=== PATIENT | female | born 1985 | race African-American/Black ===

== ENCOUNTER 2016-05-15 00:35 | Emergency (ER) | payer OTHER ==
[2016-05-15] MEDS ORDERED: diazePAM 5 MG TAB As Ordered ONE (02:14)
[2016-05-15] MEDS ORDERED: KETOROLAC 30 MG/ML VIAL (J1885) As Ordered ONE (02:14)
[2016-05-15] MEDS ORDERED: MORPHINE 4 MG/ML 1ML SYRINGE As Ordered ONE (02:14)
--- NOTE | 2016-05-15 04:18 | EDDOCDS ---
Physician Documentation [facility] Name: Umm Bueno Age: 31 yrs Sex: Female : 1985 Arrival Date: 05/15/2016 Time: 00:35 Bed 9 Private MD: Disposition: 05/15/16 04:03 Discharged to Home/Self Care. Impression: Low back pain. - Condition is Stable. - Discharge Instructions: Back Pain, Adult, Musculoskeletal Pain, Back Pain, Adult, [id number]. - Prescriptions for Naprosyn 500 mg Oral Tablet - take 1 tablet by ORAL route 2 times per day take with food; 30 tablet. Percocet 5- 325 mg Oral Tablet - take 1 tablet by ORAL route every 6 hours As needed MDD: 4 tabs; 20 tablet. Valium 5 mg Oral Tablet - take 1 tablet by ORAL route every 8 hours As needed MDD: 3 tabs; 20 tablet. - Medication Reconciliation, Local Pharmacy Hours form. - Follow up: HALIMA Turner; When: 2 - 3 days; Reason: Continuance of care. - Problem is an acute exacerbation. - Symptoms have improved. Historical: - Allergies: PENICILLINS (Hives, Swelling); - Home Meds: 1. Advair Diskus 250-50 mcg/dose Inhl dsdv 1 puff 2 times per day (Last dose: Unknown) - PMHx: herniated disc L4/5; Migraine Headaches; - PSHx: Arthroscopy, Knee- Right; left hand surgery; ; Tonsillectomy; - Social history: Smoking status: Patient uses tobacco products, light tobacco smoker. No barriers to communication noted, The patient speaks fluent Urdu, Speaks appropriately for age. - Family history: Not pertinent. - : The pt / caregiver states he / she is not on anticoagulants. Home medication list is obtained from the patient. - Exposure Risk Screening:: None identified. 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 1 in. (154.94 cm) (R); Pain 8/10; 04:06 BP 133 / 80 LA Sitting (auto/reg); Pulse 65 MON; Resp 18 S; Temp 98.2(TE); Pulse Ox 99% cln on R/A; Pain 04/25; 00:42 Body Mass Index 27.59 (66.22 kg, 154.94 cm) [facility] MDM: 01:43 IV Saline Lock ordered. mm11 01:43 ketorolac 30 mg IVP once ordered. mm11 01:44 morphine 4 mg IVP every 30 minutes; Document pain score/vitals after each dose (Hold if mm11 SBP < 90mmHg) x2 ordered. 01:44 Diazepam 5 mg PO once ordered. mm11 03:11 Financial registration complete. [facility] Administered Medications: 02:29 Drug: ketorolac 30 mg [ketorolac 30 mg/mL (1 mL) injection solution (1 mL)] Route: IVP; js15 Site: right antecubital; 03:00 Follow up: Response: Pain is decreased js15 02:29 Drug: morphine 4 mg [morphine 4 mg/mL intravenous cartridge (1 mL)] Route: IVP; Site: js15 right antecubital; 03:00 Follow up: Response: Pain is decreased js15 02:29 Drug: Diazepam 5 mg [diazepam 5 mg tablet (1 tabs)] Route: PO; js15 03:30 Follow up: Response: Pain is decreased js15 Signatures: Angle Khan, RN RN kmg1 Jean-Claude Dallas DO DO mm11 Erica Larson [facility] Pricila Ruvalcaba RN RN js15 JANNIE
--- NOTE | 2016-05-15 04:18 | EDDOCDS ---
Nurse's Notes [facility] Name: Umm Bueno Age: 31 yrs Sex: Female : 1985 Arrival Date: 05/15/2016 Time: 00:35 Bed 9 Private MD: Diagnosis: Low back pain Presentation: 05/15 00:38 Presenting complaint: Patient states: [place] a pull from low mid back outward while kmg1 grocery shopping. Now has pain in right low back radiating upward and tingling in right leg. Suicide/Homicide risk assessment- the patient denies having any suicidal and/or homicidal ideations and does not present with any other emotional, behavioral or mental health complaints. Status: The patient is a dependent. Transition of care: patient was not received from another setting of care. 00:38 Acuity: CODY Level 3 [facility] 00:38 Method Of Arrival: Walkin/Carried/Asstd [facility] 00:42 Adult Sepsis Screening: The patient does not have new or worsening altered mentation. [facility] Patient's respiratory rate is less than 22. Systolic blood pressure is greater than 100. Patient has a qSOFA score of 0- Negative Sepsis Screen. Triage Assessment: 00:42 General: Appears in no apparent distress, uncomfortable, Behavior is appropriate for [facility] age, cooperative, pleasant. Pain: Location: lumbar area and right low back Quality of pain is described as Pulling/stretching Alleviated by nothing. HIV screening NA for this visit Offered previously. Neurological: Level of Consciousness is awake, alert, Oriented to person, place, time. Musculoskeletal: Reports numbness in right leg. 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 Advair Diskus 250-50 mcg/dose Inhl dsdv 1 puff 2 times per day (Last dose: Unknown) - PMHx: herniated disc L4/5; Migraine Headaches; - PSHx: Arthroscopy, Knee- Right; left hand surgery; ; Tonsillectomy; - Social history: Smoking status: Patient uses tobacco products, light tobacco smoker. No barriers to communication noted, The patient speaks fluent Tristanian, Speaks appropriately for age. - Family history: Not pertinent. - : The pt / caregiver states he / she is not on anticoagulants. Home medication list is obtained from the patient. - Exposure Risk Screening:: None identified. Screenin:30 Screening information is obtained from the patient. Fall risk: At risk due to pain when js15 walking. The following interventions are performed due to a positive Fall Risk Screen: family at bedside, bed in low position, call light in reach, side rails up x1 per pt request. Assistance ADL's: requires no assistance with activities of daily living. Abuse/DV Screen: The patient / caregiver reports he/she is: not in a situation that causes fear, pain or injury. Nutritional screening: No deficits noted. Advance Directives: There is no active DNR order. home support is adequate. Assessment: 01:30 General: Appears in no apparent distress, uncomfortable, Behavior is appropriate for js15 age, cooperative. Pain: Location: right leg and back and right low back and lumbar area Pain currently is 7 out of 10 on a pain scale. Neurological: Level of Consciousness is awake, alert, obeys commands, Oriented to person, place, time, Gait is painful. Respiratory: Airway is patent Respiratory effort is even, unlabored, Respiratory pattern is regular, symmetrical. Derm: Skin is normal. 02:30 Reassessment: Patient appears in no apparent distress at this time. Pt resting on js15 stretcher, respirations even and unlabored; skin normal, warm, dry. 03:52 Reassessment: Patient appears in no apparent distress at this time. Patient states js15 feeling better. Patient states symptoms have improved. Pt resting on stretcher, gait is improved and reportedly less painful; pt reports ready to go home; respirations even and unlabored; skin normal, warm, dry. Vital Signs: 00:42 BP 171 / 78; Pulse 88; Resp 18; Temp 98.1(O); Pulse Ox 99% ; Weight 66.22 kg (R); kmg1 Height 5 ft. 1 in. (154.94 cm) (R); Pain 810; 04:06 BP 133 / 80 LA Sitting (auto/reg); Pulse 65 MON; Resp 18 S; Temp 98.2(TE); Pulse Ox 99% cln on R/A; Pain 1/; 00:42 Body Mass Index 27.59 (66.22 kg, 154.94 cm) km Vitals: 00:42 Log In Time: May 15, 2016 at 00:37. kmg1 ED Course: 00:36 Patient visited by Adali Baeza, Sachin. hs2 00:36 Patient moved to Waiting hs2 00:41 Triage Initiated kmg1 01:09 Patient moved to 9 sls1 01:33 Jean-Claude Dallas DO is Attending Physician. mm11 01:33 Patient visited by Jean-Claude Dallas DO. mm11 01:45 Patient visited by Jean-Claude Dallas DO. mm11 02:00 The patient / caregiver is instructed regarding the plan of care and ED course. js15 02:25 Inserted saline lock: 20 gauge in right antecubital area The patient tolerated the js15 procedure well. 02:48 Patient visited by Kimberlee Khalil PCA. fernando 03:50 Patient visited by Kimberlee Khalil PCA. fernando 03:54 No procedures done that require assistance. js15 04:02 HALIMA Turner is Referral Physician. mm11 04:07 Patient visited by Mitra Mckeon PCA. cln 04:16 Discontinued IV lock intact, bleeding controlled, pressure dressing applied, No js15 redness/swelling at site. Administered Medications: 02:29 Drug: ketorolac 30 mg [ketorolac 30 mg/mL (1 mL) injection solution (1 mL)] Route: IVP; js15 Site: right antecubital; 03:00 Follow up: Response: Pain is decreased js15 02:29 Drug: morphine 4 mg [morphine 4 mg/mL intravenous cartridge (1 mL)] Route: IVP; Site: js15 right antecubital; 03:00 Follow up: Response: Pain is decreased js15 02:29 Drug: Diazepam 5 mg [diazepam 5 mg tablet (1 tabs)] Route: PO; js15 03:30 Follow up: Response: Pain is decreased js15 Order Results: There are currently no results for this order. Outcome: 04:03 Discharge ordered by Provider. mm11 04:16 Discharge Assessment: Patient awake, alert and oriented x 3. No cognitive and/or js15 functional deficits noted. Patient verbalized understanding of disposition instructions. patient administered narcotics - yes. Pt provided with safe discharge. The following High Risk Discharge criteria are identified: None. Discharged to home ambulatory, with significant other. Condition: stable Condition: improved. Discharge instructions given to patient, Instructed on discharge instructions, follow up and referral plans. medication usage, no driving heavy equipment, Rest, Ice, Compression and Elevation. Demonstrated understanding of instructions, medications, Pt was receptive of discharge instructions/ teaching. Prescriptions given X 3. CT Study completed. Property sent home with patient. 04:17 Patient left the ED. js15 Signatures: Angle Khan, RN RN kmg1 Jean-Claude Dallas, DO mm11 Kimberlee Khalil, CLOTH BRUSHING AND SUEDING SUPERVISOR CLOTH BRUSHING AND SUEDING SUPERVISOR fernando Jessica Gomez RN RN sls1 Pricila RuvalcabaRN RN js15 Adali Baeza, Reg Reg hs2 Mitra Mckeon, CLOTH BRUSHING AND SUEDING SUPERVISOR CLOTH BRUSHING AND SUEDING SUPERVISOR cln MTDD
--- NOTE | 2016-05-17 05:18 | EDDOCDS ---
Physician Documentation [facility] Name: Umm Bueno Age: 31 yrs Sex: Female : 1985 Arrival Date: 05/15/2016 Time: 00:35 Bed 9 Private MD: Disposition: 05/15/16 04:03 Discharged to Home/Self Care. Impression: Low back pain. - Condition is Stable. - Discharge Instructions: Back Pain, Adult, Musculoskeletal Pain, Back Pain, Adult, [id number]. - Prescriptions for Naprosyn 500 mg Oral Tablet - take 1 tablet by ORAL route 2 times per day take with food; 30 tablet. Percocet 5- 325 mg Oral Tablet - take 1 tablet by ORAL route every 6 hours As needed MDD: 4 tabs; 20 tablet. Valium 5 mg Oral Tablet - take 1 tablet by ORAL route every 8 hours As needed MDD: 3 tabs; 20 tablet. - Medication Reconciliation, Local Pharmacy Hours form. - Follow up: HALIMA Turner; When: 2 - 3 days; Reason: Continuance of care. - Problem is an acute exacerbation. - Symptoms have improved. Historical: - Allergies: PENICILLINS (Hives, Swelling); - Home Meds: 1. Advair Diskus 250-50 mcg/dose Inhl dsdv 1 puff 2 times per day (Last dose: Unknown) - PMHx: herniated disc L4/5; Migraine Headaches; - PSHx: Arthroscopy, Knee- Right; left hand surgery; ; Tonsillectomy; - Social history: Smoking status: Patient uses tobacco products, light tobacco smoker. No barriers to communication noted, The patient speaks fluent Lao, Speaks appropriately for age. - Family history: Not pertinent. - : The pt / caregiver states he / she is not on anticoagulants. Home medication list is obtained from the patient. - Exposure Risk Screening:: None identified. 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 1 in. (154.94 cm) (R); Pain 8/10; 04:06 BP 133 / 80 LA Sitting (auto/reg); Pulse 65 MON; Resp 18 S; Temp 98.2(TE); Pulse Ox 99% cln on R/A; Pain 04/25; 00:42 Body Mass Index 27.59 (66.22 kg, 154.94 cm) [facility] MDM: 01:43 IV Saline Lock ordered. mm11 01:43 ketorolac 30 mg IVP once ordered. mm11 01:44 morphine 4 mg IVP every 30 minutes; Document pain score/vitals after each dose (Hold if mm11 SBP < 90mmHg) x2 ordered. 01:44 Diazepam 5 mg PO once ordered. mm11 03:11 Financial registration complete. [facility] 04:18 [facility] Payment Agreement was scanned into Cloudbot and attached to record. [facility] 14:39 T-Sheet-- Draft Copy was scanned into Cloudbot and attached to record. gb Administered Medications: 02:29 Drug: ketorolac 30 mg [ketorolac 30 mg/mL (1 mL) injection solution (1 mL)] Route: IVP; js15 Site: right antecubital; 03:00 Follow up: Response: Pain is decreased js15 02:29 Drug: morphine 4 mg [morphine 4 mg/mL intravenous cartridge (1 mL)] Route: IVP; Site: js15 right antecubital; 03:00 Follow up: Response: Pain is decreased js15 02:29 Drug: Diazepam 5 mg [diazepam 5 mg tablet (1 tabs)] Route: PO; js15 03:30 Follow up: Response: Pain is decreased js15 Signatures: Angle Khan, RN RN [facility] Ines Olea, Reg Reg Jean-Claude Dallas, DO DO [facility] Erica Larson [facility] Pricila Ruvalcaba RN RN js15 The chart was reviewed and I authenticate all verbal orders and agree with the evaluation and treatment provided.Attachments: 04:18 [facility] Payment Agreement [facility] 14:39 T-Sheet-- Draft Copy Chart Complete MTDD
--- NOTE | 2016-05-17 05:18 | EDDOCDS ---
Physician Documentation [facility] Name: Umm Bueno Age: 31 yrs Sex: Female : 1985 Arrival Date: 05/15/2016 Time: 00:35 Bed 9 Private MD: Disposition: 05/15/16 04:03 Discharged to Home/Self Care. Impression: Low back pain. - Condition is Stable. - Discharge Instructions: Back Pain, Adult, Musculoskeletal Pain, Back Pain, Adult, [id number]. - Prescriptions for Naprosyn 500 mg Oral Tablet - take 1 tablet by ORAL route 2 times per day take with food; 30 tablet. Percocet 5- 325 mg Oral Tablet - take 1 tablet by ORAL route every 6 hours As needed MDD: 4 tabs; 20 tablet. Valium 5 mg Oral Tablet - take 1 tablet by ORAL route every 8 hours As needed MDD: 3 tabs; 20 tablet. - Medication Reconciliation, Local Pharmacy Hours form. - Follow up: HALIMA Turner; When: 2 - 3 days; Reason: Continuance of care. - Problem is an acute exacerbation. - Symptoms have improved. Historical: - Allergies: PENICILLINS (Hives, Swelling); - Home Meds: 1. Advair Diskus 250-50 mcg/dose Inhl dsdv 1 puff 2 times per day (Last dose: Unknown) - PMHx: herniated disc L4/5; Migraine Headaches; - PSHx: Arthroscopy, Knee- Right; left hand surgery; ; Tonsillectomy; - Social history: Smoking status: Patient uses tobacco products, light tobacco smoker. No barriers to communication noted, The patient speaks fluent German, Speaks appropriately for age. - Family history: Not pertinent. - : The pt / caregiver states he / she is not on anticoagulants. Home medication list is obtained from the patient. - Exposure Risk Screening:: None identified. 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 1 in. (154.94 cm) (R); Pain 8/10; 04:06 BP 133 / 80 LA Sitting (auto/reg); Pulse 65 MON; Resp 18 S; Temp 98.2(TE); Pulse Ox 99% cln on R/A; Pain 04/25; 00:42 Body Mass Index 27.59 (66.22 kg, 154.94 cm) [facility] MDM: 01:43 IV Saline Lock ordered. mm11 01:43 ketorolac 30 mg IVP once ordered. mm11 01:44 morphine 4 mg IVP every 30 minutes; Document pain score/vitals after each dose (Hold if mm11 SBP < 90mmHg) x2 ordered. 01:44 Diazepam 5 mg PO once ordered. mm11 03:11 Financial registration complete. [facility] 04:18 [facility] Payment Agreement was scanned into Farseer and attached to record. [facility] 14:39 T-Sheet-- Draft Copy was scanned into Farse[employer] and attached to record. gb Administered Medications: 02:29 Drug: ketorolac 30 mg [ketorolac 30 mg/mL (1 mL) injection solution (1 mL)] Route: IVP; js15 Site: right antecubital; 03:00 Follow up: Response: Pain is decreased js15 02:29 Drug: morphine 4 mg [morphine 4 mg/mL intravenous cartridge (1 mL)] Route: IVP; Site: js15 right antecubital; 03:00 Follow up: Response: Pain is decreased js15 02:29 Drug: Diazepam 5 mg [diazepam 5 mg tablet (1 tabs)] Route: PO; js15 03:30 Follow up: Response: Pain is decreased js15 Signatures: Angle Khan, RN RN [facility] Ines Olea, Reg Reg Jean-Claude Dallas, DO DO [facility] Erica Larson [facility] Pricila Ruvalcaba RN RN js15 The chart was reviewed and I authenticate all verbal orders and agree with the evaluation and treatment provided.Attachments: 04:18 [facility] Payment Agreement [facility] 14:39 T-Sheet-- Draft Copy Chart Complete MTDD
--- NOTE | 2016-05-17 05:18 | EDDOCDS ---
Nurse's Notes [facility] Name: Umm Bueno Age: 31 yrs Sex: Female : 1985 Arrival Date: 05/15/2016 Time: 00:35 Bed 9 Private MD: Diagnosis: Low back pain Presentation: 05/15 00:38 Presenting complaint: Patient states: [place] a pull from low mid back outward while kmg1 grocery shopping. Now has pain in right low back radiating upward and tingling in right leg. Suicide/Homicide risk assessment- the patient denies having any suicidal and/or homicidal ideations and does not present with any other emotional, behavioral or mental health complaints. Status: The patient is a dependent. Transition of care: patient was not received from another setting of care. 00:38 Acuity: CODY Level 3 [facility] [place] 00:38 Method Of Arrival: Walkin/Carried/Asstd [facility] [place] 00:42 Adult Sepsis Screening: The patient does not have new or worsening altered mentation. [facility] [place] Patient's respiratory rate is less than 22. Systolic blood pressure is greater than 100. Patient has a qSOFA score of 0- Negative Sepsis Screen. Triage Assessment: 00:42 General: Appears in no apparent distress, uncomfortable, Behavior is appropriate for [facility] [place] age, cooperative, pleasant. Pain: Location: lumbar area and right low back Quality of pain is described as Pulling/stretching Alleviated by nothing. HIV screening NA for this visit Offered previously. Neurological: Level of Consciousness is awake, alert, Oriented to person, place, time. Musculoskeletal: Reports numbness in right leg. 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 Advair Diskus 250-50 mcg/dose Inhl dsdv 1 puff 2 times per day (Last dose: Unknown) - PMHx: herniated disc L4/5; Migraine Headaches; - PSHx: Arthroscopy, Knee- Right; left hand surgery; ; Tonsillectomy; - Social history: Smoking status: Patient uses tobacco products, light tobacco smoker. No barriers to communication noted, The patient speaks fluent Kyrgyz, Speaks appropriately for age. - Family history: Not pertinent. - : The pt / caregiver states he / she is not on anticoagulants. Home medication list is obtained from the patient. - Exposure Risk Screening:: None identified. Screenin:30 Screening information is obtained from the patient. Fall risk: At risk due to pain when js15 walking. The following interventions are performed due to a positive Fall Risk Screen: family at bedside, bed in low position, call light in reach, side rails up x1 per pt request. Assistance ADL's: requires no assistance with activities of daily living. Abuse/DV Screen: The patient / caregiver reports he/she is: not in a situation that causes fear, pain or injury. Nutritional screening: No deficits noted. Advance Directives: There is no active DNR order. home support is adequate. Assessment: 01:30 General: Appears in no apparent distress, uncomfortable, Behavior is appropriate for js15 age, cooperative. Pain: Location: right leg and back and right low back and lumbar area Pain currently is 7 out of 10 on a pain scale. Neurological: Level of Consciousness is awake, alert, obeys commands, Oriented to person, place, time, Gait is painful. Respiratory: Airway is patent Respiratory effort is even, unlabored, Respiratory pattern is regular, symmetrical. Derm: Skin is normal. 02:30 Reassessment: Patient appears in no apparent distress at this time. Pt resting on js15 stretcher, respirations even and unlabored; skin normal, warm, dry. 03:52 Reassessment: Patient appears in no apparent distress at this time. Patient states js15 feeling better. Patient states symptoms have improved. Pt resting on stretcher, gait is improved and reportedly less painful; pt reports ready to go home; respirations even and unlabored; skin normal, warm, dry. Vital Signs: 00:42 BP 171 / 78; Pulse 88; Resp 18; Temp 98.1(O); Pulse Ox 99% ; Weight 66.22 kg (R); kmg1 Height 5 ft. 1 in. (154.94 cm) (R); Pain 810; 04:06 BP 133 / 80 LA Sitting (auto/reg); Pulse 65 MON; Resp 18 S; Temp 98.2(TE); Pulse Ox 99% cln on R/A; Pain 1/; 00:42 Body Mass Index 27.59 (66.22 kg, 154.94 cm) km Vitals: 00:42 Log In Time: May 15, 2016 at 00:37. kmg1 ED Course: 00:36 Patient visited by Adali Baeza, Reg. hs2 00:36 Patient moved to Waiting hs2 00:41 Triage Initiated kmg1 01:09 Patient moved to 9 sls1 01:33 Jean-Claude Dallas DO is Attending Physician. mm11 01:33 Patient visited by Jean-Claude Dallas DO. mm11 01:45 Patient visited by Jean-Claude Dallas DO. mm11 02:00 The patient / caregiver is instructed regarding the plan of care and ED course. js15 02:25 Inserted saline lock: 20 gauge in right antecubital area The patient tolerated the js15 procedure well. 02:48 Patient visited by Kimberlee Khalil PCA. fernando 03:50 Patient visited by Kimberlee Khalil PCA. fernando 03:54 No procedures done that require assistance. js15 04:02 HALIMA Turner is Referral Physician. mm11 04:07 Patient visited by Mitra Mckeon PCA. cln 04:16 Discontinued IV lock intact, bleeding controlled, pressure dressing applied, No js15 redness/swelling at site. 04:18 [facility] Payment Agreement was scanned into Ping[employer] and attached to record. [facility] 14:39 T-Sheet-- Draft Copy was scanned into P[employer] and attached to record. gb Administered Medications: 02:29 Drug: ketorolac 30 mg [ketorolac 30 mg/mL (1 mL) injection solution (1 mL)] Route: IVP; js15 Site: right antecubital; 03:00 Follow up: Response: Pain is decreased js15 02:29 Drug: morphine 4 mg [morphine 4 mg/mL intravenous cartridge (1 mL)] Route: IVP; Site: js15 right antecubital; 03:00 Follow up: Response: Pain is decreased js15 02:29 Drug: Diazepam 5 mg [diazepam 5 mg tablet (1 tabs)] Route: PO; js15 03:30 Follow up: Response: Pain is decreased js15 Order Results: There are currently no results for this order. Outcome: 04:03 Discharge ordered by Provider. mm11 04:16 Discharge Assessment: Patient awake, alert and oriented x 3. No cognitive and/or js15 functional deficits noted. Patient verbalized understanding of disposition instructions. patient administered narcotics - yes. Pt provided with safe discharge. The following High Risk Discharge criteria are identified: None. Discharged to home ambulatory, with significant other. Condition: stable Condition: improved. Discharge instructions given to patient, Instructed on discharge instructions, follow up and referral plans. medication usage, no driving heavy equipment, Rest, Ice, Compression and Elevation. Demonstrated understanding of instructions, medications, Pt was receptive of discharge instructions/ teaching. Prescriptions given X 3. CT Study completed. Property sent home with patient. 04:17 Patient left the ED. js15 Signatures: Angle Khan, RN RN kmg1 Ines Olea, Reg Reg gb Jean-Claude Dallas, DO DO mm11 Kimberlee Khalil, TIRE CHANGER TIRE CHANGER fernando Jessica Gomez, RN RN sls1 Erica Larson Julia,RN RN js15 Adali Baeza, Reg Reg hs2 Mitra Mckeon, TIRE CHANGER TIRE CHANGER cln Chart Complete MTDD
== END 2016-05-15 04:17 | disposition home or self-care (01) ==
LOC: M ED 00:35
DX: M54.5 Low back pain (principal); G43.909 Migraine, unspecified, not intractable, without status migrainosus; Z72.0 Tobacco use; Z88.0 Allergy status to penicillin
CPT/HCPCS: 96374; 96375; 99284; J1885

== ENCOUNTER → 2016-06-20 | Outpatient (CLI) | payer OTHER ==
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
== END ==
LOC: M PAIN 14:40
PROVIDERS: ATTEND Nurse Practitioner Family
DX: G89.29 Other chronic pain (principal); M53.3 Sacrococcygeal disorders, not elsewhere classified; J45.909 Unspecified asthma, uncomplicated; F17.200 Nicotine dependence, unspecified, uncomplicated; Z88.5 Allergy status to narcotic agent

== ENCOUNTER → 2016-07-17 | Outpatient (CLI) | payer OTHER ==
[~2016-07-17] MED LIST: BUPIVACAINE HCL 0.25% 30 ML VIAL As Ordered ONE; ISOVUE-M 300 61% 15ML VIAL (Q9967) As Ordered ONE; LIDOCAINE 1% SDV INJ 30 ML VIAL As Ordered ONE; MAGICMW SSP; NYST50SS SS; TRIAMCINOLONE ACETONIDE SUSP 40 MG/ML VIAL (J3301) As Ordered ONE; diazePAM 5 MG TAB As Ordered ONE; oxyCODONE 5MG TAB As Ordered ONE
--- NOTE | 2016-07-21 23:09 | REP ---
FLUOROSCOPIC GUIDANCE FOR BILATERAL SI JOINT INJECTION: 07/17/2016. Clinical history: Low back pain. Four images from C-arm fluoroscopy provided to Dr. Bailey of the pain clinic for bilateral SI joint injection are reviewed. Two images show needle the lower one-third and middle aspect of the left and right SI joints respectively with some contrast adjacent. Fluoroscopy time: 26 seconds. Signed by Khanh Huff MD 07/22/2016 08:13 P
--- NOTE | 2016-07-23 23:44 | ECWPNPC ---
PATIENT NAME: LITTLE MANCIA : 1985 GENDER: FEMALE VISIT DATE: 07/17/2016 DISCHARGE DATE: 07/17/16 1137 VISIT LOCKED DATE TIME: PHYSICIAN: SUSAN NICOLE RESOURCE: SUSAN NICOLE REASON FOR APPOINTMENT 1. SIJ HISTORY OF PRESENT ILLNESS HISTORY OF PRESENT ILLNESS: PAIN THE PATIENT DESCRIBES THE PAIN... FALL RISK SCREENING: SCREENING :NO FALLS IN THE PAST YEAR CURRENT MEDICATIONS NONE PAST MEDICAL HISTORY ASTHMA ALLERGIES PENICILLIN (FOR ALLERGIES USE ONLY): HIVES SOCIAL HISTORY GENERAL: PAIN CLINIC PFS, CLERGY, PUBLIC HEALTH REFERRALS CLERGY REFERRAL NEEDED?NO WAS THE PROVIDER NOTIFIED OF ANY PERTINENT INFO?NO PFS REFERRAL NEEDED?NO PUBLIC HEALTH REFERRAL NEEDED?NO PATIENT: ____. REVIEW OF SYSTEMS CONSTITUTIONAL: ANY CHANGE IN YOUR MEDICAL CONDITION? NO . CHILLS NO . FEVER NO . INFECTION: DO YOU HAVE NEW INFECTIONS? NO . DO YOU HAVE HISTORY OF MRSA? NO . MUSCULOSKELETAL: ANY NEW PATTERNS OF PAIN OR NUMBNESS? NO . GASTROENTEROLOGY: ANY NEW CHANGE IN BOWEL CONTROL? NO . GENITOURINARY: ANY NEW CHANGE IN BLADDER CONTROL? NO . IS THERE A CHANCE YOU COULD BE ? NO . HEMATOLOGY/LYMPH: DO YOU TAKE ANY BLOOD THINNERS? (FOR EXAMPLE- COUMADIN, PLAVIX, AGGRENOX, PLATEL, PRADAXA, OR XARELTO) NO . WHEN WAS YOUR LAST DOSE? DATE: TIME: . NEUROLOGY: HAVE YOU FALLEN IN THE PAST 6 MONTHS? NO . ANY NEW EXTREMITY NUMBNESS OR WEAKNESS? NO . CARDIOLOGY: DO YOU HAVE A PACEMAKER OR DEFIBRILLATOR? NO . RESPIRATORY: HAVE YOU BEEN SICK IN THE PAST WEEK? NO . FEVER NO . FLU LIKE SYMPTOMS? NO . COUGH NO . INTEGUMENTARY: DO YOU HAVE ANY RASHES OR OPEN SORES? NO . ALLERGIC/IMMUNO: ARE YOU ALLERGIC TO SHELLFISH OR IV DYE? NO . ANY NEW ALLERGIES? NO . PSYCHIATRIC: DO YOU HAVE THOUGHTS OF HURTING YOURSELF OR SOMEONE ELSE? NO . ARE YOU ABUSED, NEGLECTED, OR IN AN UNSAFE ENVIRONMENT? NO . ENDOCRINOLOGY: ARE YOU DIABETIC? NO . OTHER: DO YOU NEED ANY PRESCRIPTIONS? NO . IF YES, PLEASE LIST: ____ . ANY NEW PROBLEMS WITH YOUR MEDICATIONS? NO . WHEN DID YOU LAST EAT? 4-2-17 PM . WHEN DID YOU LAST DRINK? 4-2-17 PM . WHAT DID YOU LAST DRINK? SODA . DO YOU HAVE ANY OTHER QUESTIONS OR CONCERNS NO . REVIEWED BY: PROVIDER: . VITAL SIGNS WT 161.0 LBS, HT 61", BMI 30.42 INDEX, BP 100/69 MM HG, HR 81 /MIN, RR 16 /MIN, TEMP 97.7 F, OXYGEN SAT % 99%, NA INITIALS TL 1018, REVIEWED BY: CM. ASSESSMENTS SACROILIITIS, NOT ELSEWHERE CLASSIFIED - M46.1 (PRIMARY) PROCEDURES PN SI PRE PROCEDURE DIAGNOSIS SACROILIITIS, SACROILIAC JOINT DYSFUNCTION POST PROCEDURE DIAGNOSIS SACROILIITIS, SACROILIAC JOINT DYSFUNCTION PROCEDURE BILATERAL SACROILIAC JOINT BLOCK SURGEON DR. SUSAN NICOLE NC MACHINIST NONE ANESTHESIA LOCAL PRE PROCEDURE NOTE PATIENT WITH HISTORY OF CHRONIC LOW BACK PAIN. I EVALUATED THE PATIENT AND REVIEWED THE CHART. I WENT OVER THE RISKS, ALTERNATIVES, AND BENEFITS ASSOCIATED WITH THIS PROCEDURE. THE PATIENT WOULD LIKE TO PROCEED AND GAVE CONSENT TO PERFORM THE PROCEDURE. THE PATIENT DENIES UNEXPLAINABLE WEIGHT LOSS, FEVER, CHILLS, OR NEW CHANGES IN URINARY OR BOWEL CONTROL DESCRIPTION OF PROCEDURE THE PATIENT WAS BROUGHT TO THE PROCEDURE ROOM AND PLACED IN THE PRONE POSITION. THE LUMBOSACRAL AREA WAS CLEANED WITH CHLORAPREP SOLUTION AND DRAPED ASEPTICALLY. THE PROCEDURE WAS DONE UNDER STERILE CONDITIONS. I CHECKED LATERALITY AND THE LEVEL WHERE THE PROCEDURE WAS GOING TO BE PERFORMED WITH THE PATIENT AND THE SUPPORTING STAFF AT THE MOMENT OF THE TIME OUT IN THE PROCEDURE ROOM. UNDER FLUOROSCOPIC GUIDANCE, TARGET POINT WAS SELECTED AT THE LOWER BORDER OF THE RIGHT AND LEFT SACROILIAC JOINT. TARGET POINT WAS SELECTED AFTER MEDIAL ROTATION AND TILT OF THE MAGNIFIER OF THE C-ARM. LIDOCAINE WAS USED TO NUMB THE SKIN AND SUBCUTANEOUS TISSUE BELOW IT. A SPINAL NEEDLE, 22-GAUGE, WAS ADVANCED UNDER FLUOROSCOPIC GUIDANCE AND FOLLOWING PATIENT FEEDBACK UNTIL THE TARGET AREA WAS TOUCHED. THE POSITION OF THE NEEDLE WAS VERIFIED WITH AP AND LATERAL VIEWS. AFTER PROPER POSITION OF THE NEEDLE WAS ACHIEVED, ISOVUE M DYE 30%, 0.25 ML, WAS INJECTED SHOWING SPREAD OF THE DYE. THEN, A SOLUTION OF 20 MG OF KENALOG WAS INJECTED IN RIGHT JOINT WITH 3 ML OF BUPIVACAINE 0.125%. THERE WAS NO EVIDENCE OF BLOOD, PARESTHESIA OR CEREBROSPINAL FLUID DURING THE PROCEDURE. THE PATIENT WAS SENT TO THE RECOVERY ROOM. THE PATIENT WAS MOVING THE EXTREMITIES AND DOING WELL. THERE WAS NO COMPLICATION DURING THE PROCEDURE. FLUOROSCOPY TIME WAS 26 SECONDS POST PROCEDURE NOTE THE PATIENT WILL BE SEEN IN A FOLLOW UP IN THE NEXT FEW WEEKS. INSTRUCTIONS WERE GIVEN, QUESTIONS WERE ANSWERED, AND THE PATIENT EXPRESSED UNDERSTANDING AND AGREED WITH THE PLAN. I, MALINA FIELD, DOCUMENTED THE ABOVE INFORMATION ACTING A SCRIBE FOR DR. NICOLE. I HAVE REVIEWED THE ABOVE DOCUMENT, WRITTEN BY MALINA FIELD SCRIBE AND I VERIFY THAT IT IS ACCURATE. DIAGNOSTIC IMAGING [facility] FL[facility] GUIDANCE (PAIN)[id number] PROCEDURE CODES 06640 INJECT SACROILIAC JOINT 6045F RADXPS IN END [id number] PXD DISPOSITION & COMMUNICATION FOLLOW UP 3 WEEKS ELECTRONICALLY SIGNED BY SUSAN NICOLE MD ON 07/23/2016 AT 09:24 PM EDT DISCLAIMER : THIS IS A VISIT SUMMARY EXTRACTED FROM THE [employer] CHART. IT IS NOT A COPY OF THE [employer] PROGRESS NOTE. [email or web address]
== END ==
LOC: M PAIN 10:20
PROVIDERS: ATTEND Anesthesiology
DX: G89.29 Other chronic pain (principal); M46.1 Sacroiliitis, not elsewhere classified; J45.909 Unspecified asthma, uncomplicated; Z88.0 Allergy status to penicillin
CPT/HCPCS: G0260; J3301; Q9967

== ENCOUNTER 2016-07-26 20:07 | Emergency (ER) | payer OTHER ==
[~2016-07-26] VITALS: Ht 154.9 cm; Wt 73.0 kg
[2016-07-26] MEDS ORDERED: NYSTATIN 500,000 U/5 ML SUSP UDC PO ONE (21:45)
[2016-07-26] MEDS ORDERED: MAGIC MOUTHWASH SUSPENSION BTL SSP ONE ×2 (21:45)
[2016-07-26] MEDS ORDERED: MAGICMW SSP (21:49)
[2016-07-26] MEDS ORDERED: NYST50SS SS (21:49)
[2016-07-26 22:11] VITALS: BP 120/78
== END 2016-07-26 22:13 | disposition home or self-care (01) ==
LOC: M ED 21:44
DX: B37.0 Candidal stomatitis (principal); F17.200 Nicotine dependence, unspecified, uncomplicated; Z88.0 Allergy status to penicillin

== ENCOUNTER → 2016-08-10 | Outpatient (CLI) | payer OTHER ==
[~2016-08-10] MED LIST changes: -BUPIVACAINE HCL 0.25% 30 ML VIAL As Ordered ONE; -ISOVUE-M 300 61% 15ML VIAL (Q9967) As Ordered ONE; -LIDOCAINE 1% SDV INJ 30 ML VIAL As Ordered ONE; -TRIAMCINOLONE ACETONIDE SUSP 40 MG/ML VIAL (J3301) As Ordered ONE; -diazePAM 5 MG TAB As Ordered ONE; -oxyCODONE 5MG TAB As Ordered ONE
--- NOTE | 2016-08-11 00:48 | ECWPNPC ---
PATIENT NAME: LITTLE MANCIA : 1985 GENDER: FEMALE VISIT DATE: 08/10/2016 DISCHARGE DATE: 08/10/16 1409 VISIT LOCKED DATE TIME: PHYSICIAN: KHURRAM CANNON RESOURCE: KHURRAM CANNON REASON FOR APPOINTMENT 1. 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 CURRENT MEDICATIONS NONE PAST MEDICAL HISTORY ASTHMA ALLERGIES PENICILLIN (FOR ALLERGIES USE ONLY): HIVES SURGICAL HISTORY C SECTION 2000 LEFT HAND SURGERY 2001 RIGHT ACL REPAIR 2011 T & A 2014 SOCIAL HISTORY GENERAL: TOBACCO USE ARE YOU A:CURRENT SMOKER HOW MANY CIGARETTES A DAY DO YOU SMOKE?6-10 HOW SOON AFTER YOU WAKE UP DO YOU SMOKE YOUR FIRST CIGARETTE?AFTER 60 MIN HOW OFTEN DO YOU SMOKE CIGARETTES?EVERY DAY PATIENT COUNSELED ON THE DANGERS OF TOBACCO USE AND URGED TO QUIT:08/10/2016 ARE YOU INTERESTED IN QUITTING?NOT READY TO QUIT COUNSELED THE PATIENT ON SMOKING EFFECTS, EDUCATION [id number]/27/2017 SMOKING CESSATION INFORMATION GIVEN08/10/2016 VAPORNO E-CIGARETTENO LUNG CANCER SCREENING SMOKING STATUS:CURRENT SMOKER IS THE PATIENT BETWEEN THE AGE OF 55 AND 77?NO ALCOHOL SCREENING POINTS4 INTERPRETATIONPOSITIVE MUSLIM [id number] SPIRITISM LEARNING BARRIERS / SPECIAL NEEDS BARRIERS TO LEARNING?YES COMMENTSDOCUMENTED IN NOTES SECTION> ADD HEARING IMPAIRED?NO VISION IMPAIRED?YES :CORRECTIVE LENSES COGNITIVELY IMPAIRED?NO READINESS TO LEARN?YES LEARNING PREFERENCES?NO LEARNING CAPABILITIES PRESENT?YES EMOTIONAL BARRIERS?NO SPECIAL DEVICES?NO ASSOCIATE PRINCIPAL NEEDED?NO PAIN CLINIC PFS, CLERGY, PUBLIC HEALTH REFERRALS CLERGY REFERRAL NEEDED?NO WAS THE PROVIDER NOTIFIED OF ANY PERTINENT INFO?NO PFS REFERRAL NEEDED?NO PUBLIC HEALTH REFERRAL NEEDED?NO PATIENT: ____. 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 EXAMINATION GENERAL EXAMINATION: HEENT:HEAD:, NORMOCEPHALIC, EYES:, EYES NORMAL, NOSE:, NOSE CLEAR, THROAT: NORMAL. LUNGS:LUNG SOUNDS ARE CLEAR. HEART:HEART RATE REGULAR. ABDOMEN:SOFT AND NOT TENDER, NON-DISTENDED. MUSCULOSKELETAL:*. LUMBAR SACRAL SPINEMUSCLE STRENGTH TESTING 5/5 BILATERAL, PALPATION: NEGATIVE FOR PAIN OVER L/S SPINE.POSITIVE FOR PAIN OVER RIGHT L/S PARSPINAL.TPI NOTED OVER RIGHT LUMBAR PARASPINAL.. THORACIC SPINENEGATIVE FOR PAIN WITH PALPATION OF THORACIC SPINE. NEGATIVE FOR PAIN WITH PALPATION OF THORACIC PARASPINAL. CERVICALNEGATIVE FOR PAIN WITH PALPATION OF CERVICAL SPINE. NEGATIVE FOR PAIN WITH PALPATION OF CERVICAL PARASPINALS. NEGATIVE FOR PAIN WITH PALPATION OF TRAPEZIUS BILAT. SKIN:NORMAL, NO RASH. NEUROLOGIC EXAM:ALERT AND ORIENTED X 3, DTRS 1-2+ IN ALL 4 EXTREMITIES, DENIES UPPER EXTREMETIES SENSORY LOSS, DENIES LOWER EXTREMETIES SENSORY LOSS. DIAGNOSTIC:MRI L/S SPINE--REVIEWED.. ASSESSMENTS SACROILIITIS, NOT ELSEWHERE CLASSIFIED - M46.1 (PRIMARY) MYALGIA - M79.1 TREATMENT SACROILIITIS, NOT ELSEWHERE CLASSIFIED REFERRAL TO:PHYSICAL THERAPIST REASON:2X WK X 6WK-MYOFASCIAL RELEASE RIGHT LOW BACK PROCEDURE CODES FA211 ESTABILISHED PATIENT [facility] FACILITY CHARGE DISPOSITION & COMMUNICATION FOLLOW UP 6 WEEKS ELECTRONICALLY SIGNED BY EMMY CAMARGO ON 08/10/2016 AT 04:22 PM EDT DISCLAIMER : THIS IS A VISIT SUMMARY EXTRACTED FROM THE [employer] CHART. IT IS NOT A COPY OF THE [employer] PROGRESS NOTE. JANNIE
== END ==
LOC: M PAIN 10:00
PROVIDERS: ATTEND Nurse Practitioner Family
DX: M46.1 Sacroiliitis, not elsewhere classified (principal); M79.1 Myalgia; M54.5 Low back pain; J45.909 Unspecified asthma, uncomplicated; F17.210 Nicotine dependence, cigarettes, uncomplicated

== ENCOUNTER → 2016-09-28 | Outpatient (CLI) | payer OTHER ==
[~2016-09-28] MED LIST changes: +BENA25TA9 PO; +IBUP-1114 PO; +KEFL500C7 PO
--- NOTE | 2016-09-29 02:10 | ECWPNPC ---
PATIENT NAME: LITTLE MANCIA : 1985 GENDER: FEMALE VISIT DATE: 09/28/2016 DISCHARGE DATE: 09/28/16 1122 VISIT LOCKED DATE TIME: PHYSICIAN: KHURRAM CANNON RESOURCE: KHURRAM CANNON REASON FOR APPOINTMENT 1. BACK HISTORY OF PRESENT ILLNESS HISTORY OF PRESENT ILLNESS: HERE FOR F/U AND MANAGEMENT OF PERSISTENT LOW BACK PAIN.RATING PAIN VAS 0/10.CONTINUES TO BENEFIT FROM BILATERL SIJ.DOES REPORT INTERMITTENT LOW BACK PAIN AFTER EXCERSISE BUT IT IS TOLERABLE.NOT CURRENTLY TAKING PAIN MEDICATION.SHE IS WALKING ON A REGULAR BASIS. PAIN THE PATIENT DESCRIBES THE PAIN... FALL RISK SCREENING: SCREENING :NO FALLS IN THE PAST YEAR CURRENT MEDICATIONS NONE PAST MEDICAL HISTORY ASTHMA ALLERGIES PENICILLIN (FOR ALLERGIES USE ONLY): HIVES SOCIAL HISTORY GENERAL: TOBACCO USE ARE YOU A:CURRENT SMOKER HOW MANY CIGARETTES A DAY DO YOU SMOKE?6-10 HOW SOON AFTER YOU WAKE UP DO YOU SMOKE YOUR FIRST CIGARETTE?AFTER 60 MIN HOW OFTEN DO YOU SMOKE CIGARETTES?EVERY DAY PATIENT COUNSELED ON THE DANGERS OF TOBACCO USE AND URGED TO QUIT:08/10/2016 ARE YOU INTERESTED IN QUITTING?NOT READY TO QUIT COUNSELED THE PATIENT ON SMOKING EFFECTS, EDUCATION [id number]/27/2017 SMOKING CESSATION INFORMATION GIVEN08/10/2016 VAPORNO E-CIGARETTENO LUNG CANCER SCREENING SMOKING STATUS:CURRENT SMOKER IS THE PATIENT BETWEEN THE AGE OF 55 AND 77?NO ALCOHOL SCREENING DID YOU HAVE A DRINK CONTAINING ALCOHOL IN THE PAST YEAR?YES HOW OFTEN DID YOU HAVE A DRINK CONTAINING ALCOHOL IN THE PAST YEAR?TWO TO FOUR TIMES A MONTH (2 POINTS) HOW MANY DRINKS DID YOU HAVE ON A TYPICAL DAY WHEN YOU WERE DRINKING IN THE PAST YEAR?3 OR 4 (1 POINT) HOW OFTEN DID YOU HAVE SIX OR MORE DRINKS ON ONE OCCASION IN THE PAST YEAR?LESS THAN MONTHLY (1 POINT) POINTS4 INTERPRETATIONPOSITIVE SPIRITISM [id number] BAHAI LEARNING BARRIERS / SPECIAL NEEDS BARRIERS TO LEARNING?YES COMMENTSDOCUMENTED IN NOTES SECTION> ADD HEARING IMPAIRED?NO VISION IMPAIRED?YES :CORRECTIVE LENSES COGNITIVELY IMPAIRED?NO READINESS TO LEARN?YES LEARNING PREFERENCES?NO LEARNING CAPABILITIES PRESENT?YES EMOTIONAL BARRIERS?NO SPECIAL DEVICES?NO MEDICARE SALES REPRESENTATIVE NEEDED?NO PAIN CLINIC PFS, CLERGY, PUBLIC HEALTH REFERRALS HAS THE PATIENT BEEN EDUCATED REGARDING HIS/HER PLAN OF CARE?YES HAS THE PATIENT BEEN EDUCATED REGARDING PAIN, THE RISK FOR PAIN, THE IMPORTANCE OF EFFECTIVE PAIN MANAGEMENT, AND THE PAIN ASSESSMENT PROCESS?YES PATIENT: ____. ADVANCE DIRECTIVES HEALTH CARE PROXY?NO WOULD YOU LIKE MORE INFORMATION?NO DO YOU HAVE A DNR?NO WOULD YOU LIKE MORE INFORMATION?NO LIVING WILL?NO WOULD YOU LIKE MORE INFORMATION?NO POWER OF CABINET MOUNTER?NO WOULD YOU LIKE MORE INFORMATION?NO REVIEW OF SYSTEMS CONSTITUTIONAL: ANY CHANGE IN YOUR MEDICAL CONDITION? NO . CHILLS NO . FEVER NO . INFECTION: DO YOU HAVE NEW INFECTIONS? NO . DO YOU HAVE HISTORY OF MRSA? NO . MUSCULOSKELETAL: ANY NEW PATTERNS OF PAIN OR NUMBNESS? NO . GASTROENTEROLOGY: ANY NEW CHANGE IN BOWEL CONTROL? NO . GENITOURINARY: ANY NEW CHANGE IN BLADDER CONTROL? NO . IS THERE A CHANCE YOU COULD BE ? NO . HEMATOLOGY/LYMPH: DO YOU TAKE ANY BLOOD THINNERS? (FOR EXAMPLE- COUMADIN, PLAVIX, AGGRENOX, PLATEL, PRADAXA, OR XARELTO) NO . WHEN WAS YOUR LAST DOSE? DATE: TIME: . NEUROLOGY: HAVE YOU FALLEN IN THE PAST 6 MONTHS? NO . ANY NEW EXTREMITY NUMBNESS OR WEAKNESS? NO . CARDIOLOGY: DO YOU HAVE A PACEMAKER OR DEFIBRILLATOR? NO . RESPIRATORY: HAVE YOU BEEN SICK IN THE PAST WEEK? NO . FEVER NO . FLU LIKE SYMPTOMS? NO . COUGH NO . INTEGUMENTARY: DO YOU HAVE ANY RASHES OR OPEN SORES? NO . ALLERGIC/IMMUNO: ARE YOU ALLERGIC TO SHELLFISH OR IV DYE? NO . ANY NEW ALLERGIES? NO . PSYCHIATRIC: DO YOU HAVE THOUGHTS OF HURTING YOURSELF OR SOMEONE ELSE? NO . ARE YOU ABUSED, NEGLECTED, OR IN AN UNSAFE ENVIRONMENT? NO . ENDOCRINOLOGY: ARE YOU DIABETIC? NO . OTHER: DO YOU NEED ANY PRESCRIPTIONS? NO . IF YES, PLEASE LIST: ____ . ANY NEW PROBLEMS WITH YOUR MEDICATIONS? NO . WHEN DID YOU LAST EAT? ____ . WHEN DID YOU LAST DRINK? ____ . WHAT DID YOU LAST DRINK? ____ . NAME OF PERSON DRIVING YOU HOME? ____ . DO YOU HAVE ANY OTHER QUESTIONS OR CONCERNS NO . REVIEWED BY: PROVIDER: KHURRAM BOOTH . VITAL SIGNS WT 168.0 LBS, HT 61", BMI 31.74 INDEX, BP 143/88 MM HG, HR 84 /MIN, TEMP 98.0 F, OXYGEN SAT % 98%, NA INITIALS TL 1045, REVIEWED BY: SHAWNA. EXAMINATION GENERAL EXAMINATION: GENERAL APPEARANCE:ALERT,ORIENTED,COMFORTABLE. PSYCHAFFECT NORMAL. LUNGS:LUNG JOHNS ARE CLEAR TO AUSCULTATION BILATERALLY. GOOD MOVEMENT OF AIR. HEART:S1, S2 IN A REGULAR RATE AND RHYTHM. NO SIGNIFICANT MURMURS, RUBS OR GALLOPS NOTED. BACK:MILD L/S TENDERNESS. ASSESSMENTS SACROILIITIS, NOT ELSEWHERE CLASSIFIED - M46.1 (PRIMARY) MYALGIA - M79.1 PROCEDURE CODES FA211 ESTABILISHED PATIENT [facility] CHARGE DISPOSITION & COMMUNICATION FOLLOW UP 3 MONTHS ELECTRONICALLY SIGNED BY EMMY CAMARGO ON 09/28/2016 AT 11:25 AM EDT DISCLAIMER : THIS IS A VISIT SUMMARY EXTRACTED FROM THE [employer] CHART. IT IS NOT A COPY OF THE [employer] PROGRESS NOTE. JANNIE
== END ==
LOC: M PAIN 10:40
PROVIDERS: ATTEND Nurse Practitioner Family
DX: G89.29 Other chronic pain (principal); M46.1 Sacroiliitis, not elsewhere classified; M79.1 Myalgia; J45.909 Unspecified asthma, uncomplicated; F17.210 Nicotine dependence, cigarettes, uncomplicated; Z88.0 Allergy status to penicillin

== ENCOUNTER 2016-10-02 21:36 | Emergency (ER) | payer OTHER ==
[~2016-10-02] VITALS: Ht 154.9 cm; Wt 74.3 kg
[~2016-10-02 21:36] MED LIST changes: -BENA25TA9 PO; -IBUP-1114 PO; -KEFL500C7 PO
[2016-10-02] MEDS ORDERED: BENA25TA10 PO (21:45)
[2016-10-02] MEDS ORDERED: IBUP-1114 PO (21:45)
[2016-10-02] MEDS ORDERED: KEFL500C17 PO (23:58)
[2016-10-03] MEDS ORDERED: CEPHALEXIN 500 MG CAP PO ONE
[2016-10-03 00:04] VITALS: BP 122/71
== END 2016-10-03 00:06 | disposition home or self-care (01) ==
LOC: M ED 22:38
DX: S50.861A Insect bite (nonvenomous) of right forearm, initial encounter (principal); W57.XXXA Bitten or stung by nonvenomous insect and other nonvenomous arthropods, initial encounter; Y92.89 Other specified places as the place of occurrence of the external cause; Y93.9 Activity, unspecified; Y99.8 Other external cause status; J45.909 Unspecified asthma, uncomplicated; F17.200 Nicotine dependence, unspecified, uncomplicated; Z88.0 Allergy status to penicillin

== ENCOUNTER 2016-10-14 20:30 | Emergency (ER) | payer OTHER ==
[~2016-10-14] VITALS: Ht 154.9 cm; Wt 73.2 kg
[~2016-10-14 20:30] MED LIST changes: +BENA25TA10 PO; +IBUP-1114 PO; +KEFL500C17 PO
[2016-10-14] MEDS ORDERED: PERCOCET 5MG/325MG TAB PO ONE (22:45)
[2016-10-14] MEDS ORDERED: PERC5TAB12 PO (23:26)
[2016-10-14 23:39] VITALS: BP 122/83
== END 2016-10-14 23:40 | disposition home or self-care (01) ==
LOC: M ED 20:30
DX: M54.5 Low back pain (principal); M51.9 Unspecified thoracic, thoracolumbar and lumbosacral intervertebral disc disorder; F17.200 Nicotine dependence, unspecified, uncomplicated; Z88.0 Allergy status to penicillin

== ENCOUNTER → 2016-11-15 | Outpatient (CLI) | payer OTHER ==
[~2016-11-15] MED LIST changes: +NAPR500T3 PO; +PERC5TAB12 PO; +VALI5TAB PO
--- NOTE | 2016-11-15 23:29 | ECWPNPC ---
PATIENT NAME: LITTLE MANCIA : 1985 GENDER: FEMALE VISIT DATE: 11/15/2016 DISCHARGE DATE: 11/15/16 1353 VISIT LOCKED DATE TIME: PHYSICIAN: KHURRAM CANNON RESOURCE: KHURRAM CANNON REASON FOR APPOINTMENT 1. INCREASING PAIN HISTORY OF PRESENT ILLNESS HISTORY OF PRESENT ILLNESS: HERE ON URGENT BASIS .INCREASE IN LOW BACK PAIN AND RIGHT LEG RADICULOPATHY APPROXIMATLEY ONE MONTH AGO. RATING PAIN VAS 4/10.DID BENEFIT FROM BILATERL SIJ. 2 MOS AGO.DESCRIBES PAIN INTERMITTENT ACHING.DENIES BOWEL OR BLADDER INCONTINENCE. PAIN THE PATIENT DESCRIBES THE PAIN... THE PATIENT DESCRIBES THE PAIN... FALL RISK SCREENING: SCREENING :NO FALLS IN THE PAST YEAR CURRENT MEDICATIONS NONE PAST MEDICAL HISTORY ASTHMA ALLERGIES PENICILLIN (FOR ALLERGIES USE ONLY): HIVES SOCIAL HISTORY GENERAL: TOBACCO USE ARE YOU A:CURRENT SMOKER HOW MANY CIGARETTES A DAY DO YOU SMOKE?6-10 HOW SOON AFTER YOU WAKE UP DO YOU SMOKE YOUR FIRST CIGARETTE?AFTER 60 MIN HOW OFTEN DO YOU SMOKE CIGARETTES?EVERY DAY PATIENT COUNSELED ON THE DANGERS OF TOBACCO USE AND URGED TO QUIT:11/15/2016 ARE YOU INTERESTED IN QUITTING?READY TO QUIT COUNSELED THE PATIENT ON TOBACCO USE, CESSATION [id number]/02/2017 SMOKING CESSATION INFORMATION GIVEN08/10/2016 VAPORNO E-CIGARETTENO LUNG CANCER SCREENING SMOKING STATUS:CURRENT SMOKER IS THE PATIENT BETWEEN THE AGE OF 55 AND 77?NO ALCOHOL SCREENING DID YOU HAVE A DRINK CONTAINING ALCOHOL IN THE PAST YEAR?YES HOW OFTEN DID YOU HAVE A DRINK CONTAINING ALCOHOL IN THE PAST YEAR?TWO TO FOUR TIMES A MONTH (2 POINTS) HOW MANY DRINKS DID YOU HAVE ON A TYPICAL DAY WHEN YOU WERE DRINKING IN THE PAST YEAR?3 OR 4 (1 POINT) HOW OFTEN DID YOU HAVE SIX OR MORE DRINKS ON ONE OCCASION IN THE PAST YEAR?LESS THAN MONTHLY (1 POINT) POINTS4 INTERPRETATIONPOSITIVE YARSANISM [id number] [place]UE LEARNING BARRIERS / SPECIAL NEEDS BARRIERS TO LEARNING?YES COMMENTSDOCUMENTED IN NOTES SECTION> ADD HEARING IMPAIRED?NO VISION IMPAIRED?YES :CORRECTIVE LENSES COGNITIVELY IMPAIRED?NO READINESS TO LEARN?YES LEARNING PREFERENCES?NO LEARNING CAPABILITIES PRESENT?YES EMOTIONAL BARRIERS?NO SPECIAL DEVICES?NO CONVENTIONAL MORTGAGE UNDERWRITER NEEDED?NO PAIN CLINIC PFS, CLERGY, PUBLIC HEALTH REFERRALS HAS THE PATIENT BEEN EDUCATED REGARDING HIS/HER PLAN OF CARE?YES HAS THE PATIENT BEEN EDUCATED REGARDING PAIN, THE RISK FOR PAIN, THE IMPORTANCE OF EFFECTIVE PAIN MANAGEMENT, AND THE PAIN ASSESSMENT PROCESS?YES PATIENT: ____. ADVANCE DIRECTIVES HEALTH CARE PROXY?NO WOULD YOU LIKE MORE INFORMATION?NO DO YOU HAVE A DNR?NO WOULD YOU LIKE MORE INFORMATION?NO LIVING WILL?NO WOULD YOU LIKE MORE INFORMATION?NO POWER OF TRUCK SPOTTER?NO WOULD YOU LIKE MORE INFORMATION?NO REVIEW OF SYSTEMS REVIEWED BY: PROVIDER: KHURRAM BOOTH . CONSTITUTIONAL: ANY CHANGE IN YOUR MEDICAL CONDITION? NO . CHILLS NO . FEVER NO . INFECTION: DO YOU HAVE NEW INFECTIONS? NO . DO YOU HAVE HISTORY OF MRSA? NO . MUSCULOSKELETAL: ANY NEW PATTERNS OF PAIN OR NUMBNESS? YES . GASTROENTEROLOGY: ANY NEW CHANGE IN BOWEL CONTROL? NO . GENITOURINARY: ANY NEW CHANGE IN BLADDER CONTROL? NO . IS THERE A CHANCE YOU COULD BE ? NO . HEMATOLOGY/LYMPH: DO YOU TAKE ANY BLOOD THINNERS? (FOR EXAMPLE- COUMADIN, PLAVIX, AGGRENOX, PLATEL, PRADAXA, OR XARELTO) NO . WHEN WAS YOUR LAST DOSE? DATE: TIME: . NEUROLOGY: HAVE YOU FALLEN IN THE PAST 6 MONTHS? NO . ANY NEW EXTREMITY NUMBNESS OR WEAKNESS? NO . CARDIOLOGY: DO YOU HAVE A PACEMAKER OR DEFIBRILLATOR? NO . RESPIRATORY: HAVE YOU BEEN SICK IN THE PAST WEEK? NO . FEVER NO . FLU LIKE SYMPTOMS? NO . COUGH NO . INTEGUMENTARY: DO YOU HAVE ANY RASHES OR OPEN SORES? NO . ALLERGIC/IMMUNO: ARE YOU ALLERGIC TO SHELLFISH OR IV DYE? NO . ANY NEW ALLERGIES? NO . PSYCHIATRIC: DO YOU HAVE THOUGHTS OF HURTING YOURSELF OR SOMEONE ELSE? NO . ARE YOU ABUSED, NEGLECTED, OR IN AN UNSAFE ENVIRONMENT? NO . ENDOCRINOLOGY: ARE YOU DIABETIC? NO . OTHER: DO YOU NEED ANY PRESCRIPTIONS? NO . IF YES, PLEASE LIST: ____ . ANY NEW PROBLEMS WITH YOUR MEDICATIONS? NO . WHEN DID YOU LAST EAT? ____ . WHEN DID YOU LAST DRINK? ____ . WHAT DID YOU LAST DRINK? ____ . NAME OF PERSON DRIVING YOU HOME? ____ . DO YOU HAVE ANY OTHER QUESTIONS OR CONCERNS NO . VITAL SIGNS WT 166 LBS, HT 61", BMI 31.36 INDEX, BP 144/88 MM HG, HR 97 /MIN, RR 16 /MIN, TEMP 98.0 F, OXYGEN SAT % 96%, NA INITIALS AW 1324, REVIEWED BY: SEBASTIAN. EXAMINATION GENERAL EXAMINATION: GENERAL APPEARANCE:APPEARS UNCOMFORTABLE. PSYCHAFFECT NORMAL. LUNGS:LUNG JOHNS ARE CLEAR TO AUSCULTATION BILATERALLY. GOOD MOVEMENT OF AIR. HEART:S1, S2 IN A REGULAR RATE AND RHYTHM. NO SIGNIFICANT MURMURS, RUBS OR GALLOPS NOTED. BACK:BILAT SIJ TENDERNESS-L>R. 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 SIJ. PROCEDURE CODES FA211 ESTABILISHED PATIENT [facility] CHARGE DISPOSITION & COMMUNICATION FOLLOW UP POST PROC (REASON: BILAT. SIJ) ELECTRONICALLY SIGNED BY EMMY CAMARGO ON 11/15/2016 AT 02:10 PM EDT DISCLAIMER : THIS IS A VISIT SUMMARY EXTRACTED FROM THE [employer] CHART. IT IS NOT A COPY OF THE [employer] PROGRESS NOTE. JANNIE
== END ==
LOC: M PAIN 13:15
PROVIDERS: ATTEND Nurse Practitioner Family
DX: G89.29 Other chronic pain (principal); M46.1 Sacroiliitis, not elsewhere classified; M79.1 Myalgia; F17.210 Nicotine dependence, cigarettes, uncomplicated; J45.909 Unspecified asthma, uncomplicated; Z88.0 Allergy status to penicillin

== ENCOUNTER → 2016-11-30 | Outpatient (CLI) | payer OTHER ==
[~2016-11-30] MED LIST changes: +BUPIVACAINE HCL 0.25% 30 ML VIAL As Ordered ONE; +ISOVUE-M 300 61% 15ML VIAL (Q9967) As Ordered ONE; +LIDOCAINE 1% SDV INJ 30 ML VIAL As Ordered ONE; +TRIAMCINOLONE ACETONIDE SUSP 40 MG/ML VIAL (J3301) As Ordered ONE; +diazePAM 5 MG TAB As Ordered ONE; +oxyCODONE 5MG TAB As Ordered ONE
--- NOTE | 2016-11-30 13:26 | REP ---
Partial SI joint series: Two views. History: Bilateral SI joint injection for pain. 35 seconds of fluoroscopy time is reported. Findings: A sequence of two last image hold fluoro spot radiographs of the SI joints document needle position and contrast injections associated with injection procedure. Signed by Jesse Courtney MD 11/30/2016 01:41 P
--- NOTE | 2016-12-03 23:42 | ECWPNPC ---
PATIENT NAME: LITTLE MANCIA : 1985 GENDER: FEMALE VISIT DATE: 11/30/2016 DISCHARGE DATE: 11/30/16 1232 VISIT LOCKED DATE TIME: PHYSICIAN: SUSAN NICOLE RESOURCE: SUSAN NICOLE REASON FOR APPOINTMENT 1. BILATERAL SJI CURRENT MEDICATIONS NONE PAST MEDICAL HISTORY ASTHMA ALLERGIES PENICILLIN (FOR ALLERGIES USE ONLY): HIVES SURGICAL HISTORY NO SURGICAL HISTORY DOCUMENTED. HOSPITALIZATION/MAJOR DIAGNOSTIC PROCEDURE NO HOSPITALIZATION HISTORY. VITAL SIGNS WT 166 LBS, HT 61", BMI 31.36 INDEX, BP 108/68 MM HG, HR 68 /MIN, RR 16 /MIN, TEMP 98.5 F, OXYGEN SAT % 98%, NA INITIALS AW 1049. ASSESSMENTS SACROILIITIS, NOT ELSEWHERE CLASSIFIED - M46.1 (PRIMARY) PROCEDURES PN SI PRE PROCEDURE DIAGNOSIS BILATERAL , SACROILIAC JOINT DYSFUNCTION/INFLAMMATION POST PROCEDURE DIAGNOSIS BILATERAL , SACROILIAC JOINT DYSFUNCTION/INFLAMMATION PROCEDURE BILATERAL SACROILIAC JOINT BLOCK SURGEON DR. SUSAN NICOLE HEALTH POLICY ANALYST NONE ANESTHESIA LOCAL PRE PROCEDURE NOTE PATIENT WITH HISTORY OF CHRONIC LOW BACK PAIN. I EVALUATED THE PATIENT AND REVIEWED THE CHART. I WENT OVER THE RISKS, ALTERNATIVES, AND BENEFITS ASSOCIATED WITH THIS PROCEDURE. THE PATIENT WOULD LIKE TO PROCEED AND GAVE CONSENT TO PERFORM THE PROCEDURE. THE PATIENT DENIES UNEXPLAINABLE WEIGHT LOSS, FEVER, CHILLS, OR NEW CHANGES IN URINARY OR BOWEL CONTROL DESCRIPTION OF PROCEDURE THE PATIENT WAS BROUGHT TO THE PROCEDURE ROOM AND PLACED IN THE PRONE POSITION. THE LUMBOSACRAL AREA WAS CLEANED WITH CHLORAPREP SOLUTION AND DRAPED ASEPTICALLY. THE PROCEDURE WAS DONE UNDER STERILE CONDITIONS. I CHECKED LATERALITY AND THE LEVEL WHERE THE PROCEDURE WAS GOING TO BE PERFORMED WITH THE PATIENT AND THE SUPPORTING STAFF AT THE MOMENT OF THE TIME OUT IN THE PROCEDURE ROOM. UNDER FLUOROSCOPIC GUIDANCE, TARGET POINT WAS SELECTED AT THE LOWER BORDER OF THE RIGHT AND LEFT SACROILIAC JOINT. TARGET POINT WAS SELECTED AFTER MEDIAL ROTATION AND TILT OF THE MAGNIFIER OF THE C-ARM. LIDOCAINE WAS USED TO NUMB THE SKIN AND SUBCUTANEOUS TISSUE BELOW IT. A SPINAL NEEDLE, 22-GAUGE, WAS ADVANCED UNDER FLUOROSCOPIC GUIDANCE AND FOLLOWING PATIENT FEEDBACK UNTIL THE TARGET AREA WAS TOUCHED. THE POSITION OF THE NEEDLE WAS VERIFIED WITH AP AND LATERAL VIEWS. AFTER PROPER POSITION OF THE NEEDLE WAS ACHIEVED, ISOVUE M DYE 30%, 0.25 ML, WAS INJECTED SHOWING SPREAD OF THE DYE. THEN, A SOLUTION OF 20 MG OF KENALOG WAS INJECTED IN RIGHT JOINT WITH 3 ML OF BUPIVACAINE 0.125%. THERE WAS NO EVIDENCE OF BLOOD, PARESTHESIA OR CEREBROSPINAL FLUID DURING THE PROCEDURE. THE PATIENT WAS SENT TO THE RECOVERY ROOM. THE PATIENT WAS MOVING THE EXTREMITIES AND DOING WELL. THERE WAS NO COMPLICATION DURING THE PROCEDURE. FLUOROSCOPY TIME WAS 35 SECONDS POST PROCEDURE NOTE THE PATIENT WILL BE SEEN IN A FOLLOW UP IN THE NEXT FEW WEEKS. INSTRUCTIONS WERE GIVEN, QUESTIONS WERE ANSWERED, AND THE PATIENT EXPRESSED UNDERSTANDING AND AGREED WITH THE PLAN. I JOCELINE PAYNE DOCUMENTED THE ABOVE INFORMATION ACTING A ENGINEERING MANAGER ELECTRONICS FOR DR. NICOLE. I HAVE REVIEWED THE ABOVE DOCUMENT WRITTEN BY JOCELINE PAYNE SCRIBCrystal AND I VERIFY THAT IT IS ACCURATE. PROCEDURE CODES 06578 INJECT SACROILIAC JOINT 6045F RADXPS IN END [id number] [id number] DISPOSITION & COMMUNICATION FOLLOW UP 3 WEEKS ELECTRONICALLY SIGNED BY SUSAN NICOLE MD ON 12/03/2016 AT 07:21 PM EDT DISCLAIMER : THIS IS A VISIT SUMMARY EXTRACTED FROM THE [employer] CHART. IT IS NOT A COPY OF THE [employer] PROGRESS NOTE. MTDD
== END ==
LOC: M PAIN 10:30
PROVIDERS: ATTEND Anesthesiology
DX: G89.29 Other chronic pain (principal); M46.1 Sacroiliitis, not elsewhere classified; J45.909 Unspecified asthma, uncomplicated; Z88.0 Allergy status to penicillin
CPT/HCPCS: G0260; J3301; Q9967

== ENCOUNTER 2016-12-03 00:27 | Emergency (ER) | payer OTHER ==
[~2016-12-03] VITALS: Ht 154.9 cm; Wt 75.0 kg
[~2016-12-03 00:27] MED LIST changes: -BUPIVACAINE HCL 0.25% 30 ML VIAL As Ordered ONE; -ISOVUE-M 300 61% 15ML VIAL (Q9967) As Ordered ONE; -LIDOCAINE 1% SDV INJ 30 ML VIAL As Ordered ONE; -NAPR500T3 PO; -TRIAMCINOLONE ACETONIDE SUSP 40 MG/ML VIAL (J3301) As Ordered ONE; -VALI5TAB PO; -diazePAM 5 MG TAB As Ordered ONE; -oxyCODONE 5MG TAB As Ordered ONE
[2016-12-03 00:41] VITALS: BP 123/71
[2016-12-03] MEDS ORDERED: NEOSPORIN OINT 0.9 GM PKT (FLOOR STOCK) As Ordered ONE (02:55)
[2016-12-03] MEDS ORDERED: KETOROLAC 30 MG/ML VIAL (J1885) IV ONE (05:15)
[2016-12-03] MEDS ORDERED: ONDANSETRON 4MG/2ML VIAL (J2405) IV ONE (05:15)
[2016-12-03] MEDS ORDERED: MORPHINE 4 MG/ML 1ML SYRINGE IV PRN (05:15)
[2016-12-03] MEDS ORDERED: VALI5TAB PO (06:46)
[2016-12-03] MEDS ORDERED: NAPR500T3 PO (06:46)
[2016-12-03] MEDS ORDERED: PERC5TAB12 PO (06:46)
== END 2016-12-03 06:52 | disposition home or self-care (01) ==
LOC: M ED 00:27
DX: M54.5 Low back pain (principal); M79.604 Pain in right leg; G89.29 Other chronic pain; Z88.0 Allergy status to penicillin
CPT/HCPCS: 96374; 96375; 99282; J1885; J2405; J3360

== ENCOUNTER 2017-01-25 23:36 | Emergency (ER) | payer OTHER, SELFPAY ==
[~2017-01-25] VITALS: Ht 154.9 cm; Wt 77.3 kg
[~2017-01-25 23:36] MED LIST changes: +NAPR500T3 PO; +VALI5TAB PO
[2017-01-26 01:54] VITALS: BP 136/80
[2017-01-26] MEDS ORDERED: OXYCODONE/APAP 5MG/325MG(BULK FOR ED) 1 TABLET PO ONE (02:00)
== END 2017-01-26 02:00 | disposition home or self-care (01) ==
LOC: M ED 23:36
DX: K02.9 Dental caries, unspecified (principal); S02.5XXA Fracture of tooth (traumatic), initial encounter for closed fracture; X58.XXXA Exposure to other specified factors, initial encounter; Y92.89 Other specified places as the place of occurrence of the external cause; Y93.89 Activity, other specified; Y99.8 Other external cause status; F17.210 Nicotine dependence, cigarettes, uncomplicated; Z88.0 Allergy status to penicillin

== ENCOUNTER 2017-04-30 20:50 | Emergency (ER) | payer SELFPAY ==
[2017-04-30] MEDS: CYCLOBENZAPRINE 10 MG TAB PO (22:45)
[2017-04-30] MEDS: OXYCODONE/APAP 5MG/325MG(BULK FOR ED) 1 TABLET PO (22:45)
== END 2017-04-30 23:18 | disposition home or self-care (01) ==
LOC: M ED 20:50
DX: T14.8XXA Other injury of unspecified body region, initial encounter (principal); W10.9XXA Fall (on) (from) unspecified stairs and steps, initial encounter; Y92.009 Unspecified place in unspecified non-institutional (private) residence as the place of occurrence of the external cause; F17.210 Nicotine dependence, cigarettes, uncomplicated; Z88.0 Allergy status to penicillin
CPT/HCPCS: 99282

== ENCOUNTER 2017-06-09 00:07 | Emergency (ER) | payer SELFPAY ==
[2017-06-09] MEDS: CYCLOBENZAPRINE 10 MG TAB PO (02:00)
[2017-06-09] MEDS: PERCOCET 5MG/325MG TAB PO (02:00)
== END 2017-06-09 02:33 | disposition home or self-care (01) ==
LOC: M ED 00:07
DX: M54.41 Lumbago with sciatica, right side (principal); J45.909 Unspecified asthma, uncomplicated; F41.9 Anxiety disorder, unspecified; F33.9 Major depressive disorder, recurrent, unspecified; Z88.0 Allergy status to penicillin; F17.210 Nicotine dependence, cigarettes, uncomplicated
CPT/HCPCS: 99282

== ENCOUNTER 2017-06-30 02:40 | Emergency (ER) | payer SELFPAY ==
[2017-06-30] MEDS: ACETAMINOPHEN 325 MG TAB PO (03:45)
== END 2017-06-30 03:51 | disposition home or self-care (01) ==
LOC: M ED 02:40
DX: S62.606A Fracture of unspecified phalanx of right little finger, initial encounter for closed fracture (principal); W22.8XXA Striking against or struck by other objects, initial encounter; Y92.018 Other place in single-family (private) house as the place of occurrence of the external cause; F33.9 Major depressive disorder, recurrent, unspecified; Z88.0 Allergy status to penicillin; F17.210 Nicotine dependence, cigarettes, uncomplicated
CPT/HCPCS: 73130

== ENCOUNTER 2017-06-30 13:04 | Emergency (ER) | payer SELFPAY ==
[2017-06-30] MEDS: NORCO, ANEXSIA 5/325MG TABLET (HYDROcodone/ACETAMINOPHEN) PO (13:20)
== END 2017-06-30 13:49 | disposition home or self-care (01) ==
LOC: M ED 13:04
DX: S62.306D Unspecified fracture of fifth metacarpal bone, right hand, subsequent encounter for fracture with routine healing (principal); X58.XXXD Exposure to other specified factors, subsequent encounter; Y92.89 Other specified places as the place of occurrence of the external cause; J45.909 Unspecified asthma, uncomplicated; F17.210 Nicotine dependence, cigarettes, uncomplicated; Z88.0 Allergy status to penicillin
CPT/HCPCS: 99282

== ENCOUNTER 2017-09-28 20:18 | Emergency (ER) | payer SELFPAY ==
[2017-09-29] MEDS: KETOROLAC 60 MG/2 ML VIAL (J1885) IM (00:45)
[2017-09-29] MEDS: predniSONE 20 MG TAB PO (01:07)
[2017-09-29] MEDS: MORPHINE 2 MG/ML 1ML SYRINGE (J2270) IM (01:09)
== END 2017-09-29 01:42 | disposition home or self-care (01) ==
LOC: M ED 20:18
DX: M54.9 Dorsalgia, unspecified (principal); G89.29 Other chronic pain; J45.909 Unspecified asthma, uncomplicated; F17.200 Nicotine dependence, unspecified, uncomplicated; Z88.0 Allergy status to penicillin
CPT/HCPCS: J1885

== ENCOUNTER 2017-10-31 19:03 | Emergency (ER) | payer SELFPAY ==
[2017-10-31] MEDS: IBUPROFEN 600 MG TAB PO (20:42)
== END 2017-10-31 20:52 | disposition home or self-care (01) ==
LOC: M ED 19:03
DX: M70.41 Prepatellar bursitis, right knee (principal); Z72.0 Tobacco use; Z88.0 Allergy status to penicillin
CPT/HCPCS: 99284

== ENCOUNTER 2017-12-21 13:02 | Emergency (ER) | payer SELFPAY ==
[2017-12-21] MEDS: NS 1,000 ML IV (15:15)
[2017-12-21 15:16] LABS: BASO % 0.5 % (0.0-1.0); EOS # 0.2 10^3/uL (0.0-0.50); EOS % 2.3 % (0.0-3.0); HEMOGLOBIN 13.5 g/dl (12.0-15.5); IMMATURE GRANULOCYTE % 0.2 % (0-3.0); LYMPH # 1.6 10^3/uL (1.5-4.5); LYMPH % 18.8 % (24.0-44.0); MEAN CORPUSCULAR HEMOGLOBIN 31.4 pg (27.0-33.0); MEAN CORPUSCULAR HGB CONC 33.8 g/dl (32.0-36.5); MONO # 0.6 10^3/uL (0.0-0.8); MONO % 7.4 % (0.0-5.0); NEUTROPHILS # 6.1 10^3/uL (1.8-7.7); NEUTROPHILS % 70.8 % (36.0-66.0); PLATELET COUNT, AUTOMATED 239 10^3/uL (150-450); RED CELL DISTRIBUTION WIDTH 12.2 % (11.5-14.5); WHITE BLOOD COUNT 8.6 10^3/uL (4.0-10.0)
[2017-12-21] MEDS: GI COCKTAIL 50ML BTL(HYOSCYAMINE/MAALOX/LIDOCAINE VISCOUS)(1:3:1) PO (15:17)
[2017-12-21] MEDS: ASPIRIN 81 MG CHEW TABLET PO (15:17)
[2017-12-21 15:28] LABS: INR 0.99; PROTHROMBIN TIME 13.2 SECONDS (12.1-14.4)
[2017-12-21 15:32] LABS: ALBUMIN 3.6 GM/DL (3.2-5.2); ALBUMIN/GLOBULIN RATIO 0.88 (1.00-1.93); ALKALINE PHOSPHATASE 69 U/L (45-117); ALT/SGPT 21 U/L (12-78); ANION GAP 6 MEQ/L (8-16); AST/SGOT 12 U/L (7-37); BILIRUBIN,DIRECT < 0.1 MG/DL (0.0-0.2); BILIRUBIN,TOTAL 0.4 MG/DL (0.2-1.0); BLOOD UREA NITROGEN 10 MG/DL (7-18); CALCIUM LEVEL 8.6 MG/DL (8.5-10.1); CARBON DIOXIDE LEVEL 28 MEQ/L (21-32); CHLORIDE LEVEL 108 MEQ/L (98-107); CK-MB VALUE MASS < 1.0 NG/ML (<3.6); CPK CREATINE PHOSPHOKINASE 130 U/L (26-192); CREATININE FOR GFR 0.88 MG/DL (0.55-1.30); D-DIMER QUANT < 270.0 ng/ml (<500); GLOMERULAR FILTRATION RATE > 60.0 (>60); GLUCOSE, FASTING 76 MG/DL (70-100); MB/CK RELATIVE INDEX 0.76 (< OR =4); POTASSIUM SERUM 4.1 MEQ/L (3.5-5.1); SODIUM LEVEL 142 MEQ/L (136-145); TOTAL PROTEIN 7.7 GM/DL (6.4-8.2); TROPONIN I < 0.02 NG/ML (< 0.10)
== END 2017-12-21 16:04 | disposition home or self-care (01) ==
LOC: M ED 13:02
DX: R07.9 Chest pain, unspecified (principal); R06.02 Shortness of breath; F17.200 Nicotine dependence, unspecified, uncomplicated; Z88.0 Allergy status to penicillin
CPT/HCPCS: 71046

== ENCOUNTER 2018-01-24 19:48 | Emergency (ER) | payer SELFPAY ==
[2018-01-24] MEDS: diazePAM 10 MG TAB PO (21:30)
[2018-01-24] MEDS: KETOROLAC 60 MG/2 ML VIAL (J1885) IM (21:30)
== END 2018-01-24 21:46 | disposition home or self-care (01) ==
LOC: M ED 19:48
DX: M54.41 Lumbago with sciatica, right side (principal); M54.42 Lumbago with sciatica, left side; J45.909 Unspecified asthma, uncomplicated; Z88.0 Allergy status to penicillin
CPT/HCPCS: J1885

== ENCOUNTER → 2018-09-27 | Outpatient (CLI) | payer BC ==
[~2018-09-27] MED LIST changes: +CYCL10TA PO; +HYDR-3715 PO; +IBUP-1022 PO; +NAPR-885 PO; -NAPR500T3 PO; +PROT1TAB2 PO; +TYLE325T5 PO
--- NOTE | 2018-09-27 14:08 | REP ---
LUMBAR SPINE, FIVE VIEWS: HISTORY: Back pain. COMPARISON: 05/26/2013 There is no acute fracture. The L4-5 and L5-S1 intervertebral discs are decreased in height, consistent with disc degeneration. The facet joints are normal in appearance. There are 4 mm of grade 1 spondylolisthesis of L5 on S1. IMPRESSION: Degenerative change, as described above. Electronically Signed by Karsten Levy MD 09/27/2018 02:12 P
== END ==
LOC: M WUC 12:39
PROVIDERS: ATTEND Physician Assistant
DX: M54.5 Low back pain (principal); M51.36 Other intervertebral disc degeneration, lumbar region

== ENCOUNTER → 2019-01-27 | Outpatient (REF) | payer BC ==
[2019-01-27 13:05] LABS: BASO # 0.1 10^3/uL (0.0-0.2); BASO % 0.7 % (0.0-1.0); EOS # 0.3 10^3/uL (0.0-0.5); HEMATOCRIT 40.5 % (36.0-47.0); HEMOGLOBIN 13.4 g/dl (12.0-15.5); LYMPH # 2.6 10^3/uL (1.5-5.0); LYMPH % 38.1 % (24.0-44.0); MEAN CORPUSCULAR HEMOGLOBIN 30.8 pg (27.0-33.0); MEAN CORPUSCULAR HGB CONC 33.1 g/dl (32.0-36.5); MEAN CORPUSCULAR VOLUME 93.1 fl (80.0-96.0); MONO # 0.5 10^3/uL (0.0-0.8); NEUTROPHILS # 3.3 10^3/uL (1.5-8.5); NEUTROPHILS % 48.8 % (36.0-66.0); PLATELET COUNT, AUTOMATED 296 10^3/uL (150-450); RED BLOOD COUNT 4.35 10^6/uL (4.00-5.40); WHITE BLOOD COUNT 6.7 10^3/uL (4.0-10.0)
[2019-01-27 13:06] LABS: ALBUMIN 3.8 GM/DL (3.2-5.2); ALT/SGPT 18 U/L (12-78); BILIRUBIN,TOTAL 0.4 MG/DL (0.2-1.0); BLOOD UREA NITROGEN 12 MG/DL (7-18); CALCIUM LEVEL 9.3 MG/DL (8.5-10.1); CARBON DIOXIDE LEVEL 27 MEQ/L (21-32); CHLORIDE LEVEL 107 MEQ/L (98-107); CHOLESTEROL LEVEL 192 MG/DL (<200); CHOLESTEROL RISK RATIO 3.428 (<5); CREATININE FOR GFR 0.86 MG/DL (0.55-1.30); FREE T4 0.85 NG/DL (0.76-1.46); GLOMERULAR FILTRATION RATE > 60.0 (>60); GLUCOSE, FASTING 96 MG/DL (70-100); HDL CHOLESTEROL 56 MG/DL (>40); LDL CHOLESTEROL 118 MG/DL (<100); NON-HDL-C 136 MG/DL; POTASSIUM SERUM 4.3 MEQ/L (3.5-5.1); SODIUM LEVEL 139 MEQ/L (136-145); TOTAL PROTEIN 6.8 GM/DL (6.4-8.2); TRIGLYCERIDES LEVEL 89 MG/DL (<150)
[2019-01-27 13:07] LABS: TOTAL 25(OH) VITAMIN D 17.6 NG/ML (30.0-100.0)
[2019-01-27 13:43] LABS: HEMOGLOBIN A1c 5.6 %
== END ==
LOC: M LAB REF 12:29
PROVIDERS: ATTEND Nurse Practitioner Family
DX: Z13.9 Encounter for screening, unspecified (principal)

== ENCOUNTER 2019-04-22 13:48 | Emergency (ER) | payer BC ==
[~2019-04-22] VITALS: Ht 154.9 cm; Wt 88.8 kg
[2019-04-22] MEDS ORDERED: FLUT1BLS2 (13:54)
[2019-04-22] MEDS ORDERED: ALBU8.5H (13:54)
[2019-04-22 16:47] VITALS: BP 139/72
== END 2019-04-22 16:48 | disposition home or self-care (01) ==
LOC: M ED 13:48
DX: H54.62 Unqualified visual loss, left eye, normal vision right eye (principal); E11.9 Type 2 diabetes mellitus without complications; J45.909 Unspecified asthma, uncomplicated; M54.9 Dorsalgia, unspecified; F41.9 Anxiety disorder, unspecified; F32.9 Major depressive disorder, single episode, unspecified; F17.200 Nicotine dependence, unspecified, uncomplicated; Z88.0 Allergy status to penicillin

== ENCOUNTER → 2019-04-28 | Outpatient (CLI) | payer BC ==
[~2019-04-28] MED LIST changes: +ALBU8.5H; +FLUT1BLS2
--- NOTE | 2019-04-29 01:49 | REP ---
Clinical: Preoperative assessment . Comparison: 12/21/2017 . Technique: PA and lateral. Findings: The mediastinum and cardiac silhouette are normal. The lung cagle are clear and without acute consolidation, effusion, or pneumothorax. The skeletal structures are intact and normal. Impression: 1. No acute cardiopulmonary process. Electronically Signed by Brandin Blevins MD 04/29/2019 01:39 A
== END ==
LOC: M LAB 10:58
PROVIDERS: ATTEND Ophthalmology Retina Specialist
DX: Z00.00 Encounter for general adult medical examination without abnormal findings (principal)

== ENCOUNTER → 2019-04-29 | Outpatient (CLI) | payer BC ==
[2019-04-29 14:22] LABS: BASO % 0.4 % (0.0-1.0); EOS # 0.1 10^3/uL (0.0-0.5); EOS % 1.8 % (0.0-3.0); HEMATOCRIT 41.7 % (36.0-47.0); HEMOGLOBIN 13.4 g/dl (12.0-15.5); LYMPH # 1.8 10^3/uL (1.5-5.0); LYMPH % 26.3 % (24.0-44.0); MEAN CORPUSCULAR HGB CONC 32.1 g/dl (32.0-36.5); MEAN CORPUSCULAR VOLUME 93.5 fl (80.0-96.0); MONO # 0.5 10^3/uL (0.0-0.8); MONO % 6.7 % (0.0-5.0); NEUTROPHILS # 4.3 10^3/uL (1.5-8.5); NEUTROPHILS % 64.5 % (36.0-66.0); PLATELET COUNT, AUTOMATED 287 10^3/uL (150-450); RED BLOOD COUNT 4.46 10^6/uL (4.00-5.40); WHITE BLOOD COUNT 6.7 10^3/uL (4.0-10.0)
[2019-04-30 11:05] LABS: HIV 1&2 SCREEN CENTAUR NEGATIVE (NEGATIVE)
[2019-05-06 00:07] LABS: ANGIOTENSIN 1 CONVERTING ENZYM 16 U/L (14-82); ANTINUCLEAR ANTIBODIES DIRECT Negative (Negative); B. HENSELAE IgG (CAT SCRATCH) Negative titer (Neg:<1:320); B. HENSELAE IgM (CAT SCRATCH) Negative titer (Neg:<1:100); B. QUINTANA IgG (CAT SCRATCH) Negative titer (Neg:<1:320); B. QUINTANA IgM (CAT SCRATCH) Negative titer (Neg:<1:100); Lyme Disease IgG/IgM Antibodie <0.91 ISR (0.00-0.90); Lyme Disease IgM Ab Quantitati <0.80 index (0.00-0.79); TOXOCARA CANIS AB IgG Negative (.)
[2019-05-06 08:06] LABS: RPR Non Reactive (Non Reactive)
== END ==
LOC: M LAB 12:24
PROVIDERS: ATTEND Ophthalmology Retina Specialist
DX: C69.30 Malignant neoplasm of unspecified choroid (principal)

== ENCOUNTER 2019-05-29 10:26 | Emergency (ER) | payer BC ==
[~2019-05-29] VITALS: Ht 154.9 cm; Wt 91.8 kg
[2019-05-29] MEDS ORDERED: BUSP1TAB (10:41)
[2019-05-29] MEDS ORDERED: FLUO10CA15 (10:41)
[2019-05-29 11:46] LABS: INFLUENZA A AMPLIFICATION NEGATIVE (NEGATIVE); INFLUENZA B AMPLIFICATION NEGATIVE (NEGATIVE)
[2019-05-29 12:03] LABS: BASO % 0.3 % (0.0-1.0); EOS # 0.1 10^3/uL (0.0-0.5); EOS % 1.3 % (0.0-3.0); HEMATOCRIT 41.8 % (36.0-47.0); HEMOGLOBIN 13.3 g/dl (12.0-15.5); LYMPH # 0.8 10^3/uL (1.5-5.0); LYMPH % 7.5 % (24.0-44.0); MEAN CORPUSCULAR HEMOGLOBIN 30.2 pg (27.0-33.0); MEAN CORPUSCULAR HGB CONC 31.8 g/dl (32.0-36.5); MEAN CORPUSCULAR VOLUME 94.8 fl (80.0-96.0); MONO # 0.6 10^3/uL (0.0-0.8); MONO % 5.8 % (0.0-5.0); NEUTROPHILS % 84.2 % (36.0-66.0); PLATELET COUNT, AUTOMATED 233 10^3/uL (150-450); RED BLOOD COUNT 4.41 10^6/uL (4.00-5.40); WHITE BLOOD COUNT 10.7 10^3/uL (4.0-10.0)
--- NOTE | 2019-05-29 12:25 | REP ---
Clinical: Cough and fever . Comparison: 04/28/2019 . Technique: PA and lateral. Findings: The mediastinum and cardiac silhouette are normal. The lung cagle are clear and without acute consolidation, effusion, or pneumothorax. The skeletal structures are intact and normal. Impression: 1. No acute cardiopulmonary process. Electronically Signed by Brandin Blevins MD 05/29/2019 12:18 P
[2019-05-29 12:33] LABS: BLOOD UREA NITROGEN 5 MG/DL (7-18); CALCIUM LEVEL 9.3 MG/DL (8.5-10.1); CARBON DIOXIDE LEVEL 28 MEQ/L (21-32); CHLORIDE LEVEL 101 MEQ/L (98-107); CK-MB VALUE MASS < 1.0 NG/ML (<3.6); CPK CREATINE PHOSPHOKINASE 159 U/L (26-192); CREATININE FOR GFR 0.91 MG/DL (0.55-1.30); GLOMERULAR FILTRATION RATE > 60.0 (>60); GLUCOSE, FASTING 105 MG/DL (70-100); MB/CK RELATIVE INDEX 0.63 (< OR =4); POTASSIUM SERUM 4.1 MEQ/L (3.5-5.1); SODIUM LEVEL 136 MEQ/L (136-145); TROPONIN I < 0.02 NG/ML (< 0.10)
[2019-05-29] MEDS ORDERED: ACETAMINOPHEN 325 MG TAB PO ONE (13:45)
[2019-05-29] MEDS ORDERED: BENZONATATE 100 MG CAP PO ONE (14:00)
[2019-05-29] MEDS ORDERED: TESS100C PO (14:26)
[2019-05-29 14:41] VITALS: BP 124/76
--- NOTE | 2019-05-30 04:58 | ECGEPIP ---
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
== END 2019-05-29 14:42 | disposition home or self-care (01) ==
LOC: M ED 10:26
DX: J06.9 Acute upper respiratory infection, unspecified (principal); B34.9 Viral infection, unspecified; E11.9 Type 2 diabetes mellitus without complications; J45.909 Unspecified asthma, uncomplicated; F33.9 Major depressive disorder, recurrent, unspecified; F41.9 Anxiety disorder, unspecified; F43.10 Post-traumatic stress disorder, unspecified; Z79.899 Other long term (current) drug therapy; Z88.0 Allergy status to penicillin

== ENCOUNTER → 2019-10-10 | Outpatient (CLI) | payer BC ==
[~2019-10-10] MED LIST changes: +BUSP1TAB; +CYCL-707 PO; -CYCL10TA PO; +FLUO10CA15; +TESS100C PO
--- NOTE | 2019-10-10 16:00 | REP ---
FOOT: REASON: Atraumatic foot and particularly heel pain times 2 months. No trauma. FINDINGS: The joint spaces are symmetric and relatively well maintained. There is no evidence of acute fracture or destructive osseous lesion. IMPRESSION: Negative. There is no evidence of a heel spur. Electronically Signed by Beau Francis DO 10/10/2019 04:34 P
== END ==
LOC: M WUC 12:48
PROVIDERS: ATTEND Physician Assistant
DX: M79.671 Pain in right foot (principal)

== ENCOUNTER → 2019-10-28 | Outpatient (REF) | payer BC ==
[~2019-10-28] MED LIST changes: -FLUO10CA15; +FLUO10CA16; +NEUR300C PO; +ROBA750T4 PO
[2019-10-28 12:55] LABS: BASO # 0.1 10^3/uL (0.0-0.2); BASO % 0.5 % (0.0-1.0); EOS # 0.2 10^3/uL (0.0-0.5); EOS % 1.7 % (0.0-3.0); HEMATOCRIT 41.5 % (36.0-47.0); HEMOGLOBIN 13.7 g/dl (12.0-15.5); LYMPH # 2.1 10^3/uL (1.5-5.0); LYMPH % 18.3 % (24.0-44.0); MEAN CORPUSCULAR HEMOGLOBIN 30.4 pg (27.0-33.0); MEAN CORPUSCULAR VOLUME 92.2 fl (80.0-96.0); MONO # 0.7 10^3/uL (0.0-0.8); MONO % 6.4 % (0.0-5.0); NEUTROPHILS # 8.4 10^3/uL (1.5-8.5); NEUTROPHILS % 72.8 % (36.0-66.0); PLATELET COUNT, AUTOMATED 345 10^3/uL (150-450); WHITE BLOOD COUNT 11.6 10^3/uL (4.0-10.0)
[2019-10-28 13:18] LABS: ALBUMIN 3.8 GM/DL (3.2-5.2); ALT/SGPT 18 U/L (12-78); BILIRUBIN,TOTAL 0.3 MG/DL (0.2-1.0); BLOOD UREA NITROGEN 12 MG/DL (7-18); CALCIUM LEVEL 9.3 MG/DL (8.5-10.1); CARBON DIOXIDE LEVEL 27 MEQ/L (21-32); CHLORIDE LEVEL 107 MEQ/L (98-107); CHOLESTEROL LEVEL 212 MG/DL (<200); CREATININE FOR GFR 0.82 MG/DL (0.55-1.30); GLOMERULAR FILTRATION RATE > 60.0 (>60); GLUCOSE, FASTING 85 MG/DL (70-100); HDL CHOLESTEROL 50 MG/DL (>40); LDL CHOLESTEROL 147 MG/DL (<100); NON-HDL-C 162 MG/DL; POTASSIUM SERUM 4.4 MEQ/L (3.5-5.1); SODIUM LEVEL 142 MEQ/L (136-145); TOTAL PROTEIN 7.6 GM/DL (6.4-8.2); TRIGLYCERIDES LEVEL 74 MG/DL (<150)
[2019-10-28 13:26] LABS: TOTAL 25(OH) VITAMIN D 16.8 NG/ML (30.0-100.0)
[2019-10-28 14:48] LABS: HEMOGLOBIN A1c 5.4 %
== END ==
LOC: M LAB REF 12:10
PROVIDERS: ATTEND Nurse Practitioner Family
DX: F41.8 Other specified anxiety disorders (principal); E55.9 Vitamin D deficiency, unspecified; M54.9 Dorsalgia, unspecified; F17.200 Nicotine dependence, unspecified, uncomplicated; Z13.9 Encounter for screening, unspecified

== ENCOUNTER 2020-01-25 22:46 | Emergency (ER) | payer BC ==
[~2020-01-25] VITALS: Ht 154.9 cm; Wt 87.3 kg
[~2020-01-25 22:46] MED LIST changes: -NEUR300C PO; -ROBA750T4 PO
[2020-01-25] MEDS ORDERED: NAPR-885 PO (22:51)
[2020-01-26] MEDS ORDERED: KETOROLAC 30 MG/ML 1ML VIAL IV ONE
[2020-01-26] MEDS ORDERED: diazePAM 10 MG TAB PO ONE
[2020-01-26 00:18] LABS: BASO # 0.1 10^3/uL (0.0-0.2); BASO % 0.5 % (0.0-1.0); EOS # 0.3 10^3/uL (0.0-0.5); EOS % 2.6 % (0.0-3.0); HEMATOCRIT 39.3 % (36.0-47.0); HEMOGLOBIN 12.9 g/dl (12.0-15.5); LYMPH # 2.4 10^3/uL (1.5-5.0); MEAN CORPUSCULAR HEMOGLOBIN 29.3 pg (27.0-33.0); MEAN CORPUSCULAR HGB CONC 32.8 g/dl (32.0-36.5); MEAN CORPUSCULAR VOLUME 89.3 fl (80.0-96.0); MONO # 0.7 10^3/uL (0.0-0.8); MONO % 7.2 % (0.0-5.0); NEUTROPHILS # 6.2 10^3/uL (1.5-8.5); NEUTROPHILS % 64.4 % (36.0-66.0); PLATELET COUNT, AUTOMATED 288 10^3/uL (150-450); WHITE BLOOD COUNT 9.6 10^3/uL (4.0-10.0)
--- NOTE | 2020-01-26 00:41 | REPVR ---
PROCEDURE INFORMATION: Exam: CT Lumbar Spine Without Contrast Exam date and time: 01/25/2020 12:29 AM Age: 34 years old Clinical indication: Low back pain; Additional info: Pain lower legs, PT tender low back TECHNIQUE: Imaging protocol: Computed tomography images of the lumbar spine without contrast. Radiation optimization: All CT scans at this facility use at least one of these dose optimization techniques: automated exposure control; mA and/or kV adjustment per patient size (includes targeted exams where dose is matched to clinical indication); or iterative reconstruction. COMPARISON: CR Spine. Lumbosacral, complete 2013-05-26 11:55 FINDINGS: Vertebrae: No acute fracture. Normal alignment. Discs/Spinal canal/Neural foramina: Mild diffuse degenerative disc space loss with small disc bulge/protrusions causing up to mild foraminal and spinal stenosis greatest at L3-S1. Soft tissues: Unremarkable. IMPRESSION: No acute findings. Electronically signed by: Jagdish Leo On 01/26/2020 00:41:46 AM
[2020-01-26] MEDS ORDERED: NEUR300C PO (01:56)
[2020-01-26] MEDS ORDERED: ROBA750T4 PO (01:56)
[2020-01-26] MEDS ORDERED: GABAPENTIN 300 MG CAP PO ONE (02:15)
[2020-01-26 02:19] VITALS: BP 150/82
== END 2020-01-26 02:26 | disposition home or self-care (01) ==
LOC: M ED 22:46
DX: M54.9 Dorsalgia, unspecified (principal); M51.26 Other intervertebral disc displacement, lumbar region; F17.200 Nicotine dependence, unspecified, uncomplicated; J45.909 Unspecified asthma, uncomplicated; Z79.51 Long term (current) use of inhaled steroids; Z79.1 Long term (current) use of non-steroidal anti-inflammatories (NSAID); Z79.899 Other long term (current) drug therapy; Z88.0 Allergy status to penicillin; Z88.1 Allergy status to other antibiotic agents
CPT/HCPCS: 72131; 80047; 81001; 82550; 84702; 85025; 96374; 99284; J1885

== ENCOUNTER 2020-04-02 19:17 | Emergency (ER) | payer BC ==
[~2020-04-02] VITALS: Ht 154.9 cm; Wt 85.0 kg
[2020-04-02 19:17] VITALS: BP 129/78
[~2020-04-02 19:17] MED LIST changes: +NEUR300C PO; +ROBA750T4 PO
[2020-04-02] MEDS ORDERED: diazePAM 10 MG TAB PO ONE (20:45)
[2020-04-02] MEDS ORDERED: KETOROLAC 60MG 2ML VIAL IM ONE (20:45)
[2020-04-02] MEDS ORDERED: LIDOCAINE 5% (LIDODERM) PATCH TD ONE (20:45)
[2020-04-02] MEDS ORDERED: ASPE4PAD TOP (20:57)
[2020-04-02] MEDS ORDERED: BACL10TA2 PO (20:57)
[2020-04-02] MEDS ORDERED: **NOTE PATIENT COMMENT** MISC XX SCH (21:00)
== END 2020-04-02 21:20 | disposition home or self-care (01) ==
LOC: M ED 19:17
DX: S39.012A Strain of muscle, fascia and tendon of lower back, initial encounter (principal); W18.49XA Other slipping, tripping and stumbling without falling, initial encounter; M54.5 Low back pain; G89.29 Other chronic pain; F17.200 Nicotine dependence, unspecified, uncomplicated; J45.909 Unspecified asthma, uncomplicated; Z88.0 Allergy status to penicillin; Z88.1 Allergy status to other antibiotic agents
CPT/HCPCS: 96372; 99282; J1885

== ENCOUNTER → 2020-05-12 | Outpatient (REF) | payer BC ==
[~2020-05-12] MED LIST changes: +ASPE4PAD TOP; +BACL10TA2 PO
[2020-05-12 12:48] LABS: BASO # 0.1 10^3/uL (0.0-0.2); BASO % 0.6 % (0.0-1.0); EOS # 0.2 10^3/uL (0.0-0.5); EOS % 2.2 % (0.0-3.0); HEMATOCRIT 40.3 % (36.0-47.0); HEMOGLOBIN 13.3 g/dl (12.0-15.5); LYMPH # 2.9 10^3/uL (1.5-5.0); LYMPH % 36.5 % (24.0-44.0); MEAN CORPUSCULAR HEMOGLOBIN 29.6 pg (27.0-33.0); MEAN CORPUSCULAR VOLUME 89.6 fl (80.0-96.0); MONO # 0.7 10^3/uL (0.0-0.8); MONO % 8.9 % (0.0-5.0); NEUTROPHILS # 4.1 10^3/uL (1.5-8.5); NEUTROPHILS % 51.5 % (36.0-66.0); PLATELET COUNT, AUTOMATED 301 10^3/uL (150-450); WHITE BLOOD COUNT 7.9 10^3/uL (4.0-10.0)
[2020-05-12 13:17] LABS: ALBUMIN 4.3 GM/DL (3.2-5.2); ALT/SGPT 16 U/L (12-78); BILIRUBIN,TOTAL 0.3 MG/DL (0.2-1.0); BLOOD UREA NITROGEN 13 MG/DL (7-18); CALCIUM LEVEL 9.5 MG/DL (8.5-10.1); CARBON DIOXIDE LEVEL 29 MEQ/L (21-32); CHLORIDE LEVEL 104 MEQ/L (98-107); CHOLESTEROL LEVEL 213 MG/DL (<200); CREATININE FOR GFR 0.87 MG/DL (0.55-1.30); GLOMERULAR FILTRATION RATE > 60.0 (>60); GLUCOSE, FASTING 91 MG/DL (70-100); HDL CHOLESTEROL 60 MG/DL (>40); LDL CHOLESTEROL 132 MG/DL (<100); NON-HDL-C 153 MG/DL; POTASSIUM SERUM 4.6 MEQ/L (3.5-5.1); SODIUM LEVEL 140 MEQ/L (136-145); TOTAL PROTEIN 7.2 GM/DL (6.4-8.2); TRIGLYCERIDES LEVEL 103 MG/DL (<150)
[2020-05-12 13:21] LABS: TOTAL 25(OH) VITAMIN D 22.6 NG/ML (30.0-100.0)
== END ==
LOC: M LAB REF 12:03
PROVIDERS: ATTEND Nurse Practitioner Family
DX: F17.201 Nicotine dependence, unspecified, in remission (principal); E55.9 Vitamin D deficiency, unspecified

== ENCOUNTER 2020-07-18 09:20 | Emergency (ER) | payer BC ==
[~2020-07-18] VITALS: Ht 154.9 cm; Wt 89.8 kg
[2020-07-18] MEDS ORDERED: VITA1CAP25 (09:31)
[2020-07-18] MEDS ORDERED: MORPHINE 4 MG/ML 1ML VIAL/SYRINGE (J2270) As Ordered ONE (10:24)
[2020-07-18] MEDS ORDERED: MORPHINE 4 MG/ML 1ML VIAL/SYRINGE (J2270) IV ONE (10:25)
[2020-07-18] MEDS ORDERED: ONDANSETRON 4MG/2ML VIAL IV ONE (10:25)
[2020-07-18 10:35] LABS: BASO # 0.1 10^3/uL (0.0-0.2); BASO % 0.6 % (0.0-1.0); EOS # 0.2 10^3/uL (0.0-0.5); EOS % 2.3 % (0.0-3.0); HEMATOCRIT 37.6 % (36.0-47.0); HEMOGLOBIN 12.3 g/dl (12.0-15.5); LYMPH # 2.8 10^3/uL (1.5-5.0); LYMPH % 30.5 % (24.0-44.0); MEAN CORPUSCULAR HEMOGLOBIN 29.6 pg (27.0-33.0); MEAN CORPUSCULAR HGB CONC 32.7 g/dl (32.0-36.5); MEAN CORPUSCULAR VOLUME 90.6 fl (80.0-96.0); MONO # 0.6 10^3/uL (0.0-0.8); MONO % 6.4 % (2.0-8.0); NEUTROPHILS # 5.4 10^3/uL (1.5-8.5); NEUTROPHILS % 59.9 % (36.0-66.0); PLATELET COUNT, AUTOMATED 251 10^3/uL (150-450); RED BLOOD COUNT 4.15 10^6/uL (4.00-5.40); WHITE BLOOD COUNT 9.1 10^3/uL (4.0-10.0)
[2020-07-18 10:57] LABS: BLOOD UREA NITROGEN 12 MG/DL (7-18); CALCIUM LEVEL 8.7 MG/DL (8.5-10.1); CARBON DIOXIDE LEVEL 26 MEQ/L (21-32); CHLORIDE LEVEL 106 MEQ/L (98-107); CREATININE FOR GFR 0.76 MG/DL (0.55-1.30); ERYTHROCYTE SEDIMENTATION RATE 22 mm/hr (0-20); GLOMERULAR FILTRATION RATE > 60.0 (>60); GLUCOSE, FASTING 80 MG/DL (70-100); POTASSIUM SERUM 4.2 MEQ/L (3.5-5.1); SODIUM LEVEL 139 MEQ/L (136-145)
--- NOTE | 2020-07-18 11:32 | REPVR ---
PROCEDURE INFORMATION: Exam: MR Lumbar Spine Without Contrast. Exam date and time: 07/18/2020 11:14 AM Age: 35 years old Clinical indication: Low back pain; Patient HX: Lbp radiaating to legs and numbness buttock TECHNIQUE: Imaging protocol: Multiplanar magnetic resonance images of the lumbar spine without contrast. COMPARISON: CT Spine, lumbar w/o contrast 01/26/2020 12:25 AM FINDINGS: There is transitional lumbosacral anatomy with left L5 caprice sacralization and pseudoarthrosis. Normal lumbar lordosis. Minimal grade 1 retrolisthesis at L4-L5. No compression fractures. Normal marrow signal. Mild degenerative disc change at L4-L5. The distal spinal cord appears normal. From L1-L2 through L3-L4, there is no significant spinal canal or neural foraminal narrowing. At L4-L5, there is mild circumferential disc bulge and a small central disc protrusion with a small T2 hyperintense annular fissure. No significant spinal canal stenosis. Mild bilateral neural foraminal narrowing. At L5-S1, there is mild circumferential disc bulge without significant spinal canal or neural foraminal narrowing. IMPRESSION: No moderate or severe lumbar spinal canal stenosis or neural foraminal narrowing. Mild degenerative change including a small annular fissure at L4-L5. Electronically signed by: Zen Kuo On 07/18/2020 11:31:52 AM
[2020-07-18] MEDS ORDERED: MORPHINE 2 MG/ML 1ML VIAL (J2270) IV ONE (11:50)
--- NOTE | 2020-07-18 11:52 | REP ---
INDICATION: back pain. COMPARISON: 05/26/2013. TECHNIQUE: There are five views. FINDINGS: Vertebral body heights, interspacing and alignment are normal except for minimal L5 anterolisthesis unchanged. There is bilateral L5 spondylolysis, unchanged. There is L5 spina bifida occulta, unchanged. Mineralization is normal. The pedicles are unremarkable. The facet articulations and sacroiliac articulations are unremarkable. 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 L5 spina bifida occulta. This is all unchanged from the prior study. Otherwise, negative lumbar spine. <Electronically signed by Sekou Kaur > 07/18/20 1146
[2020-07-18] MEDS ORDERED: PERC5TAB12 PO (13:04)
[2020-07-18 13:17] VITALS: BP 107/58
--- NOTE | 2020-07-18 19:28 | ECGEPIP ---
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
--- NOTE | 2020-07-21 19:30 | ED PDOC ---
Post-Departure Follow-Up kimberlee garcia and dr chiu faxed formal report of mri ls spine for fu Mary Denton MD Jul 21, 2020 19:30
== END 2020-07-18 13:58 | disposition home or self-care (01) ==
LOC: M ED 09:20
DX: M54.5 Low back pain (principal); G89.29 Other chronic pain; R20.0 Anesthesia of skin; F17.200 Nicotine dependence, unspecified, uncomplicated; Z88.0 Allergy status to penicillin; Z88.1 Allergy status to other antibiotic agents; Z79.899 Other long term (current) drug therapy; Z79.1 Long term (current) use of non-steroidal anti-inflammatories (NSAID)
CPT/HCPCS: 72110; 72148; 80048; 84702; 85025; 85652; 93005; 93041; 96374; 96375; 96376; 99284; J2270; J2405

== ENCOUNTER → 2021-02-03 | Outpatient (CLI) | payer BC ==
[~2021-02-03] MED LIST changes: +VITA1CAP25
[2021-02-03 12:19] LABS: URINE PREG TEST NEGATIVE (NEGATIVE)
[2021-02-03 12:24] LABS: PLATELET COUNT, AUTOMATED 299 10^3/uL (150-450)
[2021-02-03 12:36] LABS: INR 1.02; PROTHROMBIN TIME 13.8 SECONDS (12.7-14.5)
[2021-02-03 12:37] LABS: PARTIAL THROMBOPLASTIN TIME 29.5 SECONDS (25.9-37.0)
== END ==
LOC: M LAB 11:15
PROVIDERS: ATTEND Physical Medicine & Rehabilitation
DX: M51.26 Other intervertebral disc displacement, lumbar region (principal)

== ENCOUNTER 2021-02-13 03:05 | Emergency (ER) | payer BC, OTHER ==
[~2021-02-13] VITALS: Ht 154.9 cm; Wt 81.8 kg
[2021-02-13] MEDS ORDERED: ZOLO100T PO (03:15)
--- OUTSIDE RECORDS SUMMARY | 2021-02-13 03:15 | CCD | Continuity of Care Document ---
Author Author Umm MORENO MD Organization Unknown Address [address] [place] [address] Phone [phone] Care Team Providers Care Compressed Gas Tester Name Role Phone Sekou Sampson MD AUTM [phone] Ami Ruiz AUTM [phone] Problems Description No Information Available Social History Type Date Description Comments Sex Unknown ETOH Use Denies alcohol use Tobacco Use Start: Unknown Patient is a current smoker, smo kes every day Allergies, Adverse Reactions, Alerts Active Allergies Criticality Reaction | Severity Comments Date Penicillin Unable to assess criticality 07/04/2017 Doxy Unable to assess criticality 08/23/2020 Medications Active Medications SIG Qnty Indications Ordering Provide r Date Medrol 4mg Tablets dose jaquelin, take as directed on sheet 1tabs M54.5 Doc Moreno MD 07/21/2020 Tizanidine HCL 4mg Tablets Take 1 Tablet By Mouth Three Times Daily 90tabs M54.5 Doc Moreno MD Moxifloxacin HCL 0.5% Solution Unknown Naproxen 500mg Tablets Jeremiah Pro DPM Methocarbamol 750mg Tablets TK One T PO Q 6 H PRF Spasms Unknown Gabapentin 300mg Capsules Mitzi Mcdonald PA-C Baclofen 10mg Tablets Take 1 Tablet By Mouth Three Times Daily Unknown 00 Buspirone HCL 7.5mg Tablets Ami Ruiz FNP Fluoxetine HCL 10mg Capsules Take 1 Capsule By Mouth Daily Unknown 00/00/000 0 Vitamin D3 1.25mg (61851 Ut) Capsu les Take 1 Capsule By Mouth Once A Week Unknown 0 Oxycodone-Acetaminophen 5-325mg Tablets Mary Santoro MD Methylprednisolone 4mg TBPK Follow Package Directions Unknown Albuterol Sulfate HFA 108(90Base) mcg/Act Aerosol JosephAmi, [facility] Sertraline HCL 50mg Tablets Ami Ruiz, [facility] Buspirone HCL 10mg Tablets JosephAmi, [facility] Sertraline HCL 100mg Tablets Indian RiverAmi, [facility] Tablets 1 by antoinette th every day Unknown [place] 5-325mg Tablets take 1-2 tabs by mouth every 4 hours as needed pain Unknown Immunizations Description No Information Available Vital Signs Date Vital Result Comment 07/21/2020 4:35pm Body Temperature 97.1 F Height 61 inches 5'1" Weight 193.00 lb BMI (Body Mass Index) 36.5 kg/m2 07/04/2017 9:52am Body Temperature 97.8 F Height 61.5 inches 5'1.50" Weight 166.00 lb BMI (Body Mass Index) 30.9 kg/m2 Results Description No Information Available Procedures Date Code Description Status 08/19/2020 90032 Office/Outpatient New Moderate M DM 45-59 Minutes Completed 07/21/2020 50727 Office/Outpatient Established Mo d MDM 30-39 Min Completed Medical Devices Description No Information Available Encounters Type Date Location Provider Dx Diagnosis Office Visit 01/04/2021 1:30p [place] Moreno MD M47.896 Other spondylosis, lumbar region M51.36 Other intervertebral disc de generation, lumbar region M51.26 Other intervertebral disc di splacement, lumbar region M47.897 Other spondylosis, lumbosacr al region M51.37 Other intervertebral disc de generation, lumbosacral region Office Visit 08/19/2020 8:30a Elmo[place]elo George MD M47.896 Other spondylosis, lumbar region M51.36 Other intervertebral disc de generation, lumbar region M51.26 Other intervertebral disc di splacement, lumbar region M47.897 Other spondylosis, lumbosacr al region M51.37 Other intervertebral disc de generation, lumbosacral region Office Visit 07/21/2020 2:45p [place] Doc Moreno MD M54.5 Low back pain M54.16 Radiculopathy, lumbar region Assessments Date Code Description Provider 01/04/2021 M47.896 Other spondylosis, lumbar region Doc Moreno MD 01/04/2021 M51.36 Other intervertebral disc degene ration, lumbar region Doc Moreno MD 01/04/2021 M51.26 Other intervertebral disc displa cement, lumbar region Doc Moreno MD 01/04/2021 M47.897 Other spondylosis, lumbosacral r egion Doc Moreno MD 01/04/2021 M51.37 Other intervertebral disc degene ration, lumbosacral region Doc Moreno MD 08/19/2020 M47.896 Other spondylosis, lumbar region Naveed George MD 08/19/2020 M51.36 Other intervertebral disc degene ration, lumbar region Naveed George MD 08/19/2020 M51.26 Other intervertebral disc displa cement, lumbar region Naveed George MD 08/19/2020 M47.897 Other spondylosis, lumbosacral r egion Naveed George MD 08/19/2020 M51.37 Other intervertebral disc degene ration, lumbosacral region Naveed George MD 07/21/2020 M54.5 Low back pain Doc Moreno MD 07/21/2020 M54.16 Radiculopathy, lumbar region Bru jay Moreno MD Plan of Treatment 01/04/2021 - Doc Moreno MD* M47.896 Other spondylosis, lumbar region* Follow up:* post inj with PA * M51.36 Other intervertebral disc degeneration, lumbar region * M51.26 Other intervertebral disc displacement, lumbar region * M47.897 Other spondylosis, lumbosacral region * M51.37 Other intervertebral disc degeneration, lumbosacral region Functional Status Description No Information Available Mental Status Description No Information Available Referrals Description No Information Available
--- OUTSIDE RECORDS SUMMARY | 2021-02-13 03:15 | CCD | Continuity of Care Document ---
Author Author Umm MORENO MD Organization Unknown Address [address] [place] [address] Phone [phone] Care Team Providers Care Collector Of Aquarium Specimens Name Role Phone Sekou Sampson MD AUTM [phone] Ami Ruiz AUTM Miguel Angel Rogers MD AUTM [phone] Problems Description No Information Available Social History Type Date Description Comments Sex Unknown ETOH Use Denies alcohol use Tobacco Use Start: Unknown Patient is a current smoker, smo kes every day Allergies and adverse reactions Active Allergies Criticality Reaction | Severity Comments [...] Tablet By Mouth Three Times Daily Unknown Buspirone HCL 7.5mg Tablets Ami Ruiz FNP Fluoxetine HCL 10mg Capsules Take 1 Capsule By Mouth Daily Unknown 0 Vitamin D3 1.25mg (49257 Ut) Capsu les Take 1 Capsule By Mouth Once A Week Unknown 0 Oxycodone-Acetaminophen 5-325mg Tablets Mary Santoro MD Methylprednisolone 4mg TBPK Follow Package Directions Unknown Albuterol Sulfate HFA 108(90Base) mcg/Act Aerosol Ami Ruiz, [facility] Sertraline HCL 50mg Tablets Ami Ruiz, [facility] Buspirone HCL 10mg Tablets Ami Ruiz, [facility] Sertraline HCL 100mg Tablets JosephAmi, [facility] Tablets 1 by antoinette th every day Unknown [place] 5-325mg Tablets take 1-2 tabs by mouth [...] BMI (Body Mass Index) 30.9 kg/m2 Results Test Acquired Date Facility Test Result H/L Range Note Laboratory test finding 02/03/2021 [facility] [address] [place] [address] (315)- - Platelet Count, Automated 299 10 Normal 150-450 Urine Test NEGATIVE Normal Negative PT & Aptt 02/03/2021 [facility] [address] [place] [address] (315)- - Prothrombin Time 13.8 seconds Normal 12.7-14.5 Inr 1.02 Normal 1 Partial Thromboplastin Time 29.5 seconds Normal 25.9-37.0 Laboratory test finding 01/06/2021 In House Covid Rapid Testing NEGATIVE 2 1 THERAPUTIC HUMAN INR VALUES INDICATIONS NORMAL RANGES PROPHYLAXIS/TREATMENT OF: VENOUS THROMBOSIS 2.0-3.0 PULMONARY EMBOLISM 2.0-3.0 PREVENTION OF SYSTEMIC EMBOLISM FROM: TISSUE HEART VALVES 2.0-3.0 ACUTE MYOCARDIAL INFARCTION 2.0-3.0 VALVULAR HEART DISEASE 2.0-3.0 ATRIAL FIBRILLATION 2.0-3.0 MECHANICAL VALVES(HIGH RISK) 2.5-3.5 RECURRENT MYOCARDIAL INFARCTION 2.5-3.5 2 CARE START COVID-19 ANTIGEN LOT # [id number] 02/04/21 3:22 P.M. Procedures Date Code Description Status 08/19/2020 29169 Office/Outpatient New Moderate M DM 45-59 Minutes Completed Medical Devices Description No Information Available Encounters Type Date Location Provider Dx Diagnosis Office Visit 01/04/2021 1:30p [place] Doc Moreno MD M47.896 Other spondylosis, lumbar region M51.36 Other intervertebral disc de generation, lumbar region M51.26 Other intervertebral disc di splacement, lumbar region M47.897 Other spondylosis, lumbosacr al region M51.37 Other intervertebral disc de generation, lumbosacral region Office Visit 08/19/2020 8:30a [place] Naveed George MD M47.896 Other spondylosis, lumbar region M51.36 Other intervertebral disc de generation, lumbar region M51.26 Other intervertebral disc di splacement, lumbar region M47.897 Other spondylosis, lumbosacr al region M51.37 Other intervertebral disc de generation, lumbosacral region Assessments Date Code Description Provider 02/04/2021 Z01.818 Encounter for other preprocedura l examination Naveed George MD 02/04/2021 Z01.818 Encounter for other preprocedura l examination Lab 02/04/2021 Z20.828 Contact with and (arreola spected) exposure to other viral communicable diseases Naveed George MD 02/04/2021 Z20.828 Contact with and (arreola spected) exposure to other viral communicable diseases Lab 02/02/2021 Z01.818 Encounter for other preprocedura l examination Lab 02/02/2021 Z20.828 Contact with and (arreola spected) exposure to other viral communicable diseases Lab 01/04/2021 M47.896 Other spondylosis, lumbar region Doc [...] degene ration, lumbosacral region Naveed George MD Plan of Treatment Future Appointment(s):* 02/24/2021 11:30 am - Liset Boateng PA-C at [place] 01/04/2021 - Doc Moreno MD* M47.896 Other spondylosis, lumbar region* Follow up:* post inj with PA * M51.36 Other intervertebral disc degeneration, lumbar region * M51.26 Other intervertebral disc displacement, lumbar region * M47.897 Other spondylosis, lumbosacral region * M51.37 Other intervertebral disc degeneration, lumbosacral region Functional Status Description No Information Available Mental Status Description No Information Available Referrals Refer to Reason for Referral Status Appt Date Doc Moreno MD CODY INJ([id number]) PER PARI HAS ADOLFO APPRO MARTY TO SURGERY NT Created [address] [facility], [address] [place] [address] [phone]
--- OUTSIDE RECORDS SUMMARY | 2021-02-13 03:15 | CCD | Continuity of Care Document ---
Author Author Umm PERALES MD Organization Unknown Address [address] [facility], [address] [address] Phone [phone] Care Team Providers Care Supervisor Public Message Service Name Role Phone Sekou Sampson MD AUTM [phone] Ami Ruiz AUTM Miguel Angel Rogers MD AUTM [phone] Problems Description No Information Available Social History [...] as directed on sheet 1tabs M54.5 Doc Dyer MD 07/21/2020 Tizanidine HCL 4mg Tablets Take 1 Tablet By Mouth Three Times Daily 90tabs M54.5 Doc Dyer MD Moxifloxacin HCL 0.5% Solution Unknown Naproxen [...] Mouth Daily Unknown 0 Vitamin D3 1.25mg (35372 Ut) Capsu les Take 1 Capsule By Mouth Once A Week Unknown 0 Oxycodone-Acetaminophen 5-325mg Tablets Mary Santoro MD Methylprednisolone 4mg TBPK Follow Package Directions Unknown Albuterol Sulfate HFA 108(90Base) mcg/Act Aerosol Ami Ruiz, [facility] Sertraline HCL 50mg Tablets Ami Ruiz, [facility] Buspirone HCL 10mg Tablets Ami Ruiz, [facility] Sertraline HCL 100mg Tablets Ami Ruiz, [facility] Tablets 1 by antoinette th every day Unknown [place] 5-325mg Tablets take 1-2 tabs by mouth [...] H/L Range Note Laboratory test finding 02/03/2021 [facility] [address] [place] [address] (315)- - Platelet Count, Automated 299 10 Normal 150-450 Urine Test NEGATIVE Normal Negative PT & Aptt 02/03/2021 [facility] [address] [place] [address] (315)- - Prothrombin Time 13.8 seconds Normal [...] 2 CARE START COVID-19 ANTIGEN LOT # [id number] 02/04/21 3:22 P.M. Procedures Date Code Description Status 02/07/2021 92375 Moderate Sedation Se rvices; Same Phys Intl 15 Mins; PT >= 5 Years Completed 02/07/2021 90459 Epidurography Radiological Super vision & Interpretation Completed 02/07/2021 48474 NJX Aa&/STRD TFRML Epi Lumbar/Sa cral 1 Level Completed 08/19/2020 08079 Office/Outpatient New Moderate M DM 45-59 Minutes Completed Medical Devices Description No Information Available Encounters Type Date Location Provider Dx Diagnosis Office Visit 01/04/2021 1:30p [place] Doc Dyer MD M47.896 Other spondylosis, lumbar region M51.36 Other intervertebral disc de generation, lumbar region M51.26 Other intervertebral disc di splacement, lumbar region M47.897 Other spondylosis, lumbosacr al region M51.37 Other intervertebral disc de generation, lumbosacral region Office Visit 08/19/2020 8:30a [place] Naveed Perales MD M47.896 Other spondylosis, lumbar region M51.36 Other intervertebral disc de generation, lumbar region M51.26 Other intervertebral disc di splacement, lumbar region M47.897 Other spondylosis, lumbosacr al region M51.37 Other intervertebral disc de generation, lumbosacral region Assessments Date Code Description Provider 02/07/2021 M51.26 Other intervertebral disc displa cement, lumbar region Naveed Perales MD 02/04/2021 Z01.818 Encounter for other preprocedura l examination Naveed Perales MD 02/04/2021 Z01.818 Encounter for other preprocedura l examination Lab 02/04/2021 Z20.828 Contact with and (arreola spected) exposure to other viral communicable diseases Naveed Perales MD 02/04/2021 Z20.828 Contact with and (arreola spected) exposure to other viral communicable diseases Lab 02/02/2021 Z01.818 Encounter for other preprocedura l examination Lab 02/02/2021 Z20.828 Contact with and (arreola spected) exposure to other viral communicable diseases Lab 01/04/2021 M47.896 Other spondylosis, lumbar region Doc Dyer MD 01/04/2021 M51.36 Other intervertebral disc degene ration, lumbar region Doc Dyer MD 01/04/2021 M51.26 Other intervertebral disc displa cement, lumbar region Doc Dyer MD 01/04/2021 M47.897 Other spondylosis, lumbosacral r egion Doc Dyer MD 01/04/2021 M51.37 Other intervertebral disc degene ration, lumbosacral region Doc Dyer MD 08/19/2020 M47.896 Other spondylosis, lumbar region Naveed Perales MD 08/19/2020 M51.36 Other intervertebral disc degene ration, lumbar region Naveed Perales MD 08/19/2020 M51.26 Other intervertebral disc displa cement, lumbar region Naveed Perales MD 08/19/2020 M47.897 Other spondylosis, lumbosacral r egion Naveed Perales MD 08/19/2020 M51.37 Other intervertebral disc degene ration, lumbosacral region Naveed Perales MD Plan of Treatment Future Appointment(s):* 02/24/2021 11:30 am - Liset Boateng PA-C at [place] 01/04/2021 - Doc Dyer MD* M47.896 Other spondylosis, lumbar region* Follow up:* post inj with PA * M51.36 Other intervertebral disc degeneration, lumbar region * M51.26 Other intervertebral disc displacement, lumbar region * M47.897 Other spondylosis, lumbosacral region * M51.37 Other intervertebral disc degeneration, lumbosacral region Functional Status Description No Information Available Mental Status Description No Information Available Referrals Refer to Dr Reason for Referral Status Appt Date Doc Dyer MD CODY INJ([id number]) PER PARI HAS ADOLFO APPRO MARTY TO SURGERY NT Created [address] [facility], [address] [place] [address] [phone]
--- OUTSIDE RECORDS SUMMARY | 2021-02-13 03:15 | CCD | Continuity of Care Document ---
Author Author Umm Orlando Organization Unknown Address [address] [place] [address] Phone [phone] Care Team Providers Care Dna Analyst Name Role Phone Sekou Sampson MD AUTM [phone] Ami Ruiz AUTM Miguel Angel Rogers MD AUTM [phone] Problems Description No Information Available Social History [...] Mouth Daily Unknown 0 Vitamin D3 1.25mg (76570 Ut) Capsu les Take 1 Capsule By Mouth Once A Week Unknown 0 Oxycodone-Acetaminophen 5-325mg Tablets Mary Santoro MD Methylprednisolone 4mg TBPK Follow Package Directions Unknown Albuterol Sulfate HFA 108(90Base) mcg/Act Aerosol Ami Ruiz, [facility] Sertraline HCL 50mg Tablets Ami Ruiz, [facility] Buspirone HCL 10mg Tablets Ami Ruiz, [facility] Sertraline HCL 100mg Tablets JosephAmi, [facility] Tablets 1 by antoinette th every day Unknown [place] 5-325mg Tablets take 1-2 tabs by mouth [...] H/L Range Note Laboratory test finding 02/03/2021 [facility] [address] [place] [address] (315)- - Platelet Count, Automated 299 10 Normal 150-450 Urine Test NEGATIVE Normal Negative PT & Aptt 02/03/2021 [facility] [address] [place] [address] (315)- - Prothrombin Time 13.8 seconds Normal [...] 2 CARE START COVID-19 ANTIGEN LOT # [id number] 02/04/21 3:22 P.M. Procedures Date Code Description Status 08/19/2020 82475 Office/Outpatient New Moderate M DM 45-59 Minutes Completed Medical Devices Description No Information Available Encounters Type Date Location Provider Dx Diagnosis Office Visit 01/04/2021 1:30p [place] Doc Dyer MD M47.896 Other spondylosis, lumbar region M51.36 Other intervertebral disc de generation, lumbar region M51.26 Other intervertebral disc di splacement, lumbar region M47.897 Other spondylosis, lumbosacr al region M51.37 Other intervertebral disc de generation, lumbosacral region Office Visit 08/19/2020 8:30a [place] Naveed George MD M47.896 Other spondylosis, lumbar [...] 11:30 am - Liset Boateng PA-C at [place] * 02/07/2021 8:00 am - Naveed George MD at Surgery [facility] 01/04/2021 - Doc Dyer MD* M47.896 Other [...] Status Appt Date Doc Dyer MD CODY INJ([id number]) PER PARI HAS ADOLFO APPRO MARTY TO SURGERY NT Created [address] [facility], [address] [place] [address] [phone]
--- OUTSIDE RECORDS SUMMARY | 2021-02-13 03:15 | CCD | Continuity of Care Document ---
Author Author Umm MORENO MD Organization Unknown Address [address] [place] [address] Phone [phone] Care Team Providers Care Director Software Quality Assurance Name Role Phone Sekou Sampson MD AUTM [phone] Ami Ruiz AUTM Miguel Angel Rogers MD AUTM [phone] Problems Description No Information Available Social History [...] Mouth Daily Unknown 0 Vitamin D3 1.25mg (63825 Ut) Capsu les Take 1 Capsule By Mouth Once A Week Unknown 0 Oxycodone-Acetaminophen 5-325mg Tablets Mary Santoro MD Methylprednisolone 4mg TBPK Follow Package Directions Unknown Albuterol Sulfate HFA 108(90Base) mcg/Act Aerosol Ami Ruiz, [facility] Sertraline HCL 50mg Tablets Ami Ruiz, [facility] Buspirone HCL 10mg Tablets JosephAmi, [facility] Sertraline HCL 100mg Tablets JosephAmi, [facility] Tablets 1 by antoinette th every day Unknown [place] 5-325mg Tablets take 1-2 tabs by mouth [...] Available Procedures Date Code Description Status 08/19/2020 96514 Office/Outpatient New Moderate M DM 45-59 Minutes Completed 07/21/2020 65728 Office/Outpatient Established Mo d MDM 30-39 Min Completed Medical Devices Description No Information Available Encounters Type Date Location Provider Dx Diagnosis Office Visit 01/04/2021 1:30p [place] Moreno MD M47.896 Other spondylosis, lumbar region M51.36 Other intervertebral disc de generation, lumbar region M51.26 Other intervertebral disc di splacement, lumbar region M47.897 Other spondylosis, lumbosacr al region M51.37 Other intervertebral disc de generation, lumbosacral region Office Visit 08/19/2020 8:30a [place] George MD M47.896 Other spondylosis, lumbar region M51.36 Other intervertebral disc de generation, lumbar region M51.26 Other intervertebral disc di splacement, lumbar region M47.897 Other spondylosis, lumbosacr al region M51.37 Other intervertebral disc de generation, lumbosacral region Office Visit 07/21/2020 2:45p [place] Doc Moreno MD M54.5 Low back pain [...] Bru jay Moreno MD Plan of Treatment Future Appointment(s):* 02/07/2021 8:00 am - Naveed George MD at Surgery [facility] * 02/02/2021 9:00 am - Lab at [facility] 01/04/2021 - Doc Moreno MD* M47.896 Other [...]
--- OUTSIDE RECORDS SUMMARY | 2021-02-13 03:15 | CCD | Continuity of Care Document ---
Author Author Umm Orlando Organization Unknown Address [address] [place] [address] Phone [phone] Care Team Providers Care Press Catcher Name Role Phone Sekou Sampson MD AUTM [phone] Ami Ruiz AUTM [phone] Miguel Angel Rogers MD AUTM [phone] Problems Description No Information Available Social History [...] Mouth Daily Unknown 0 Vitamin D3 1.25mg (47240 Ut) Capsu les Take 1 Capsule By Mouth Once A Week Unknown 0 Oxycodone-Acetaminophen 5-325mg Tablets Mary Santoro MD Methylprednisolone 4mg TBPK Follow Package Directions Unknown Albuterol Sulfate HFA 108(90Base) mcg/Act Aerosol Ami Ruiz, [facility] Sertraline HCL 50mg Tablets Ami Ruiz, [facility] Buspirone HCL 10mg Tablets Ami Ruiz, [facility] Sertraline HCL 100mg Tablets JosephAmi, [facility] Tablets 1 by antoinette th every day Unknown [place] 5-325mg Tablets take 1-2 tabs by mouth [...] H/L Range Note Laboratory test finding 02/03/2021 [facility] [address] [place] [address] (315)- - Platelet Count, Automated 299 10 Normal 150-450 Urine Test NEGATIVE Normal Negative PT & Aptt 02/03/2021 [facility] [address] [place] [address] (315)- - Prothrombin Time 13.8 seconds Normal [...] 2 CARE START COVID-19 ANTIGEN LOT # [id number] 02/04/21 3:22 P.M. Procedures Date Code Description Status 08/19/2020 85700 Office/Outpatient New Moderate M DM 45-59 Minutes Completed Medical Devices Description No Information Available Encounters Type Date Location Provider Dx Diagnosis Office Visit 01/04/2021 1:30p [place] Doc Dyer MD M47.896 Other spondylosis, lumbar region M51.36 Other intervertebral disc de generation, lumbar region M51.26 Other intervertebral disc di splacement, lumbar region M47.897 Other spondylosis, lumbosacr al region M51.37 Other intervertebral disc de generation, lumbosacral region Office Visit 08/19/2020 8:30a [place] Naveed George MD M47.896 Other spondylosis, lumbar region M51.36 Other intervertebral disc de generation, lumbar region M51.26 Other intervertebral disc di splacement, lumbar region M47.897 Other spondylosis, lumbosacr al region M51.37 Other intervertebral disc de generation, lumbosacral region Assessments Date Code Description Provider 02/02/2021 Z01.818 Encounter for other preprocedura l [...] 11:30 am - Liset Boateng PA-C at [place] * 02/07/2021 8:00 am - Naveed George MD at Surgery [facility] 01/04/2021 - Doc Dyer MD* M47.896 Other [...] Status Appt Date Doc Dyer MD CODY INJ([id number]) PER PARI HAS ADOLFO APPRO MARTY TO SURGERY NT Created [address] [facility], [address] [place] [address] [phone]
--- OUTSIDE RECORDS SUMMARY | 2021-02-13 03:17 | CCD ---
Author Author [facility] Organization [facility] Address Unknown Phone Unavailable Care Team Providers Care Sales Analyst Name Role Phone Elizabeth Grigsby Unavailable [phone] Naveed George Unavailable Unavailable Naveed George Unavailable Unavailable Naveed George Unavailable Unavailable Naveed George Unavailable Unavailable Naveed George Unavailable Unavailable Naveed George Unavailable Unavailable Naveed George Unavailable Unavailable Naveed George Unavailable Unavailable Naveed George Unavailable Unavailable Naveed George Unavailable Unavailable George, Naveed Unavailable Unavailable George, Naveed Unavailable Unavailable George, Naveed Unavailable Unavailable George, Naveed Unavailable Unavailable George, Naveed Unavailable Unavailable George, Naveed Unavailable Unavailable George, Naveed Unavailable Unavailable George, Naveed Unavailable Unavailable George, Naveed Unavailable Unavailable George, Naveed Unavailable Unavailable George, Naveed Unavailable Unavailable George, Naveed Unavailable Unavailable George, Naveed Unavailable Unavailable George, Naveed Unavailable Unavailable George, Naveed Unavailable Unavailable George, Naveed Unavailable Unavailable George, Naveed Unavailable Unavailable George, Naveed Unavailable Unavailable George, Naveed Unavailable Unavailable George, Naveed Unavailable Unavailable George, Naveed Unavailable Unavailable George, Naveed Unavailable Unavailable George, Naveed Unavailable Unavailable George, Naveed Unavailable Unavailable George, Naveed Unavailable Unavailable George, Naveed Unavailable Unavailable George, Naveed Unavailable Unavailable George, Naveed Unavailable Unavailable George, Naveed Unavailable Unavailable George, Naveed Unavailable Unavailable George, Naveed Unavailable Unavailable George, Naveed Unavailable Unavailable George, Naveed Unavailable Unavailable George, Naveed Unavailable Unavailable George, Naveed Unavailable Unavailable Joseph, Ami COUNTY TAX ASSESSOR COUNTY TAX ASSESSOR Unavailable Unavailable [place], A Ami COUNTY TAX ASSESSOR Unavailable Unavailable [place], A Ami COUNTY TAX ASSESSOR Unavailable Unavailable [place], A Ami COUNTY TAX ASSESSOR Unavailable Unavailable [place], A Ami COUNTY TAX ASSESSOR Unavailable Unavailable [place], A Ami COUNTY TAX ASSESSOR Unavailable Unavailable [place], A Ami COUNTY TAX ASSESSOR Unavailable Unavailable [place], A Ami COUNTY TAX ASSESSOR Unavailable Unavailable [place], A Ami COUNTY TAX ASSESSOR Unavailable Unavailable [place], A Ami COUNTY TAX ASSESSOR Unavailable Unavailable [place], A Ami COUNTY TAX ASSESSOR Unavailable Unavailable [place], A Ami COUNTY TAX ASSESSOR Unavailable Unavailable [place], A Ami COUNTY TAX ASSESSOR Unavailable Unavailable [place], A Ami COUNTY TAX ASSESSOR Unavailable Unavailable [place], A Ami COUNTY TAX ASSESSOR Unavailable Unavailable [place], A Ami COUNTY TAX ASSESSOR Unavailable Unavailable [place], A Ami COUNTY TAX ASSESSOR Unavailable Unavailable [place], A Ami COUNTY TAX ASSESSOR Unavailable Unavailable [place], A Ami COUNTY TAX ASSESSOR Unavailable Unavailable [place], A Ami COUNTY TAX ASSESSOR Unavailable Unavailable [place], A Ami COUNTY TAX ASSESSOR Unavailable Unavailable [place], A Ami COUNTY TAX ASSESSOR Unavailable Unavailable [place], A Ami COUNTY TAX ASSESSOR Unavailable Unavailable [place], A Ami COUNTY TAX ASSESSOR Unavailable Unavailable [place], A Ami COUNTY TAX ASSESSOR Unavailable Unavailable [place], A Ami COUNTY TAX ASSESSOR Unavailable Unavailable [place], A Ami COUNTY TAX ASSESSOR Unavailable Unavailable [place], A Ami COUNTY TAX ASSESSOR Unavailable Unavailable [place], A Ami COUNTY TAX ASSESSOR Unavailable Unavailable [place], A Ami COUNTY TAX ASSESSOR Unavailable Unavailable [place], A Ami COUNTY TAX ASSESSOR Unavailable Unavailable Joseph, A Ami COUNTY TAX ASSESSOR Unavailable Unavailable Marjan Dyer MD Unavailable Unavailable Dyer, Marjan Roach MD Unavailable Unavailable Dyer, Marjan Roach MD Unavailable Unavailable Dyer, L Doc [place] Unavailable Unavailable Dyer, Marjan Roach MD Unavailable Unavailable Dyer, Marjan Roach MD Unavailable Unavailable Dyer, Marjan Roach MD Unavailable Unavailable Dyer, Marjan Roach MD Unavailable Unavailable Dyer, Marjan Roach MD Unavailable Unavailable Dyer, Marjan Roach MD Unavailable Unavailable Dyer, Marjan Roach MD Unavailable Unavailable Dyer, Marjan Roach MD Unavailable Unavailable Dyer, Marjan Roach MD Unavailable Unavailable Dyer, Marjan Roach MD Unavailable Unavailable Dyer, Marjan Roach MD Unavailable Unavailable Dyer, Marjan Roach MD Unavailable Unavailable Dyer, Marjan Roach MD Unavailable Unavailable Dyer, Marjan Roach MD Unavailable Unavailable Dyer, Marjan Roach MD Unavailable Unavailable Dyer, Marjan Roach MD Unavailable Unavailable Dyer, Marjan Roach MD Unavailable Unavailable Dyer, Marjan Roach MD Unavailable Unavailable Dyer, Marjan Roach MD Unavailable Unavailable Dyer, Marjan Roach MD Unavailable Unavailable Dyer, Marjan Roach MD Unavailable Unavailable Dyer, Marjan Roach MD Unavailable Unavailable Dyer, Marjan Roach MD Unavailable Unavailable Dyer, Marjan Roach MD Unavailable Unavailable Dyer, Marjan Roach MD Unavailable Unavailable Dyer, Marjan Roach MD Unavailable Unavailable Dyer, Marjan Roach MD Unavailable Unavailable Dyer, Marjan Roach MD Unavailable Unavailable Dyer, Marjan Roach MD Unavailable Unavailable Dyer, Marjan Roach MD Unavailable Unavailable Dyer, Marjan Roach MD Unavailable Unavailable Dyer, Marjan Roach MD Unavailable Unavailable Dyer, Marjan Roach MD Unavailable Unavailable Dyer, Marjan Roach MD Unavailable Unavailable Dyer, Marjan Roach MD Unavailable Unavailable Dyer, Marjan Roach MD Unavailable Unavailable Dyer, Marjan Roach MD Unavailable Unavailable Dyer, Marjan Roach MD Unavailable Unavailable Dyer, Marjan Roach MD Unavailable Unavailable Dyer, Marjan Roach MD Unavailable Unavailable Dyer, Marjan Roach MD Unavailable Unavailable Dyer, Marjan Roach MD Unavailable Unavailable Dyer, Marjan Roach MD Unavailable Unavailable Dyer, Marjan Roach MD Unavailable Unavailable Dyer, Marjan Roach MD Unavailable Unavailable Dyer, Marjan Roach MD Unavailable Unavailable Joseph, A Ami COUNTY TAX ASSESSOR Unavailable Unavailable Joseph, A Ami COUNTY TAX ASSESSOR Unavailable Unavailable Joseph, A Ami COUNTY TAX ASSESSOR Unavailable Unavailable Joseph, A Ami COUNTY TAX ASSESSOR Unavailable Unavailable Joseph, A Ami COUNTY TAX ASSESSOR Unavailable Unavailable Joseph, A Ami COUNTY TAX ASSESSOR Unavailable Unavailable Joseph, A Ami COUNTY TAX ASSESSOR Unavailable Unavailable Joseph, A Ami COUNTY TAX ASSESSOR Unavailable Unavailable Joseph, A Ami COUNTY TAX ASSESSOR Unavailable Unavailable Joseph, A Ami COUNTY TAX ASSESSOR Unavailable Unavailable Joseph, A Ami COUNTY TAX ASSESSOR Unavailable Unavailable Joseph, A Ami COUNTY TAX ASSESSOR Unavailable Unavailable Joseph, A Ami COUNTY TAX ASSESSOR Unavailable Unavailable Joseph, A Ami COUNTY TAX ASSESSOR Unavailable Unavailable Joseph, A Ami COUNTY TAX ASSESSOR Unavailable Unavailable Joseph, A Ami COUNTY TAX ASSESSOR Unavailable Unavailable Joseph, A Ami COUNTY TAX ASSESSOR Unavailable Unavailable Joseph, A Ami COUNTY TAX ASSESSOR Unavailable Unavailable Joseph, A Ami COUNTY TAX ASSESSOR Unavailable Unavailable Joseph, A Ami COUNTY TAX ASSESSOR Unavailable Unavailable Joseph, A Ami COUNTY TAX ASSESSOR Unavailable Unavailable Joseph, A Ami COUNTY TAX ASSESSOR Unavailable Unavailable Joseph, A Ami COUNTY TAX ASSESSOR Unavailable Unavailable Joseph, A Ami COUNTY TAX ASSESSOR Unavailable Unavailable Joseph, A Ami COUNTY TAX ASSESSOR Unavailable Unavailable Joseph, A Ami COUNTY TAX ASSESSOR Unavailable Unavailable Joseph, A Ami COUNTY TAX ASSESSOR Unavailable Unavailable Joseph, A Ami COUNTY TAX ASSESSOR Unavailable Unavailable Joseph, A Ami COUNTY TAX ASSESSOR Unavailable Unavailable Joseph, A Ami COUNTY TAX ASSESSOR Unavailable Unavailable Joseph, A Ami COUNTY TAX ASSESSOR Unavailable Unavailable Re-disclosure Warning The records that you are about to access may contain information from federally-assisted alcohol or drug abuse programs. If such information is present, then the following federally mandated warning applies: This information has been disclosed to you from records protected by federal confidentiality rules (42 CFR part 2). The federal rules prohibit you from making any further disclosure of this information unless further disclosure is expressly permitted by the written consent of the person to whom it pertains or as otherwise permitted by 42 CFR part 2. A general authorization for the release of medical or other information is NOT sufficient for this purpose. The Federal rules restrict any use of the information to criminally investigate or prosecute any alcohol or drug abuse patient.The records that you are about to access may contain highly sensitive health information, the redisclosure of which is protected by Article 27-F of the [facility] Public Health law. If you continue you may have access to information: Regarding HIV / AIDS; Provided by facilities licensed or operated by the [facility] Office of Mental Health; or Provided by the [facility] Office for People With Developmental Disabilities. If such information is present, then the following [facility] mandated warning applies: This information has been disclosed to you from confidential records which are protected by state law. State law prohibits you from making any further disclosure of this information without the specific written consent of the person to whom it pertains, or as otherwise permitted by law. Any unauthorized further disclosure in violation of state law may result in a fine or intermediate sentence or both. A general authorization for the release of medical or other information is NOT sufficient authorization for further disc losure. Family History Family Member Name Family Member Gender Family Member Status Date o f Status Description Data Source(s) Unknown Unknown Problem [facility] ([facility]) Unknown Male Problem [facility] ([facility]) Encounters Encounter Providers Location Date Indications Data Source(s ) Office Visit Attender: Doc Dyer MD Physical Therapy 2020 01:30:00 PM EDT [facility] ([facility]) REGINA Mcgee: [address] [place] [address], Ph. Attender: Ami Ruiz [facility] Medical 11/09/2020 12:00:00 AM EDT [place] ([facility]) Outpatient Attender: Doc Dyer MD 10/14/2020 01:33:00 PM EDT [facility] AmiREGINA MastersBC: [address], [place] [address], Ph. Attender: Ami Ruiz [facility] Medical 10/14/2020 12:00:00 AM EDT [facility]) REGINA Mcgee: [address], [place] [address], Ph. Attender: Ami Ruiz [facility] Medical 10/14/2020 12:00:00 AM EDT [facility]) C[place] Mcgee: [address], [place] [address], Ph. Attender: Ami Ruiz [facility] Medical 09/30/2020 12:00:00 AM [facility] Ami Ruiz [facility]: [address] [place] [address], Ph. Attender: Ami Ruiz [facility] Medical 09/30/2020 12:00:00 AM EDT [place] ([facility]) Ami Ruiz [facility]: [address] [place] [address], Ph. Attender: Ami Ruiz [facility] Medical 09/30/2020 12:00:00 AM EDT [facility]) Elizabeth Grigsby, CULLET TRUCKER-R: [address] [place] [address], Ph. Attender: Elizabeth Grigsby [facility] Medical 09/29/2020 12:00:00 AM EDT [facility]) Elizabeth Grigsby, CULLET TRUCKER-R: [address] [place] [address], Ph. Attender: Elizabeth Grigsby [facility] Medical 09/29/2020 12:00:00 AM EDT [facility]) Elizabeth Grigsby [employer]ULLET TRUCKER-R: [address] [place] [address], Ph. Attender: Elizabeth Grigsby [facility] Medical 09/29/2020 12:00:00 AM EDT [facility]) Elizabeth Grigsby, CULLET TRUCKER-R: [address] [place] [address], Ph. Attender: Elizabeth Grigsby [facility] Medical 09/29/2020 12:00:00 AM EDT [place] ([facility]) Outpatient Attender: Doc Dyer MD 021 04:17:00 PM EDT - 10/13/2020 01:33:00 PM EDT [facility] Patient discharged. Elizabeth Grigsby, CULLET TRUCKER-R: [address], [place] [address], Ph. Attender: Elizabeth Grigsby [facility] Medical 08/30/2020 12:00:00 AM EDT [place] ([facility]) Elizabeth Grigsby, CULLET TRUCKER-R: [address], [address], [place] [address], Ph. Attender: Elizabeth Grigsby [facility] Medical 08/30/2020 12:00:00 AM EDT [place] ([facility]) Elizabeth Grigsby, CULLET TRUCKER-R: [address], [address], [place] [address], Ph. Attender: Elizabeth Grigsby [facility] Medical 08/30/2020 12:00:00 AM EDT [place] ([facility]) Elizabeth Grigsby, CULLET TRUCKER-R: [address], [address], [place] [address], Ph. Attender: Elizabeth Grigsby [facility] Medical 08/30/2020 12:00:00 AM EDT [place] ([facility]) Elizabeth Grigsby, CULLET TRUCKER-R: [address], [address], [place] [address], Ph. Attender: Elizabeth Grigsby [facility] Medical 08/30/2020 12:00:00 AM EDT [place] ([facility]) Outpatient Attender: Naveed George Physical Therapy 08/19/2020 08:30:0 0 AM EDT [facility] ([facility] ) EMMY McgeeBC: [address], [place] [address], Ph. Attender: Ami Ruiz [facility] Medical 08/18/2020 12:00:00 AM EDT [place] ([facility]) REGINA Mcgee: [address], [place] [address], Ph. Attender: Ami Ruiz [facility] Medical 08/18/2020 12:00:00 AM EDT [place] ([facility]) REGINA Mcgee: [address], [place] [address], Ph. Attender: Ami Ruiz [facility] Medical 08/18/2020 12:00:00 AM EDT [place] ([facility]) REGINA Mcgee: [address], [place] [address], Ph. Attender: Ami Ruiz [facility] Medical 08/18/2020 12:00:00 AM EDT [place] ([facility]) REGINA Mcgee: [address], [place] [address], Ph. Attender: Ami Ruiz [facility] Medical 08/18/2020 12:00:00 AM EDT [place] ([facility]) REGINA Mcgee: [address], [place] [address], Ph. Attender: Ami SUBRAMANIANMETHODIST [facility]ENN[facility] Medical 08/18/2020 12:00:00 AM EDT [place] ([facility]) Outpatient Attender: Doc Dyer MD 021 10:44:00 AM EDT - 09/08/2020 04:17:00 PM EDT [facility] Patient discharged. Outpatient Attender: Doc Dyer MD 021 11:37:00 AM EDT - 08/11/2020 10:44:00 AM EDT [facility] Patient discharged. Elizabethanuja Grigsby, CULLET TRUCKER-R: [address], [place] [address], Ph. Attender: Elizabeth Calista [facility] Medical 08/10/2020 12:00:00 AM EDT [place] ([facility]) Elizabeth Calista, CULLET TRUCKER-R: [address], [address], [place] [address], Ph. Attender: Elizabeth Césarmegkris [facility] Medical 08/10/2020 12:00:00 AM EDT [place] ([facility]) Elizabeth Calista, CULLET TRUCKER-R: [address], [place] [address], Ph. Attender: Elizabeth Césarmegkris [facility] Medical 08/10/2020 12:00:00 AM EDT [place] ([facility]) Elizabeth Calista, CULLET TRUCKER-R: [address], [address], [place] [address], Ph. Attender: Elizabeth Calista [facility] Medical 08/10/2020 12:00:00 AM EDT [place] ([facility]) Elizabeth Grigsby, CULLET TRUCKER-R: [address], [address], [place] [address], Ph. Attender: Elizabeth Grigsby [facility] Medical 08/10/2020 12:00:00 AM EDT [place] ([facility]) Elizabeth Grigsby, CULLET TRUCKER-R: [address], [address], [place] [address], Ph. Attender: Elizabeth Grigsby [facility] Medical 08/10/2020 12:00:00 AM EDT [place] ([facility]) Elziabeth Grigsby, CULLET TRUCKER-R: [address], [address], [place] [address], Ph. Attender: Elizabeth Grigsby [facility] Medical 08/10/2020 12:00:00 AM EDT [place] ([facility]) Elizabeth Grigsby, CULLET TRUCKER-R: [address] [place] [address], Ph. Attender: Elizabeth Grigsby [facility] Medical 07/28/2020 12:00:00 AM EDT [place] ([facility]) Elizabeth Grigsby, CULLET TRUCKER-R: [address] [place] [address], Ph. Attender: Elizabeth Grigsby [facility] Medical 07/28/2020 12:00:00 AM EDT [place] ([facility]) Elizabeth Grigsby, CULLET TRUCKER-R: [address] [place] [address], Ph. Attender: Elizabeth Grigsby [facility] Medical 07/28/2020 12:00:00 AM EDT [place] ([facility]) Elizabeth Grigsby, CULLET TRUCKER-R: [address] [place] [address], Ph. Attender: Elizabeth Grigsby [facility] Medical 07/28/2020 12:00:00 AM EDT [facility]) Elizabeth Grigsby, CULLET TRUCKER-R: [address] [place] [address], Ph. Attender: Elizabeth Grigsby [facility] Medical 07/28/2020 12:00:00 AM EDT [place] ([facility]) Elizabeth Grigsby, CULLET TRUCKER-R: [address] [place] [address], Ph. Attender: Elizabeth Grigsby [facility] Medical 07/28/2020 12:00:00 AM EDT [facility]) Elizabeth Grigsby, CULLET TRUCKER-R: [address] [place] [address], Ph. Attender: Elizabeth Grigsby [facility] Medical 07/28/2020 12:00:00 AM EDT [place] ([facility]) Elizabeth Césarmike, CULLET TRUCKER-R: [address] [place] [address], Ph. Attender: Elizabeth Césarmegkris [facility] Medical 07/28/2020 12:00:00 AM EDT [place] ([facility]) Ami Ruiz [facility]: [address], [place] [address], Ph. Attender: Ami Ruiz [facility] Medical 07/22/2020 12:00:00 AM EDT [place] ([facility]) Ami Ruiz [facility]: [address], [place] [address], Ph. Attender: Ami Ruiz [facility] Medical 07/22/2020 12:00:00 AM EDT [facility]) Ami Ruiz [facility]: [address], [place] [address], Ph. Attender: Ami Ruiz [facility] Medical 07/22/2020 12:00:00 AM EDT [place] ([facility]) Ami Ruiz [facility]: [address], [place] [address], Ph. Attender: Ami Ruiz [facility] Medical 07/22/2020 12:00:00 AM EDT [facility]) Ami Ruiz [facility]: [address], [place] [address], Ph. Attender: Ami Ruiz [facility] Medical 07/22/2020 12:00:00 AM EDT [place] ([facility]) Ami Ruiz [facility]: [address], [place] [address], Ph. Attender: Ami Ruiz [facility] Medical 07/22/2020 12:00:00 AM EDT [facility] Ami Ruiz [facility]: [address], [place] [address], Ph. Attender: Ami Ruiz [facility] Medical 07/22/2020 12:00:00 AM EDT [place] ([facility]) Ami Ruiz [facility]: [address], [place] [address], Ph. Attender: Ami Ruiz [facility] Medical 07/22/2020 12:00:00 AM EDT [place] ([facility]) Ami Ruiz [facility]: [address], [place] [address], Ph. Attender: Ami Ruiz [facility] Medical 07/22/2020 12:00:00 AM EDT [place] ([facility]) Outpatient Attender: Doc Dyer MD Physical Therapy 07/21/2020 0 2:45:00 PM EDT [place] ([facility] ) Ami Ruiz [facility]: [address], [place] [address], Ph. Attender: Ami Ruiz [facility] Medical 06/08/2020 12:00:00 AM EST [place] ([facility]) Ami Ruiz [facility]: [address], [place] [address], Ph. Attender: Ami Ruiz [facility] Medical 06/08/2020 12:00:00 AM EST [place] ([facility]) Ami Ruiz [facility]: [address], [place] [address], Ph. Attender: Ami Ruiz COUNTY TAX ASSESSORMETHODIST [facility]ENNIE [facility] Medical 06/08/2020 12:00:00 AM EST [place] ([facility]) Ami Ruiz [facility]: [address], [place] [address], Ph. Attender: Ami Ruiz [facility] Medical 06/08/2020 12:00:00 AM EST [place] ([facility]) Ami Ruiz [facility]: [address], [place] [address], Ph. Attender: Ami Ruiz [facility] Medical 06/08/2020 12:00:00 AM EST [place] ([facility]) Ami Ruiz [facility]: [address], [place] [address], Ph. Attender: Ami Ruiz [facility] Medical 06/08/2020 12:00:00 AM EST [place] ([facility]) Ami Ruiz [facility]: [address], [place] [address], Ph. Attender: Ami Ruiz [facility] Medical 06/08/2020 12:00:00 AM EST [place] ([facility]) Ami Ruiz [facility]: [address], [place] [address], Ph. Attender: Ami Ruiz [facility] Medical 06/08/2020 12:00:00 AM EST [place] ([facility]) Ami Ruiz [facility]: [address], [place] [address], Ph. Attender: Ami Ruiz [facility] Medical 06/08/2020 12:00:00 AM EST [place] ([facility]) [facility] [address], [place] [address], Ph. Attender: Ami Ruiz [facility] Medical 06/08/2020 12:00:00 AM EST [place] ([facility]) Ami Ruiz [facility]: [address], [place] [address], Ph. Attender: Ami Ruiz [facility] Medical 06/08/2020 12:00:00 AM EST [place] ([facility]) REGINA Mcgee: [address], [place] [address], Ph. Attender: Ami Ruiz [facility] Medical 05/12/2020 12:00:00 AM EST [place] ([facility]) MARILYNN McgeePSofia: [address], [place] [address], Ph. Attender: Ami Ruiz [facility] Medical 05/12/2020 12:00:00 AM EST [place] ([facility]) MARILYNN McgeePSofia: [address], [place] [address], Ph. Attender: Ami Ruiz [facility] Medical 05/12/2020 12:00:00 AM EST [place] ([facility]) Ami Ruiz [facility]: [address], [place] [address], Ph. Attender: Ami Ruiz [facility] Medical 05/12/2020 12:00:00 AM EST [place] ([facility]) [facility] [address], [place] [address], Ph. Attender: Ami Ruiz [facility] Medical 05/12/2020 12:00:00 AM EST [place] ([facility]) Ami Ruiz [facility]: [address], [place] [address], Ph. Attender: Ami Ruiz [facility] [facility] 05/12/2020 12:00:00 AM EST ZO[facility] ([facility]) [facility] [address], [place] [address], Ph. Attender: Ami Ruiz [facility] Medical 05/12/2020 12:00:00 AM EST Z[facility] ([facility]) [facility]: [address], [place] [address], Ph. Attender: Ami Ruiz [facility] Medical 05/12/2020 12:00:00 AM EST ZOILA ([facility]) [facility]: [address], [place] [address], Ph. Attender: Ami Ruiz [facility] Medical 05/12/2020 12:00:00 AM EST [facility] ([facility]) [facility]: [address], [place] [address], Ph. Attender: Ami Ruiz [facility] Medical 05/12/2020 12:00:00 AM EST ZOILA ([facility]) Ami Ruiz [facility]: [address], [place] [address], Ph. Attender: Ami Ruiz [facility] Medical 05/12/2020 12:00:00 AM EST Z[facility] ([facility]) Ami Ruiz [facility]: [address], [place] [address], Ph. Attender: Ami Ruiz [facility] Medical 05/04/2020 12:00:00 AM EST ZOILA ([facility]) [facility] [address], [place] [address], Ph. Attender: Ami Ruiz [facility] Medical 05/04/2020 12:00:00 AM EST [facility] ([facility]) Ami Ruiz [facility]: [address], [place] [address], Ph. Attender: Ami Ruiz [facility] Medical 05/04/2020 12:00:00 AM EST [facility]A ([facility]) [facility] [address], [place] [address], Ph. Attender: Ami Ruiz [facility] Medical 05/04/2020 12:00:00 AM EST ZOILA ([facility]) Ami Ruiz [facility]: [address], [place] [address], Ph. Attender: Ami Ruiz [facility] Medical 05/04/2020 12:00:00 AM EST [facility] ([facility]) [facility] [address], [place] [address], Ph. Attender: Ami Ruiz [facility] Medical 05/04/2020 12:00:00 AM EST [facility]A ([facility]) Ami Ruiz [facility]: [address], [place] [address], Ph. Attender: Ami Ruiz [facility] Medical 05/04/2020 12:00:00 AM EST [facility] ([facility]) [facility]: [address], [place] [address], Ph. Attender: Ami Ruiz [facility] Medical 05/04/2020 12:00:00 AM EST [facility] ([facility]) [facility] Ru[facility]: [address], [place] [address], Ph. Attender: Ami Ruiz [facility] Medical 05/04/2020 12:00:00 AM EST [facility]A ([facility]) [facility]: [address], [place] [address], Ph. Attender: Ami Ruiz [facility] Medical 05/04/2020 12:00:00 AM EST [facility] ([facility]) Am[facility] Ruiz [facility]: [address], [place] [address], Ph. Attender: Ami Ruiz [facility] Medical 05/04/2020 12:00:00 AM EST ZOILA ([facility]) Ami Ruiz [facility]-: [address] [place] [address], Ph. Attender: Amira Joseph [facility] Medical 05/04/2020 12:00:00 AM EST ZOILA ([facility]) Outpatient Att[facility]: [facility] 01/31/2020 02:3 6:03 PM EDT [facility] Outpatient Attender: EMMY Joseph [facility] 01/31/2020 02:36:02 P M EDT [facility] Outpatient Attender: EMMY Joseph [facility] 01/26/2020 02:56:00 P M EDT [facility] Outpatient Attender: Ami Ruiz [facility] 01/26/2020 02:2 6:03 PM EDT [facility] Outpatient Attender: EMMY Ruiz EMMY 12/23/2019 12:35:01 P M EDT [facility] Outpatient Attender: Ami Ruiz [facility] 12/19/2019 11:1 0:04 AM EDT [facility] Outpatient Attender: EMMY Ruiz [facility] 12/19/2019 11:10:02 A M EDT [facility] Immunizations Vaccine Date Status Description Data Source(s) COVID-19 VACCINE Moderna 01/21/2021 12:00:00 AM EDT completed WISIIS Vaccine Series Complete: YESThis Data wa s Submitted to [facility] Via [employer]. COVID-19 VACCINE Moderna 12/24/2020 12:00:00 AM EDT completed WISIIS Vaccine Series Complete: NOThis Data was Submitted to [facility] Via [employer]. Medications Medication Brand Name Start Date Product Form Dose Route Admi nistrative Instructions Pharmacy Instructions Status Indications Reaction Description Data Source(s) tizanidine 4 MG Oral Tablet Tizanidine HCL 07/21/2020 12:00:00 AM EDT active MEDENT ([facility] ) Methylprednisolone 4 MG Oral Tablet [Medrol] Medrol 10/2020 12:00:00 AM EDT active MEDENT ( [facility]) Wixela Inhub 250 mcg-50 mcg/dose powder for inhalation USE ONE INHALATION ONCE D [place] 354226 completed 60 ACTUAT fluticasone propionate 0.25 MG/ACTUAT / salmeterol 0.05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 [id number] 10/14/2020 08:34:00 AM EDT [place] ([facility]) Name Value Range Interpretation Code Description Data Nena rce(s) Supporting Document(s) Leukocytes [#/volume] in Blood by Automated count 7.8 thousand/uL 3 .8-10.8 White Blood Cell Count [place] ([facility]) Erythrocytes [#/volume] in Blood by Automated count 4.46 million/uL 3.80-5.10 Red Blood Cell Count [place] ([facility]) Hemoglobin [Mass/volume] in Blood 12.9 g/dL 11.7-15.5 He moglobin [facility] ([facility]) Hematocrit [Volume Fraction] of Blood by Automated count 39.4 % 35.0-45.0 Hematocrit [place] ([facility]) Erythrocyte mean corpuscular volume [Entitic volume] by Auto mated count 88.3 fL 80.0-100.0 Mcv [facility] ([facility]) Erythrocyte distribution width [Ratio] by Automated count 12.5 % 11.0-15.0 Rdw [place] ([facility]) Erythrocyte mean corpuscular hemoglobin concentration [Mass/volume] by Automated count 32.7 g/dL 32.0-36.0 Mchc [facility] ([facility]) Erythrocyte mean corpuscular hemoglobin [Entitic mass] by Automated count 28.9 pg 27.0-33.0 Mch [facility] ([facility]) Platelets [#/volume] in Blood by Automated count 285 thousand/uL 14 0-400 Platelet Count [place] ([facility]) Platelet mean volume [Entitic volume] in Blood by [place] 12.4 f L 7.5-12.5 Mpv [facility] ([facility]) Neutrophils [#/volume] in Blood by Automated count 4142 cells/uL 15 00-7800 Absolute Neutrophils [place] ([facility]) Lymphocytes [#/volume] in Blood by Automated count 2761 cells/uL 85 0-3900 Absolute Lymphocytes [facility] ([facility]) Eosinophils [#/volume] in Blood by Automated count 273 cells/uL 15- 500 Absolute Eosinophils [facility] ([facility]) Monocytes [#/volume] in Blood by Automated count 562 cells/uL 200-9 50 Absolute Monocytes [facility] ([facility]) Basophils [#/volume] in Blood by Automated count 62 cells/uL 0-200 Absolute Basophils [facility] ([facility]) Neutrophils/100 leukocytes in Blood by Automated count 53.1 % 38-80 Neutrophils [place] ([facility]) Monocytes/100 leukocytes in Blood by Automated count 7.2 % 0-13 Monocytes [place] ([facility]) Eosinophils/100 leukocytes in Blood by Automated count 3.5 % 0-8 Eosinophils [place] ([facility]) Lymphocytes/100 leukocytes in Blood by Automated count 35.4 % 15-49 Lymphocytes [place] ([facility]) Basophils/100 leukocytes in Blood by Automated count 0.8 % 0-2 Basophils [place] ([facility]) ID Date Data Source [id number] 10/14/2020 08:34:00 AM EDT [place] ([facility]) Name Value Range Interpretation Code Description Data Nena rce(s) Supporting Document(s) Glucose [Mass/volume] in Serum or Plasma 88 mg/dL 65-99 Glucose [facility] ([facility]) Urea nitrogen [Mass/volume] in Serum or Plasma 9 mg/dL 7-25 [facility] Creatinine [Mass/volume] in Serum or Plasma 0.91 mg/dL 0.50-1.10 Creatinine [facility] ([facility]) Glomerular filtration rate/1.73 sq M.pre dicted among non-blacks [Volume Rate/Area] in Serum, Plasma or Blood by Creatinine-based formula (CKD-EPI) 82 mL/min/1.73m2 > or = 60 eGFR Non-afr. Welsh [facility] ([facility]) Glomerular filtration rate/1.73 sq M.pre dicted among blacks [Volume Rate/Area] in Serum, Plasma or Blood by Creatinine-based formula (CKD-EPI) 95 mL/min/1.73m2 > or = 60 eGFR [facility] ([facility]) Urea nitrogen/Creatinine [Mass Ratio] in Serum or Plasma not applic able 6-22 BUN/creatinine Ratio [facility] ([facility]) Sodium [Moles/volume] in Serum or Plasma 140 mmol/L 135-146 Sodium [place] ([facility]) Chloride [Moles/volume] in Serum or Plasma 106 mmol/L 98-110 Chloride [facility] ([facility]) Potassium [Moles/volume] in Serum or Plasma 4.0 mmol/L 3.5-5.3 Potassium [facility] ([facility]) Carbon dioxide, total [Moles/volume] in Serum or Plasma 21 mmol/L 20-32 Carbon Dioxide [place] ([facility]) Calcium [Mass/volume] in Serum or Plasma 9.0 mg/dL 8.6-10.2 Calcium [place] ([facility]) Protein [Mass/volume] in Serum or Plasma 6.8 g/dL 6.1-8.1 Protein, Total [facility]) Albumin [Mass/volume] in Serum or Plasma 4.3 g/dL 3.6-5.1 Albumin [place] ([facility]) Globulin [Mass/volume] in Serum by calculation 2.5 g/dL_(calc) 1.9- 3.7 Globulin [place] ([facility]) Albumin/Globulin [Mass Ratio] in Serum or Plasma 1.7 (calc) 1.0-2 .5 Albumin/globulin Ratio [place] ([facility]) Bilirubin.total [Mass/volume] in Serum or Plasma 0.3 mg/dL 0.2-1 .2 Bilirubin, Total [facility] ([facility]) Alkaline phosphatase [Enzymatic activity/volume] in Serum or Plasma 67 U/L 31-125 Alkaline Phosphatase [place] ([facility]) Aspartate aminotransferase [Enzymatic activity/volume] in Serum or Plasma 12 U/L 10-30 Ast [place] ([facility]) Alanine aminotransferase [Enzymatic activity/volume] in Seru m or Plasma 8 U/L 6-29 Alt [facility] ([facility]) ID Date Data Source [id number] 10/14/2020 08:34:00 AM EDT [place] ([facility]) Name Value Range Interpretation Code Description Data Nena rce(s) Supporting Document(s) Thyrotropin [Units/volume] in Serum or Plasma 1.86 mIU/L Tsh [facility] ([facility]) Thyroxine (T4) free [Mass/volume] in Serum or Plasma 0.9 NG/dL 0 .8-1.8 T4, Free [facility] ([facility]) ID Date Data Source [id number] 10/14/2020 08:34:00 AM EDT [place] ([facility]) Name Value Range Interpretation Code Description Data Nena rce(s) Supporting Document(s) Cholesterol [Mass/volume] in Serum or Plasma 202 mg/dL <200 Above high normal Cholesterol, Total [facility] ([facility]) Cholesterol in HDL [Mass/volume] in Serum or Plasma 51 mg/dL > or = 50 HDL Cholesterol [facility] ([facility]) Triglyceride [Mass/volume] in Serum or Plasma 75 mg/dL <150 Triglycerides [facility] ([facility]) Cholesterol in LDL [Mass/volume] in Serum or Plasma by calculation 134 mg/dL_(calc) <100 Above high normal LDL-cholesterol [facility] ([facility]) Cholesterol non HDL [Mass/volume] in Serum or Plasma 151 mg/dL_( calc) <130 Above high normal Non HDL Cholesterol [facility] ([facility]) Cholesterol.total/Cholesterol in HDL [Mass Ratio] in Serum o r Plasma 4.0 calc <5.0 Chol/hdlc Ratio [facility] ([facility]) Lipoprotein.beta.subparticle [Moles/volume] in Serum or Plas ma 1802 nmol/L <1138 Above high normal LDL Particle Number [facility] ([facility]) Lipoprotein.beta.subparticle.small [Moles/volume] in Serum o r Plasma 226 nmol/L <142 Above high normal LDL Small [facility] ([facility]) Lipoprotein.alpha 3 [Moles/volume] in Serum 391 nmol/L <215 Above high normal LDL Medium [facility] ([facility]) Lipoprotein.alpha.subparticle.large [Moles/volume] in Serum or Plasma 6637 nmol/L >6729 Below low normal HDL Large [facility] ([facility]) Cholesterol in LDL real size pattern [Identifier] in Serum or Plasm a A A LDL Pattern [facility] ([facility]) Lipoprotein.beta.subparticle [Entitic length] in Serum or Pl asma 221.1 angstrom >222.9 Below low normal LDL Peak Size [facility] ([facility]) Apolipoprotein B [Mass/volume] in Serum or Plasma 110 mg/dL Above high normal Apolipoprotein B [facility] ([facility]) Lipoprotein a [Moles/volume] in Serum or Plasma 342 nmol/L <75 Above high normal Lipoprotein (a) [facility] ([facility]) ID Date Data Source [id number] 07/18/2020 10:20:00 AM EDT [facility] ([facility]) Name Value Range Interpretation Code Description Data Nena rce(s) Supporting Document(s) istat B-HCG < 5.0 Istat B-HCG [facility] ([facility]) ID Date Data Source [id number] 07/18/2020 10:20:00 AM EDT [facility]) Name Value Range Interpretation Code Description Data Nena rce(s) Supporting Document(s) istat B-HCG < 5.0 Istat B-HCG [facility] ([facility]) ID Date Data Source [id number] 07/18/2020 10:20:00 AM EDT [facility]) Name Value Range Interpretation Code Description Data Nena rce(s) Supporting Document(s) istat B-HCG < 5.0 Istat B-HCG [facility] ([facility]) ID Date Data Source [id number] 07/18/2020 10:20:00 AM EDT [place] ([facility]) Name Value Range Interpretation Code Description Data Nena rce(s) Supporting Document(s) istat B-HCG < 5.0 Istat B-HCG [place] ([facility]) ID Date Data Source [id number] 07/18/2020 10:20:00 AM EDT [facility] ([facility]) Name Value Range Interpretation Code Description Data Nena rce(s) Supporting Document(s) istat B-HCG < 5.0 Istat B-HCG [place] ([facility]) ID Date Data Source [id number] 07/18/2020 10:20:00 AM [facility] Name Value Range Interpretation Code Description Data Nena rce(s) Supporting Document(s) istat B-HCG < 5.0 Istat B-HCG [facility] ([facility]) ID Date Data Source [id number] 07/18/2020 10:20:00 AM EDT [facility]) Name Value Range Interpretation Code Description Data Nena rce(s) Supporting Document(s) istat B-HCG < 5.0 Istat B-HCG [facility] ([facility]) ID Date Data Source [id number] 07/18/2020 10:20:00 AM EDT [facility]) Name Value Range Interpretation Code Description Data Nena rce(s) Supporting Document(s) istat B-HCG < 5.0 Istat B-HCG [place] ([facility]) ID Date Data Source [id number] 07/18/2020 10:20:00 AM [facility] Name Value Range Interpretation Code Description Data Nena rce(s) Supporting Document(s) istat B-HCG < 5.0 Istat B-HCG [facility] ([facility]) ID Date Data Source [id number] 07/18/2020 09:40:00 AM EDT [facility] ([facility]) Name Value Range Interpretation Code Description Data Nena rce(s) Supporting Document(s) erythrocyte sedimentation rate 22 mm/HR 0-20 Above high normal Erythrocyte Sedimentation Rate [facility] ([facility]) ID Date Data Source [id number] 07/18/2020 09:40:00 AM EDT [facility] ([facility]) Name Value Range Interpretation Code Description Data Nena rce(s) Supporting Document(s) red blood count 4.15 10 4.00-5.40 Red Blood Count [facility] ([facility]) white blood count 9.1 10 4.0-10.0 White Blood Count [facility] ([facility]) hematocrit 37.6 % 36.0-47.0 Hematocrit [facility] ([facility]) hemoglobin 12.3 g/dL 12.0-15.5 Hemoglobin [facility] ([facility]) mean corpuscular volume 90.6 fL 80.0-96.0 Mean Corpusc ular Volume [facility] ([facility]) mean corpuscular hemoglobin 29.6 pg 27.0-33.0 Mean Cor puscular Hemoglobin [facility] ([facility]) mean corpuscular HGB conc 32.7 g/dL 32.0-36.5 Mean Corpu scular HGB Conc [facility] ([facility]) platelet count, automated 251 10 150-450 Platelet C ount, Automated [facility] ([facility]) red cell distribution width 12.7 % 11.5-14.5 Red Cell Distribution Width [facility] ([facility]) neutrophils % 59.9 % 36.0-66.0 Neutrophils % [facility] ( [facility]) lymph % 30.5 % 24.0-44.0 Lymph % [facility] ([facility]) eos % 2.3 % 0.0-3.0 Eos % [facility] ([facility]) mono % 6.4 % 2.0-8.0 Coffee % [facility] ([facility]) baso % 0.6 % 0.0-1.0 Baso % [facility] ([facility]) nucleated red blood cell % 0.0 % 0-0 Nucleated Red Blood Cell % [facility] ([facility]) immature granulocyte % 0.3 % 0-3.0 Immature Gran ulocyte % [facility] ([facility]) neutrophils # 5.4 10 1.5-8.5 Neutrophils # [facility] ( [facility]) mono # 0.6 10 0.0-0.8 Coffee # [place] ([facility]) lymph # 2.8 10 1.5-5.0 Lymph # [facility] ([facility]) baso # 0.1 10 0.0-0.2 Baso # [facility] ([facility]) eos # 0.2 10 0.0-0.5 Eos # [facility] ([facility]) ID Date Data Source [id number] 07/18/2020 09:40:00 AM EDT [place] ([facility]) Name Value Range Interpretation Code Description Data Nena rce(s) Supporting Document(s) glucose, fasting 80 mg/dL 70-100 Glucose, Fasting AT [facility] ([facility]) blood urea nitrogen 12 mg/dL 7-18 Blood Urea Nitro gen [facility] ([facility]) creatinine for GFR 0.76 mg/dL 0.55-1.30 Creatinine for GF R [place] ([facility]) glomerular filtration rate > 60.0 >60 Glomerula r Filtration Rate [facility] ([facility]) sodium level 139 mEq/L 136-145 Sodium Level [facility] (No [facility]) potassium serum 4.2 mEq/L 3.5-5.1 Potassium Serum ATHE NA ([facility]) chloride level 106 mEq/L 98-107 Chloride Level [facility] ([facility]) carbon dioxide level 26 mEq/L 21-32 Carbon Dioxide Level [facility] ([facility]) calcium level 8.7 mg/dL 8.5-10.1 Calcium Level [facility] ( [facility]) anion gap 7 mEq/L 8-16 Below low normal Anion Gap [facility] ( [facility]) ID Date Data Source [id number] 07/18/2020 09:40:00 AM EDT [facility] ([facility]) Name Value Range Interpretation Code Description Data Nena rce(s) Supporting Document(s) erythrocyte sedimentation rate 22 mm/HR 0-20 Above high normal Erythrocyte Sedimentation Rate [facility] ([facility]) ID Date Data Source [id number] 07/18/2020 09:40:00 AM EDT [facility] ([facility]) Name Value Range Interpretation Code Description Data Nena rce(s) Supporting Document(s) white blood count 9.1 10 4.0-10.0 White Blood Count [facility] ([facility]) hematocrit 37.6 % 36.0-47.0 Hematocrit [facility] ([facility]) red blood count 4.15 10 4.00-5.40 Red Blood Count [facility] ([facility]) hemoglobin 12.3 g/dL 12.0-15.5 Hemoglobin [facility] ([facility]) mean corpuscular HGB conc 32.7 g/dL 32.0-36.5 Mean Corpu scular HGB Conc [facility] ([facility]) mean corpuscular hemoglobin 29.6 pg 27.0-33.0 Mean Cor puscular Hemoglobin [facility] ([facility]) mean corpuscular volume 90.6 fL 80.0-96.0 Mean Corpusc ular Volume [facility] ([facility]) platelet count, automated 251 10 150-450 Platelet C ount, Automated [facility] ([facility]) red cell distribution width 12.7 % 11.5-14.5 Red Cell Distribution Width [facility] ([facility]) neutrophils % 59.9 % 36.0-66.0 Neutrophils % [place] ( [facility]) eos % 2.3 % 0.0-3.0 Eos % [place] ([facility]) mono % 6.4 % 2.0-8.0 Coffee % [place] ([facility]) lymph % 30.5 % 24.0-44.0 Lymph % [place] ([facility]) baso % 0.6 % 0.0-1.0 Baso % [place] ([facility]) immature granulocyte % 0.3 % 0-3.0 Immature Gran ulocyte % [place] ([facility]) neutrophils # 5.4 10 1.5-8.5 Neutrophils # [place] ( [facility]) lymph # 2.8 10 1.5-5.0 Lymph # [place] ([facility]) nucleated red blood cell % 0.0 % 0-0 Nucleated Red Blood Cell % [place] ([facility]) mono # 0.6 10 0.0-0.8 Coffee # [place] ([facility]) eos # 0.2 10 0.0-0.5 Eos # [place] ([facility]) baso # 0.1 10 0.0-0.2 Baso # [place] ([facility]) ID Date Data Source [id number] 07/18/2020 09:40:00 AM EDT [place] ([facility]) Name Value Range Interpretation Code Description Data Nena rce(s) Supporting Document(s) glucose, fasting 80 mg/dL 70-100 Glucose, Fasting AT [facility] ([facility]) blood urea nitrogen 12 mg/dL 7-18 Blood Urea Nitro gen [place] ([facility]) creatinine for GFR 0.76 mg/dL 0.55-1.30 Creatinine for GF R [place] ([facility]) sodium level 139 mEq/L 136-145 Sodium Level [place] (No [facility]) glomerular filtration rate > 60.0 >60 Glomerula r Filtration Rate [place] ([facility]) chloride level 106 mEq/L 98-107 Chloride Level [place] ([facility]) potassium serum 4.2 mEq/L 3.5-5.1 Potassium Serum AT[facility] ([facility]) carbon dioxide level 26 mEq/L 21-32 Carbon Dioxide Level [place] ([facility]) calcium level 8.7 mg/dL 8.5-10.1 Calcium Level [place] ( [facility]) anion gap 7 mEq/L 8-16 Below low normal Anion Gap [place] ( [facility]) ID Date Data Source [id number] 07/18/2020 09:40:00 AM EDT [place] ([facility]) Name Value Range Interpretation Code Description Data Nena rce(s) Supporting Document(s) erythrocyte sedimentation rate 22 mm/HR 0-20 Above high normal Erythrocyte Sedimentation Rate [place] ([facility]) ID Date Data Source [id number] 07/18/2020 09:40:00 AM EDT [place] ([facility]) Name Value Range Interpretation Code Description Data Nena rce(s) Supporting Document(s) red blood count 4.15 10 4.00-5.40 Red Blood Count AT[facility] ([facility]) white blood count 9.1 10 4.0-10.0 White Blood Count [place] ([facility]) hemoglobin 12.3 g/dL 12.0-15.5 Hemoglobin [place] ([facility]) hematocrit 37.6 % 36.0-47.0 Hematocrit [place] ([facility]) mean corpuscular HGB conc 32.7 g/dL 32.0-36.5 Mean Corpu scular HGB Conc [place] ([facility]) mean corpuscular hemoglobin 29.6 pg 27.0-33.0 Mean Cor puscular Hemoglobin [place] ([facility]) mean corpuscular volume 90.6 fL 80.0-96.0 Mean Corpusc ular Volume [place] ([facility]) neutrophils % 59.9 % 36.0-66.0 Neutrophils % [place] ( [facility]) platelet count, automated 251 10 150-450 Platelet C ount, Automated [place] ([facility]) red cell distribution width 12.7 % 11.5-14.5 Red Cell Distribution Width [place] ([facility]) eos % 2.3 % 0.0-3.0 Eos % [place] ([facility]) mono % 6.4 % 2.0-8.0 Coffee % [place] ([facility]) lymph % 30.5 % 24.0-44.0 Lymph % [place] ([facility]) immature granulocyte % 0.3 % 0-3.0 Immature Gran ulocyte % [place] ([facility]) baso % 0.6 % 0.0-1.0 Baso % [place] ([facility]) nucleated red blood cell % 0.0 % 0-0 Nucleated Red Blood Cell % [place] ([facility]) neutrophils # 5.4 10 1.5-8.5 Neutrophils # [place] ( [facility]) lymph # 2.8 10 1.5-5.0 Lymph # [place] ([facility]) baso # 0.1 10 0.0-0.2 Baso # [place] ([facility]) eos # 0.2 10 0.0-0.5 Eos # [place] ([facility]) mono # 0.6 10 0.0-0.8 Coffee # [place] ([facility]) ID Date Data Source [id number] 07/18/2020 09:40:00 AM EDT [place] ([facility]) Name Value Range Interpretation Code Description Data Nena rce(s) Supporting Document(s) glucose, fasting 80 mg/dL 70-100 Glucose, Fasting AT [facility] ([facility]) creatinine for GFR 0.76 mg/dL 0.55-1.30 Creatinine for GF R [place] ([facility]) glomerular filtration rate > 60.0 >60 Glomerula r Filtration Rate [place] ([facility]) blood urea nitrogen 12 mg/dL 7-18 Blood Urea Nitro gen [place] ([facility]) chloride level 106 mEq/L 98-107 Chloride Level [place] ([facility]) potassium serum 4.2 mEq/L 3.5-5.1 Potassium Serum ATHE NA ([facility]) sodium level 139 mEq/L 136-145 Sodium Level [place] (No [facility]) calcium level 8.7 mg/dL 8.5-10.1 Calcium Level [place] ( [facility]) anion gap 7 mEq/L 8-16 Below low normal Anion Gap [place] ( [facility]) carbon dioxide level 26 mEq/L 21-32 Carbon Dioxide Level [place] ([facility]) ID Date Data Source [id number] 07/18/2020 09:40:00 AM EDT [facility]) Name Value Range Interpretation Code Description Data Nena rce(s) Supporting Document(s) erythrocyte sedimentation rate 22 mm/HR 0-20 Above high normal Erythrocyte Sedimentation Rate [place] ([facility]) ID Date Data Source [id number] 07/18/2020 09:40:00 AM EDT [place] ([facility]) Name Value Range Interpretation Code Description Data Nena rce(s) Supporting Document(s) white blood count 9.1 10 4.0-10.0 White Blood Count [place] ([facility]) red blood count 4.15 10 4.00-5.40 Red Blood Count [facility] ([facility]) hemoglobin 12.3 g/dL 12.0-15.5 Hemoglobin [place] ([facility]) hematocrit 37.6 % 36.0-47.0 Hematocrit [place] ([facility]) mean corpuscular hemoglobin 29.6 pg 27.0-33.0 Mean Cor puscular Hemoglobin [place] ([facility]) mean corpuscular HGB conc 32.7 g/dL 32.0-36.5 Mean Corpu scular HGB Conc [place] ([facility]) mean corpuscular volume 90.6 fL 80.0-96.0 Mean Corpusc ular Volume [place] ([facility]) platelet count, automated 251 10 150-450 Platelet C ount, Automated [place] ([facility]) red cell distribution width 12.7 % 11.5-14.5 Red Cell Distribution Width [place] ([facility]) neutrophils % 59.9 % 36.0-66.0 Neutrophils % [place] ( [facility]) lymph % 30.5 % 24.0-44.0 Lymph % [place] ([facility]) eos % 2.3 % 0.0-3.0 Eos % [place] ([facility]) mono % 6.4 % 2.0-8.0 Coffee % [place] ([facility]) baso % 0.6 % 0.0-1.0 Baso % [place] ([facility]) immature granulocyte % 0.3 % 0-3.0 Immature Gran ulocyte % [place] ([facility]) nucleated red blood cell % 0.0 % 0-0 Nucleated Red Blood Cell % [place] ([facility]) neutrophils # 5.4 10 1.5-8.5 Neutrophils # [place] ( [facility]) mono # 0.6 10 0.0-0.8 Coffee # [place] ([facility]) lymph # 2.8 10 1.5-5.0 Lymph # [place] ([facility]) baso # 0.1 10 0.0-0.2 Baso # [place] ([facility]) eos # 0.2 10 0.0-0.5 Eos # [place] ([facility]) ID Date Data Source [id number] 07/18/2020 09:40:00 AM EDT [place] ([facility]) Name Value Range Interpretation Code Description Data Nena rce(s) Supporting Document(s) blood urea nitrogen 12 mg/dL 7-18 Blood Urea Nitro gen [place] ([facility]) glucose, fasting 80 mg/dL 70-100 Glucose, Fasting AT [facility] ([facility]) glomerular filtration rate > 60.0 >60 Glomerula r Filtration Rate [place] ([facility]) sodium level 139 mEq/L 136-145 Sodium Level [place] (No [facility]) creatinine for GFR 0.76 mg/dL 0.55-1.30 Creatinine for GF R [place] ([facility]) carbon dioxide level 26 mEq/L 21-32 Carbon Dioxide Level [place] ([facility]) chloride level 106 mEq/L 98-107 Chloride Level [place] ([facility]) potassium serum 4.2 mEq/L 3.5-5.1 Potassium Serum AT[facility] ([facility]) anion gap 7 mEq/L 8-16 Below low normal Anion Gap [place] ( [facility]) calcium level 8.7 mg/dL 8.5-10.1 Calcium Level [place] ( [facility]) ID Date Data Source [id number] 07/18/2020 09:40:00 AM EDT [facility]) Name Value Range Interpretation Code Description Data Nena rce(s) Supporting Document(s) erythrocyte sedimentation rate 22 mm/HR 0-20 Above high normal Erythrocyte Sedimentation Rate [place] ([facility]) ID Date Data Source [id number] 07/18/2020 09:40:00 AM EDT [facility]) Name Value Range Interpretation Code Description Data Nena rce(s) Supporting Document(s) white blood count 9.1 10 4.0-10.0 White Blood Count [place] ([facility]) red blood count 4.15 10 4.00-5.40 Red Blood Count [facility] ([facility]) hemoglobin 12.3 g/dL 12.0-15.5 Hemoglobin [place] ([facility]) mean corpuscular volume 90.6 fL 80.0-96.0 Mean Corpusc ular Volume [place] ([facility]) hematocrit 37.6 % 36.0-47.0 Hematocrit [place] ([facility]) mean corpuscular hemoglobin 29.6 pg 27.0-33.0 Mean Cor puscular Hemoglobin [place] ([facility]) red cell distribution width 12.7 % 11.5-14.5 Red Cell Distribution Width [place] ([facility]) mean corpuscular HGB conc 32.7 g/dL 32.0-36.5 Mean Corpu scular HGB Conc [place] ([facility]) platelet count, automated 251 10 150-450 Platelet C ount, Automated [place] ([facility]) mono % 6.4 % 2.0-8.0 Coffee % [place] ([facility]) neutrophils % 59.9 % 36.0-66.0 Neutrophils % [place] ( [facility]) lymph % 30.5 % 24.0-44.0 Lymph % [place] ([facility]) eos % 2.3 % 0.0-3.0 Eos % [place] ([facility]) baso % 0.6 % 0.0-1.0 Baso % [place] ([facility]) immature granulocyte % 0.3 % 0-3.0 Immature Gran ulocyte % [place] ([facility]) neutrophils # 5.4 10 1.5-8.5 Neutrophils # [place] ( [facility]) lymph # 2.8 10 1.5-5.0 Lymph # [place] ([facility]) nucleated red blood cell % 0.0 % 0-0 Nucleated Red Blood Cell % [place] ([facility]) mono # 0.6 10 0.0-0.8 Coffee # [place] ([facility]) eos # 0.2 10 0.0-0.5 Eos # [place] ([facility]) baso # 0.1 10 0.0-0.2 Baso # [place] ([facility]) ID Date Data Source [id number] 07/18/2020 09:40:00 AM EDT [place] ([facility]) Name Value Range Interpretation Code Description Data Nena rce(s) Supporting Document(s) creatinine for GFR 0.76 mg/dL 0.55-1.30 Creatinine for GF R [place] ([facility]) glucose, fasting 80 mg/dL 70-100 Glucose, Fasting AT [facility] ([facility]) blood urea nitrogen 12 mg/dL 7-18 Blood Urea Nitro gen [place] ([facility]) sodium level 139 mEq/L 136-145 Sodium Level [place] (No [facility]) glomerular filtration rate > 60.0 >60 Glomerula r Filtration Rate [place] ([facility]) carbon dioxide level 26 mEq/L 21-32 Carbon Dioxide Level [place] ([facility]) potassium serum 4.2 mEq/L 3.5-5.1 Potassium Serum ATHE NA ([facility]) chloride level 106 mEq/L 98-107 Chloride Level [place] ([facility]) calcium level 8.7 mg/dL 8.5-10.1 Calcium Level [place] ( [facility]) anion gap 7 mEq/L 8-16 Below low normal Anion Gap [place] ( [facility]) ID Date Data Source [id number] 07/18/2020 09:40:00 AM [facility] Name Value Range Interpretation Code Description Data Nena rce(s) Supporting Document(s) erythrocyte sedimentation rate 22 mm/HR 0-20 Above high normal Erythrocyte Sedimentation Rate [place] ([facility]) ID Date Data Source [id number] 07/18/2020 09:40:00 AM EDT [facility]) Name Value Range Interpretation Code Description Data Nena rce(s) Supporting Document(s) white blood count 9.1 10 4.0-10.0 White Blood Count [place] ([facility]) red blood count 4.15 10 4.00-5.40 Red Blood Count ATHE NA ([facility]) hematocrit 37.6 % 36.0-47.0 Hematocrit [place] ([facility]) hemoglobin 12.3 g/dL 12.0-15.5 Hemoglobin [place] ([facility]) mean corpuscular hemoglobin 29.6 pg 27.0-33.0 Mean Cor puscular Hemoglobin [place] ([facility]) mean corpuscular volume 90.6 fL 80.0-96.0 Mean Corpusc ular Volume [place] ([facility]) mean corpuscular HGB conc 32.7 g/dL 32.0-36.5 Mean Corpu scular HGB Conc [place] ([facility]) red cell distribution width 12.7 % 11.5-14.5 Red Cell Distribution Width [place] ([facility]) platelet count, automated 251 10 150-450 Platelet C ount, Automated [place] ([facility]) neutrophils % 59.9 % 36.0-66.0 Neutrophils % [place] ( [facility]) lymph % 30.5 % 24.0-44.0 Lymph % [place] ([facility]) mono % 6.4 % 2.0-8.0 Coffee % [place] ([facility]) baso % 0.6 % 0.0-1.0 Baso % [place] ([facility]) immature granulocyte % 0.3 % 0-3.0 Immature Gran ulocyte % [place] ([facility]) eos % 2.3 % 0.0-3.0 Eos % [place] ([facility]) mono # 0.6 10 0.0-0.8 Coffee # [place] ([facility]) neutrophils # 5.4 10 1.5-8.5 Neutrophils # [place] ( [facility]) nucleated red blood cell % 0.0 % 0-0 Nucleated Red Blood Cell % [place] ([facility]) lymph # 2.8 10 1.5-5.0 Lymph # [place] ([facility]) baso # 0.1 10 0.0-0.2 Baso # [place] ([facility]) eos # 0.2 10 0.0-0.5 Eos # [place] ([facility]) ID Date Data Source [id number] 07/18/2020 09:40:00 AM EDT [place] ([facility]) Name Value Range Interpretation Code Description Data Nena rce(s) Supporting Document(s) glucose, fasting 80 mg/dL 70-100 Glucose, Fasting AT [facility] ([facility]) blood urea nitrogen 12 mg/dL 7-18 Blood Urea Nitro gen [place] ([facility]) glomerular filtration rate > 60.0 >60 Glomerula r Filtration Rate [place] ([facility]) creatinine for GFR 0.76 mg/dL 0.55-1.30 Creatinine for GF R [place] ([facility]) sodium level 139 mEq/L 136-145 Sodium Level [place] (No [facility]) chloride level 106 mEq/L 98-107 Chloride Level [place] ([facility]) carbon dioxide level 26 mEq/L 21-32 Carbon Dioxide Level [place] ([facility]) potassium serum 4.2 mEq/L 3.5-5.1 Potassium Serum ATHE NA ([facility]) calcium level 8.7 mg/dL 8.5-10.1 Calcium Level [place] ( [facility]) anion gap 7 mEq/L 8-16 Below low normal Anion Gap [place] ( [facility]) ID Date Data Source [id number] 07/18/2020 09:40:00 AM EDT [place] ([facility]) Name Value Range Interpretation Code Description Data Nena rce(s) Supporting Document(s) erythrocyte sedimentation rate 22 mm/HR 0-20 Above high normal Erythrocyte Sedimentation Rate [place] ([facility]) ID Date Data Source [id number] 07/18/2020 09:40:00 AM EDT [facility]) Name Value Range Interpretation Code Description Data Nena rce(s) Supporting Document(s) hemoglobin 12.3 g/dL 12.0-15.5 Hemoglobin [place] ([facility]) white blood count 9.1 10 4.0-10.0 White Blood Count [place] ([facility]) red blood count 4.15 10 4.00-5.40 Red Blood Count [facility] ([facility]) mean corpuscular volume 90.6 fL 80.0-96.0 Mean Corpusc ular Volume [place] ([facility]) hematocrit 37.6 % 36.0-47.0 Hematocrit [place] ([facility]) mean corpuscular hemoglobin 29.6 pg 27.0-33.0 Mean Cor puscular Hemoglobin [place] ([facility]) red cell distribution width 12.7 % 11.5-14.5 Red Cell Distribution Width [place] ([facility]) mean corpuscular HGB conc 32.7 g/dL 32.0-36.5 Mean Corpu scular HGB Conc [place] ([facility]) platelet count, automated 251 10 150-450 Platelet C ount, Automated [place] ([facility]) neutrophils % 59.9 % 36.0-66.0 Neutrophils % [place] ( [facility]) lymph % 30.5 % 24.0-44.0 Lymph % [place] ([facility]) mono % 6.4 % 2.0-8.0 Coffee % [place] ([facility]) eos % 2.3 % 0.0-3.0 Eos % [place] ([facility]) baso % 0.6 % 0.0-1.0 Baso % [place] ([facility]) immature granulocyte % 0.3 % 0-3.0 Immature Gran ulocyte % [place] ([facility]) nucleated red blood cell % 0.0 % 0-0 Nucleated Red Blood Cell % [place] ([facility]) neutrophils # 5.4 10 1.5-8.5 Neutrophils # [place] ( [facility]) lymph # 2.8 10 1.5-5.0 Lymph # [place] ([facility]) mono # 0.6 10 0.0-0.8 Coffee # [place] ([facility]) eos # 0.2 10 0.0-0.5 Eos # [place] ([facility]) baso # 0.1 10 0.0-0.2 Baso # [place] ([facility]) ID Date Data Source [id number] 07/18/2020 09:40:00 AM EDT [place] ([facility]) Name Value Range Interpretation Code Description Data Nena rce(s) Supporting Document(s) glucose, fasting 80 mg/dL 70-100 Glucose, Fasting AT [facility] ([facility]) blood urea nitrogen 12 mg/dL 7-18 Blood Urea Nitro gen [place] ([facility]) sodium level 139 mEq/L 136-145 Sodium Level [place] (No [facility]) glomerular filtration rate > 60.0 >60 Glomerula r Filtration Rate [place] ([facility]) creatinine for GFR 0.76 mg/dL 0.55-1.30 Creatinine for GF R [place] ([facility]) chloride level 106 mEq/L 98-107 Chloride Level [place] ([facility]) potassium serum 4.2 mEq/L 3.5-5.1 Potassium Serum ATHE NA ([facility]) anion gap 7 mEq/L 8-16 Below low normal Anion Gap [place] ( [facility]) calcium level 8.7 mg/dL 8.5-10.1 Calcium Level [place] ( [facility]) carbon dioxide level 26 mEq/L 21-32 Carbon Dioxide Level [place] ([facility]) ID Date Data Source [id number] 07/18/2020 09:40:00 AM EDT [place] ([facility]) Name Value Range Interpretation Code Description Data Nena rce(s) Supporting Document(s) erythrocyte sedimentation rate 22 mm/HR 0-20 Above high normal Erythrocyte Sedimentation Rate [place] ([facility]) ID Date Data Source [id number] 07/18/2020 09:40:00 AM EDT [facility]) Name Value Range Interpretation Code Description Data Nena rce(s) Supporting Document(s) red blood count 4.15 10 4.00-5.40 Red Blood Count ATHE NA ([facility]) white blood count 9.1 10 4.0-10.0 White Blood Count [place] ([facility]) mean corpuscular volume 90.6 fL 80.0-96.0 Mean Corpusc ular Volume [place] ([facility]) hematocrit 37.6 % 36.0-47.0 Hematocrit [place] ([facility]) hemoglobin 12.3 g/dL 12.0-15.5 Hemoglobin [place] ([facility]) mean corpuscular hemoglobin 29.6 pg 27.0-33.0 Mean Cor puscular Hemoglobin [place] ([facility]) mean corpuscular HGB conc 32.7 g/dL 32.0-36.5 Mean Corpu scular HGB Conc [place] ([facility]) red cell distribution width 12.7 % 11.5-14.5 Red Cell Distribution Width [place] ([facility]) neutrophils % 59.9 % 36.0-66.0 Neutrophils % [place] ( [facility]) platelet count, automated 251 10 150-450 Platelet C ount, Automated [place] ([facility]) lymph % 30.5 % 24.0-44.0 Lymph % [place] ([facility]) eos % 2.3 % 0.0-3.0 Eos % [place] ([facility]) mono % 6.4 % 2.0-8.0 Coffee % [place] ([facility]) baso % 0.6 % 0.0-1.0 Baso % [place] ([facility]) immature granulocyte % 0.3 % 0-3.0 Immature Gran ulocyte % [place] ([facility]) nucleated red blood cell % 0.0 % 0-0 Nucleated Red Blood Cell % [place] ([facility]) neutrophils # 5.4 10 1.5-8.5 Neutrophils # [place] ( [facility]) lymph # 2.8 10 1.5-5.0 Lymph # [place] ([facility]) mono # 0.6 10 0.0-0.8 Coffee # [place] ([facility]) eos # 0.2 10 0.0-0.5 Eos # [place] ([facility]) baso # 0.1 10 0.0-0.2 Baso # [place] ([facility]) ID Date Data Source [id number] 07/18/2020 09:40:00 AM EDT [place] ([facility]) Name Value Range Interpretation Code Description Data Nena rce(s) Supporting Document(s) creatinine for GFR 0.76 mg/dL 0.55-1.30 Creatinine for GF R [place] ([facility]) glucose, fasting 80 mg/dL 70-100 Glucose, Fasting AT [facility] ([facility]) blood urea nitrogen 12 mg/dL 7-18 Blood Urea Nitro gen [place] ([facility]) glomerular filtration rate > 60.0 >60 Glomerula r Filtration Rate [place] ([facility]) sodium level 139 mEq/L 136-145 Sodium Level [place] (No [facility]) potassium serum 4.2 mEq/L 3.5-5.1 Potassium Serum ATHE NA ([facility]) chloride level 106 mEq/L 98-107 Chloride Level [place] ([facility]) calcium level 8.7 mg/dL 8.5-10.1 Calcium Level [place] ( [facility]) anion gap 7 mEq/L 8-16 Below low normal Anion Gap [place] ( [facility]) carbon dioxide level 26 mEq/L 21-32 Carbon Dioxide Level [facility] ([facility]) ID Date Data Source [id number] 07/18/2020 09:40:00 AM EDT [place] ([facility]) Name Value Range Interpretation Code Description Data Nena rce(s) Supporting Document(s) erythrocyte sedimentation rate 22 mm/HR 0-20 Above high normal Erythrocyte Sedimentation Rate [place] ([facility]) ID Date Data Source [id number] 07/18/2020 09:40:00 AM EDT [place] ([facility]) Name Value Range Interpretation Code Description Data Nena rce(s) Supporting Document(s) red blood count 4.15 10 4.00-5.40 Red Blood Count ATHE NA ([facility]) white blood count 9.1 10 4.0-10.0 White Blood Count [place] ([facility]) hemoglobin 12.3 g/dL 12.0-15.5 Hemoglobin [place] ([facility]) mean corpuscular volume 90.6 fL 80.0-96.0 Mean Corpusc ular Volume [place] ([facility]) mean corpuscular hemoglobin 29.6 pg 27.0-33.0 Mean Cor puscular Hemoglobin [place] ([facility]) hematocrit 37.6 % 36.0-47.0 Hematocrit ZOILA ([facility]) mean corpuscular HGB conc 32.7 g/dL 32.0-36.5 Mean Corpu scular HGB Conc Z[facility]A ([facility]) platelet count, automated 251 10 150-450 Platelet C ount, Automated [place] ([facility]) red cell distribution width 12.7 % 11.5-14.5 Red Cell Distribution Width Z[facility] ([facility]) neutrophils % 59.9 % 36.0-66.0 Neutrophils % [place] ( [facility]) mono % 6.4 % 2.0-8.0 Coffee % [place] ([facility]) lymph % 30.5 % 24.0-44.0 Lymph % [place] ([facility]) immature granulocyte % 0.3 % 0-3.0 Immature Gran ulocyte % [place] ([facility]) eos % 2.3 % 0.0-3.0 Eos % [place] ([facility]) baso % 0.6 % 0.0-1.0 Baso % [place] ([facility]) nucleated red blood cell % 0.0 % 0-0 Nucleated Red Blood Cell % [place] ([facility]) lymph # 2.8 10 1.5-5.0 Lymph # [place] ([facility]) neutrophils # 5.4 10 1.5-8.5 Neutrophils # [place] ( [facility]) eos # 0.2 10 0.0-0.5 Eos # [place] ([facility]) baso # 0.1 10 0.0-0.2 Baso # [place] ([facility]) mono # 0.6 10 0.0-0.8 Coffee # [place] ([facility]) ID Date Data Source [id number] 07/18/2020 09:40:00 AM EDT [place] ([facility]) Name Value Range Interpretation Code Description Data Nena rce(s) Supporting Document(s) glucose, fasting 80 mg/dL 70-100 Glucose, Fasting AT [facility] ([facility]) blood urea nitrogen 12 mg/dL 7-18 Blood Urea Nitro gen [facility] ([facility]) glomerular filtration rate > 60.0 >60 Glomerula r Filtration Rate ZOILA ([facility]) creatinine for GFR 0.76 mg/dL 0.55-1.30 Creatinine for GF R ZO[facility] ([facility]) chloride level 106 mEq/L 98-107 Chloride Level ZOILA ([facility]) sodium level 139 mEq/L 136-145 Sodium Level ZOILA (No [facility]) potassium serum 4.2 mEq/L 3.5-5.1 Potassium Serum ATH NA ([facility]) carbon dioxide level 26 mEq/L 21-32 Carbon Dioxide Level [place] ([facility]) anion gap 7 mEq/L 8-16 Below low normal Anion Gap [place] ( [facility]) calcium level 8.7 mg/dL 8.5-10.1 Calcium Level [place] ( [facility]) ID Date Data Source [id number] 05/12/2020 09:05:00 AM EST [place] ([facility]) Name Value Range Interpretation Code Description Data Nena rce(s) Supporting Document(s) total 25(oh) vitamin D 22.6 NG/mL 30.0-100.0 Below low normal T otal 25(Oh) Vitamin D [facility]) ID Date Data Source [id number] 05/12/2020 09:05:00 AM EST [facility]) Name Value Range Interpretation Code Description Data Nena rce(s) Supporting Document(s) thyroid stimulating hormone 1.920 uIU/mL 0.358-3.740 Thyroid Stimulating Hormone ZOILA ([facility]) free T4 0.90 NG/dL 0.76-1.46 Free T4 [facility]) ID Date Data Source [id number] 05/12/2020 09:05:00 AM EST [place] ([facility]) Name Value Range Interpretation Code Description Data Nena rce(s) Supporting Document(s) triglycerides level 103 mg/dL <150 Triglycerides Le staci Z[place]A ([facility]) cholesterol level 213 mg/dL <200 Above high normal Cholesterol Level Z[place]ILA ([facility]) Cholesterol in LDL [Mass/volume] in Serum or Plasma 132 mg/dL <100 Above high normal LDL Cholesterol ZOILA ([facility]) HDL cholesterol 60 mg/dL >40 HDL Cholesterol ATHE ([facility]) non-HDL-C 153 mg/dL Non-hdl-c [facility] ([facility]) cholesterol risk ratio <5 Cholesterol R isk Ratio [facility] ([facility]) ID Date Data Source [id number] 05/12/2020 09:05:00 AM EST [place] ([facility]) Name Value Range Interpretation Code Description Data Nena rce(s) Supporting Document(s) blood urea nitrogen 13 mg/dL 7-18 Blood Urea Nitro gen Z[place]A ([facility]) glucose, fasting 91 mg/dL 70-100 Glucose, Fasting AT [facility]) sodium level 140 mEq/L 136-145 Sodium Level ZOILA (No [facility]) glomerular filtration rate > 60.0 >60 Glomerula r Filtration Rate Z[place]A ([facility]) creatinine for GFR 0.87 mg/dL 0.55-1.30 Creatinine for GF R [place] ([facility]) chloride level 104 mEq/L 98-107 Chloride Level Z[place]A ([facility]) potassium serum 4.6 mEq/L 3.5-5.1 Potassium Serum ATHE NA ([facility]) calcium level 9.5 mg/dL 8.5-10.1 Calcium Level Z[place]A ( [facility]) anion gap 7 mEq/L 8-16 Below low normal Anion Gap [facility] ( [facility]) carbon dioxide level 29 mEq/L 21-32 Carbon Dioxide Level [facility] ([facility]) ALT/SGPT 16 U/L 12-78 ALT/SGPT [place] ([facility]) AST/SGOT 9 U/L 7-37 AST/SGOT [place] ([facility]) bilirubin,total 0.3 mg/dL 0.2-1.0 Bilirubin,total ATHE NA ([facility]) total protein 7.2 gm/dL 6.4-8.2 Total Protein Z[place]A ( [facility]) albumin 4.3 gm/dL 3.2-5.2 Albumin Z[place]A ([facility]) alkaline phosphatase 74 U/L 45-117 Alkaline Phosph atase Z[facility]A ([facility]) albumin/globulin ratio 1.2-2.2 Albumin/globu diego Ratio Z[facility]ILA ([facility]) ID Date Data Source [id number] 05/12/2020 09:05:00 AM EST [facility] ([facility]) Name Value Range Interpretation Code Description Data Nena rce(s) Supporting Document(s) white blood count 7.9 10 4.0-10.0 White Blood Count Z[place] ([facility]) red blood count 4.50 10 4.00-5.40 Red Blood Count ATHE NA ([facility]) hemoglobin 13.3 g/dL 12.0-15.5 Hemoglobin Z[place]A ([facility]) hematocrit 40.3 % 36.0-47.0 Hematocrit [facility] ([facility]) mean corpuscular hemoglobin 29.6 pg 27.0-33.0 Mean Cor puscular Hemoglobin [facility] ([facility]) mean corpuscular volume 89.6 fL 80.0-96.0 Mean Corpusc ular Volume [facility]A ([facility]) red cell distribution width 12.5 % 11.5-14.5 Red Cell Distribution Width [facility] ([facility]) mean corpuscular HGB conc 33.0 g/dL 32.0-36.5 Mean Corpu scular HGB Conc [facility]A ([facility]) neutrophils % 51.5 % 36.0-66.0 Neutrophils % [place] ( [facility]) platelet count, automated 301 10 150-450 Platelet C ount, Automated [place] ([facility]) mono % 8.9 % 0.0-5.0 Above high normal Coffee % [place] ([facility]) lymph % 36.5 % 24.0-44.0 Lymph % [place] ([facility]) baso % 0.6 % 0.0-1.0 Baso % [place] ([facility]) eos % 2.2 % 0.0-3.0 Eos % [place] ([facility]) nucleated red blood cell % 0.0 % 0-0 Nucleated Red Blood Cell % [place] ([facility]) immature granulocyte % 0.3 % 0-3.0 Immature Gran ulocyte % [place] ([facility]) neutrophils # 4.1 10 1.5-8.5 Neutrophils # [place] ( [facility]) lymph # 2.9 10 1.5-5.0 Lymph # [place] ([facility]) eos # 0.2 10 0.0-0.5 Eos # [place] ([facility]) mono # 0.7 10 0.0-0.8 Coffee # [place] ([facility]) baso # 0.1 10 0.0-0.2 Baso # [facility] ([facility]) ID Date Data Source [id number] 05/12/2020 09:05:00 AM EST [place] ([facility]) Name Value Range Interpretation Code Description Data Nena rce(s) Supporting Document(s) total 25(oh) vitamin D 22.6 NG/mL 30.0-100.0 Below low normal T otal 25(Oh) Vitamin D [place] ([facility]) ID Date Data Source [id number] 05/12/2020 09:05:00 AM EST [place] ([facility]) Name Value Range Interpretation Code Description Data Nena rce(s) Supporting Document(s) thyroid stimulating hormone 1.920 uIU/mL 0.358-3.740 Thyroid Stimulating Hormone [facility] ([facility]) free T4 0.90 NG/dL 0.76-1.46 Free T4 [place] ([facility]) ID Date Data Source [id number] 05/12/2020 09:05:00 AM EST [place] ([facility]) Name Value Range Interpretation Code Description Data Nena rce(s) Supporting Document(s) triglycerides level 103 mg/dL <150 Triglycerides Le staci ZOILA ([facility]) Cholesterol in LDL [Mass/volume] in Serum or Plasma 132 mg/dL <100 Above high normal LDL Cholesterol Z[facility] ([facility]) cholesterol level 213 mg/dL <200 Above high normal Cholesterol Level Z[place]ILA ([facility]) HDL cholesterol 60 mg/dL >40 HDL Cholesterol ATHE ([facility]) cholesterol risk ratio <5 Cholesterol R isk Ratio [facility] ([facility]) non-HDL-C 153 mg/dL Non-hdl-c [facility] ([facility]) ID Date Data Source [id number] 05/12/2020 09:05:00 AM EST [place] ([facility]) Name Value Range Interpretation Code Description Data Nena rce(s) Supporting Document(s) blood urea nitrogen 13 mg/dL 7-18 Blood Urea Nitro gen [place] ([facility]) glucose, fasting 91 mg/dL 70-100 Glucose, Fasting AT [facility] ([facility]) glomerular filtration rate > 60.0 >60 Glomerula r Filtration Rate [place] ([facility]) creatinine for GFR 0.87 mg/dL 0.55-1.30 Creatinine for GF R [place] ([facility]) sodium level 140 mEq/L 136-145 Sodium Level [facility] ([facility]) potassium serum 4.6 mEq/L 3.5-5.1 Potassium Serum ATHE NA ([facility]) chloride level 104 mEq/L 98-107 Chloride Level [place] ([facility]) carbon dioxide level 29 mEq/L 21-32 Carbon Dioxide Level [place] ([facility]) anion gap 7 mEq/L 8-16 Below low normal Anion Gap [place] ( [facility]) AST/SGOT 9 U/L 7-37 AST/SGOT [place] ([facility]) calcium level 9.5 mg/dL 8.5-10.1 Calcium Level [place] ( [facility]) ALT/SGPT 16 U/L 12-78 ALT/SGPT [place] ([facility]) alkaline phosphatase 74 U/L 45-117 Alkaline Phosph atase [facility] ([facility]) albumin 4.3 gm/dL 3.2-5.2 Albumin [place] ([facility]) bilirubin,total 0.3 mg/dL 0.2-1.0 Bilirubin,total ATHE NA ([facility]) total protein 7.2 gm/dL 6.4-8.2 Total Protein [place] ( [facility]) albumin/globulin ratio 1.2-2.2 Albumin/globu diego Ratio [facility] ([facility]) ID Date Data Source [id number] 05/12/2020 09:05:00 AM EST [place] ([facility]) Name Value Range Interpretation Code Description Data Nena rce(s) Supporting Document(s) white blood count 7.9 10 4.0-10.0 White Blood Count [facility] ([facility]) hemoglobin 13.3 g/dL 12.0-15.5 Hemoglobin [facility] ([facility]) red blood count 4.50 10 4.00-5.40 Red Blood Count ATHE ([facility]) hematocrit 40.3 % 36.0-47.0 Hematocrit Z[place]A ([facility]) mean corpuscular hemoglobin 29.6 pg 27.0-33.0 Mean Cor puscular Hemoglobin [facility]A ([facility]) mean corpuscular volume 89.6 fL 80.0-96.0 Mean Corpusc ular Volume [facility]A ([facility]) red cell distribution width 12.5 % 11.5-14.5 Red Cell Distribution Width [facility] ([facility]) platelet count, automated 301 10 150-450 Platelet C ount, Automated [place] ([facility]) mean corpuscular HGB conc 33.0 g/dL 32.0-36.5 Mean Corpu scular HGB Conc [facility] ([facility]) eos % 2.2 % 0.0-3.0 Eos % [place] ([facility]) lymph % 36.5 % 24.0-44.0 Lymph % [place] ([facility]) mono % 8.9 % 0.0-5.0 Above high normal Coffee % [place] ([facility]) neutrophils % 51.5 % 36.0-66.0 Neutrophils % [place] ( [facility]) baso % 0.6 % 0.0-1.0 Baso % [place] ([facility]) immature granulocyte % 0.3 % 0-3.0 Immature Gran ulocyte % [place] ([facility]) nucleated red blood cell % 0.0 % 0-0 Nucleated Red Blood Cell % [place] ([facility]) lymph # 2.9 10 1.5-5.0 Lymph # [place] ([facility]) neutrophils # 4.1 10 1.5-8.5 Neutrophils # [place] ( [facility]) mono # 0.7 10 0.0-0.8 Coffee # [place] ([facility]) eos # 0.2 10 0.0-0.5 Eos # [place] ([facility]) baso # 0.1 10 0.0-0.2 Baso # [place] ([facility]) ID Date Data Source [id number] 05/12/2020 09:05:00 AM EST [place] ([facility]) Name Value Range Interpretation Code Description Data Nena rce(s) Supporting Document(s) total 25(oh) vitamin D 22.6 NG/mL 30.0-100.0 Below low normal T otal 25(Oh) Vitamin D [place] ([facility]) ID Date Data Source [id number] 05/12/2020 09:05:00 AM EST [place] ([facility]) Name Value Range Interpretation Code Description Data Nean rce(s) Supporting Document(s) thyroid stimulating hormone 1.920 uIU/mL 0.358-3.740 Thyroid Stimulating Hormone [facility] ([facility]) free T4 0.90 NG/dL 0.76-1.46 Free T4 [facility] ([facility]) ID Date Data Source [id number] 05/12/2020 09:05:00 AM EST [place] ([facility]) Name Value Range Interpretation Code Description Data Nena rce(s) Supporting Document(s) triglycerides level 103 mg/dL <150 Triglycerides Le staci [place] ([facility]) HDL cholesterol 60 mg/dL >40 HDL Cholesterol ATHE ([facility]) cholesterol level 213 mg/dL <200 Above high normal Cholesterol Level [place] ([facility]) non-HDL-C 153 mg/dL Non-hdl-c [place] ([facility]) Cholesterol in LDL [Mass/volume] in Serum or Plasma 132 mg/dL <100 Above high normal LDL Cholesterol [facility] ([facility]) cholesterol risk ratio <5 Cholesterol R isk Ratio [place] ([facility]) ID Date Data Source [id number] 05/12/2020 09:05:00 AM EST [place] ([facility]) Name Value Range Interpretation Code Description Data Nena rce(s) Supporting Document(s) glucose, fasting 91 mg/dL 70-100 Glucose, Fasting AT [facility] ([facility]) glomerular filtration rate > 60.0 >60 Glomerula r Filtration Rate [place] ([facility]) creatinine for GFR 0.87 mg/dL 0.55-1.30 Creatinine for GF R [place] ([facility]) blood urea nitrogen 13 mg/dL 7-18 Blood Urea Nitro gen [facility] ([facility]) sodium level 140 mEq/L 136-145 Sodium Level ZOILA (No [facility]) potassium serum 4.6 mEq/L 3.5-5.1 Potassium Serum ATHE NA ([facility]) chloride level 104 mEq/L 98-107 Chloride Level Z[place]A ([facility]) carbon dioxide level 29 mEq/L 21-32 Carbon Dioxide Level [facility] ([facility]) anion gap 7 mEq/L 8-16 Below low normal Anion Gap [place] ( [facility]) calcium level 9.5 mg/dL 8.5-10.1 Calcium Level [place] ( [facility]) AST/SGOT 9 U/L 7-37 AST/SGOT [place] ([facility]) ALT/SGPT 16 U/L 12-78 ALT/SGPT [place] ([facility]) total protein 7.2 gm/dL 6.4-8.2 Total Protein [place] ( [facility]) alkaline phosphatase 74 U/L 45-117 Alkaline Phosph atase [facility] ([facility]) bilirubin,total 0.3 mg/dL 0.2-1.0 Bilirubin,total ATHE ([facility]) albumin/globulin ratio 1.2-2.2 Albumin/globu diego Ratio [facility]A ([facility]) albumin 4.3 gm/dL 3.2-5.2 Albumin [facility] ([facility]) ID Date Data Source [id number] 05/12/2020 09:05:00 AM EST [place] ([facility]) Name Value Range Interpretation Code Description Data Nena rce(s) Supporting Document(s) red blood count 4.50 10 4.00-5.40 Red Blood Count ATHE ([facility]) white blood count 7.9 10 4.0-10.0 White Blood Count [facility] ([facility]) hematocrit 40.3 % 36.0-47.0 Hematocrit [facility] ([facility]) hemoglobin 13.3 g/dL 12.0-15.5 Hemoglobin [facility] ([facility]) mean corpuscular volume 89.6 fL 80.0-96.0 Mean Corpusc ular Volume [facility]A ([facility]) mean corpuscular hemoglobin 29.6 pg 27.0-33.0 Mean Cor puscular Hemoglobin [facility] ([facility]) red cell distribution width 12.5 % 11.5-14.5 Red Cell Distribution Width [facility] ([facility]) mean corpuscular HGB conc 33.0 g/dL 32.0-36.5 Mean Corpu scular HGB Conc [facility] ([facility]) platelet count, automated 301 10 150-450 Platelet C ount, Automated [place] ([facility]) neutrophils % 51.5 % 36.0-66.0 Neutrophils % [place] ( [facility]) lymph % 36.5 % 24.0-44.0 Lymph % [place] ([facility]) eos % 2.2 % 0.0-3.0 Eos % [place] ([facility]) mono % 8.9 % 0.0-5.0 Above high normal Coffee % [place] ([facility]) immature granulocyte % 0.3 % 0-3.0 Immature Gran ulocyte % [place] ([facility]) baso % 0.6 % 0.0-1.0 Baso % [place] ([facility]) nucleated red blood cell % 0.0 % 0-0 Nucleated Red Blood Cell % [facility] ([facility]) lymph # 2.9 10 1.5-5.0 Lymph # [place] ([facility]) neutrophils # 4.1 10 1.5-8.5 Neutrophils # [place] ( [facility]) eos # 0.2 10 0.0-0.5 Eos # [facility] ([facility]) mono # 0.7 10 0.0-0.8 Coffee # [place] ([facility]) baso # 0.1 10 0.0-0.2 Baso # [facility] ([facility]) ID Date Data Source [id number] 05/12/2020 09:05:00 AM EST [place] ([facility]) Name Value Range Interpretation Code Description Data Nena rce(s) Supporting Document(s) total 25(oh) vitamin D 22.6 NG/mL 30.0-100.0 Below low normal T otal 25(Oh) Vitamin D [facility] ([facility]) ID Date Data Source [id number] 05/12/2020 09:05:00 AM EST [place] ([facility]) Name Value Range Interpretation Code Description Data Nena rce(s) Supporting Document(s) thyroid stimulating hormone 1.920 uIU/mL 0.358-3.740 Thyroid Stimulating Hormone [facility] ([facility]) free T4 0.90 NG/dL 0.76-1.46 Free T4 [facility] ([facility]) ID Date Data Source [id number] 05/12/2020 09:05:00 AM EST [place] ([facility]) Name Value Range Interpretation Code Description Data Nena rce(s) Supporting Document(s) triglycerides level 103 mg/dL <150 Triglycerides Le staci [place] ([facility]) HDL cholesterol 60 mg/dL >40 HDL Cholesterol ATHE ([facility]) non-HDL-C 153 mg/dL Non-hdl-c [place] ([facility]) cholesterol level 213 mg/dL <200 Above high normal Cholesterol Level OZ[place] ([facility]) Cholesterol in LDL [Mass/volume] in Serum or Plasma 132 mg/dL <100 Above high normal LDL Cholesterol [facility] ([facility]) cholesterol risk ratio <5 Cholesterol R isk Ratio [place] ([facility]) ID Date Data Source [id number] 05/12/2020 09:05:00 AM EST [place] ([facility]) Name Value Range Interpretation Code Description Data Nena rce(s) Supporting Document(s) glomerular filtration rate > 60.0 >60 Glomerula r Filtration Rate [facility] ([facility]) creatinine for GFR 0.87 mg/dL 0.55-1.30 Creatinine for GF R [place] ([facility]) glucose, fasting 91 mg/dL 70-100 Glucose, Fasting AT [facility] ([facility]) blood urea nitrogen 13 mg/dL 7-18 Blood Urea Nitro gen [place] ([facility]) potassium serum 4.6 mEq/L 3.5-5.1 Potassium Serum ATHE NA ([facility]) chloride level 104 mEq/L 98-107 Chloride Level [facility] ([facility]) sodium level 140 mEq/L 136-145 Sodium Level [facility] ([facility]) carbon dioxide level 29 mEq/L 21-32 Carbon Dioxide Level [facility] ([facility]) anion gap 7 mEq/L 8-16 Below low normal Anion Gap [place] ( [facility]) ALT/SGPT 16 U/L 12-78 ALT/SGPT [place] ([facility]) AST/SGOT 9 U/L 7-37 AST/SGOT [place] ([facility]) calcium level 9.5 mg/dL 8.5-10.1 Calcium Level [place] ( [facility]) total protein 7.2 gm/dL 6.4-8.2 Total Protein [place] ( [facility]) alkaline phosphatase 74 U/L 45-117 Alkaline Phosph atase [facility] ([facility]) bilirubin,total 0.3 mg/dL 0.2-1.0 Bilirubin,total ATHE NA ([facility]) albumin 4.3 gm/dL 3.2-5.2 Albumin [facility] ([facility]) albumin/globulin ratio 1.2-2.2 Albumin/globu diego Ratio [facility]A ([facility]) ID Date Data Source [id number] 05/12/2020 09:05:00 AM EST [place] ([facility]) Name Value Range Interpretation Code Description Data Nena rce(s) Supporting Document(s) white blood count 7.9 10 4.0-10.0 White Blood Count [facility] ([facility]) hemoglobin 13.3 g/dL 12.0-15.5 Hemoglobin [facility] ([facility]) red blood count 4.50 10 4.00-5.40 Red Blood Count ATHE ([facility]) hematocrit 40.3 % 36.0-47.0 Hematocrit [facility]A ([facility]) mean corpuscular hemoglobin 29.6 pg 27.0-33.0 Mean Cor puscular Hemoglobin [facility] ([facility]) mean corpuscular volume 89.6 fL 80.0-96.0 Mean Corpusc ular Volume [facility] ([facility]) mean corpuscular HGB conc 33.0 g/dL 32.0-36.5 Mean Corpu scular HGB Conc [facility] ([facility]) red cell distribution width 12.5 % 11.5-14.5 Red Cell Distribution Width [facility] ([facility]) neutrophils % 51.5 % 36.0-66.0 Neutrophils % [facility]A ( [facility]) lymph % 36.5 % 24.0-44.0 Lymph % [place] ([facility]) platelet count, automated 301 10 150-450 Platelet C ount, Automated [place] ([facility]) eos % 2.2 % 0.0-3.0 Eos % [place] ([facility]) baso % 0.6 % 0.0-1.0 Baso % [place] ([facility]) mono % 8.9 % 0.0-5.0 Above high normal Coffee % [place] ([facility]) nucleated red blood cell % 0.0 % 0-0 Nucleated Red Blood Cell % [facility]A ([facility]) lymph # 2.9 10 1.5-5.0 Lymph # [place] ([facility]) neutrophils # 4.1 10 1.5-8.5 Neutrophils # [place] ( [facility]) immature granulocyte % 0.3 % 0-3.0 Immature Gran ulocyte % [facility]A ([facility]) mono # 0.7 10 0.0-0.8 Coffee # [place] ([facility]) baso # 0.1 10 0.0-0.2 Baso # [place] ([facility]) eos # 0.2 10 0.0-0.5 Eos # [place] ([facility]) ID Date Data Source [id number] 05/12/2020 09:05:00 AM EST [place] ([facility]) Name Value Range Interpretation Code Description Data Nena rce(s) Supporting Document(s) total 25(oh) vitamin D 22.6 NG/mL 30.0-100.0 Below low normal T otal 25(Oh) Vitamin D [facility] ([facility]) ID Date Data Source [id number] 05/12/2020 09:05:00 AM EST [place] ([facility]) Name Value Range Interpretation Code Description Data Nena rce(s) Supporting Document(s) thyroid stimulating hormone 1.920 uIU/mL 0.358-3.740 Thyroid Stimulating Hormone ZOILA ([facility]) free T4 0.90 NG/dL 0.76-1.46 Free T4 ZOILA ([facility]) ID Date Data Source [id number] 05/12/2020 09:05:00 AM EST [place] ([facility]) Name Value Range Interpretation Code Description Data Nena rce(s) Supporting Document(s) HDL cholesterol 60 mg/dL >40 HDL Cholesterol ATHE NA ([facility]) triglycerides level 103 mg/dL <150 Triglycerides Le staci ZOILA ([facility]) cholesterol level 213 mg/dL <200 Above high normal Cholesterol Level ZOILA ([facility]) non-HDL-C 153 mg/dL Non-hdl-c ZOILA ([facility]) cholesterol risk ratio <5 Cholesterol R isk Ratio ZOILA ([facility]) Cholesterol in LDL [Mass/volume] in Serum or Plasma 132 mg/dL <100 Above high normal LDL Cholesterol ZOILA ([facility]) ID Date Data Source [id number] 05/12/2020 09:05:00 AM EST [place] ([facility]) Name Value Range Interpretation Code Description Data Nena rce(s) Supporting Document(s) creatinine for GFR 0.87 mg/dL 0.55-1.30 Creatinine for GF R ZOILA ([facility]) glomerular filtration rate > 60.0 >60 Glomerula r Filtration Rate ZOILA ([facility]) blood urea nitrogen 13 mg/dL 7-18 Blood Urea Nitro gen ZOILA ([facility]) glucose, fasting 91 mg/dL 70-100 Glucose, Fasting AT [facility] ([facility]) potassium serum 4.6 mEq/L 3.5-5.1 Potassium Serum ATHE NA ([facility]) chloride level 104 mEq/L 98-107 Chloride Level ZOILA ([facility]) sodium level 140 mEq/L 136-145 Sodium Level ZOILA ([facility]) calcium level 9.5 mg/dL 8.5-10.1 Calcium Level ZOILA ( [facility]) anion gap 7 mEq/L 8-16 Below low normal Anion Gap ZOILA ( [facility]) carbon dioxide level 29 mEq/L 21-32 Carbon Dioxide Level ZOILA ([facility]) ALT/SGPT 16 U/L 12-78 ALT/SGPT ZOILA ([facility]) AST/SGOT 9 U/L 7-37 AST/SGOT ZOILA ([facility]) total protein 7.2 gm/dL 6.4-8.2 Total Protein ZOILA ( [facility]) alkaline phosphatase 74 U/L 45-117 Alkaline Phosph atase ZOILA ([facility]) albumin 4.3 gm/dL 3.2-5.2 Albumin ZOILA ([facility]) bilirubin,total 0.3 mg/dL 0.2-1.0 Bilirubin,total ATHE ([facility]) albumin/globulin ratio 1.2-2.2 Albumin/globu diego Ratio ZOILA ([facility]) ID Date Data Source [id number] 05/12/2020 09:05:00 AM EST ZOILA ([facility]) Name Value Range Interpretation Code Description Data Nena rce(s) Supporting Document(s) white blood count 7.9 10 4.0-10.0 White Blood Count ZOILA ([facility]) red blood count 4.50 10 4.00-5.40 Red Blood Count ATHE ([facility]) hematocrit 40.3 % 36.0-47.0 Hematocrit ZOILA ([facility]) mean corpuscular volume 89.6 fL 80.0-96.0 Mean Corpusc ular Volume ZOILA ([facility]) hemoglobin 13.3 g/dL 12.0-15.5 Hemoglobin ZOILA ([facility]) mean corpuscular hemoglobin 29.6 pg 27.0-33.0 Mean Cor puscular Hemoglobin ZOILA ([facility]) mean corpuscular HGB conc 33.0 g/dL 32.0-36.5 Mean Corpu scular HGB Conc ZOILA ([facility]) platelet count, automated 301 10 150-450 Platelet C ount, Automated ZOILA ([facility]) red cell distribution width 12.5 % 11.5-14.5 Red Cell Distribution Width ZOILA ([facility]) mono % 8.9 % 0.0-5.0 Above high normal Coffee % ZOILA ([facility]) lymph % 36.5 % 24.0-44.0 Lymph % [place] ([facility]) neutrophils % 51.5 % 36.0-66.0 Neutrophils % ZOILA ( [facility]) immature granulocyte % 0.3 % 0-3.0 Immature Gran ulocyte % ZOILA ([facility]) nucleated red blood cell % 0.0 % 0-0 Nucleated Red Blood Cell % ZOILA ([facility]) eos % 2.2 % 0.0-3.0 Eos % ZOILA ([facility]) baso % 0.6 % 0.0-1.0 Baso % ZOILA ([facility]) mono # 0.7 10 0.0-0.8 Coffee # ZOILA ([facility]) neutrophils # 4.1 10 1.5-8.5 Neutrophils # ZOILA ( [facility]) lymph # 2.9 10 1.5-5.0 Lymph # ZOILA ([facility]) eos # 0.2 10 0.0-0.5 Eos # ZOILA ([facility]) baso # 0.1 10 0.0-0.2 Baso # ZOILA ([facility]) ID Date Data Source [id number] 05/12/2020 09:05:00 AM EST ZOILA ([facility]) Name Value Range Interpretation Code Description Data Nena rce(s) Supporting Document(s) total 25(oh) vitamin D 22.6 NG/mL 30.0-100.0 Below low normal T otal 25(Oh) Vitamin D ZOILA ([facility]) ID Date Data Source [id number] 05/12/2020 09:05:00 AM EST ZOILA ([facility]) Name Value Range Interpretation Code Description Data Nena rce(s) Supporting Document(s) thyroid stimulating hormone 1.920 uIU/mL 0.358-3.740 Thyroid Stimulating Hormone ZOILA ([facility]) free T4 0.90 NG/dL 0.76-1.46 Free T4 ZOILA ([facility]) ID Date Data Source [id number] 05/12/2020 09:05:00 AM EST ZOILA ([facility]) Name Value Range Interpretation Code Description Data Nena rce(s) Supporting Document(s) cholesterol level 213 mg/dL <200 Above high normal Cholesterol Level ZOILA ([facility]) triglycerides level 103 mg/dL <150 Triglycerides Le staci ZOILA ([facility]) non-HDL-C 153 mg/dL Non-hdl-c ZOILA ([facility]) cholesterol risk ratio <5 Cholesterol R isk Ratio ZOILA ([facility]) Cholesterol in LDL [Mass/volume] in Serum or Plasma 132 mg/dL <100 Above high normal LDL Cholesterol ZOILA ([facility]) HDL cholesterol 60 mg/dL >40 HDL Cholesterol ATHE NA ([facility]) ID Date Data Source [id number] 05/12/2020 09:05:00 AM EST ZOILA ([facility]) Name Value Range Interpretation Code Description Data Nena rce(s) Supporting Document(s) blood urea nitrogen 13 mg/dL 7-18 Blood Urea Nitro gen ZOILA ([facility]) glucose, fasting 91 mg/dL 70-100 Glucose, Fasting AT [facility] ([facility]) creatinine for GFR 0.87 mg/dL 0.55-1.30 Creatinine for GF R ZOILA ([facility]) glomerular filtration rate > 60.0 >60 Glomerula r Filtration Rate ZOILA ([facility]) sodium level 140 mEq/L 136-145 Sodium Level ZOILA ([facility]) potassium serum 4.6 mEq/L 3.5-5.1 Potassium Serum ATHE NA ([facility]) calcium level 9.5 mg/dL 8.5-10.1 Calcium Level ZOILA ( [facility]) anion gap 7 mEq/L 8-16 Below low normal Anion Gap ZOILA ( [facility]) chloride level 104 mEq/L 98-107 Chloride Level ZOILA ([facility]) carbon dioxide level 29 mEq/L 21-32 Carbon Dioxide Level ZOILA ([facility]) AST/SGOT 9 U/L 7-37 AST/SGOT Z[facility]A ([facility]) alkaline phosphatase 74 U/L 45-117 Alkaline Phosph atase ZOILA ([facility]) bilirubin,total 0.3 mg/dL 0.2-1.0 Bilirubin,total ATHE ([facility]) ALT/SGPT 16 U/L 12-78 ALT/SGPT Z[facility]ILA ([facility]) albumin/globulin ratio 1.2-2.2 Albumin/globu diego Ratio ZOILA ([facility]) total protein 7.2 gm/dL 6.4-8.2 Total Protein ZOILA ( [facility]) albumin 4.3 gm/dL 3.2-5.2 Albumin ZOILA ([facility]) ID Date Data Source [id number] 05/12/2020 09:05:00 AM EST ZOILA ([facility]) Name Value Range Interpretation Code Description Data Nena rce(s) Supporting Document(s) hemoglobin 13.3 g/dL 12.0-15.5 Hemoglobin ZOILA ([facility]) white blood count 7.9 10 4.0-10.0 White Blood Count ZOILA ([facility]) red blood count 4.50 10 4.00-5.40 Red Blood Count ATHE NA ([facility]) mean corpuscular hemoglobin 29.6 pg 27.0-33.0 Mean Cor puscular Hemoglobin ZOILA ([facility]) mean corpuscular volume 89.6 fL 80.0-96.0 Mean Corpusc ular Volume ZOILA ([facility]) hematocrit 40.3 % 36.0-47.0 Hematocrit ZOILA ([facility]) platelet count, automated 301 10 150-450 Platelet C ount, Automated ZOILA ([facility]) mean corpuscular HGB conc 33.0 g/dL 32.0-36.5 Mean Corpu scular HGB Conc ZOILA ([facility]) red cell distribution width 12.5 % 11.5-14.5 Red Cell Distribution Width ZOILA ([facility]) lymph % 36.5 % 24.0-44.0 Lymph % ZOILA ([facility]) neutrophils % 51.5 % 36.0-66.0 Neutrophils % ZOILA ( [facility]) eos % 2.2 % 0.0-3.0 Eos % ZOILA ([facility]) mono % 8.9 % 0.0-5.0 Above high normal Coffee % ZOILA ([facility]) nucleated red blood cell % 0.0 % 0-0 Nucleated Red Blood Cell % ZOILA ([facility]) immature granulocyte % 0.3 % 0-3.0 Immature Gran ulocyte % ZOILA ([facility]) baso % 0.6 % 0.0-1.0 Baso % ZOILA ([facility]) eos # 0.2 10 0.0-0.5 Eos # ZOILA ([facility]) mono # 0.7 10 0.0-0.8 Coffee # ZOILA ([facility]) lymph # 2.9 10 1.5-5.0 Lymph # ZOILA ([facility]) neutrophils # 4.1 10 1.5-8.5 Neutrophils # ZOILA ( [facility]) baso # 0.1 10 0.0-0.2 Baso # ZOILA ([facility]) ID Date Data Source [id number] 05/12/2020 09:05:00 AM EST ZOILA ([facility]) Name Value Range Interpretation Code Description Data Nena rce(s) Supporting Document(s) total 25(oh) vitamin D 22.6 NG/mL 30.0-100.0 Below low normal T otal 25(Oh) Vitamin D ZOILA ([facility]) ID Date Data Source [id number] 05/12/2020 09:05:00 AM EST ZOILA ([facility]) Name Value Range Interpretation Code Description Data Nena rce(s) Supporting Document(s) free T4 0.90 NG/dL 0.76-1.46 Free T4 ZOILA ([facility]) thyroid stimulating hormone 1.920 uIU/mL 0.358-3.740 Thyroid Stimulating Hormone ZOILA ([facility]) ID Date Data Source [id number] 05/12/2020 09:05:00 AM EST ZOILA ([facility]) Name Value Range Interpretation Code Description Data Nena rce(s) Supporting Document(s) triglycerides level 103 mg/dL <150 Triglycerides Le staci ZOILA ([facility]) HDL cholesterol 60 mg/dL >40 HDL Cholesterol ATHE NA ([facility]) cholesterol level 213 mg/dL <200 Above high normal Cholesterol Level ZOILA ([facility]) Cholesterol in LDL [Mass/volume] in Serum or Plasma 132 mg/dL <100 Above high normal LDL Cholesterol ZOILA ([facility]) non-HDL-C 153 mg/dL Non-hdl-c ZOILA ([facility]) cholesterol risk ratio <5 Cholesterol R isk Ratio ZOILA ([facility]) ID Date Data Source [id number] 05/12/2020 09:05:00 AM EST ZOILA ([facility]) Name Value Range Interpretation Code Description Data Nena rce(s) Supporting Document(s) glucose, fasting 91 mg/dL 70-100 Glucose, Fasting AT [facility] ([facility]) creatinine for GFR 0.87 mg/dL 0.55-1.30 Creatinine for GF R ZOILA ([facility]) glomerular filtration rate > 60.0 >60 Glomerula r Filtration Rate ZOILA ([facility]) blood urea nitrogen 13 mg/dL 7-18 Blood Urea Nitro gen ZOILA ([facility]) chloride level 104 mEq/L 98-107 Chloride Level ZOILA ([facility]) sodium level 140 mEq/L 136-145 Sodium Level ZOILA ([facility]) potassium serum 4.6 mEq/L 3.5-5.1 Potassium Serum ATHE ([facility]) carbon dioxide level 29 mEq/L 21-32 Carbon Dioxide Level ZOILA ([facility]) ALT/SGPT 16 U/L 12-78 ALT/SGPT ZOILA ([facility]) calcium level 9.5 mg/dL 8.5-10.1 Calcium Level ZOILA ( [facility]) anion gap 7 mEq/L 8-16 Below low normal Anion Gap ZOILA ( [facility]) AST/SGOT 9 U/L 7-37 AST/SGOT ZOILA ([facility]) alkaline phosphatase 74 U/L 45-117 Alkaline Phosph atase ZOILA ([facility]) total protein 7.2 gm/dL 6.4-8.2 Total Protein ZOILA ( [facility]) bilirubin,total 0.3 mg/dL 0.2-1.0 Bilirubin,total ATHE ([facility]) albumin 4.3 gm/dL 3.2-5.2 Albumin ZOILA ([facility]) albumin/globulin ratio 1.2-2.2 Albumin/globu diego Ratio ZOILA ([facility]) ID Date Data Source [id number] 05/12/2020 09:05:00 AM EST ZOILA ([facility]) Name Value Range Interpretation Code Description Data Nena rce(s) Supporting Document(s) white blood count 7.9 10 4.0-10.0 White Blood Count ZOILA ([facility]) hemoglobin 13.3 g/dL 12.0-15.5 Hemoglobin ZOILA ([facility]) hematocrit 40.3 % 36.0-47.0 Hematocrit ZOILA ([facility]) red blood count 4.50 10 4.00-5.40 Red Blood Count ATHE NA ([facility]) mean corpuscular volume 89.6 fL 80.0-96.0 Mean Corpusc ular Volume ZOILA ([facility]) mean corpuscular hemoglobin 29.6 pg 27.0-33.0 Mean Cor puscular Hemoglobin ZOILA ([facility]) mean corpuscular HGB conc 33.0 g/dL 32.0-36.5 Mean Corpu scular HGB Conc ZOILA ([facility]) red cell distribution width 12.5 % 11.5-14.5 Red Cell Distribution Width ZOILA ([facility]) neutrophils % 51.5 % 36.0-66.0 Neutrophils % ZOILA ( [facility]) platelet count, automated 301 10 150-450 Platelet C ount, Automated ZOILA ([facility]) lymph % 36.5 % 24.0-44.0 Lymph % [place] ([facility]) mono % 8.9 % 0.0-5.0 Above high normal Coffee % ZOILA ([facility]) eos % 2.2 % 0.0-3.0 Eos % ZOILA ([facility]) nucleated red blood cell % 0.0 % 0-0 Nucleated Red Blood Cell % ZOILA ([facility]) immature granulocyte % 0.3 % 0-3.0 Immature Gran ulocyte % ZOILA ([facility]) baso % 0.6 % 0.0-1.0 Baso % Z[facility]ILA ([facility]) neutrophils # 4.1 10 1.5-8.5 Neutrophils # ZOILA ( [facility]) mono # 0.7 10 0.0-0.8 Coffee # ZOILA ([facility]) lymph # 2.9 10 1.5-5.0 Lymph # [facility]ILA ([facility]) baso # 0.1 10 0.0-0.2 Baso # ZOILA ([facility]) eos # 0.2 10 0.0-0.5 Eos # ZOILA ([facility]) ID Date Data Source [id number] 05/12/2020 09:05:00 AM EST ZOILA ([facility]) Name Value Range Interpretation Code Description Data Nena rce(s) Supporting Document(s) total 25(oh) vitamin D 22.6 NG/mL 30.0-100.0 Below low normal T otal 25(Oh) Vitamin D ZOILA ([facility]) ID Date Data Source [id number] 05/12/2020 09:05:00 AM EST [place]OIL[place] ([facility]) Name Value Range Interpretation Code Description Data Nena rce(s) Supporting Document(s) free T4 0.90 NG/dL 0.76-1.46 Free T4 ZOILA ([facility]) thyroid stimulating hormone 1.920 uIU/mL 0.358-3.740 Thyroid Stimulating Hormone ZOILA ([facility]) ID Date Data Source [id number] 05/12/2020 09:05:00 AM EST ZOILA ([facility]) Name Value Range Interpretation Code Description Data Nena rce(s) Supporting Document(s) cholesterol level 213 mg/dL <200 Above high normal Cholesterol Level ZOILA ([facility]) triglycerides level 103 mg/dL <150 Triglycerides Le staci ZOILA ([facility]) HDL cholesterol 60 mg/dL >40 HDL Cholesterol ATHE NA ([facility]) Cholesterol in LDL [Mass/volume] in Serum or Plasma 132 mg/dL <100 Above high normal LDL Cholesterol ZOILA ([facility]) non-HDL-C 153 mg/dL Non-hdl-c ZOILA ([facility]) cholesterol risk ratio <5 Cholesterol R isk Ratio ZOILA ([facility]) ID Date Data Source [id number] 05/12/2020 09:05:00 AM EST ZOILA ([facility]) Name Value Range Interpretation Code Description Data Nena rce(s) Supporting Document(s) blood urea nitrogen 13 mg/dL 7-18 Blood Urea Nitro gen ZOILA ([facility]) glucose, fasting 91 mg/dL 70-100 Glucose, Fasting AT [facility] ([facility]) sodium level 140 mEq/L 136-145 Sodium Level ZOILA (No [facility]) creatinine for GFR 0.87 mg/dL 0.55-1.30 Creatinine for GF R ZOILA ([facility]) glomerular filtration rate > 60.0 >60 Glomerula r Filtration Rate ZOILA ([facility]) potassium serum 4.6 mEq/L 3.5-5.1 Potassium Serum ATHE ([facility]) carbon dioxide level 29 mEq/L 21-32 Carbon Dioxide Level ZOILA ([facility]) chloride level 104 mEq/L 98-107 Chloride Level ZOILA ([facility]) anion gap 7 mEq/L 8-16 Below low normal Anion Gap ZOILA ( [facility]) calcium level 9.5 mg/dL 8.5-10.1 Calcium Level ZOILA ( [facility]) AST/SGOT 9 U/L 7-37 AST/SGOT Z[facility]A ([facility]) total protein 7.2 gm/dL 6.4-8.2 Total Protein ZOILA ( [facility]) alkaline phosphatase 74 U/L 45-117 Alkaline Phosph atase ZOILA ([facility]) ALT/SGPT 16 U/L 12-78 ALT/SGPT [facility] ([facility]) bilirubin,total 0.3 mg/dL 0.2-1.0 Bilirubin,total ATHE ([facility]) albumin 4.3 gm/dL 3.2-5.2 Albumin ZOILA ([facility]) albumin/globulin ratio 1.2-2.2 Albumin/globu diego Ratio ZOILA ([facility]) ID Date Data Source [id number] 05/12/2020 09:05:00 AM EST ZOILA ([facility]) Name Value Range Interpretation Code Description Data Nena rce(s) Supporting Document(s) white blood count 7.9 10 4.0-10.0 White Blood Count ZOILA ([facility]) red blood count 4.50 10 4.00-5.40 Red Blood Count ATHE NA ([facility]) hemoglobin 13.3 g/dL 12.0-15.5 Hemoglobin ZOILA ([facility]) hematocrit 40.3 % 36.0-47.0 Hematocrit ZOILA ([facility]) mean corpuscular hemoglobin 29.6 pg 27.0-33.0 Mean Cor puscular Hemoglobin ZOILA ([facility]) mean corpuscular volume 89.6 fL 80.0-96.0 Mean Corpusc ular Volume ZOILA ([facility]) red cell distribution width 12.5 % 11.5-14.5 Red Cell Distribution Width ZOILA ([facility]) mean corpuscular HGB conc 33.0 g/dL 32.0-36.5 Mean Corpu scular HGB Conc [place] ([facility]) platelet count, automated 301 10 150-450 Platelet C ount, Automated ZOILA ([facility]) neutrophils % 51.5 % 36.0-66.0 Neutrophils % [place] ( [facility]) mono % 8.9 % 0.0-5.0 Above high normal Coffee % ZOILA ([facility]) lymph % 36.5 % 24.0-44.0 Lymph % [facility] ([facility]) eos % 2.2 % 0.0-3.0 Eos % [facility]A ([facility]) baso % 0.6 % 0.0-1.0 Baso % [place] ([facility]) immature granulocyte % 0.3 % 0-3.0 Immature Gran ulocyte % ZOILA ([facility]) nucleated red blood cell % 0.0 % 0-0 Nucleated Red Blood Cell % [place] ([facility]) neutrophils # 4.1 10 1.5-8.5 Neutrophils # ZOILA ( [facility]) mono # 0.7 10 0.0-0.8 Coffee # Z[facility]ILA ([facility]) eos # 0.2 10 0.0-0.5 Eos # [facility]A ([facility]) lymph # 2.9 10 1.5-5.0 Lymph # [facility] ([facility]) baso # 0.1 10 0.0-0.2 Baso # [facility]ILA ([facility]) ID Date Data Source [id number] 05/12/2020 09:05:00 AM EST [place]IL[place] ([facility]) Name Value Range Interpretation Code Description Data Nena rce(s) Supporting Document(s) total 25(oh) vitamin D 22.6 NG/mL 30.0-100.0 Below low normal T otal 25(Oh) Vitamin D [facility] ([facility]) ID Date Data Source [id number] 05/12/2020 09:05:00 AM EST [place] ([facility]) Name Value Range Interpretation Code Description Data Nena rce(s) Supporting Document(s) free T4 0.90 NG/dL 0.76-1.46 Free T4 [facility]A ([facility]) thyroid stimulating hormone 1.920 uIU/mL 0.358-3.740 Thyroid Stimulating Hormone ZOILA ([facility]) ID Date Data Source [id number] 05/12/2020 09:05:00 AM EST [place]IL[place] ([facility]) Name Value Range Interpretation Code Description Data Nena rce(s) Supporting Document(s) Cholesterol in LDL [Mass/volume] in Serum or Plasma 132 mg/dL <100 Above high normal LDL Cholesterol Z[facility]ILA ([facility]) HDL cholesterol 60 mg/dL >40 HDL Cholesterol ATHE NA ([facility]) cholesterol level 213 mg/dL <200 Above high normal Cholesterol Level ZOILA ([facility]) triglycerides level 103 mg/dL <150 Triglycerides Le staci ZOILA ([facility]) non-HDL-C 153 mg/dL Non-hdl-c Z[facility] ([facility]) cholesterol risk ratio <5 Cholesterol R isk Ratio Z[facility]ILA ([facility]) ID Date Data Source [id number] 05/12/2020 09:05:00 AM EST [place]IL[place] ([facility]) Name Value Range Interpretation Code Description Data Nena rce(s) Supporting Document(s) glomerular filtration rate > 60.0 >60 Glomerula r Filtration Rate ZOILA ([facility]) blood urea nitrogen 13 mg/dL 7-18 Blood Urea Nitro gen Z[facility]ILA ([facility]) creatinine for GFR 0.87 mg/dL 0.55-1.30 Creatinine for GF R [facility]A ([facility]) glucose, fasting 91 mg/dL 70-100 Glucose, Fasting AT [facility]) carbon dioxide level 29 mEq/L 21-32 Carbon Dioxide Level ZOILA ([facility]) sodium level 140 mEq/L 136-145 Sodium Level ZOILA (No [facility]) chloride level 104 mEq/L 98-107 Chloride Level ZOILA ([facility]) potassium serum 4.6 mEq/L 3.5-5.1 Potassium Serum ATHE ([facility]) AST/SGOT 9 U/L 7-37 AST/SGOT [facility] ([facility]) ALT/SGPT 16 U/L 12-78 ALT/SGPT [facility] ([facility]) anion gap 7 mEq/L 8-16 Below low normal Anion Gap ZOILA ( [facility]) calcium level 9.5 mg/dL 8.5-10.1 Calcium Level ZOILA ( [facility]) alkaline phosphatase 74 U/L 45-117 Alkaline Phosph atase ZOILA ([facility]) total protein 7.2 gm/dL 6.4-8.2 Total Protein ZOILA ( [facility]) bilirubin,total 0.3 mg/dL 0.2-1.0 Bilirubin,total ATHE ([facility]) albumin 4.3 gm/dL 3.2-5.2 Albumin ZOILA ([facility]) albumin/globulin ratio 1.2-2.2 Albumin/globu diego Ratio ZOILA ([facility]) ID Date Data Source [id number] 05/12/2020 09:05:00 AM EST ZOILA ([facility]) Name Value Range Interpretation Code Description Data Nena rce(s) Supporting Document(s) red blood count 4.50 10 4.00-5.40 Red Blood Count ATHE NA ([facility]) white blood count 7.9 10 4.0-10.0 White Blood Count ZOILA ([facility]) hematocrit 40.3 % 36.0-47.0 Hematocrit ZOILA ([facility]) hemoglobin 13.3 g/dL 12.0-15.5 Hemoglobin ZOILA ([facility]) mean corpuscular volume 89.6 fL 80.0-96.0 Mean Corpusc ular Volume ZOILA ([facility]) mean corpuscular hemoglobin 29.6 pg 27.0-33.0 Mean Cor puscular Hemoglobin ZOILA ([facility]) platelet count, automated 301 10 150-450 Platelet C ount, Automated ZOILA ([facility]) mean corpuscular HGB conc 33.0 g/dL 32.0-36.5 Mean Corpu scular HGB Conc ZOILA ([facility]) red cell distribution width 12.5 % 11.5-14.5 Red Cell Distribution Width ZOILA ([facility]) neutrophils % 51.5 % 36.0-66.0 Neutrophils % ZOILA ( [facility]) eos % 2.2 % 0.0-3.0 Eos % ZOILA ([facility]) mono % 8.9 % 0.0-5.0 Above high normal Coffee % ZOILA ([facility]) lymph % 36.5 % 24.0-44.0 Lymph % ZOILA ([facility]) nucleated red blood cell % 0.0 % 0-0 Nucleated Red Blood Cell % ZOILA ([facility]) baso % 0.6 % 0.0-1.0 Baso % ZOILA ([facility]) immature granulocyte % 0.3 % 0-3.0 Immature Gran ulocyte % ZOILA ([facility]) lymph # 2.9 10 1.5-5.0 Lymph # ZOILA ([facility]) neutrophils # 4.1 10 1.5-8.5 Neutrophils # ZOILA ( [facility]) mono # 0.7 10 0.0-0.8 Coffee # ZOILA ([facility]) eos # 0.2 10 0.0-0.5 Eos # ZOILA ([facility]) baso # 0.1 10 0.0-0.2 Baso # ZOILA ([facility]) ID Date Data Source [id number] 05/12/2020 09:05:00 AM EST ARCADIA ([facility]) Name Value Range Interpretation Code Description Data Nena rce(s) Supporting Document(s) total 25(oh) vitamin D 22.6 NG/mL 30.0-100.0 Below low normal T otal 25(Oh) Vitamin D [facility]) ID Date Data Source [id number] 05/12/2020 09:05:00 AM EST ARCADIA ([facility]) Name Value Range Interpretation Code Description Data Nena rce(s) Supporting Document(s) thyroid stimulating hormone 1.920 uIU/mL 0.358-3.740 Thyroid Stimulating Hormone ARCADIA ([facility]) free T4 0.90 NG/dL 0.76-1.46 Free T4 [place] ([facility]) ID Date Data Source [id number] 05/12/2020 09:05:00 AM EST ZOILA ([facility]) Name Value Range Interpretation Code Description Data Nena rce(s) Supporting Document(s) triglycerides level 103 mg/dL <150 Triglycerides Le staci ZOILA ([facility]) cholesterol level 213 mg/dL <200 Above high normal Cholesterol Level ZOILA ([facility]) cholesterol risk ratio <5 Cholesterol R isk Ratio ZOILA ([facility]) Cholesterol in LDL [Mass/volume] in Serum or Plasma 132 mg/dL <100 Above high normal LDL Cholesterol ZOILA ([facility]) HDL cholesterol 60 mg/dL >40 HDL Cholesterol ATHE NA ([facility]) non-HDL-C 153 mg/dL Non-hdl-c ZOILA ([facility]) ID Date Data Source [id number] 05/12/2020 09:05:00 AM EST ZOILA ([facility]) Name Value Range Interpretation Code Description Data Nena rce(s) Supporting Document(s) glucose, fasting 91 mg/dL 70-100 Glucose, Fasting AT [facility] ([facility]) creatinine for GFR 0.87 mg/dL 0.55-1.30 Creatinine for GF R ZOILA ([facility]) blood urea nitrogen 13 mg/dL 7-18 Blood Urea Nitro gen ZOILA ([facility]) chloride level 104 mEq/L 98-107 Chloride Level ZOILA ([facility]) potassium serum 4.6 mEq/L 3.5-5.1 Potassium Serum ATHE ([facility]) glomerular filtration rate > 60.0 >60 Glomerula r Filtration Rate ZOILA ([facility]) carbon dioxide level 29 mEq/L 21-32 Carbon Dioxide Level ZOILA ([facility]) sodium level 140 mEq/L 136-145 Sodium Level ZOILA (No [facility]) calcium level 9.5 mg/dL 8.5-10.1 Calcium Level ZOILA ( [facility]) anion gap 7 mEq/L 8-16 Below low normal Anion Gap ZOILA ( [facility]) AST/SGOT 9 U/L 7-37 AST/SGOT ZOILA ([facility]) bilirubin,total 0.3 mg/dL 0.2-1.0 Bilirubin,total ATHE ([facility]) ALT/SGPT 16 U/L 12-78 ALT/SGPT ZOILA ([facility]) alkaline phosphatase 74 U/L 45-117 Alkaline Phosph atase ZOILA ([facility]) total protein 7.2 gm/dL 6.4-8.2 Total Protein ZOILA ( [facility]) albumin 4.3 gm/dL 3.2-5.2 Albumin ZOILA ([facility]) albumin/globulin ratio 1.2-2.2 Albumin/globu diego Ratio ZOILA ([facility]) ID Date Data Source [id number] 05/12/2020 09:05:00 AM EST ZOILA ([facility]) Name Value Range Interpretation Code Description Data Nena rce(s) Supporting Document(s) white blood count 7.9 10 4.0-10.0 White Blood Count ZOILA ([facility]) red blood count 4.50 10 4.00-5.40 Red Blood Count ATHE NA ([facility]) hemoglobin 13.3 g/dL 12.0-15.5 Hemoglobin ZOILA ([facility]) hematocrit 40.3 % 36.0-47.0 Hematocrit ZOILA ([facility]) mean corpuscular hemoglobin 29.6 pg 27.0-33.0 Mean Cor puscular Hemoglobin ZOILA ([facility]) mean corpuscular HGB conc 33.0 g/dL 32.0-36.5 Mean Corpu scular HGB Conc ZOILA ([facility]) mean corpuscular volume 89.6 fL 80.0-96.0 Mean Corpusc ular Volume ZOILA ([facility]) platelet count, automated 301 10 150-450 Platelet C ount, Automated ZOILA ([facility]) neutrophils % 51.5 % 36.0-66.0 Neutrophils % ZOILA ( [facility]) red cell distribution width 12.5 % 11.5-14.5 Red Cell Distribution Width ZOILA ([facility]) mono % 8.9 % 0.0-5.0 Above high normal Coffee % ZOILA ([facility]) lymph % 36.5 % 24.0-44.0 Lymph % ZOILA ([facility]) eos % 2.2 % 0.0-3.0 Eos % ZOILA ([facility]) nucleated red blood cell % 0.0 % 0-0 Nucleated Red Blood Cell % ZOILA ([facility]) baso % 0.6 % 0.0-1.0 Baso % ZOILA ([facility]) immature granulocyte % 0.3 % 0-3.0 Immature Gran ulocyte % ZOILA ([facility]) neutrophils # 4.1 10 1.5-8.5 Neutrophils # ZOILA ( [facility]) lymph # 2.9 10 1.5-5.0 Lymph # ZOILA ([facility]) mono # 0.7 10 0.0-0.8 Coffee # ZOILA ([facility]) eos # 0.2 10 0.0-0.5 Eos # ZOILA ([facility]) baso # 0.1 10 0.0-0.2 Baso # ZOILA ([facility]) ID Date Data Source [id number] 05/12/2020 09:05:00 AM EST ZOILA ([facility]) Name Value Range Interpretation Code Description Data Nena rce(s) Supporting Document(s) total 25(oh) vitamin D 22.6 NG/mL 30.0-100.0 Below low normal T otal 25(Oh) Vitamin D [facility]) ID Date Data Source [id number] 05/12/2020 09:05:00 AM EST ZOILA ([facility]) Name Value Range Interpretation Code Description Data Nena rce(s) Supporting Document(s) thyroid stimulating hormone 1.920 uIU/mL 0.358-3.740 Thyroid Stimulating Hormone ZOILA ([facility]) free T4 0.90 NG/dL 0.76-1.46 Free T4 [place] ([facility]) ID Date Data Source [id number] 05/12/2020 09:05:00 AM EST ZOILA ([facility]) Name Value Range Interpretation Code Description Data Nena rce(s) Supporting Document(s) HDL cholesterol 60 mg/dL >40 HDL Cholesterol ATHE ([facility]) triglycerides level 103 mg/dL <150 Triglycerides Le staci ZOILA ([facility]) cholesterol level 213 mg/dL <200 Above high normal Cholesterol Level ZOILA ([facility]) Cholesterol in LDL [Mass/volume] in Serum or Plasma 132 mg/dL <100 Above high normal LDL Cholesterol ZOILA ([facility]) cholesterol risk ratio <5 Cholesterol R isk Ratio ZOILA ([facility]) non-HDL-C 153 mg/dL Non-hdl-c ZOILA ([facility]) ID Date Data Source [id number] 05/12/2020 09:05:00 AM EST ZOILA ([facility]) Name Value Range Interpretation Code Description Data Nena rce(s) Supporting Document(s) glucose, fasting 91 mg/dL 70-100 Glucose, Fasting AT [facility]) creatinine for GFR 0.87 mg/dL 0.55-1.30 Creatinine for GF R ZOILA ([facility]) sodium level 140 mEq/L 136-145 Sodium Level ZOILA (No [facility]) glomerular filtration rate > 60.0 >60 Glomerula r Filtration Rate ZOILA ([facility]) blood urea nitrogen 13 mg/dL 7-18 Blood Urea Nitro gen ZOILA ([facility]) anion gap 7 mEq/L 8-16 Below low normal Anion Gap ZOILA ( [facility]) carbon dioxide level 29 mEq/L 21-32 Carbon Dioxide Level ZOILA ([facility]) chloride level 104 mEq/L 98-107 Chloride Level ZOILA ([facility]) potassium serum 4.6 mEq/L 3.5-5.1 Potassium Serum ATHE ([facility]) calcium level 9.5 mg/dL 8.5-10.1 Calcium Level [place] ( [facility]) AST/SGOT 9 U/L 7-37 AST/SGOT ZOILA ([facility]) alkaline phosphatase 74 U/L 45-117 Alkaline Phosph atase ZOILA ([facility]) bilirubin,total 0.3 mg/dL 0.2-1.0 Bilirubin,total ATHE NA ([facility]) ALT/SGPT 16 U/L 12-78 ALT/SGPT ZOILA ([facility]) albumin 4.3 gm/dL 3.2-5.2 Albumin ZOILA ([facility]) total protein 7.2 gm/dL 6.4-8.2 Total Protein ZOILA ( [facility]) albumin/globulin ratio 1.2-2.2 Albumin/globu diego Ratio ZOILA ([facility]) ID Date Data Source [id number] 05/12/2020 09:05:00 AM EST ZOILA ([facility]) Name Value Range Interpretation Code Description Data Nena rce(s) Supporting Document(s) white blood count 7.9 10 4.0-10.0 White Blood Count ZOILA ([facility]) red blood count 4.50 10 4.00-5.40 Red Blood Count ATHE ([facility]) mean corpuscular volume 89.6 fL 80.0-96.0 Mean Corpusc ular Volume ZOILA ([facility]) mean corpuscular hemoglobin 29.6 pg 27.0-33.0 Mean Cor puscular Hemoglobin ZOILA ([facility]) hematocrit 40.3 % 36.0-47.0 Hematocrit ZOILA ([facility]) hemoglobin 13.3 g/dL 12.0-15.5 Hemoglobin ZOILA ([facility]) red cell distribution width 12.5 % 11.5-14.5 Red Cell Distribution Width ZOILA ([facility]) platelet count, automated 301 10 150-450 Platelet C ount, Automated ZOILA ([facility]) mean corpuscular HGB conc 33.0 g/dL 32.0-36.5 Mean Corpu scular HGB Conc ZOILA ([facility]) lymph % 36.5 % 24.0-44.0 Lymph % ZOILA ([facility]) neutrophils % 51.5 % 36.0-66.0 Neutrophils % ZOILA ( [facility]) mono % 8.9 % 0.0-5.0 Above high normal Coffee % ZOILA ([facility]) eos % 2.2 % 0.0-3.0 Eos % [place] ([facility]) baso % 0.6 % 0.0-1.0 Baso % [place] ([facility]) nucleated red blood cell % 0.0 % 0-0 Nucleated Red Blood Cell % [place] ([facility]) immature granulocyte % 0.3 % 0-3.0 Immature Gran ulocyte % [place] ([facility]) neutrophils # 4.1 10 1.5-8.5 Neutrophils # [place] ( [facility]) lymph # 2.9 10 1.5-5.0 Lymph # [place] ([facility]) mono # 0.7 10 0.0-0.8 Coffee # [place] ([facility]) eos # 0.2 10 0.0-0.5 Eos # [place] ([facility]) baso # 0.1 10 0.0-0.2 Baso # [place]IA ([facility]) ID Date Data Source [id number] 01/25/2020 12:07:00 AM EDT [facility] Name Value Range Interpretation Code Description Data Nena rce(s) Supporting Document(s) HCT 39.3 % 36.0-47.0 N [facility] HGB 12.9 g/dL 12.0-15.5 N [facility] MCH 32.8 G/DL pg 32.0-36.[address] [facility] MCHC 29.3 PG % 27.0-33.0 N [facility] PLATELETS 288 10 10*3/mm3 150-450 N [facility] RBC 4.40 10 10*6/mm3 4.00-5.40 N [facility] RDW 12.4 % 11.5-14.5 N [facility] WBC TOTAL 9.6 4.0-10.0 N [facility] Procedure Social History No Information Vital Signs ID Date Data Source UNK Name Value Range Interpretation Code Description Data Source(s) Body height 61 [in_i] 61 [in_i] ZOILA ([facility]) Body height 61 [in_i] 61 [in_i] ZOILA ([facility]) Body height 61 [in_i] 61 [in_i] ZOILA ([facility]) Body height 61 [in_i] 61 [in_i] ZOILA ([facility]) Body height 61 [in_i] 61 [in_i] ZOILA ([facility]) Body height 61 [in_i] 61 [in_i] ZOILA ([facility]) Systolic blood pressure 136 mm[Hg] 136 mm[Hg] A [facility] ([facility]) Diastolic blood pressure 85 mm[Hg] 85 mm[Hg] ZOILA ([facility]) Body height 61 [in_i] 61 [in_i] ZOILA ([facility]) Body mass index (BMI) [Ratio] 37.4 kg/m2 37.4 k g/m2 ZOILA ([facility]) Systolic blood pressure 136 mm[Hg] 136 mm[Hg] A THENA ([facility]) Body weight 3170 [oz_av] 3170 [oz_av] ZOILA ([facility]) Diastolic blood pressure 85 mm[Hg] 85 mm[Hg] ZOILA ([facility]) Body height 61 [in_i] 61 [in_i] ZOILA ([facility]) Body mass index (BMI) [Ratio] 37.4 kg/m2 37.4 k g/m2 ZOILA ([facility]) Systolic blood pressure 136 mm[Hg] 136 mm[Hg] A THENA ([facility]) Body weight 3170 [oz_av] 3170 [oz_av] ZOILA ([facility]) Diastolic blood pressure 85 mm[Hg] 85 mm[Hg] ZOILA ([facility]) Body height 61 [in_i] 61 [in_i] ZOILA ([facility]) Body mass index (BMI) [Ratio] 37.4 kg/m2 37.4 k g/m2 ZOILA ([facility]) Systolic blood pressure 136 mm[Hg] 136 mm[Hg] A THENA ([facility]) Body weight 3170 [oz_av] 3170 [oz_av] ZOILA ([facility]) Diastolic blood pressure 85 mm[Hg] 85 mm[Hg] ZOILA ([facility]) Body height 61 [in_i] 61 [in_i] ZOILA ([facility]) Body mass index (BMI) [Ratio] 37.4 kg/m2 37.4 k g/m2 ZOILA ([facility]) Systolic blood pressure 136 mm[Hg] 136 mm[Hg] [facility]) Body weight 3170 [oz_av] 3170 [oz_av] ZOILA ([facility]) Diastolic blood pressure 85 mm[Hg] 85 mm[Hg] ZOILA ([facility]) Diastolic blood pressure 85 mm[Hg] 85 mm[Hg] ZOILA ([facility]) Body height 61 [in_i] 61 [in_i] ZOILA ([facility]) Body mass index (BMI) [Ratio] 37.4 kg/m2 37.4 k g/m2 ZOILA ([facility]) Body weight 3170 [oz_av] 3170 [oz_av] ZOILA ([facility]) Body height 61 [in_i] 61 [in_i] ZOILA ([facility]) Body mass index (BMI) [Ratio] 37.4 kg/m2 37.4 k g/m2 ZOILA ([facility]) Systolic blood pressure 136 mm[Hg] 136 mm[Hg] A THENA ([facility]) Body weight 3170 [oz_av] 3170 [oz_av] ZOILA ([facility]) Body mass index (BMI) [Ratio] 34.8 kg/m2 34.8 k g/m2 ZOILA ([facility]) Body height 61 [in_i] 61 [in_i] ZOILA ([facility]) Diastolic blood pressure 71 mm[Hg] 71 mm[Hg] ZOILA ([facility]) Systolic blood pressure 109 mm[Hg] 109 mm[Hg] A THENA ([facility]) Body weight 2944 [oz_av] 2944 [oz_av] ZOILA ([facility]) Diastolic blood pressure 71 mm[Hg] 71 mm[Hg] ZOILA ([facility]) Body height 61 [in_i] 61 [in_i] ZOILA ([facility]) Body mass index (BMI) [Ratio] 34.8 kg/m2 34.8 k g/m2 ZOILA ([facility]) Systolic blood pressure 109 mm[Hg] 109 mm[Hg] A THENA ([facility]) Body weight 2944 [oz_av] 2944 [oz_av] ZOILA ([facility]) Diastolic blood pressure 71 mm[Hg] 71 mm[Hg] ZOILA ([facility]) Body height 61 [in_i] 61 [in_i] ZOILA ([facility]) Body mass index (BMI) [Ratio] 34.8 kg/m2 34.8 k g/m2 ZOILA ([facility]) Body weight 2944 [oz_av] 2944 [oz_av] ZOILA ([facility]) Systolic blood pressure 109 mm[Hg] 109 mm[Hg] [facility]) Diastolic blood pressure 71 mm[Hg] 71 mm[Hg] ZOILA ([facility]) Body height 61 [in_i] 61 [in_i] ZOILA ([facility]) Body mass index (BMI) [Ratio] 34.8 kg/m2 34.8 k g/m2 ZOILA ([facility]) Systolic blood pressure 109 mm[Hg] 109 mm[Hg] A THENA ([facility]) Body weight 2944 [oz_av] 2944 [oz_av] ZOILA ([facility]) Diastolic blood pressure 71 mm[Hg] 71 mm[Hg] ZOILA ([facility]) Body height 61 [in_i] 61 [in_i] ZOILA ([facility]) Body mass index (BMI) [Ratio] 34.8 kg/m2 34.8 k g/m2 ZOILA ([facility]) Systolic blood pressure 109 mm[Hg] 109 mm[Hg] A THENA ([facility]) Body weight 2944 [oz_av] 2944 [oz_av] ZOILA ([facility]) Diastolic blood pressure 71 mm[Hg] 71 mm[Hg] ZOILA ([facility]) Body height 61 [in_i] 61 [in_i] ZOILA ([facility]) Body mass index (BMI) [Ratio] 34.8 kg/m2 34.8 k g/m2 ZOILA ([facility]) Systolic blood pressure 109 mm[Hg] 109 mm[Hg] [facility]) Body weight 2944 [oz_av] 2944 [oz_av] ZOILA ([facility]) Diastolic blood pressure 71 mm[Hg] 71 mm[Hg] ZOILA ([facility]) Body height 61 [in_i] 61 [in_i] ZOILA ([facility]) Body mass index (BMI) [Ratio] 34.8 kg/m2 34.8 k g/m2 ZOILA ([facility]) Systolic blood pressure 109 mm[Hg] 109 mm[Hg] A [facility] ([facility]) Body weight 2944 [oz_av] 2944 [oz_av] ZOILA ([facility]) Diastolic blood pressure 71 mm[Hg] 71 mm[Hg] ZOILA ([facility]) Body height 61 [in_i] 61 [in_i] ZOILA ([facility]) Body mass index (BMI) [Ratio] 34.8 kg/m2 34.8 k g/m2 ZOILA ([facility]) Systolic blood pressure 109 mm[Hg] 109 mm[Hg] A THENA ([facility]) Body weight 2944 [oz_av] 2944 [oz_av] ZOILA ([facility]) Diastolic blood pressure 71 mm[Hg] 71 mm[Hg] ZOILA ([facility]) Body height 61 [in_i] 61 [in_i] ZOILA ([facility]) Body mass index (BMI) [Ratio] 34.8 kg/m2 34.8 k g/m2 ZOILA ([facility]) Systolic blood pressure 109 mm[Hg] 109 mm[Hg] A [facility]) Body weight 2944 [oz_av] 2944 [oz_av] ZOILA ([facility]) Body temperature 97.1 [degF] 97.1 [degF] MEDENT ([facility]) Body height 61 [in_i] 61 [in_i] MEDENT ([facility]) 5'1" Body weight 193.00 [lb_av] 193.00 [lb_av] MEDEN T ([facility]) Body mass index (BMI) [Ratio] 36.5 kg/m2 36.5 k g/m2 MEDENT ([facility]) Body height 61 [in_i] 61 [in_i] ZOILA ([facility]) Body height 61 [in_i] 61 [in_i] ZOILA ([facility]) Body height 61 [in_i] 61 [in_i] ZOILA ([facility]) Body height 61 [in_i] 61 [in_i] ZOILA ([facility]) Body height 61 [in_i] 61 [in_i] ZOILA ([facility]) Body height 61 [in_i] 61 [in_i] ZOILA ([facility]) Body height 61 [in_i] 61 [in_i] ZOILA ([facility]) Body height 61 [in_i] 61 [in_i] ZOILA ([facility]) Body height 61 [in_i] 61 [in_i] ZOILA ([facility]) Body height 61 [in_i] 61 [in_i] ZOILA ([facility]) Body height 61 [in_i] 61 [in_i] ZOILA ([facility]) Body height 61 [in_i] 61 [in_i] OZILA ([facility]) Body height 61 [in_i] 61 [in_i] ZOILA ([facility]) Body height 61 [in_i] 61 [in_i] ZOILA ([facility]) Body height 61 [in_i] 61 [in_i] ZOILA ([facility]) Body height 61 [in_i] 61 [in_i] ZOILA ([facility]) Body height 61 [in_i] 61 [in_i] ZOILA ([facility]) Body height 61 [in_i] 61 [in_i] ZOILA ([facility]) Body height 61 [in_i] 61 [in_i] ZOILA ([facility]) Body height 61 [in_i] 61 [in_i] ZOILA ([facility]) Body height 61 [in_i] 61 [in_i] OZILA ([facility]) Body height 61 [in_i] 61 [in_i] ZOILA ([facility]) Body height 61 [in_i] 61 [in_i] ZOILA ([facility]) Patient Treatment Plan of Care Planned Activity Planned Date Details Description Data Source (s) Wixela Inhub 250 mcg-50 mcg/dose powder for inhalation USE ONE INHALATION ONCE D UTD ZOILA ([facility]) Sertraline 50 MG Oral Tablet ZOILA ([facility]) Prednisone 20 MG Oral Tablet ZOILA ([facility]) Acetaminophen 325 MG / Oxycodone Hydrochloride 5 MG Oral Tablet ZOILA ([facility]) 24 HR Nicotine 0.583 MG/HR Transdermal Patch ZOILA ([facility]) Naproxen 500 MG Oral Tablet ZOILA ([facility]) moxifloxacin 5 MG/ML Ophthalmic Solution ZOILA ([facility]) methylprednisolone 4 mg tablets in a dose pack ZOILA ([facility]) Methocarbamol 750 MG Oral Tablet ZOILA ([facility]) gabapentin 300 MG Oral Capsule ZOILA ([facility]) Fluoxetine 10 MG Oral Capsule ZOILA ([facility]) buspirone hydrochloride 7.5 MG Oral Tablet ZOILA ([facility]) benzonatate 100 MG Oral Capsule ZOILA ([facility]) Baclofen 10 MG Oral Tablet A THENA ([facility]) Wixela Inhub 250 mcg-50 mcg/dose powder for inhalation USE ONE INHALATION ONCE D UTD ZOILA ([facility]) Sertraline 50 MG Oral Tablet ZOILA ([facility]) Prednisone 20 MG Oral Tablet ZOILA ([facility]) Acetaminophen 325 MG / Oxycodone Hydrochloride 5 MG Oral Tablet ZOILA ([facility]) 24 HR Nicotine 0.583 MG/HR Transdermal Patch ZOILA ([facility]) moxifloxacin 5 MG/ML Ophthalmic Solution ZOILA ([facility]) methylprednisolone 4 mg tablets in a dose pack ZOILA ([facility]) Methocarbamol 750 MG Oral Tablet ZOILA ([facility]) gabapentin 300 MG Oral Capsule ZOILA ([facility]) Fluoxetine 10 MG Oral Capsule ZOILA ([facility]) buspirone hydrochloride 7.5 MG Oral Tablet ZOILA ([facility]) benzonatate 100 MG Oral Capsule ZOILA ([facility]) Baclofen 10 MG Oral Tablet A THENA ([facility]) Wixela Inhub 250 mcg-50 mcg/dose powder for inhalation USE ONE INHALATION ONCE D UTD ZOILA ([facility]) Prednisone 20 MG Oral Tablet ZOILA ([facility]) Acetaminophen 325 MG / Oxycodone Hydrochloride 5 MG Oral Tablet ZOILA ([facility]) 24 HR Nicotine 0.583 MG/HR Transdermal Patch ZOILA ([facility]) moxifloxacin 5 MG/ML Ophthalmic Solution ZOILA ([facility]) methylprednisolone 4 mg tablets in a dose pack ZOILA ([facility]) Methocarbamol 750 MG Oral Tablet ZOILA ([facility]) gabapentin 300 MG Oral Capsule ZOILA ([facility]) benzonatate 100 MG Oral Capsule ZOILA ([facility]) Baclofen 10 MG Oral Tablet A THENA ([facility]) Wixela Inhub 250 mcg-50 mcg/dose powder for inhalation USE ONE INHALATION ONCE D UTD ZOILA ([facility]) Sertraline 50 MG Oral Tablet ZOILA ([facility]) Prednisone 20 MG Oral Tablet ZOILA ([facility]) Acetaminophen 325 MG / Oxycodone Hydrochloride 5 MG Oral Tablet ZOILA ([facility]) 24 HR Nicotine 0.583 MG/HR Transdermal Patch ZOILA ([facility]) moxifloxacin 5 MG/ML Ophthalmic Solution ZOILA ([facility]) methylprednisolone 4 mg tablets in a dose pack ZOILA ([facility]) Methocarbamol 750 MG Oral Tablet ZOILA ([facility]) gabapentin 300 MG Oral Capsule ZOILA ([facility]) Fluoxetine 10 MG Oral Capsule ZOILA ([facility]) buspirone hydrochloride 7.5 MG Oral Tablet ZOILA ([facility]) benzonatate 100 MG Oral Capsule ZOILA ([facility]) Baclofen 10 MG Oral Tablet A THENA ([facility]) Wixela Inhub 250 mcg-50 mcg/dose powder for inhalation USE ONE INHALATION ONCE D UTD ZOILA ([facility]) Prednisone 20 MG Oral Tablet ZOILA ([facility]) Acetaminophen 325 MG / Oxycodone Hydrochloride 5 MG Oral Tablet ZOILA ([facility]) 24 HR Nicotine 0.583 MG/HR Transdermal Patch ZOILA ([facility]) moxifloxacin 5 MG/ML Ophthalmic Solution ZOILA ([facility]) methylprednisolone 4 mg tablets in a dose pack ZOILA ([facility]) Methocarbamol 750 MG Oral Tablet ZOILA ([facility]) gabapentin 300 MG Oral Capsule ZOILA ([facility]) benzonatate 100 MG Oral Capsule ZOILA ([facility]) Baclofen 10 MG Oral Tablet A THENA ([facility]) Wixela Inhub 250 mcg-50 mcg/dose powder for inhalation USE ONE INHALATION ONCE D UTD ZOILA ([facility]) Prednisone 20 MG Oral Tablet ZOILA ([facility]) Acetaminophen 325 MG / Oxycodone Hydrochloride 5 MG Oral Tablet ZOILA ([facility]) 24 HR Nicotine 0.583 MG/HR Transdermal Patch ZOILA ([facility]) moxifloxacin 5 MG/ML Ophthalmic Solution ZOILA ([facility]) methylprednisolone 4 mg tablets in a dose pack ZOILA ([facility]) Methocarbamol 750 MG Oral Tablet ZOILA ([facility]) gabapentin 300 MG Oral Capsule ZOILA ([facility]) benzonatate 100 MG Oral Capsule ZOILA ([facility]) Baclofen 10 MG Oral Tablet A THENA ([facility]) Wixela Inhub 250 mcg-50 mcg/dose powder for inhalation USE ONE INHALATION ONCE D UTD ZOILA ([facility]) Prednisone 20 MG Oral Tablet ZOILA ([facility]) 24 HR Nicotine 0.583 MG/HR Transdermal Patch ZOILA ([facility]) moxifloxacin 5 MG/ML Ophthalmic Solution ZOILA ([facility]) gabapentin 300 MG Oral Capsule ZOILA ([facility]) benzonatate 100 MG Oral Capsule ZOILA ([facility]) Baclofen 10 MG Oral Tablet A THENA ([facility]) Wixela Inhub 250 mcg-50 mcg/dose powder for inhalation USE ONE INHALATION ONCE D UTD ZOILA ([facility]) Prednisone 20 MG Oral Tablet ZOILA ([facility]) 24 HR Nicotine 0.583 MG/HR Transdermal Patch ZOILA ([facility]) moxifloxacin 5 MG/ML Ophthalmic Solution ZOILA ([facility]) gabapentin 300 MG Oral Capsule ZOILA ([facility]) benzonatate 100 MG Oral Capsule ZOILA ([facility]) Baclofen 10 MG Oral Tablet A THENA ([facility]) Wixela Inhub 250 mcg-50 mcg/dose powder for inhalation USE ONE INHALATION ONCE D UTD ZOILA ([facility]) Prednisone 20 MG Oral Tablet ZOILA ([facility]) 24 HR Nicotine 0.583 MG/HR Transdermal Patch ZOILA ([facility]) moxifloxacin 5 MG/ML Ophthalmic Solution ZOILA ([facility]) gabapentin 300 MG Oral Capsule ZOILA ([facility]) benzonatate 100 MG Oral Capsule ZOILA ([facility]) Baclofen 10 MG Oral Tablet A THENA ([facility])
--- OUTSIDE RECORDS SUMMARY | 2021-02-13 07:55 | CCD ---
Author Author [facility] Organization [facility] Address Unknown Phone Unavailable Care Team Providers Care Communications Coordinator Name Role Phone Elizabeth Grigsby Unavailable [phone] Naveed George Unavailable Unavailable Naveed George Unavailable [...] Naveed Unavailable Unavailable George, Naveed Unavailable Unavailable Weston, Ami UNIT NURSE UNIT NURSE Unavailable Unavailable Weston, A Ami UNIT NURSE Unavailable Unavailable Weston, A Ami UNIT NURSE Unavailable Unavailable Weston, A Ami UNIT NURSE Unavailable Unavailable Weston, A Ami UNIT NURSE Unavailable Unavailable Weston, A Ami UNIT NURSE Unavailable Unavailable Weston, A Ami UNIT NURSE Unavailable Unavailable Weston, A Ami UNIT NURSE Unavailable Unavailable Weston, A Ami UNIT NURSE Unavailable Unavailable Weston, A Ami UNIT NURSE Unavailable Unavailable Weston, A Ami UNIT NURSE Unavailable Unavailable Weston, A Ami UNIT NURSE Unavailable Unavailable Weston, A Ami UNIT NURSE Unavailable Unavailable Weston, A Ami UNIT NURSE Unavailable Unavailable Weston, A Ami UNIT NURSE Unavailable Unavailable Weston, A Ami UNIT NURSE Unavailable Unavailable Weston, A Ami UNIT NURSE Unavailable Unavailable Weston, A Ami UNIT NURSE Unavailable Unavailable Weston, A Ami UNIT NURSE Unavailable Unavailable Weston, A Ami UNIT NURSE Unavailable Unavailable Weston, A Ami UNIT NURSE Unavailable Unavailable Weston, A Ami UNIT NURSE Unavailable Unavailable Weston, A Ami UNIT NURSE Unavailable Unavailable Weston, A Ami UNIT NURSE Unavailable Unavailable Weston, A Ami UNIT NURSE Unavailable Unavailable Weston, A Ami UNIT NURSE Unavailable Unavailable Weston, A Ami UNIT NURSE Unavailable Unavailable Weston, A Ami UNIT NURSE Unavailable Unavailable Weston, A Ami UNIT NURSE Unavailable Unavailable Weston, A Ami UNIT NURSE Unavailable Unavailable Joseph, A Ami UNIT NURSE Unavailable Unavailable Joseph, A Ami UNIT NURSE Unavailable Unavailable Dyer, L Doc [place] Unavailable [...] Marjan Roach MD Unavailable Unavailable Dyer, Marjan Raoch MD Unavailable Unavailable Dyer, Marjan Roach MD [...] Roach MD Unavailable Unavailable Joseph, A Ami UNIT NURSE Unavailable Unavailable Joseph, A Ami UNIT NURSE Unavailable Unavailable Joseph, A Ami UNIT NURSE Unavailable Unavailable Joseph, A Ami UNIT NURSE Unavailable Unavailable Joseph, A Ami UNIT NURSE Unavailable Unavailable Joseph, A Ami UNIT NURSE Unavailable Unavailable Joseph, A Ami UNIT NURSE Unavailable Unavailable Joseph, A Ami UNIT NURSE Unavailable Unavailable Joseph, A Ami UNIT NURSE Unavailable Unavailable Joseph, A Ami UNIT NURSE Unavailable Unavailable Joseph, A Ami UNIT NURSE Unavailable Unavailable Joseph, A Ami UNIT NURSE Unavailable Unavailable Joseph, A Ami UNIT NURSE Unavailable Unavailable Joseph, A Ami UNIT NURSE Unavailable Unavailable Joseph, A Ami UNIT NURSE Unavailable Unavailable Joseph, A Ami UNIT NURSE Unavailable Unavailable Joseph, A Ami UNIT NURSE Unavailable Unavailable Joseph, A Ami UNIT NURSE Unavailable Unavailable Joseph, A Ami UNIT NURSE Unavailable Unavailable Joseph, A Ami UNIT NURSE Unavailable Unavailable Joseph, A Ami UNIT NURSE Unavailable Unavailable Joseph, A Ami UNIT NURSE Unavailable Unavailable Joseph, A Ami UNIT NURSE Unavailable Unavailable Joseph, A Ami UNIT NURSE Unavailable Unavailable Joseph, A Ami UNIT NURSE Unavailable Unavailable Joseph, A Ami UNIT NURSE Unavailable Unavailable Joseph, A Ami UNIT NURSE Unavailable Unavailable Joseph, A Ami UNIT NURSE Unavailable Unavailable Joseph, A Ami UNIT NURSE Unavailable Unavailable Joseph, A Ami UNIT NURSE Unavailable Unavailable Joseph, A Ami UNIT NURSE Unavailable Unavailable Re-disclosure Warning The records that [...] is protected by Article 27-F of the [place] State Public Health law. If you continue you may have access to information: Regarding HIV / AIDS; Provided by facilities licensed or operated by the [facility] Office of Mental Health; or Provided by the [facility] Office for People With Developmental Disabilities. If such information is present, then the following [facility] mandated warning applies: This information has been [...] law may result in a fine or snf sentence or both. A general authorization for the release of medical or other information is NOT sufficient authorization for further disc losure. Family History Family Member Name Family Member Gender Family Member Status Date o f Status Description Data Source(s) Unknown Unknown Problem [facility] ([facility]) Unknown Male Problem [facility] ([facility]) Encounters Encounter Providers Location Date Indications Data Source(s ) Office Visit Attender: Doc Dyer MD Physical Therapy 2020 01:30:00 PM EDT [facility] ([facility]) REGINA Mcgee: [address], [place] [address], Ph. Attender: Ami Ruiz [facility] 11/09/2020 12:00:00 AM EDT [facility] ([facility]) Outpatient Attender: Doc Dyer MD 10/14/2020 01:33:00 PM [facility] AmiREGINA Masters: [address], [place] [address], Ph. Attender: Ami Ruiz [facility] 10/14/2020 12:00:00 AM EDT [facility]) REGINA Mcgee: [address], [place] [address], Ph. Attender: Ami Ruiz [facility] 10/14/2020 12:00:00 AM EDT [facility]) REGINA Mcgee: [address], [place] [address], Ph. Attender: Ami Ruiz [facility] 09/30/2020 12:00:00 AM EDT [facility] ([facility]) Ami Ruiz [facility]: [address], [place] [address], Ph. Attender: Ami Ruiz [facility] 09/30/2020 12:00:00 AM EDT [facility] ([facility]) Ami Ruiz [facility]: [address], [place] [address], Ph. Attender: Ami Ruiz [facility] 09/30/2020 12:00:00 AM EDT [facility] ([facility]) Elizabeth Grigsby, PROCESS SAFETY MANAGER-R: [address] , [place] [address], Ph. Attender: Elizabeth Grigsby [facility] 09/29/2020 12:00:00 AM EDT [facility] ([facility]) Elizabeth Grigsby, PROCESS SAFETY MANAGER-R: [address] [place] [address], Ph. Attender: Elizabeth Grigsby [facility] 09/29/2020 12:00:00 AM EDT [facility] ([facility]) Elizabeth Grigsby, PROCESS SAFETY MANAGER-R: [address] , [place] [address], Ph. Attender: Elizabeth Grigsby [facility] 09/29/2020 12:00:00 AM EDT [facility] ([facility]) Elizabeth Grigsby, PROCESS SAFETY MANAGER-R: [address] , [place] [address], Ph. Attender: Elizabeth Grigsby [facility] 09/29/2020 12:00:00 AM EDT [facility] ([facility]) Outpatient Attender: Doc Dyer MD 021 04:17:00 PM EDT - 10/13/2020 01:33:00 PM EDT [facility] Patient discharged. Elizabeth Grigsby, PROCESS SAFETY MANAGER-R: [address], [place] [address], Ph. Attender: Elizabeth Grigsby [facility] 08/30/2020 12:00:00 AM EDT [facility] ([facility]) Elizabeth Grigsby, PROCESS SAFETY MANAGER-R: [address], [address], [place] [address], Ph. Attender: Elizabeth Grigsby [facility] 08/30/2020 12:00:00 AM EDT [facility] ([facility]) Elizabeth Grigsby, PROCESS SAFETY MANAGER-R: [address], [place] [address], Ph. Attender: Elizabeth Grigsby [facility] 08/30/2020 12:00:00 AM EDT [facility] ([facility]) Elizabeth Grigsby, PROCESS SAFETY MANAGER-R: [address], [address], [place] [address], Ph. Attender: Elizabeth Grigsby [facility] 08/30/2020 12:00:00 AM EDT [facility] ([facility]) Elizabeth Grigsby, PROCESS SAFETY MANAGER-R: [address], [place] [address], Ph. Attender: Elizabeth Cullencharles [facility] 08/30/2020 12:00:00 AM EDT [facility] ([facility]) Outpatient Attender: Naveed George Physical Therapy 08/19/2020 08:30:0 0 AM EDT [facility] ([facility] ) [facility] [address], [place] [address], Ph. Attender: Ami Ruiz [facility] 08/18/2020 12:00:00 AM EDT [facility] ([facility]) REGINA Mcgee: [address], [place] [address], Ph. Attender: Ami Ruiz [facility] 08/18/2020 12:00:00 AM EDT [facility] ([facility]) REGINA Mcgee: [address], [place] [address], Ph. Attender: Ami Ruiz [facility] 08/18/2020 12:00:00 AM EDT [facility] ([facility]) REGINA Mcgee: [address], [place] [address], Ph. Attender: Ami Ruiz [facility] 08/18/2020 12:00:00 AM EDT [facility] ([facility]) Ami Ruiz UNIT NURSE-: [address], [place] [address], Ph. Attender: mAi Ruiz [facility] 08/18/2020 12:00:00 AM EDT [facility] ([facility]) Ami Ruiz, [facility]: [address], [place] [address], Ph. Attender: Ami Ruiz [facility] 08/18/2020 12:00:00 AM EDT [facility] ([facility]) Outpatient Attender: Doc Dyer MD 021 10:44:00 AM EDT - 09/08/2020 04:17:00 PM EDT [facility] Patient discharged. Outpatient Attender: Doc Dyer MD 021 11:37:00 AM EDT - 08/11/2020 10:44:00 AM EDT [facility] Patient discharged. Elizabeth Calista, PROCESS SAFETY MANAGER-R: [address], [address], [place] [address], Ph. Attender: Elizabeth Calista [facility] 08/10/2020 12:00:00 AM EDT [facility] ([facility]) Elizabeth Calista, PROCESS SAFETY MANAGER-R: [address], [address], [place] [address], Ph. Attender: Elizabeth Calista [facility] 08/10/2020 12:00:00 AM EDT [facility] ([facility]) Elizabeth Calista, PROCESS SAFETY MANAGER-R: [address], [place] [address], Ph. Attender: Elizabeth Calista [facility] 08/10/2020 12:00:00 AM EDT [facility] ([facility]) Elizabeth Calista, PROCESS SAFETY MANAGER-R: [address], [place] [address], Ph. Attender: Elizabeth Grigsby [facility] 08/10/2020 12:00:00 AM EDT [facility] ([facility]) Elizabeth Grigsby, PROCESS SAFETY MANAGER-R: [address], [address], [place] [address], Ph. Attender: Elizabeth Grigsby [facility] 08/10/2020 12:00:00 AM EDT [facility] ([facility]) Elizabeth Grigsby, PROCESS SAFETY MANAGER-R: [address], [address], [place] [address], Ph. Attender: Elizabeth Grigsby [facility] 08/10/2020 12:00:00 AM EDT [facility] ([facility]) Elizabeth Grigsby, PROCESS SAFETY MANAGER-R: [address], [address], [place] [address], Ph. Attender: Elizabeth Grigsby [facility] 08/10/2020 12:00:00 AM EDT [facility] ([facility]) Elizabeth Grigsby, PROCESS SAFETY MANAGER-R: [address] [place] [address], Ph. Attender: Elizabeth Grigsby [facility] 07/28/2020 12:00:00 AM EDT [facility] ([facility]) Elizabeth Grigsby, PROCESS SAFETY MANAGER-R: [address] [place] [address], Ph. Attender: Elizabeth Grigsby [facility] 07/28/2020 12:00:00 AM EDT [facility] ([facility]) Elizabeth Grigsby, PROCESS SAFETY MANAGER-R: [address] , [place] [address], Ph. Attender: Elizabeth Grigsby [facility] 07/28/2020 12:00:00 AM EDT [facility] ([facility]) Elizabeth Grigsby, PROCESS SAFETY MANAGER-R: [address] , [place] [address], Ph. Attender: Elizabeth Grigsby [facility] 07/28/2020 12:00:00 AM EDT [facility] ([facility]) Elizabeth Grigsby, PROCESS SAFETY MANAGER-R: [address] [place] [address], Ph. Attender: Elizabeth Grigsby [facility] 07/28/2020 12:00:00 AM EDT [facility]) Elizabeth Grigsby, PROCESS SAFETY MANAGER-R: [address] [place] [address], Ph. Attender: Elizabeth Grigsby [facility] 07/28/2020 12:00:00 AM EDT [facility]) Elizabeth Grigsby, PROCESS SAFETY MANAGER-R: [address] , [place] [address], Ph. Attender: Elizabeth Grigsby [facility] 07/28/2020 12:00:00 AM EDT [facility] ([facility]) Elizabeth Grigsby, PROCESS SAFETY MANAGER-R: [address] , [place] [address], Ph. Attender: Elizabeth Grigsby [facility] 07/28/2020 12:00:00 AM EDT [facility] ([facility]) Ami Ruiz [facility]: [address], [place] [address], Ph. Attender: Ami Ruiz [facility] 07/22/2020 12:00:00 AM EDT [facility] ([facility]) Ami Ruiz [facility]: [address], [place] [address], Ph. Attender: Ami Ruiz [facility] 07/22/2020 12:00:00 AM EDT [facility] ([facility]) Ami Ruiz [facility]: [address], [place] [address], Ph. Attender: Ami Ruiz [facility] 07/22/2020 12:00:00 AM EDT [facility] ([facility]) Ami Ruiz [facility]: [address], [place] [address], Ph. Attender: Ami Ruiz [facility] 07/22/2020 12:00:00 AM EDT [facility] ([facility]) Ami Ruiz [facility]: [address], [place] [address], Ph. Attender: Ami Ruiz [facility] 07/22/2020 12:00:00 AM EDT [facility] ([facility]) Ami Ruiz [facility]: [address], [place] [address], Ph. Attender: Ami Ruiz [facility] 07/22/2020 12:00:00 AM EDT [facility] ([facility]) REGINA Mcgee: [address], [place] [address], Ph. Attender: Ami Ruiz [facility] 07/22/2020 12:00:00 AM EDT [facility] ([facility]) REGINA Mcgee: [address], [place] [address], Ph. Attender: Ami Ruiz [facility] 07/22/2020 12:00:00 AM EDT [facility] ([facility]) REGINA McgeeBC: [address], [place] [address], Ph. Attender: Ami Ruiz [facility] 07/22/2020 12:00:00 AM EDT [facility] ([facility]) Outpatient Attender: Doc Dyer MD Physical Therapy 07/21/2020 0 2:45:00 PM EDT [facility] ([facility] ) REGINA McgeeBC: [address], [place] [address], Ph. Attender: Ami Ruiz [facility] 06/08/2020 12:00:00 AM EST [facility] ([facility]) REGINA Mcgee: [address], [place] [address], Ph. Attender: Ami Ruiz [facility] 06/08/2020 12:00:00 AM EST [facility] ([facility]) REGINA Mcgee: [address], [place] [address], Ph. Attender: Ami Ruiz [facility] 06/08/2020 12:00:00 AM EST [facility] ([facility]) Ami Ruiz [facility]: [address], [place] [address], Ph. Attender: Ami Ruiz [facility] 06/08/2020 12:00:00 AM EST [facility] ([facility]) Ami Ruiz [facility]: [address], [place] [address], Ph. Attender: Ami Ruiz [facility] 06/08/2020 12:00:00 AM EST [facility] ([facility]) Ami Ruiz [facility]: [address], [place] [address], Ph. Attender: Ami Ruiz [facility] 06/08/2020 12:00:00 AM EST [facility] ([facility]) Ami Ruiz [facility]: [address], [place] [address], Ph. Attender: Ami Ruiz [facility] 06/08/2020 12:00:00 AM EST [facility] ([facility]) Ami Ruiz [facility]: [address], [place] [address], Ph. Attender: Ami Ruiz [facility] 06/08/2020 12:00:00 AM EST [facility] ([facility]) Ami Ruiz [facility]: [address], [place] [address], Ph. Attender: Ami Ruiz [facility] 06/08/2020 12:00:00 AM EST [facility] ([facility]) Ami Ruiz [facility]: [address], [place] [address], Ph. Attender: Ami Ruiz [facility] 06/08/2020 12:00:00 AM EST [facility] ([facility]) Ami Ruiz [facility]: [address], [place] [address], Ph. Attender: Ami Ruiz [facility] 06/08/2020 12:00:00 AM EST [facility] ([facility]) [facility] [address], [place] [address], Ph. Attender: Ami Ruiz [facility] 05/12/2020 12:00:00 AM EST [facility] ([facility]) Ami Ruiz [facility]: [address], [place] [address], Ph. Attender: Ami Ruiz [facility] 05/12/2020 12:00:00 AM EST [facility] ([facility]) Ami Ruiz [facility]: [address], [place] [address], Ph. Attender: Ami Ruiz [facility] 05/12/2020 12:00:00 AM EST [facility] ([facility]) Ami Ruiz [facility]: [address], [place] [address], Ph. Att[facility]: [facility] 05/12/2020 12:00:00 AM EST [facility] ([facility]) MARILYNN McgeePSofia: [address], [place] [address], Ph. Attender: Ami Ruiz [facility] 05/12/2020 12:00:00 AM EST [facility] ([facility]) Ami Ruiz [facility]: [address], [place] [address], Ph. Attender: Ami Ruiz [facility] 05/12/2020 12:00:00 AM EST [facility] ([facility]) [facility]: [address], [place] [address], Ph. Attender: Ami Ruiz [facility] 05/12/2020 12:00:00 AM EST [facility] ([facility]) MARILYNN McgeePSofia: [address], [place] [address], Ph. Attender: Ami Ruiz [facility] 05/12/2020 12:00:00 AM EST [facility] ([facility]) MARILYNN McgeePSofia: [address], [place] [address], Ph. Attender: Ami Ruiz [facility] 05/12/2020 12:00:00 AM EST [facility] ([facility]) Ami Ruiz [facility]: [address], [place] [address], Ph. Attender: [facility] 05/12/2020 12:00:00 AM EST [facility] ([facility]) Ami Ruiz [facility]: [address], [place] [address], Ph. Attender: Ami Ruiz [facility] 05/12/2020 12:00:00 AM EST [facility] ([facility]) Ami Ruiz [facility]: [address], [place] [address], Ph. Attender: Ami Ruiz [facility] 05/04/2020 12:00:00 AM EST [facility] ([facility]) Ami Ruiz [facility]: [address], [place] [address], Ph. Attender: Ami Ruiz [facility] 05/04/2020 12:00:00 AM EST [facility] ([facility]) Ami Ruiz [facility]: [address], [place] [address], Ph. Attender: Ami Ruiz [facility] 05/04/2020 12:00:00 AM EST [facility] ([facility]) Ami Ruiz [facility]: [address], [place] [address], Ph. Attender: Ami Ruiz [facility] 05/04/2020 12:00:00 AM EST [facility] ([facility]) Ami Ruiz [facility]: [address], [place] [address], Ph. Attender: Ami Ruiz [facility] 05/04/2020 12:00:00 AM EST [facility] ([facility]) [facility]: [address], [place] [address], Ph. Attender: Ami Ruiz [facility] 05/04/2020 12:00:00 AM EST [facility] ([facility]) Ami Ruiz [facility]: [address], [place] [address], Ph. Attender: Ami Ruiz [facility] 05/04/2020 12:00:00 AM EST [facility] ([facility]) [facility]: [address], [place] [address], Ph. Attender: Ami Ruiz [facility] 05/04/2020 12:00:00 AM EST [facility] ([facility]) [facility]i Ru[facility] [address], [place] [address], Ph. Attender: Ami Ruiz [facility] 05/04/2020 12:00:00 AM EST [facility] ([facility]) MARILYNN McgeePSofia: [address], [place] [address], Ph. Attender: Ami Ruiz [facility] 05/04/2020 12:00:00 AM EST [facility] ([facility]) Ami Ruiz [facility]: [address], [place] [address], Ph. Attender: Ami Ruiz [facility] 05/04/2020 12:00:00 AM EMELY CUMMINGS ([facility]) MARILYNN McgeeP-: [address] [facility] [address], [place] [address], Ph. Attender: Ami BOOTH [facility] 05/04/2020 12:00:00 AM EMELY CUMMINGS ([facility]) Outpatient Attender: Ami BOOTH 01/31/2020 02:3 6:03 PM EDT [facility] Outpatient Attender: EMMY BOOTH 01/31/2020 02:36:02 P M EDT [facility] Outpatient Attender: EMMY BOOTH 01/26/2020 02:56:00 P M EDT [facility] Outpatient Attender: Ami BOOTH 01/26/2020 02:2 6:03 PM EDT [facility] Outpatient Attender: EMMY BOOTH 12/23/2019 12:35:01 P M EDT [facility] Outpatient Attender: Ami BOOTH 12/19/2019 11:1 0:04 AM EDT [facility] Outpatient Attender: EMMY BOOTH 12/19/2019 11:10:02 A M EDT [facility] Immunizations Vaccine Date Status Description Data Source(s) COVID-19 VACCINE Moderna 01/21/2021 12:00:00 AM EDT completed [facility] Vaccine Series Complete: YESThis Data wa s Submitted to [facility] Via SinglePlatform. COVID-19 VACCINE Moderna 12/24/2020 12:00:00 AM EDT completed [facility] Vaccine Series Complete: NOThis Data was Submitted to [facility] Via [employer]Platform. Medications Medication Brand Name Start Date Product Form Dose Route Admi nistrative Instructions Pharmacy Instructions Status Indications Reaction Description Data Source(s) tizanidine 4 MG Oral Tablet Tizanidine HCL 07/21/2020 12:00:00 AM EDT active [facility] ([facility]) Methylprednisolone 4 MG Oral Tablet [Medrol] Medrol 10/2020 12:00:00 AM EDT active MED[facility] ( [facility]) Wixela Inhub 250 mcg-50 mcg/dose powder for inhalation USE ONE INHALATION ONCE D UTD 819735 completed 60 ACTUAT fluticasone propionate 0.25 MG/ACTUAT / salmeterol 0.05 MG/ACTUAT Dry Powder Inhaler [Wixela] [facility] ([facility]) Prednisone 20 MG Oral Tablet prednisone 20 mg tablet TK 3 TS PO QAM WITH JAYLA UTD prednisone 20 mg tablet TK 3 TS PO QAM WITH JAYLA UTD completed prednisone 20 MG Oral Tablet [facility] ([facility]) Wixela Inhub 250 mcg-50 mcg/dose powder for inhalation USE ONE INHALATION ONCE D UTD [id number] completed 60 ACTUAT fluticasone propionate 0.25 MG/ACTUAT / salmeterol 0.05 MG/ACTUAT Dry Powder Inhaler [Wixela] [facility] ([facility]) 24 HR Nicotine 0.583 MG/HR Transdermal P atch nicotine 14 mg/24 hr daily transdermal patch APPLY 1 PATCH TO SKIN D - AUGUST ROTATE SITE EACH DAY nicotine 14 mg/24 hr daily transdermal patch APPLY 1 PATCH TO SKIN D - MAY ROTATE SITE EACH DAY completed 24 HR nicotine 0 .583 MG/HR Transdermal System [facility] ([facility]) Methocarbamol 750 MG Oral Tablet methoca rbamol 750 mg tablet TK ONE T PO Q 6 H PRF SPASMS methocarbamol 750 mg tablet TK ONE T PO Q 6 H PRF SPASMS completed methocarbamol 750 MG Oral Tablet [facility] ([facility]) Wixela Inhub 250 mcg-50 mcg/dose powder for inhalation USE ONE INHALATION ONCE D UTD [id number] completed 60 ACTUAT fluticasone propionate 0.25 MG/ACTUAT / salmeterol 0.05 MG/ACTUAT Dry Powder Inhaler [Wixela] ZOILA ([facility]) Acetaminophen 325 MG / Oxycodone Hydroch loride 5 MG Oral Tablet oxycodone- acetaminophen 5 mg-325 mg tablet oxycodone-acetaminophen 5 mg-325 mg tablet completed acetaminop hen 325 MG / oxycodone hydrochloride 5 MG Oral Tablet [facility] ([facility]) Wixela Inhub 250 mcg-50 mcg/dose powder for inhalation USE ONE INHALATION ONCE D UTD [id number] completed 60 ACTUAT fluticasone propionate 0.25 MG/ACTUAT / salmeterol 0.05 MG/ACTUAT Dry Powder Inhaler [Wixela] WALNUT ([facility]) Wixela Inhub 250 mcg-50 mcg/dose powder for inhalation USE ONE INHALATION ONCE D UTD [id number] completed 60 ACTUAT fluticasone propionate 0.25 MG/ACTUAT / salmeterol 0.05 MG/ACTUAT Dry Powder Inhaler [Wixela] WALNUT ([facility]) Prednisone 20 MG Oral Tablet prednisone 20 mg tablet TK 3 TS PO QAM WITH JAYLA UTD prednisone 20 mg tablet TK 3 TS PO QAM WITH JAYLA UTD completed prednisone 20 MG Oral Tablet ZOILA ([facility]) Acetaminophen 325 MG / Oxycodone Hydroch loride 5 MG Oral Tablet oxycodone- acetaminophen 5 mg-325 mg tablet oxycodone-acetaminophen 5 mg-325 mg tablet completed acetaminop hen 325 MG / oxycodone hydrochloride 5 MG Oral Tablet [facility] ([facility]) benzonatate 100 MG Oral Capsule benzonatate 100 mg cap gina TK 1 C PO TID COU benzonatate 100 mg capsule TK 1 C PO TID COU completed benzonatate 100 MG Oral Capsule [facility] ([facility]) moxifloxacin 5 MG/ML Ophthalmic Solution moxifloxacin 0.5 % eye drops INSTILL 1 DROP INTO OS QID moxifloxacin 0.5 % eye drops INSTILL 1 DROP INTO OS QID completed moxifloxacin 5 MG/ML Ophthalmic Solution WALNUT ([facility]) moxifloxacin 5 MG/ML Ophthalmic Solution moxifloxacin 0.5 % eye drops INSTILL 1 DROP INTO OS QID moxifloxacin 0.5 % eye drops INSTILL 1 DROP INTO OS QID completed moxifloxacin 5 MG/ML Ophthalmic Solution ZOILA ([facility]) methylprednisolone 4 mg tablets in a dose pack [id number] completed methylprednisolone 4 mg tablets in a dose pack [facility] ([facility]) Prednisone 20 MG Oral Tablet prednisone 20 mg tablet TK 3 TS PO QAM WITH JAYLA UTD prednisone 20 mg tablet TK 3 TS PO QAM WITH JAYLA UTD completed prednisone 20 MG Oral Tablet [facility] ([facility]) methylprednisolone 4 mg tablets in a dose pack [id number] completed methylprednisolone 4 mg tablets in a dose pack [facility] ([facility]) Methocarbamol 750 MG Oral Tablet methoca rbamol 750 mg tablet TK ONE T PO Q 6 H PRF SPASMS methocarbamol 750 mg tablet TK ONE T PO Q 6 H PRF SPASMS completed methocarbamol 750 MG Oral Tablet [facility] ([facility]) Acetaminophen 325 MG / Oxycodone Hydroch loride 5 MG Oral Tablet oxycodone- acetaminophen 5 mg-325 mg tablet oxycodone-acetaminophen 5 mg-325 mg tablet completed acetaminop hen 325 MG / oxycodone hydrochloride 5 MG Oral Tablet [facility] ([facility]) Wixela Inhub 250 mcg-50 mcg/dose powder for inhalation USE ONE INHALATION ONCE D UTD [id number] completed 60 ACTUAT fluticasone propionate 0.25 MG/ACTUAT / salmeterol 0.05 MG/ACTUAT Dry Powder Inhaler [Wixela] [facility] ([facility]) Baclofen 10 MG Oral Tablet baclofen 10 m g tablet TAKE 1 TABLET BY MOUTH THREE TIMES DAILY baclofen 10 mg tablet TAKE 1 TABLET BY MOUTH THREE TIMES DAILY completed baclofen 10 MG Oral Ta blet [facility] ([facility]) benzonatate 100 MG Oral Capsule benzonatate 100 mg cap gina TK 1 C PO TID COU benzonatate 100 mg capsule TK 1 C PO TID COU completed benzonatate 100 MG Oral Capsule [facility] ([facility]) Prednisone 20 MG Oral Tablet prednisone 20 mg tablet TK 3 TS PO QAM WITH JAYLA UTD prednisone 20 mg tablet TK 3 TS PO QAM WITH JAYLA UTD completed prednisone 20 MG Oral Tablet [facility] ([facility]) moxifloxacin 5 MG/ML Ophthalmic Solution moxifloxacin 0.5 % eye drops INSTILL 1 DROP INTO OS QID moxifloxacin 0.5 % eye drops INSTILL 1 DROP INTO OS QID completed moxifloxacin 5 MG/ML Ophthalmic Solution [facility] ([facility]) 24 HR Nicotine 0.583 MG/HR Transdermal P atch nicotine 14 mg/24 hr daily transdermal patch APPLY 1 PATCH TO SKIN D - MAY ROTATE SITE EACH DAY nicotine 14 mg/24 hr daily transdermal patch APPLY 1 PATCH TO SKIN D - MAY ROTATE SITE EACH DAY completed 24 HR nicotine 0 .583 MG/HR Transdermal System [facility] ([facility]) Fluoxetine 10 MG Oral Capsule fluoxetine 10 mg capsule fluox etine 10 mg capsule completed fluoxetine 10 MG Oral Capsule [facility] ([facility]) gabapentin 300 MG Oral Capsule gabapentin 300 mg capsu le TK 1 C PO TID gabapentin 300 mg capsule TK 1 C PO TID completed gabapentin 300 MG Oral Capsule [facility] ([facility]) Baclofen 10 MG Oral Tablet baclofen 10 m g tablet TAKE 1 TABLET BY MOUTH THREE TIMES DAILY baclofen 10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 Cholesterol in LDL [Mass/volume] in Serum or Plasma by calculation 134 mg/dL_(calc) <100 Above high normal LDL-cholesterol [facility] ([facility]) Cholesterol non HDL [Mass/volume] in Serum or Plasma 151 mg/dL_( calc) <130 Above high normal Non HDL Cholesterol [facility] ([facility]) Cholesterol.total/Cholesterol in HDL [Mass Ratio] in Serum o r Plasma 4.0 calc <5.0 Chol/hdlc Ratio [facility] ([facility]) Lipoprotein.beta.subparticle [Moles/volume] in Serum or Plas ma 1802 nmol/L <1138 Above high normal LDL Particle Number [facility] ([facility]) Lipoprotein.beta.subparticle.small [Moles/volume] in Serum o r Plasma 226 nmol/L <142 Above high normal LDL Small [facility] ([facility]) Lipoprotein.alpha 3 [Moles/volume] in Serum 391 nmol/L <215 Above high normal LDL Medium [facility] ([facility]) Lipoprotein.alpha.subparticle.large [Moles/volume] in Serum or Plasma 6637 nmol/L >6729 Below low normal HDL Large [facility] ([facility]) Cholesterol in LDL real size pattern [Identifier] in Serum or Plasm a A A LDL Pattern [facility] ([facility]) Lipoprotein.beta.subparticle [Entitic length] in Serum or Pl asma 221.1 angstrom >222.9 Below low normal LDL Peak Size [facility] ([facility]) Apolipoprotein B [Mass/volume] in Serum or Plasma 110 mg/dL Above high normal Apolipoprotein B [facility] ([facility]) Lipoprotein a [Moles/volume] in Serum or Plasma 342 nmol/L <75 Above high normal Lipoprotein (a) [facility] ([facility]) ID Date Data Source [id number] 07/18/2020 10:20:00 AM EDT [facility]) Name Value Range Interpretation Code Description Data Nena rce(s) Supporting Document(s) istat B-HCG < 5.0 Istat B-HCG [facility] ([facility]) ID Date Data Source [id number] 07/18/2020 10:20:00 AM EDT [facility]) Name Value Range Interpretation Code Description Data Nena rce(s) Supporting Document(s) istat B-HCG < 5.0 Istat B-HCG [facility] ([facility]) ID Date Data Source [id number] 07/18/2020 10:20:00 AM EDT [facility]) Name Value Range Interpretation Code Description Data Nena rce(s) Supporting Document(s) istat B-HCG < 5.0 Istat B-HCG [facility] ([facility]) ID Date Data Source [id number] 07/18/2020 10:20:00 AM EDT [facility] ([facility]) Name Value Range Interpretation Code Description Data Nena rce(s) Supporting Document(s) istat B-HCG < 5.0 Istat B-HCG [facility] ([facility]) ID Date Data Source [id number] 07/18/2020 10:20:00 AM EDT [facility]) Name Value Range Interpretation Code Description Data Nena rce(s) Supporting Document(s) istat B-HCG < 5.0 Istat B-HCG [facility] ([facility]) ID Date Data Source [id number] 07/18/2020 10:20:00 AM EDT [facility]) Name Value Range Interpretation Code Description Data Nena rce(s) Supporting Document(s) istat B-HCG < 5.0 Istat B-HCG [facility] ([facility]) ID Date Data Source [id number] 07/18/2020 10:20:00 AM EDT [facility]) Name Value Range Interpretation Code Description Data Nena rce(s) Supporting Document(s) istat B-HCG < 5.0 Istat B-HCG [facility] ([facility]) ID Date Data Source [id number] 07/18/2020 10:20:00 AM EDT [facility]) Name Value Range Interpretation Code Description Data Nena rce(s) Supporting Document(s) istat B-HCG < 5.0 Istat B-HCG [facility] ([facility]) ID Date Data Source [id number] 07/18/2020 10:20:00 AM EDT [facility] ([facility]) Name Value Range Interpretation Code Description Data Nena rce(s) Supporting Document(s) istat B-HCG < 5.0 Istat B-HCG [facility] ([facility]) ID Date Data Source [id number] 07/18/2020 09:40:00 AM EDT [facility] ([facility]) Name Value Range Interpretation Code Description Data Nena rce(s) Supporting Document(s) erythrocyte sedimentation rate 22 mm/HR 0-20 Above high normal Erythrocyte Sedimentation Rate [facility] ([facility]) ID Date Data Source [id number] 07/18/2020 09:40:00 AM EDT [facility]) Name Value Range Interpretation Code Description Data Nena rce(s) Supporting Document(s) red blood count 4.15 10 4.00-5.40 Red Blood Count [facility] ([facility]) white blood count 9.1 10 4.0-10.0 White Blood Count [facility] ([facility]) hematocrit 37.6 % 36.0-47.0 Hematocrit [facility] ([facility]) hemoglobin 12.3 g/dL 12.0-15.5 Hemoglobin [facility] ([facility]) mean corpuscular volume 90.6 fL 80.0-96.0 Mean Corpusc ular Volume [facility] ([facility]) mean corpuscular hemoglobin 29.6 pg 27.0-33.0 Mean Cor puscular Hemoglobin [facility] ([facility]) mean corpuscular HGB conc 32.7 g/dL 32.0-36.5 Mean Corpu scular HGB Conc [facility] ([facility]) platelet count, automated 251 10 150-450 Platelet C ount, Automated [facility] ([facility]) red cell distribution width 12.7 % 11.5-14.5 Red Cell Distribution Width [facility] ([facility]) neutrophils % 59.9 % 36.0-66.0 Neutrophils % [facility] ( [facility]) lymph % 30.5 % 24.0-44.0 Lymph % [facility] ([facility]) eos % 2.3 % 0.0-3.0 Eos % [facility] ([facility]) mono % 6.4 % 2.0-8.0 Cherry % [facility] ([facility]) baso % 0.6 % 0.0-1.0 Baso % [facility] ([facility]) nucleated red blood cell % 0.0 % 0-0 Nucleated Red Blood Cell % [facility] ([facility]) immature granulocyte % 0.3 % 0-3.0 Immature Gran ulocyte % [facility] ([facility]) neutrophils # 5.4 10 1.5-8.5 Neutrophils # [facility] ( [facility]) mono # 0.6 10 0.0-0.8 Cherry # [facility] ([facility]) lymph # 2.8 10 1.5-5.0 Lymph # [facility] ([facility]) baso # 0.1 10 0.0-0.2 Baso # [facility] ([facility]) eos # 0.2 10 0.0-0.5 Eos # [facility] ([facility]) ID Date Data Source [id number] 07/18/2020 09:40:00 AM EDT [facility] ([facility]) Name Value Range Interpretation Code Description Data Nena rce(s) Supporting Document(s) glucose, fasting 80 mg/dL 70-100 Glucose, Fasting AT [facility] ([facility]) blood urea nitrogen 12 mg/dL 7-18 Blood Urea Nitro gen [facility] ([facility]) creatinine for GFR 0.76 mg/dL 0.55-1.30 Creatinine for GF R [facility] ([facility]) glomerular filtration rate > 60.0 >60 Glomerula r Filtration Rate [facility] ([facility]) sodium level 139 mEq/L 136-145 Sodium Level [facility] ([facility]) potassium serum 4.2 mEq/L 3.5-5.1 Potassium Serum [facility] ([facility]) chloride level 106 mEq/L 98-107 Chloride Level [facility] ([facility]) carbon dioxide level 26 mEq/L 21-32 Carbon Dioxide Level [facility] ([facility]) calcium level 8.7 mg/dL 8.5-10.1 Calcium Level [facility] ( [facility]) anion gap 7 mEq/L 8-16 Below low normal Anion Gap [facility] ( [facility]) ID Date Data Source [id number] 07/18/2020 09:40:00 AM EDT [facility] ([facility]) Name Value Range Interpretation Code Description Data Nena rce(s) Supporting Document(s) erythrocyte sedimentation rate 22 mm/HR 0-20 Above high normal Erythrocyte Sedimentation Rate [facility] ([facility]) ID Date Data Source [id number] 07/18/2020 09:40:00 AM EDT [facility] ([facility]) Name Value Range Interpretation Code Description Data Nena rce(s) Supporting Document(s) white blood count 9.1 10 4.0-10.0 White Blood Count [facility] ([facility]) hematocrit 37.6 % 36.0-47.0 Hematocrit [facility] ([facility]) red blood count 4.15 10 4.00-5.40 Red Blood Count [facility] ([facility]) hemoglobin 12.3 g/dL 12.0-15.5 Hemoglobin [facility] ([facility]) mean corpuscular HGB conc 32.7 g/dL 32.0-36.5 Mean Corpu scular HGB Conc [facility] ([facility]) mean corpuscular hemoglobin 29.6 pg 27.0-33.0 Mean Cor puscular Hemoglobin [facility] ([facility]) mean corpuscular volume 90.6 fL 80.0-96.0 Mean Corpusc ular Volume [facility] ([facility]) platelet count, automated 251 10 150-450 Platelet C ount, Automated [facility] ([facility]) red cell distribution width 12.7 % 11.5-14.5 Red Cell Distribution Width [facility] ([facility]) neutrophils % 59.9 % 36.0-66.0 Neutrophils % [facility] ( [facility]) eos % 2.3 % 0.0-3.0 Eos % [facility] ([facility]) mono % 6.4 % 2.0-8.0 Cherry % [facility] ([facility]) lymph % 30.5 % 24.0-44.0 Lymph % [facility] ([facility]) baso % 0.6 % 0.0-1.0 Baso % [facility] ([facility]) immature granulocyte % 0.3 % 0-3.0 Immature Gran ulocyte % [facility] ([facility]) neutrophils # 5.4 10 1.5-8.5 Neutrophils # [facility] ( [facility]) lymph # 2.8 10 1.5-5.0 Lymph # [facility] ([facility]) nucleated red blood cell % 0.0 % 0-0 Nucleated Red Blood Cell % [facility] ([facility]) mono # 0.6 10 0.0-0.8 Cherry # [facility] ([facility]) eos # 0.2 10 0.0-0.5 Eos # [facility] ([facility]) baso # 0.1 10 0.0-0.2 Baso # [facility] ([facility]) ID Date Data Source [id number] 07/18/2020 09:40:00 AM EDT [facility] ([facility]) Name Value Range Interpretation Code Description Data Nena rce(s) Supporting Document(s) glucose, fasting 80 mg/dL 70-100 Glucose, Fasting AT [facility] ([facility]) blood urea nitrogen 12 mg/dL 7-18 Blood Urea Nitro gen [facility] ([facility]) creatinine for GFR 0.76 mg/dL 0.55-1.30 Creatinine for GF R [facility] ([facility]) sodium level 139 mEq/L 136-145 Sodium Level [facility] (No [facility]) glomerular filtration rate > 60.0 >60 Glomerula r Filtration Rate [facility] ([facility]) chloride level 106 mEq/L 98-107 Chloride Level [facility] ([facility]) potassium serum 4.2 mEq/L 3.5-5.1 Potassium Serum [facility] NA ([facility]) carbon dioxide level 26 mEq/L 21-32 Carbon Dioxide Level [facility] ([facility]) calcium level 8.7 mg/dL 8.5-10.1 Calcium Level [facility] ( [facility]) anion gap 7 mEq/L 8-16 Below low normal Anion Gap [facility] ( [facility]) ID Date Data Source [id number] 07/18/2020 09:40:00 AM EDT [facility] ([facility]) Name Value Range Interpretation Code Description Data Nena rce(s) Supporting Document(s) erythrocyte sedimentation rate 22 mm/HR 0-20 Above high normal Erythrocyte Sedimentation Rate [facility] ([facility]) ID Date Data Source [id number] 07/18/2020 09:40:00 AM EDT [facility] ([facility]) Name Value Range Interpretation Code Description Data Nena rce(s) Supporting Document(s) red blood count 4.15 10 4.00-5.40 Red Blood Count [facility] ([facility]) white blood count 9.1 10 4.0-10.0 White Blood Count [facility] ([facility]) hemoglobin 12.3 g/dL 12.0-15.5 Hemoglobin [facility] ([facility]) hematocrit 37.6 % 36.0-47.0 Hematocrit [facility] ([facility]) mean corpuscular HGB conc 32.7 g/dL 32.0-36.5 Mean Corpu scular HGB Conc [facility] ([facility]) mean corpuscular hemoglobin 29.6 pg 27.0-33.0 Mean Cor puscular Hemoglobin [facility] ([facility]) mean corpuscular volume 90.6 fL 80.0-96.0 Mean Corpusc ular Volume [facility] ([facility]) neutrophils % 59.9 % 36.0-66.0 Neutrophils % [facility] ( [facility]) platelet count, automated 251 10 150-450 Platelet C ount, Automated [facility] ([facility]) red cell distribution width 12.7 % 11.5-14.5 Red Cell Distribution Width [facility] ([facility]) eos % 2.3 % 0.0-3.0 Eos % [facility] ([facility]) mono % 6.4 % 2.0-8.0 Cherry % [facility] ([facility]) lymph % 30.5 % 24.0-44.0 Lymph % [facility] ([facility]) immature granulocyte % 0.3 % 0-3.0 Immature Gran ulocyte % [facility] ([facility]) baso % 0.6 % 0.0-1.0 Baso % [facility] ([facility]) nucleated red blood cell % 0.0 % 0-0 Nucleated Red Blood Cell % [facility] ([facility]) neutrophils # 5.4 10 1.5-8.5 Neutrophils # [facility] ( [facility]) lymph # 2.8 10 1.5-5.0 Lymph # [facility] ([facility]) baso # 0.1 10 0.0-0.2 Baso # [facility] ([facility]) eos # 0.2 10 0.0-0.5 Eos # [facility] ([facility]) mono # 0.6 10 0.0-0.8 Cherry # [facility] ([facility]) ID Date Data Source [id number] 07/18/2020 09:40:00 AM EDT [facility] ([facility]) Name Value Range Interpretation Code Description Data Nena rce(s) Supporting Document(s) glucose, fasting 80 mg/dL 70-100 Glucose, Fasting AT [facility] ([facility]) creatinine for GFR 0.76 mg/dL 0.55-1.30 Creatinine for GF R [facility] ([facility]) glomerular filtration rate > 60.0 >60 Glomerula r Filtration Rate [facility] ([facility]) blood urea nitrogen 12 mg/dL 7-18 Blood Urea Nitro gen [facility] ([facility]) chloride level 106 mEq/L 98-107 Chloride Level [facility] ([facility]) potassium serum 4.2 mEq/L 3.5-5.1 Potassium Serum [facility] NA ([facility]) sodium level 139 mEq/L 136-145 Sodium Level [facility] (No [facility]) calcium level 8.7 mg/dL 8.5-10.1 Calcium Level [facility] ( [facility]) anion gap 7 mEq/L 8-16 Below low normal Anion Gap [facility] ( [facility]) carbon dioxide level 26 mEq/L 21-32 Carbon Dioxide Level [facility] ([facility]) ID Date Data Source [id number] 07/18/2020 09:40:00 AM EDT [facility] ([facility]) Name Value Range Interpretation Code Description Data Nena rce(s) Supporting Document(s) erythrocyte sedimentation rate 22 mm/HR 0-20 Above high normal Erythrocyte Sedimentation Rate [facility] ([facility]) ID Date Data Source [id number] 07/18/2020 09:40:00 AM EDT [facility]) Name Value Range Interpretation Code Description Data Nena rce(s) Supporting Document(s) white blood count 9.1 10 4.0-10.0 White Blood Count [facility] ([facility]) red blood count 4.15 10 4.00-5.40 Red Blood Count [facility] NA ([facility]) hemoglobin 12.3 g/dL 12.0-15.5 Hemoglobin [facility] ([facility]) hematocrit 37.6 % 36.0-47.0 Hematocrit [facility] ([facility]) mean corpuscular hemoglobin 29.6 pg 27.0-33.0 Mean Cor puscular Hemoglobin [facility] ([facility]) mean corpuscular HGB conc 32.7 g/dL 32.0-36.5 Mean Corpu scular HGB Conc [facility] ([facility]) mean corpuscular volume 90.6 fL 80.0-96.0 Mean Corpusc ular Volume [facility] ([facility]) platelet count, automated 251 10 150-450 Platelet C ount, Automated [facility] ([facility]) red cell distribution width 12.7 % 11.5-14.5 Red Cell Distribution Width [facility] ([facility]) neutrophils % 59.9 % 36.0-66.0 Neutrophils % [facility] ( [facility]) lymph % 30.5 % 24.0-44.0 Lymph % [facility] ([facility]) eos % 2.3 % 0.0-3.0 Eos % [facility] ([facility]) mono % 6.4 % 2.0-8.0 Cherry % [facility] ([facility]) baso % 0.6 % 0.0-1.0 Baso % [facility] ([facility]) immature granulocyte % 0.3 % 0-3.0 Immature Gran ulocyte % [facility] ([facility]) nucleated red blood cell % 0.0 % 0-0 Nucleated Red Blood Cell % [facility] ([facility]) neutrophils # 5.4 10 1.5-8.5 Neutrophils # [facility] ( [facility]) mono # 0.6 10 0.0-0.8 Cherry # [facility] ([facility]) lymph # 2.8 10 1.5-5.0 Lymph # [facility] ([facility]) baso # 0.1 10 0.0-0.2 Baso # [facility] ([facility]) eos # 0.2 10 0.0-0.5 Eos # [facility] ([facility]) ID Date Data Source [id number] 07/18/2020 09:40:00 AM EDT [facility] ([facility]) Name Value Range Interpretation Code Description Data Nena rce(s) Supporting Document(s) blood urea nitrogen 12 mg/dL 7-18 Blood Urea Nitro gen [facility] ([facility]) glucose, fasting 80 mg/dL 70-100 Glucose, Fasting AT [facility] ([facility]) glomerular filtration rate > 60.0 >60 Glomerula r Filtration Rate ZOILA ([facility]) sodium level 139 mEq/L 136-145 Sodium Level ZOILA ([facility]) creatinine for GFR 0.76 mg/dL 0.55-1.30 Creatinine for GF R ZOILA ([facility]) carbon dioxide level 26 mEq/L 21-32 Carbon Dioxide Level ZOILA ([facility]) chloride level 106 mEq/L 98-107 Chloride Level ZOILA ([facility]) potassium serum 4.2 mEq/L 3.5-5.1 Potassium Serum ATHE NA ([facility]) anion gap 7 mEq/L 8-16 Below low normal Anion Gap ZOILA ( [facility]) calcium level 8.7 mg/dL 8.5-10.1 Calcium Level ZOILA ( [facility]) ID Date Data Source [id number] 07/18/2020 09:40:00 AM EDT Z[facility]ILA ([facility]) Name Value Range Interpretation Code Description Data Nena rce(s) Supporting Document(s) erythrocyte sedimentation rate 22 mm/HR 0-20 Above high normal Erythrocyte Sedimentation Rate ZOILA ([facility]) ID Date Data Source [id number] 07/18/2020 09:40:00 AM EDT [facility]) Name Value Range Interpretation Code Description Data Nena rce(s) Supporting Document(s) white blood count 9.1 10 4.0-10.0 White Blood Count ZOILA ([facility]) red blood count 4.15 10 4.00-5.40 Red Blood Count ATHE NA ([facility]) hemoglobin 12.3 g/dL 12.0-15.5 Hemoglobin ZOILA ([facility]) mean corpuscular volume 90.6 fL 80.0-96.0 Mean Corpusc ular Volume ZOILA ([facility]) hematocrit 37.6 % 36.0-47.0 Hematocrit ZOILA ([facility]) mean corpuscular hemoglobin 29.6 pg 27.0-33.0 Mean Cor puscular Hemoglobin Z[facility]A ([facility]) red cell distribution width 12.7 % 11.5-14.5 Red Cell Distribution Width ZOILA ([facility]) mean corpuscular HGB conc 32.7 g/dL 32.0-36.5 Mean Corpu scular HGB Conc [place] ([facility]) platelet count, automated 251 10 150-450 Platelet C ount, Automated ZOILA ([facility]) mono % 6.4 % 2.0-8.0 Cherry % [place] ([facility]) neutrophils % 59.9 % 36.0-66.0 Neutrophils % ZOILA ( [facility]) lymph % 30.5 % 24.0-44.0 Lymph % [place] ([facility]) eos % 2.3 % 0.0-3.0 Eos % [place] ([facility]) baso % 0.6 % 0.0-1.0 Baso % [place] ([facility]) immature granulocyte % 0.3 % 0-3.0 Immature Gran ulocyte % [place] ([facility]) neutrophils # 5.4 10 1.5-8.5 Neutrophils # [place] ( [facility]) lymph # 2.8 10 1.5-5.0 Lymph # [place] ([facility]) nucleated red blood cell % 0.0 % 0-0 Nucleated Red Blood Cell % [place] ([facility]) mono # 0.6 10 0.0-0.8 Cherry # ZOILA ([facility]) eos # 0.2 10 0.0-0.5 Eos # [place] ([facility]) baso # 0.1 10 0.0-0.2 Baso # [place] ([facility]) ID Date Data Source [id number] 07/18/2020 09:40:00 AM EDT [place] ([facility]) Name Value Range Interpretation Code Description Data Nena rce(s) Supporting Document(s) creatinine for GFR 0.76 mg/dL 0.55-1.30 Creatinine for GF R [place] ([facility]) glucose, fasting 80 mg/dL 70-100 Glucose, Fasting AT [facility] ([facility]) blood urea nitrogen 12 mg/dL 7-18 Blood Urea Nitro gen ZOILA ([facility]) sodium level 139 mEq/L 136-145 Sodium Level ZOILA ([facility]) glomerular filtration rate > 60.0 >60 Glomerula r Filtration Rate ZOILA ([facility]) carbon dioxide level 26 mEq/L 21-32 Carbon Dioxide Level ZOILA ([facility]) potassium serum 4.2 mEq/L 3.5-5.1 Potassium Serum ATHE NA ([facility]) chloride level 106 mEq/L 98-107 Chloride Level Z[facility]A ([facility]) calcium level 8.7 mg/dL 8.5-10.1 Calcium Level ZOILA ( [facility]) anion gap 7 mEq/L 8-16 Below low normal Anion Gap Z[facility]A ( [facility]) ID Date Data Source [id number] 07/18/2020 09:40:00 [facility] Name Value Range Interpretation Code Description Data Nena rce(s) Supporting Document(s) erythrocyte sedimentation rate 22 mm/HR 0-20 Above high normal Erythrocyte Sedimentation Rate [facility]A ([facility]) ID Date Data Source [id number] 07/18/2020 09:40:00 AM EDT [facility]) Name Value Range Interpretation Code Description Data Nena rce(s) Supporting Document(s) white blood count 9.1 10 4.0-10.0 White Blood Count Z[facility]A ([facility]) red blood count 4.15 10 4.00-5.40 Red Blood Count ATHE NA ([facility]) hematocrit 37.6 % 36.0-47.0 Hematocrit Z[facility]A ([facility]) hemoglobin 12.3 g/dL 12.0-15.5 Hemoglobin [facility] ([facility]) mean corpuscular hemoglobin 29.6 pg 27.0-33.0 Mean Cor puscular Hemoglobin [facility] ([facility]) mean corpuscular volume 90.6 fL 80.0-96.0 Mean Corpusc ular Volume Z[facility]A ([facility]) mean corpuscular HGB conc 32.7 g/dL 32.0-36.5 Mean Corpu scular HGB Conc Z[facility]A ([facility]) red cell distribution width 12.7 % 11.5-14.5 Red Cell Distribution Width Z[facility] ([facility]) platelet count, automated 251 10 150-450 Platelet C ount, Automated Z[facility] ([facility]) neutrophils % 59.9 % 36.0-66.0 Neutrophils % ZOILA ( [facility]) lymph % 30.5 % 24.0-44.0 Lymph % [place] ([facility]) mono % 6.4 % 2.0-8.0 Cherry % [place] ([facility]) baso % 0.6 % 0.0-1.0 Baso % [place] ([facility]) immature granulocyte % 0.3 % 0-3.0 Immature Gran ulocyte % [place] ([facility]) eos % 2.3 % 0.0-3.0 Eos % [facility] ([facility]) mono # 0.6 10 0.0-0.8 Cherry # Z[facility]ILA ([facility]) neutrophils # 5.4 10 1.5-8.5 Neutrophils # [place] ( [facility]) nucleated red blood cell % 0.0 % 0-0 Nucleated Red Blood Cell % Z[facility]A ([facility]) lymph # 2.8 10 1.5-5.0 Lymph # [place] ([facility]) baso # 0.1 10 0.0-0.2 Baso # [facility] ([facility]) eos # 0.2 10 0.0-0.5 Eos # [place] ([facility]) ID Date Data Source [id number] 07/18/2020 09:40:00 AM EDT [place] ([facility]) Name Value Range Interpretation Code Description Data Nena rce(s) Supporting Document(s) glucose, fasting 80 mg/dL 70-100 Glucose, Fasting AT [facility]) blood urea nitrogen 12 mg/dL 7-18 Blood Urea Nitro gen ZOILA ([facility]) glomerular filtration rate > 60.0 >60 Glomerula r Filtration Rate ZOILA ([facility]) creatinine for GFR 0.76 mg/dL 0.55-1.30 Creatinine for GF R Z[facility]A ([facility]) sodium level 139 mEq/L 136-145 Sodium Level ZOILA ([facility]) chloride level 106 mEq/L 98-107 Chloride Level Z[facility]A ([facility]) carbon dioxide level 26 mEq/L 21-32 Carbon Dioxide Level [facility] ([facility]) potassium serum 4.2 mEq/L 3.5-5.1 Potassium Serum ATHE ([facility]) calcium level 8.7 mg/dL 8.5-10.1 Calcium Level [place] ( [facility]) anion gap 7 mEq/L 8-16 Below low normal Anion Gap [place] ( [facility]) ID Date Data Source [id number] 07/18/2020 09:40:00 AM EDT [place] ([facility]) Name Value Range Interpretation Code Description Data Nena rce(s) Supporting Document(s) erythrocyte sedimentation rate 22 mm/HR 0-20 Above high normal Erythrocyte Sedimentation Rate [place] ([facility]) ID Date Data Source [id number] 07/18/2020 09:40:00 AM EDT [facility]) Name Value Range Interpretation Code Description Data Nena rce(s) Supporting Document(s) hemoglobin 12.3 g/dL 12.0-15.5 Hemoglobin Z[facility]A ([facility]) white blood count 9.1 10 4.0-10.0 White Blood Count [facility] ([facility]) red blood count 4.15 10 4.00-5.40 Red Blood Count ATHE ([facility]) mean corpuscular volume 90.6 fL 80.0-96.0 Mean Corpusc ular Volume ZOILA ([facility]) hematocrit 37.6 % 36.0-47.0 Hematocrit [facility] ([facility]) mean corpuscular hemoglobin 29.6 pg 27.0-33.0 Mean Cor puscular Hemoglobin [facility]A ([facility]) red cell distribution width 12.7 % 11.5-14.5 Red Cell Distribution Width [facility] ([facility]) mean corpuscular HGB conc 32.7 g/dL 32.0-36.5 Mean Corpu scular HGB Conc Z[facility]A ([facility]) platelet count, automated 251 10 150-450 Platelet C ount, Automated Z[facility]A ([facility]) neutrophils % 59.9 % 36.0-66.0 Neutrophils % Z[facility]A ( [facility]) lymph % 30.5 % 24.0-44.0 Lymph % [place] ([facility]) mono % 6.4 % 2.0-8.0 Cherry % Z[facility] ([facility]) eos % 2.3 % 0.0-3.0 Eos % Z[facility]A ([facility]) baso % 0.6 % 0.0-1.0 Baso % [place] ([facility]) immature granulocyte % 0.3 % 0-3.0 Immature Gran ulocyte % Z[facility] ([facility]) nucleated red blood cell % 0.0 % 0-0 Nucleated Red Blood Cell % [facility] ([facility]) neutrophils # 5.4 10 1.5-8.5 Neutrophils # [facility]A ( [facility]) lymph # 2.8 10 1.5-5.0 Lymph # [facility] ([facility]) mono # 0.6 10 0.0-0.8 Cherry # [facility] ([facility]) eos # 0.2 10 0.0-0.5 Eos # [facility] ([facility]) baso # 0.1 10 0.0-0.2 Baso # [facility] ([facility]) ID Date Data Source [id number] 07/18/2020 09:40:00 AM EDT [place] ([facility]) Name Value Range Interpretation Code Description Data Nena rce(s) Supporting Document(s) glucose, fasting 80 mg/dL 70-100 Glucose, Fasting AT [facility] ([facility]) blood urea nitrogen 12 mg/dL 7-18 Blood Urea Nitro gen Z[facility]A ([facility]) sodium level 139 mEq/L 136-145 Sodium Level ZOILA (No [facility]) glomerular filtration rate > 60.0 >60 Glomerula r Filtration Rate ZOILA ([facility]) creatinine for GFR 0.76 mg/dL 0.55-1.30 Creatinine for GF R [facility] ([facility]) chloride level 106 mEq/L 98-107 Chloride Level [facility] ([facility]) potassium serum 4.2 mEq/L 3.5-5.1 Potassium Serum ATHE NA ([facility]) anion gap 7 mEq/L 8-16 Below low normal Anion Gap Z[facility] ( [facility]) calcium level 8.7 mg/dL 8.5-10.1 Calcium Level [place] ( [facility]) carbon dioxide level 26 mEq/L 21-32 Carbon Dioxide Level [facility]A ([facility]) ID Date Data Source [id number] 07/18/2020 09:40:00 AM EDT [place] ([facility]) Name Value Range Interpretation Code Description Data Nena rce(s) Supporting Document(s) erythrocyte sedimentation rate 22 mm/HR 0-20 Above high normal Erythrocyte Sedimentation Rate Z[facility]A ([facility]) ID Date Data Source [id number] 07/18/2020 09:40:00 AM EDT [place] ([facility]) Name Value Range Interpretation Code Description Data Nena rce(s) Supporting Document(s) red blood count 4.15 10 4.00-5.40 Red Blood Count ATHE ([facility]) white blood count 9.1 10 4.0-10.0 White Blood Count Z[facility]A ([facility]) mean corpuscular volume 90.6 fL 80.0-96.0 Mean Corpusc ular Volume Z[facility]ILA ([facility]) hematocrit 37.6 % 36.0-47.0 Hematocrit [facility] ([facility]) hemoglobin 12.3 g/dL 12.0-15.5 Hemoglobin [facility] ([facility]) mean corpuscular hemoglobin 29.6 pg 27.0-33.0 Mean Cor puscular Hemoglobin [facility]A ([facility]) mean corpuscular HGB conc 32.7 g/dL 32.0-36.5 Mean Corpu scular HGB Conc Z[facility]A ([facility]) red cell distribution width 12.7 % 11.5-14.5 Red Cell Distribution Width [facility] ([facility]) neutrophils % 59.9 % 36.0-66.0 Neutrophils % [place] ( [facility]) platelet count, automated 251 10 150-450 Platelet C ount, Automated [facility] ([facility]) lymph % 30.5 % 24.0-44.0 Lymph % [facility] ([facility]) eos % 2.3 % 0.0-3.0 Eos % [facility] ([facility]) mono % 6.4 % 2.0-8.0 Cherry % Z[facility] ([facility]) baso % 0.6 % 0.0-1.0 Baso % [place] ([facility]) immature granulocyte % 0.3 % 0-3.0 Immature Gran ulocyte % [place] ([facility]) nucleated red blood cell % 0.0 % 0-0 Nucleated Red Blood Cell % Z[facility] ([facility]) neutrophils # 5.4 10 1.5-8.5 Neutrophils # [facility]A ( [facility]) lymph # 2.8 10 1.5-5.0 Lymph # [facility] ([facility]) mono # 0.6 10 0.0-0.8 Cherry # [facility] ([facility]) eos # 0.2 10 0.0-0.5 Eos # [facility] ([facility]) baso # 0.1 10 0.0-0.2 Baso # [facility] ([facility]) ID Date Data Source [id number] 07/18/2020 09:40:00 AM EDT [facility] ([facility]) Name Value Range Interpretation Code Description Data Nena rce(s) Supporting Document(s) creatinine for GFR 0.76 mg/dL 0.55-1.30 Creatinine for GF R Z[facility] ([facility]) glucose, fasting 80 mg/dL 70-100 Glucose, Fasting AT [facility] ([facility]) blood urea nitrogen 12 mg/dL 7-18 Blood Urea Nitro gen Z[facility] ([facility]) glomerular filtration rate > 60.0 >60 Glomerula r Filtration Rate Z[facility]ILA ([facility]) sodium level 139 mEq/L 136-145 Sodium Level Z[facility]A ([facility]) potassium serum 4.2 mEq/L 3.5-5.1 Potassium Serum ATHE NA ([facility]) chloride level 106 mEq/L 98-107 Chloride Level [place] ([facility]) calcium level 8.7 mg/dL 8.5-10.1 Calcium Level Z[facility]A ( [facility]) anion gap 7 mEq/L 8-16 Below low normal Anion Gap Z[facility]A ( [facility]) carbon dioxide level 26 mEq/L 21-32 Carbon Dioxide Level [facility]A ([facility]) ID Date Data Source [id number] 07/18/2020 09:40:00 AM EDT [facility] ([facility]) Name Value Range Interpretation Code Description Data Nena rce(s) Supporting Document(s) erythrocyte sedimentation rate 22 mm/HR 0-20 Above high normal Erythrocyte Sedimentation Rate [facility] ([facility]) ID Date Data Source [id number] 07/18/2020 09:40:00 AM EDT [facility] ([facility]) Name Value Range Interpretation Code Description Data Nena rce(s) Supporting Document(s) red blood count 4.15 10 4.00-5.40 Red Blood Count ATHE NA ([facility]) white blood count 9.1 10 4.0-10.0 White Blood Count [facility] ([facility]) hemoglobin 12.3 g/dL 12.0-15.5 Hemoglobin [facility] ([facility]) mean corpuscular volume 90.6 fL 80.0-96.0 Mean Corpusc ular Volume [facility] ([facility]) mean corpuscular hemoglobin 29.6 pg 27.0-33.0 Mean Cor puscular Hemoglobin [facility] ([facility]) hematocrit 37.6 % 36.0-47.0 Hematocrit [facility] ([facility]) mean corpuscular HGB conc 32.7 g/dL 32.0-36.5 Mean Corpu scular HGB Conc [facility] ([facility]) platelet count, automated 251 10 150-450 Platelet C ount, Automated [facility] ([facility]) red cell distribution width 12.7 % 11.5-14.5 Red Cell Distribution Width [facility] ([facility]) neutrophils % 59.9 % 36.0-66.0 Neutrophils % [facility] ( [facility]) mono % 6.4 % 2.0-8.0 Cherry % [facility] ([facility]) lymph % 30.5 % 24.0-44.0 Lymph % [facility] ([facility]) immature granulocyte % 0.3 % 0-3.0 Immature Gran ulocyte % [facility] ([facility]) eos % 2.3 % 0.0-3.0 Eos % [facility] ([facility]) baso % 0.6 % 0.0-1.0 Baso % [place] ([facility]) nucleated red blood cell % 0.0 % 0-0 Nucleated Red Blood Cell % [facility] ([facility]) lymph # 2.8 10 1.5-5.0 Lymph # [facility] ([facility]) neutrophils # 5.4 10 1.5-8.5 Neutrophils # [facility] ( [facility]) eos # 0.2 10 0.0-0.5 Eos # [facility] ([facility]) baso # 0.1 10 0.0-0.2 Baso # [facility] ([facility]) mono # 0.6 10 0.0-0.8 Cherry # [facility] ([facility]) ID Date Data Source [id number] 07/18/2020 09:40:00 AM EDT [place] ([facility]) Name Value Range Interpretation Code Description Data Nena rce(s) Supporting Document(s) glucose, fasting 80 mg/dL 70-100 Glucose, Fasting AT [facility] ([facility]) blood urea nitrogen 12 mg/dL 7-18 Blood Urea Nitro gen [facility] ([facility]) glomerular filtration rate > 60.0 >60 Glomerula r Filtration Rate [place] ([facility]) creatinine for GFR 0.76 mg/dL 0.55-1.30 Creatinine for GF R [place] ([facility]) chloride level 106 mEq/L 98-107 Chloride Level [place] ([facility]) sodium level 139 mEq/L 136-145 Sodium Level [facility] (No [facility]) potassium serum 4.2 mEq/L 3.5-5.1 Potassium Serum ATH NA ([facility]) carbon dioxide level 26 mEq/L 21-32 Carbon Dioxide Level [place] ([facility]) anion gap 7 mEq/L 8-16 Below low normal Anion Gap [place] ( [facility]) calcium level 8.7 mg/dL 8.5-10.1 Calcium Level [place] ( [facility]) ID Date Data Source [id number] 05/12/2020 09:05:00 AM EST [facility]) Name Value Range Interpretation Code Description Data Nena rce(s) Supporting Document(s) total 25(oh) vitamin D 22.6 NG/mL 30.0-100.0 Below low normal T otal 25(Oh) Vitamin D [facility]) ID Date Data Source [id number] 05/12/2020 09:05:00 AM [facility] Name Value Range Interpretation Code Description Data Nena rce(s) Supporting Document(s) thyroid stimulating hormone 1.920 uIU/mL 0.358-3.740 Thyroid Stimulating Hormone [facility]) free T4 0.90 NG/dL 0.76-1.46 Free T4 [facility] ([facility]) ID Date Data Source [id number] 05/12/2020 09:05:00 AM EST [facility] ([facility]) Name Value Range Interpretation Code Description Data Nena rce(s) Supporting Document(s) triglycerides level 103 mg/dL <150 Triglycerides Le staci [facility] ([facility]) cholesterol level 213 mg/dL <200 Above high normal Cholesterol Level Z[facility]ILA ([facility]) Cholesterol in LDL [Mass/volume] in Serum or Plasma 132 mg/dL <100 Above high normal LDL Cholesterol [facility] ([facility]) HDL cholesterol 60 mg/dL >40 HDL Cholesterol ATHE ([facility]) non-HDL-C 153 mg/dL Non-hdl-c [facility] ([facility]) cholesterol risk ratio <5 Cholesterol R isk Ratio [facility] ([facility]) ID Date Data Source [id number] 05/12/2020 09:05:00 AM EST [place] ([facility]) Name Value Range Interpretation Code Description Data Nena rce(s) Supporting Document(s) blood urea nitrogen 13 mg/dL 7-18 Blood Urea Nitro gen [facility] ([facility]) glucose, fasting 91 mg/dL 70-100 Glucose, Fasting AT [facility] ([facility]) sodium level 140 mEq/L 136-145 Sodium Level [facility]A (No [facility]) glomerular filtration rate > 60.0 >60 Glomerula r Filtration Rate [facility] ([facility]) creatinine for GFR 0.87 mg/dL 0.55-1.30 Creatinine for GF R [facility] ([facility]) chloride level 104 mEq/L 98-107 Chloride Level [place] ([facility]) potassium serum 4.6 mEq/L 3.5-5.1 Potassium Serum ATHE NA ([facility]) calcium level 9.5 mg/dL 8.5-10.1 Calcium Level [place] ( [facility]) anion gap 7 mEq/L 8-16 Below low normal Anion Gap [facility] ( [facility]) carbon dioxide level 29 mEq/L 21-32 Carbon Dioxide Level [facility] ([facility]) ALT/SGPT 16 U/L 12-78 ALT/SGPT [facility] ([facility]) AST/SGOT 9 U/L 7-37 AST/SGOT [facility] ([facility]) bilirubin,total 0.3 mg/dL 0.2-1.0 Bilirubin,total ATHE NA ([facility]) total protein 7.2 gm/dL 6.4-8.2 Total Protein [facility] ( [facility]) albumin 4.3 gm/dL 3.2-5.2 Albumin [facility] ([facility]) alkaline phosphatase 74 U/L 45-117 Alkaline Phosph atase [facility] ([facility]) albumin/globulin ratio 1.2-2.2 Albumin/globu diego Ratio [facility] ([facility]) ID Date Data Source [id number] 05/12/2020 09:05:00 AM EST [facility] ([facility]) Name Value Range Interpretation Code Description Data Nena rce(s) Supporting Document(s) white blood count 7.9 10 4.0-10.0 White Blood Count [facility] ([facility]) red blood count 4.50 10 4.00-5.40 Red Blood Count ATHE NA ([facility]) hemoglobin 13.3 g/dL 12.0-15.5 Hemoglobin [facility] ([facility]) hematocrit 40.3 % 36.0-47.0 Hematocrit [facility] ([facility]) mean corpuscular hemoglobin 29.6 pg 27.0-33.0 Mean Cor puscular Hemoglobin [facility] ([facility]) mean corpuscular volume 89.6 fL 80.0-96.0 Mean Corpusc ular Volume [facility] ([facility]) red cell distribution width 12.5 % 11.5-14.5 Red Cell Distribution Width [facility] ([facility]) mean corpuscular HGB conc 33.0 g/dL 32.0-36.5 Mean Corpu scular HGB Conc [facility] ([facility]) neutrophils % 51.5 % 36.0-66.0 Neutrophils % [facility] ( [facility]) platelet count, automated 301 10 150-450 Platelet C ount, Automated [facility] ([facility]) mono % 8.9 % 0.0-5.0 Above high normal Cherry % [facility] ([facility]) lymph % 36.5 % 24.0-44.0 Lymph % [facility] ([facility]) baso % 0.6 % 0.0-1.0 Baso % [place] ([facility]) eos % 2.2 % 0.0-3.0 Eos % [place] ([facility]) nucleated red blood cell % 0.0 % 0-0 Nucleated Red Blood Cell % [place] ([facility]) immature granulocyte % 0.3 % 0-3.0 Immature Gran ulocyte % [facility] ([facility]) neutrophils # 4.1 10 1.5-8.5 Neutrophils # [facility] ( [facility]) lymph # 2.9 10 1.5-5.0 Lymph # [facility] ([facility]) eos # 0.2 10 0.0-0.5 Eos # [facility] ([facility]) mono # 0.7 10 0.0-0.8 Cherry # [facility] ([facility]) baso # 0.1 10 0.0-0.2 Baso # [facility] ([facility]) ID Date Data Source [id number] 05/12/2020 09:05:00 AM EST [facility] ([facility]) Name Value Range Interpretation Code Description Data Nena rce(s) Supporting Document(s) total 25(oh) vitamin D 22.6 NG/mL 30.0-100.0 Below low normal T otal 25(Oh) Vitamin D [facility] ([facility]) ID Date Data Source [id number] 05/12/2020 09:05:00 AM EST [facility] ([facility]) Name Value Range Interpretation Code Description Data Nena rce(s) Supporting Document(s) thyroid stimulating hormone 1.920 uIU/mL 0.358-3.740 Thyroid Stimulating Hormone [facility] ([facility]) free T4 0.90 NG/dL 0.76-1.46 Free T4 [facility] ([facility]) ID Date Data Source [id number] 05/12/2020 09:05:00 AM EST [facility] ([facility]) Name Value Range Interpretation Code Description Data Nena rce(s) Supporting Document(s) triglycerides level 103 mg/dL <150 Triglycerides Le staci [facility] ([facility]) Cholesterol in LDL [Mass/volume] in Serum or Plasma 132 mg/dL <100 Above high normal LDL Cholesterol [facility] ([facility] er) cholesterol level 213 mg/dL <200 Above high normal Cholesterol Level ZOILA ([facility]) HDL cholesterol 60 mg/dL >40 HDL Cholesterol ATHE ([facility]) cholesterol risk ratio <5 Cholesterol R isk Ratio ZOILA ([facility]) non-HDL-C 153 mg/dL Non-hdl-c ZOILA ([facility]) ID Date Data Source [id number] 05/12/2020 09:05:00 AM EST [place] ([facility]) Name Value Range Interpretation Code Description Data Nena rce(s) Supporting Document(s) blood urea nitrogen 13 mg/dL 7-18 Blood Urea Nitro gen ZOILA ([facility]) glucose, fasting 91 mg/dL 70-100 Glucose, Fasting AT [facility] ([facility]) glomerular filtration rate > 60.0 >60 Glomerula r Filtration Rate ZOILA ([facility]) creatinine for GFR 0.87 mg/dL 0.55-1.30 Creatinine for GF R ZOILA ([facility]) sodium level 140 mEq/L 136-145 Sodium Level ZOILA ([facility]) potassium serum 4.6 mEq/L 3.5-5.1 Potassium Serum ATHE NA ([facility]) chloride level 104 mEq/L 98-107 Chloride Level ZOILA ([facility]) carbon dioxide level 29 mEq/L 21-32 Carbon Dioxide Level ZOILA ([facility]) anion gap 7 mEq/L 8-16 Below low normal Anion Gap ZOILA ( [facility]) AST/SGOT 9 U/L 7-37 AST/SGOT ZOILA ([facility]) calcium level 9.5 mg/dL 8.5-10.1 Calcium Level ZOILA ( [facility]) ALT/SGPT 16 U/L 12-78 ALT/SGPT ZOILA ([facility]) alkaline phosphatase 74 U/L 45-117 Alkaline Phosph atase ZOILA ([facility]) albumin 4.3 gm/dL 3.2-5.2 Albumin ZOILA ([facility]) bilirubin,total 0.3 mg/dL 0.2-1.0 Bilirubin,total ATHE NA ([facility]) total protein 7.2 gm/dL 6.4-8.2 Total Protein ZOILA ( [facility]) albumin/globulin ratio 1.2-2.2 Albumin/globu diego Ratio ZOILA ([facility]) ID Date Data Source [id number] 05/12/2020 09:05:00 AM EST ZOILA ([facility]) Name Value Range Interpretation Code Description Data Nena rce(s) Supporting Document(s) white blood count 7.9 10 4.0-10.0 White Blood Count ZOILA ([facility]) hemoglobin 13.3 g/dL 12.0-15.5 Hemoglobin ZOILA ([facility]) red blood count 4.50 10 4.00-5.40 Red Blood Count ATHE NA ([facility]) hematocrit 40.3 % 36.0-47.0 Hematocrit ZOILA ([facility]) mean corpuscular hemoglobin 29.6 pg 27.0-33.0 Mean Cor puscular Hemoglobin ZOILA ([facility]) mean corpuscular volume 89.6 fL 80.0-96.0 Mean Corpusc ular Volume ZOILA ([facility]) red cell distribution width 12.5 % 11.5-14.5 Red Cell Distribution Width ZOILA ([facility]) platelet count, automated 301 10 150-450 Platelet C ount, Automated ZOILA ([facility]) mean corpuscular HGB conc 33.0 g/dL 32.0-36.5 Mean Corpu scular HGB Conc [place] ([facility]) eos % 2.2 % 0.0-3.0 Eos % [place] ([facility]) lymph % 36.5 % 24.0-44.0 Lymph % [place] ([facility]) mono % 8.9 % 0.0-5.0 Above high normal Cherry % [place] ([facility]) neutrophils % 51.5 % 36.0-66.0 Neutrophils % [place] ( [facility]) baso % 0.6 % 0.0-1.0 Baso % [place] ([facility]) immature granulocyte % 0.3 % 0-3.0 Immature Gran ulocyte % [place] ([facility]) nucleated red blood cell % 0.0 % 0-0 Nucleated Red Blood Cell % [place] ([facility]) lymph # 2.9 10 1.5-5.0 Lymph # [place] ([facility]) neutrophils # 4.1 10 1.5-8.5 Neutrophils # [place] ( [facility]) mono # 0.7 10 0.0-0.8 Cherry # [place] ([facility]) eos # 0.2 10 0.0-0.5 Eos # [place] ([facility]) baso # 0.1 10 0.0-0.2 Baso # [place] ([facility]) ID Date Data Source [id number] 05/12/2020 09:05:00 AM EST [place] ([facility]) Name Value Range Interpretation Code Description Data Nena rce(s) Supporting Document(s) total 25(oh) vitamin D 22.6 NG/mL 30.0-100.0 Below low normal T otal 25(Oh) Vitamin D [place] ([facility]) ID Date Data Source [id number] 05/12/2020 09:05:00 AM EST ZOILA ([facility]) Name Value Range Interpretation Code Description Data Nena rce(s) Supporting Document(s) thyroid stimulating hormone 1.920 uIU/mL 0.358-3.740 Thyroid Stimulating Hormone ZOILA ([facility]) free T4 0.90 NG/dL 0.76-1.46 Free T4 Z[facility] ([facility]) ID Date Data Source [id number] 05/12/2020 09:05:00 AM EST Z[facility]ILA ([facility]) Name Value Range Interpretation Code Description Data Nena rce(s) Supporting Document(s) triglycerides level 103 mg/dL <150 Triglycerides Le staci ZOILA ([facility]) HDL cholesterol 60 mg/dL >40 HDL Cholesterol ATHE NA ([facility]) cholesterol level 213 mg/dL <200 Above high normal Cholesterol Level ZOILA ([facility]) non-HDL-C 153 mg/dL Non-hdl-c ZOILA ([facility]) Cholesterol in LDL [Mass/volume] in Serum or Plasma 132 mg/dL <100 Above high normal LDL Cholesterol ZOILA ([facility]) cholesterol risk ratio <5 Cholesterol R isk Ratio [place] ([facility]) ID Date Data Source [id number] 05/12/2020 09:05:00 AM EST Z[facility]A ([facility]) Name Value Range Interpretation Code Description Data Nena rce(s) Supporting Document(s) glucose, fasting 91 mg/dL 70-100 Glucose, Fasting AT [facility] ([facility]) glomerular filtration rate > 60.0 >60 Glomerula r Filtration Rate ZOILA ([facility]) creatinine for GFR 0.87 mg/dL 0.55-1.30 Creatinine for GF R ZOILA ([facility]) blood urea nitrogen 13 mg/dL 7-18 Blood Urea Nitro gen ZOILA ([facility]) sodium level 140 mEq/L 136-145 Sodium Level ZOILA ([facility]) potassium serum 4.6 mEq/L 3.5-5.1 Potassium Serum ATHE NA ([facility]) chloride level 104 mEq/L 98-107 Chloride Level ZOILA ([facility]) carbon dioxide level 29 mEq/L 21-32 Carbon Dioxide Level ZOILA ([facility]) anion gap 7 mEq/L 8-16 Below low normal Anion Gap ZOILA ( [facility]) calcium level 9.5 mg/dL 8.5-10.1 Calcium Level ZOILA ( [facility]) AST/SGOT 9 U/L 7-37 AST/SGOT [facility] ([facility]) ALT/SGPT 16 U/L 12-78 ALT/SGPT Z[facility]ILA ([facility]) total protein 7.2 gm/dL 6.4-8.2 Total Protein ZOILA ( [facility]) alkaline phosphatase 74 U/L 45-117 Alkaline Phosph atase ZOILA ([facility]) bilirubin,total 0.3 mg/dL 0.2-1.0 Bilirubin,total ATHE ([facility]) albumin/globulin ratio 1.2-2.2 Albumin/globu diego Ratio ZOILA ([facility]) albumin 4.3 gm/dL 3.2-5.2 Albumin [facility]A ([facility]) ID Date Data Source [id number] 05/12/2020 09:05:00 AM EST [facility]A ([facility]) Name Value Range Interpretation Code Description Data Nena rce(s) Supporting Document(s) red blood count 4.50 10 4.00-5.40 Red Blood Count ATHE ([facility]) white blood count 7.9 10 4.0-10.0 White Blood Count ZOILA ([facility]) hematocrit 40.3 % 36.0-47.0 Hematocrit ZOILA ([facility]) hemoglobin 13.3 g/dL 12.0-15.5 Hemoglobin ZOILA ([facility]) mean corpuscular volume 89.6 fL 80.0-96.0 Mean Corpusc ular Volume ZOILA ([facility]) mean corpuscular hemoglobin 29.6 pg 27.0-33.0 Mean Cor puscular Hemoglobin ZOILA ([facility]) red cell distribution width 12.5 % 11.5-14.5 Red Cell Distribution Width ZOILA ([facility]) mean corpuscular HGB conc 33.0 g/dL 32.0-36.5 Mean Corpu scular HGB Conc ZOILA ([facility]) platelet count, automated 301 10 150-450 Platelet C ount, Automated ZOILA ([facility]) neutrophils % 51.5 % 36.0-66.0 Neutrophils % ZOILA ( [facility]) lymph % 36.5 % 24.0-44.0 Lymph % [place] ([facility]) eos % 2.2 % 0.0-3.0 Eos % [place] ([facility]) mono % 8.9 % 0.0-5.0 Above high normal Cherry % [place] ([facility]) immature granulocyte % 0.3 % 0-3.0 Immature Gran ulocyte % [place] ([facility]) baso % 0.6 % 0.0-1.0 Baso % [place] ([facility]) nucleated red blood cell % 0.0 % 0-0 Nucleated Red Blood Cell % [place] ([facility]) lymph # 2.9 10 1.5-5.0 Lymph # [place] ([facility]) neutrophils # 4.1 10 1.5-8.5 Neutrophils # ZOILA ( [facility]) eos # 0.2 10 0.0-0.5 Eos # ZOILA ([facility]) mono # 0.7 10 0.0-0.8 Cherry # [place] ([facility]) baso # 0.1 10 0.0-0.2 Baso # ZOILA ([facility]) ID Date Data Source [id number] 05/12/2020 09:05:00 AM EST [place] ([facility]) Name Value Range Interpretation Code Description Data Nena rce(s) Supporting Document(s) total 25(oh) vitamin D 22.6 NG/mL 30.0-100.0 Below low normal T otal 25(Oh) Vitamin D ZOILA ([facility]) ID Date Data Source [id number] 05/12/2020 09:05:00 AM EST Z[facility]ILA ([facility]) Name Value Range Interpretation Code Description Data Nena rce(s) Supporting Document(s) thyroid stimulating hormone 1.920 uIU/mL 0.358-3.740 Thyroid Stimulating Hormone ZOILA ([facility]) free T4 0.90 NG/dL 0.76-1.46 Free T4 [facility] ([facility]) ID Date Data Source [id number] 05/12/2020 09:05:00 AM EST [place] ([facility]) Name Value Range Interpretation Code Description Data Nena rce(s) Supporting Document(s) triglycerides level 103 mg/dL <150 Triglycerides Le staci ZOILA ([facility]) HDL cholesterol 60 mg/dL >40 HDL Cholesterol ATHE ([facility]) non-HDL-C 153 mg/dL Non-hdl-c ZOILA ([facility]) cholesterol level 213 mg/dL <200 Above high normal Cholesterol Level ZOILA ([facility]) Cholesterol in LDL [Mass/volume] in Serum or Plasma 132 mg/dL <100 Above high normal LDL Cholesterol ZOILA ([facility]) cholesterol risk ratio <5 Cholesterol R isk Ratio ZOILA ([facility]) ID Date Data Source [id number] 05/12/2020 09:05:00 AM EST [place] ([facility]) Name Value Range Interpretation Code Description Data Nena rce(s) Supporting Document(s) glomerular filtration rate > 60.0 >60 Glomerula r Filtration Rate ZOILA ([facility]) creatinine for GFR 0.87 mg/dL 0.55-1.30 Creatinine for GF R ZOILA ([facility]) glucose, fasting 91 mg/dL 70-100 Glucose, Fasting AT [facility] ([facility]) blood urea nitrogen 13 mg/dL 7-18 Blood Urea Nitro gen ZOILA ([facility]) potassium serum 4.6 mEq/L 3.5-5.1 Potassium Serum ATHE NA ([facility]) chloride level 104 mEq/L 98-107 Chloride Level ZOILA ([facility]) sodium level 140 mEq/L 136-145 Sodium Level ZOILA (No [facility]) carbon dioxide level 29 mEq/L 21-32 Carbon Dioxide Level ZOILA ([facility]) anion gap 7 mEq/L 8-16 Below low normal Anion Gap ZOILA ( [facility]) ALT/SGPT 16 U/L 12-78 ALT/SGPT [facility]A ([facility]) AST/SGOT 9 U/L 7-37 AST/SGOT Z[facility]A ([facility]) calcium level 9.5 mg/dL 8.5-10.1 Calcium Level ZOILA ( [facility]) total protein 7.2 gm/dL 6.4-8.2 Total Protein ZOILA ( [facility]) alkaline phosphatase 74 U/L 45-117 Alkaline Phosph atase ZOILA ([facility]) bilirubin,total 0.3 mg/dL 0.2-1.0 Bilirubin,total ATHE ([facility]) albumin 4.3 gm/dL 3.2-5.2 Albumin ZOILA ([facility]) albumin/globulin ratio 1.2-2.2 Albumin/globu diego Ratio ZOILA ([facility]) ID Date Data Source [id number] 05/12/2020 09:05:00 AM EST Z[facility]A ([facility]) Name Value Range Interpretation Code Description Data Nena rce(s) Supporting Document(s) white blood count 7.9 10 4.0-10.0 White Blood Count ZOILA ([facility]) hemoglobin 13.3 g/dL 12.0-15.5 Hemoglobin ZOILA ([facility]) red blood count 4.50 10 4.00-5.40 Red Blood Count ATHE ([facility]) hematocrit 40.3 % 36.0-47.0 Hematocrit ZOILA ([facility]) mean corpuscular hemoglobin 29.6 pg 27.0-33.0 Mean Cor puscular Hemoglobin ZOILA ([facility]) mean corpuscular volume 89.6 fL 80.0-96.0 Mean Corpusc ular Volume ZOILA ([facility]) mean corpuscular HGB conc 33.0 g/dL 32.0-36.5 Mean Corpu scular HGB Conc ZOILA ([facility]) red cell distribution width 12.5 % 11.5-14.5 Red Cell Distribution Width Z[facility]ILA ([facility]) neutrophils % 51.5 % 36.0-66.0 Neutrophils % ZOILA ( [facility]) lymph % 36.5 % 24.0-44.0 Lymph % [place] ([facility]) platelet count, automated 301 10 150-450 Platelet C ount, Automated ZOILA ([facility]) eos % 2.2 % 0.0-3.0 Eos % Z[facility]ILA ([facility]) baso % 0.6 % 0.0-1.0 Baso % Z[facility]ILA ([facility]) mono % 8.9 % 0.0-5.0 Above high normal Cherry % ZOILA ([facility]) nucleated red blood cell % 0.0 % 0-0 Nucleated Red Blood Cell % ZOILA ([facility]) lymph # 2.9 10 1.5-5.0 Lymph # [place] ([facility]) neutrophils # 4.1 10 1.5-8.5 Neutrophils # ZOILA ( [facility]) immature granulocyte % 0.3 % 0-3.0 Immature Gran ulocyte % ZOILA ([facility]) mono # 0.7 10 0.0-0.8 Cherry # ZOILA ([facility]) baso # 0.1 10 0.0-0.2 Baso # [facility]A ([facility]) eos # 0.2 10 0.0-0.5 Eos # [facility]ILA ([facility]) ID Date Data Source [id number] 05/12/2020 09:05:00 AM EST ZOILA ([facility]) Name Value Range Interpretation Code Description Data Nena rce(s) Supporting Document(s) total 25(oh) vitamin D 22.6 NG/mL 30.0-100.0 Below low normal T otal 25(Oh) Vitamin D Z[facility] ([facility]) ID Date Data Source [id number] 05/12/2020 09:05:00 AM EST ZOILA ([facility]) Name Value Range Interpretation Code Description Data Nena rce(s) Supporting Document(s) thyroid stimulating hormone 1.920 uIU/mL 0.358-3.740 Thyroid Stimulating Hormone ZOILA ([facility]) free T4 0.90 NG/dL 0.76-1.46 Free T4 [facility] ([facility]) ID Date Data Source [id number] 05/12/2020 09:05:00 AM EST [facility]A ([facility]) Name Value Range Interpretation Code Description Data Nena rce(s) Supporting Document(s) HDL cholesterol 60 mg/dL >40 HDL Cholesterol ATHE NA ([facility]) triglycerides level 103 mg/dL <150 Triglycerides Le staci ZOILA ([facility]) cholesterol level 213 mg/dL <200 Above high normal Cholesterol Level ZOILA ([facility]) non-HDL-C 153 mg/dL Non-hdl-c Z[facility] ([facility]) cholesterol risk ratio <5 Cholesterol R isk Ratio ZOILA ([facility]) Cholesterol in LDL [Mass/volume] in Serum or Plasma 132 mg/dL <100 Above high normal LDL Cholesterol ZOILA ([facility]) ID Date Data Source [id number] 05/12/2020 09:05:00 AM EST [facility] ([facility]) Name Value Range Interpretation Code Description Data Nena rce(s) Supporting Document(s) creatinine for GFR 0.87 mg/dL 0.55-1.30 Creatinine for GF R Z[facility]A ([facility]) glomerular filtration rate > 60.0 >60 Glomerula r Filtration Rate ZOILA ([facility]) blood urea nitrogen 13 mg/dL 7-18 Blood Urea Nitro gen ZOILA ([facility]) glucose, fasting 91 mg/dL 70-100 Glucose, Fasting AT [facility] ([facility]) potassium serum 4.6 mEq/L 3.5-5.1 Potassium Serum ATHE NA ([facility]) chloride level 104 mEq/L 98-107 Chloride Level ZOILA ([facility]) sodium level 140 mEq/L 136-145 Sodium Level ZOILA (No [facility]) calcium level 9.5 mg/dL 8.5-10.1 Calcium Level ZOILA ( [facility]) anion gap 7 mEq/L 8-16 Below low normal Anion Gap ZOILA ( [facility]) carbon dioxide level 29 mEq/L 21-32 Carbon Dioxide Level ZOILA ([facility]) ALT/SGPT 16 U/L 12-78 ALT/SGPT [facility] ([facility]) AST/SGOT 9 U/L 7-37 AST/SGOT [facility]A ([facility]) total protein 7.2 gm/dL 6.4-8.2 Total Protein ZOILA ( [facility]) alkaline phosphatase 74 U/L 45-117 Alkaline Phosph atase Z[facility]ILA ([facility]) albumin 4.3 gm/dL 3.2-5.2 Albumin Z[facility]ILA ([facility]) bilirubin,total 0.3 mg/dL 0.2-1.0 Bilirubin,total ATHE NA ([facility]) albumin/globulin ratio 1.2-2.2 Albumin/globu diego Ratio ZOILA ([facility]) ID Date Data Source [id number] 05/12/2020 09:05:00 AM EST [facility]A ([facility]) Name Value Range Interpretation Code Description Data Nena rce(s) Supporting Document(s) white blood count 7.9 10 4.0-10.0 White Blood Count Z[facility]ILA ([facility]) red blood count 4.50 10 4.00-5.40 Red Blood Count ATHE NA ([facility]) hematocrit 40.3 % 36.0-47.0 Hematocrit ZOILA ([facility]) mean corpuscular volume 89.6 fL 80.0-96.0 Mean Corpusc ular Volume ZOILA ([facility]) hemoglobin 13.3 g/dL 12.0-15.5 Hemoglobin ZOILA ([facility]) mean corpuscular hemoglobin 29.6 pg 27.0-33.0 Mean Cor puscular Hemoglobin Z[facility]ILA ([facility]) mean corpuscular HGB conc 33.0 g/dL 32.0-36.5 Mean Corpu scular HGB Conc ZOILA ([facility]) platelet count, automated 301 10 150-450 Platelet C ount, Automated Z[facility] ([facility]) red cell distribution width 12.5 % 11.5-14.5 Red Cell Distribution Width Z[facility]A ([facility]) mono % 8.9 % 0.0-5.0 Above high normal Cherry % ZOILA ([facility]) lymph % 36.5 % 24.0-44.0 Lymph % Z[facility]A ([facility]) neutrophils % 51.5 % 36.0-66.0 Neutrophils % [place] ( [facility]) immature granulocyte % 0.3 % 0-3.0 Immature Gran ulocyte % ZOILA ([facility]) nucleated red blood cell % 0.0 % 0-0 Nucleated Red Blood Cell % Z[facility]A ([facility]) eos % 2.2 % 0.0-3.0 Eos % [facility] ([facility]) baso % 0.6 % 0.0-1.0 Baso % [facility] ([facility]) mono # 0.7 10 0.0-0.8 Cherry # ZOILA ([facility]) neutrophils # 4.1 10 1.5-8.5 Neutrophils # ZOILA ( [facility]) lymph # 2.9 10 1.5-5.0 Lymph # [facility]A ([facility]) eos # 0.2 10 0.0-0.5 Eos # [facility] ([facility]) baso # 0.1 10 0.0-0.2 Baso # [facility] ([facility]) ID Date Data Source [id number] 05/12/2020 09:05:00 AM EST Z[facility]ILA ([facility]) Name Value Range Interpretation Code Description Data Nena rce(s) Supporting Document(s) total 25(oh) vitamin D 22.6 NG/mL 30.0-100.0 Below low normal T otal 25(Oh) Vitamin D [facility] ([facility]) ID Date Data Source [id number] 05/12/2020 09:05:00 AM EST [facility]A ([facility]) Name Value Range Interpretation Code Description Data Nena rce(s) Supporting Document(s) thyroid stimulating hormone 1.920 uIU/mL 0.358-3.740 Thyroid Stimulating Hormone ZOILA ([facility]) free T4 0.90 NG/dL 0.76-1.46 Free T4 [facility] ([facility]) ID Date Data Source [id number] 05/12/2020 09:05:00 AM EST [facility] ([facility]) Name Value Range Interpretation Code Description Data Nena rce(s) Supporting Document(s) cholesterol level 213 mg/dL <200 Above high normal Cholesterol Level ZOILA ([facility]) triglycerides level 103 mg/dL <150 Triglycerides Le staci ZOILA ([facility]) non-HDL-C 153 mg/dL Non-hdl-c [facility] ([facility]) cholesterol risk ratio <5 Cholesterol R isk Ratio ZOILA ([facility]) Cholesterol in LDL [Mass/volume] in Serum or Plasma 132 mg/dL <100 Above high normal LDL Cholesterol ZOILA ([facility]) HDL cholesterol 60 mg/dL >40 HDL Cholesterol ATHE NA ([facility]) ID Date Data Source [id number] 05/12/2020 09:05:00 AM EST ZOILA ([facility]) Name Value Range Interpretation Code Description Data Nena rce(s) Supporting Document(s) blood urea nitrogen 13 mg/dL 7-18 Blood Urea Nitro gen ZOILA ([facility]) glucose, fasting 91 mg/dL 70-100 Glucose, Fasting AT [facility] ([facility]) creatinine for GFR 0.87 mg/dL 0.55-1.30 Creatinine for GF R Z[facility] ([facility]) glomerular filtration rate > 60.0 >60 Glomerula r Filtration Rate ZOILA ([facility]) sodium level 140 mEq/L 136-145 Sodium Level ZOILA ([facility]) potassium serum 4.6 mEq/L 3.5-5.1 Potassium Serum ATHE ([facility]) calcium level 9.5 mg/dL 8.5-10.1 Calcium Level ZOILA ( [facility]) anion gap 7 mEq/L 8-16 Below low normal Anion Gap ZOILA ( [facility]) chloride level 104 mEq/L 98-107 Chloride Level Z[facility]ILA ([facility]) carbon dioxide level 29 mEq/L 21-32 Carbon Dioxide Level Z[facility]ILA ([facility]) AST/SGOT 9 U/L 7-37 AST/SGOT [facility] ([facility]) alkaline phosphatase 74 U/L 45-117 Alkaline Phosph atase [facility]A ([facility]) bilirubin,total 0.3 mg/dL 0.2-1.0 Bilirubin,total ATHE ([facility]) ALT/SGPT 16 U/L 12-78 ALT/SGPT [facility] ([facility]) albumin/globulin ratio 1.2-2.2 Albumin/globu diego Ratio ZOILA ([facility]) total protein 7.2 gm/dL 6.4-8.2 Total Protein ZOILA ( [facility]) albumin 4.3 gm/dL 3.2-5.2 Albumin [facility]A ([facility]) ID Date Data Source [id number] 05/12/2020 09:05:00 AM EST Z[facility]ILA ([facility]) Name Value Range Interpretation Code Description Data Nena rce(s) Supporting Document(s) hemoglobin 13.3 g/dL 12.0-15.5 Hemoglobin ZOILA ([facility]) white blood count 7.9 10 4.0-10.0 White Blood Count Z[facility]A ([facility]) red blood count 4.50 10 4.00-5.40 Red Blood Count ATHE NA ([facility]) mean corpuscular hemoglobin 29.6 pg 27.0-33.0 Mean Cor puscular Hemoglobin ZOILA ([facility]) mean corpuscular volume 89.6 fL 80.0-96.0 Mean Corpusc ular Volume ZOILA ([facility]) hematocrit 40.3 % 36.0-47.0 Hematocrit ZOILA ([facility]) platelet count, automated 301 10 150-450 Platelet C ount, Automated Z[facility]A ([facility]) mean corpuscular HGB conc 33.0 g/dL 32.0-36.5 Mean Corpu scular HGB Conc Z[facility]A ([facility]) red cell distribution width 12.5 % 11.5-14.5 Red Cell Distribution Width [facility]A ([facility]) lymph % 36.5 % 24.0-44.0 Lymph % [facility] ([facility]) neutrophils % 51.5 % 36.0-66.0 Neutrophils % ZOILA ( [facility]) eos % 2.2 % 0.0-3.0 Eos % [facility] ([facility]) mono % 8.9 % 0.0-5.0 Above high normal Cherry % ZOILA ([facility]) nucleated red blood cell % 0.0 % 0-0 Nucleated Red Blood Cell % ZOILA ([facility]) immature granulocyte % 0.3 % 0-3.0 Immature Gran ulocyte % [facility] ([facility]) baso % 0.6 % 0.0-1.0 Baso % [facility] ([facility]) eos # 0.2 10 0.0-0.5 Eos # [facility]A ([facility]) mono # 0.7 10 0.0-0.8 Cherry # Z[facility]A ([facility]) lymph # 2.9 10 1.5-5.0 Lymph # [facility]A ([facility]) neutrophils # 4.1 10 1.5-8.5 Neutrophils # ZOILA ( [facility]) baso # 0.1 10 0.0-0.2 Baso # [facility] ([facility]) ID Date Data Source [id number] 05/12/2020 09:05:00 AM EST [facility] ([facility]) Name Value Range Interpretation Code Description Data Nena rce(s) Supporting Document(s) total 25(oh) vitamin D 22.6 NG/mL 30.0-100.0 Below low normal T otal 25(Oh) Vitamin D [facility] ([facility]) ID Date Data Source [id number] 05/12/2020 09:05:00 AM EST [facility] ([facility]) Name Value Range Interpretation Code Description Data Nena rce(s) Supporting Document(s) free T4 0.90 NG/dL 0.76-1.46 Free T4 [facility] ([facility]) thyroid stimulating hormone 1.920 uIU/mL 0.358-3.740 Thyroid Stimulating Hormone [facility] ([facility]) ID Date Data Source [id number] 05/12/2020 09:05:00 AM EST [facility] ([facility]) Name Value Range Interpretation Code Description Data Nena rce(s) Supporting Document(s) triglycerides level 103 mg/dL <150 Triglycerides Le staci ZO[facility]A ([facility]) HDL cholesterol 60 mg/dL >40 HDL Cholesterol ATHE NA ([facility]) cholesterol level 213 mg/dL <200 Above high normal Cholesterol Level ZOILA ([facility]) Cholesterol in LDL [Mass/volume] in Serum or Plasma 132 mg/dL <100 Above high normal LDL Cholesterol Z[facility]A ([facility]) non-HDL-C 153 mg/dL Non-hdl-c [facility] ([facility]) cholesterol risk ratio <5 Cholesterol R isk Ratio [facility] ([facility]) ID Date Data Source [id number] 05/12/2020 09:05:00 AM EST [facility] ([facility]) Name Value Range Interpretation Code Description Data Nena rce(s) Supporting Document(s) glucose, fasting 91 mg/dL 70-100 Glucose, Fasting AT [facility] ([facility]) creatinine for GFR 0.87 mg/dL 0.55-1.30 Creatinine for GF R [facility] ([facility]) glomerular filtration rate > 60.0 >60 Glomerula r Filtration Rate Z[facility] ([facility]) blood urea nitrogen 13 mg/dL 7-18 Blood Urea Nitro gen [facility] ([facility]) chloride level 104 mEq/L 98-107 Chloride Level [facility] ([facility]) sodium level 140 mEq/L 136-145 Sodium Level ZOILA ([facility]) potassium serum 4.6 mEq/L 3.5-5.1 Potassium Serum ATHE NA ([facility]) carbon dioxide level 29 mEq/L 21-32 Carbon Dioxide Level [facility] ([facility]) ALT/SGPT 16 U/L 12-78 ALT/SGPT [facility] ([facility]) calcium level 9.5 mg/dL 8.5-10.1 Calcium Level Z[facility]ILA ( [facility]) anion gap 7 mEq/L 8-16 Below low normal Anion Gap Z[facility]A ( [facility]) AST/SGOT 9 U/L 7-37 AST/SGOT [facility] ([facility]) alkaline phosphatase 74 U/L 45-117 Alkaline Phosph atase [facility] ([facility]) total protein 7.2 gm/dL 6.4-8.2 Total Protein [facility] ( [facility]) bilirubin,total 0.3 mg/dL 0.2-1.0 Bilirubin,total ATHE NA ([facility]) albumin 4.3 gm/dL 3.2-5.2 Albumin [facility] ([facility]) albumin/globulin ratio 1.2-2.2 Albumin/globu diego Ratio [facility]A ([facility]) ID Date Data Source [id number] 05/12/2020 09:05:00 AM EST [facility] ([facility]) Name Value Range Interpretation Code Description Data Nena rce(s) Supporting Document(s) white blood count 7.9 10 4.0-10.0 White Blood Count [facility]A ([facility]) hemoglobin 13.3 g/dL 12.0-15.5 Hemoglobin Z[facility]A ([facility]) hematocrit 40.3 % 36.0-47.0 Hematocrit [facility] ([facility]) red blood count 4.50 10 4.00-5.40 Red Blood Count ATHE ([facility]) mean corpuscular volume 89.6 fL 80.0-96.0 Mean Corpusc ular Volume [facility]A ([facility]) mean corpuscular hemoglobin 29.6 pg 27.0-33.0 Mean Cor puscular Hemoglobin [facility] ([facility]) mean corpuscular HGB conc 33.0 g/dL 32.0-36.5 Mean Corpu scular HGB Conc [facility] ([facility]) red cell distribution width 12.5 % 11.5-14.5 Red Cell Distribution Width [facility] ([facility]) neutrophils % 51.5 % 36.0-66.0 Neutrophils % [facility] ( [facility]) platelet count, automated 301 10 150-450 Platelet C ount, Automated [facility] ([facility]) lymph % 36.5 % 24.0-44.0 Lymph % [facility] ([facility]) mono % 8.9 % 0.0-5.0 Above high normal Cherry % [facility] ([facility]) eos % 2.2 % 0.0-3.0 Eos % [facility] ([facility]) nucleated red blood cell % 0.0 % 0-0 Nucleated Red Blood Cell % [facility] ([facility]) immature granulocyte % 0.3 % 0-3.0 Immature Gran ulocyte % [facility] ([facility]) baso % 0.6 % 0.0-1.0 Baso % [facility] ([facility]) neutrophils # 4.1 10 1.5-8.5 Neutrophils # [facility] ( [facility]) mono # 0.7 10 0.0-0.8 Cherry # [facility] ([facility]) lymph # 2.9 10 1.5-5.0 Lymph # [facility] ([facility]) baso # 0.1 10 0.0-0.2 Baso # [facility] ([facility]) eos # 0.2 10 0.0-0.5 Eos # [facility] ([facility]) ID Date Data Source [id number] 05/12/2020 09:05:00 AM EST [facility] ([facility]) Name Value Range Interpretation Code Description Data Nena rce(s) Supporting Document(s) total 25(oh) vitamin D 22.6 NG/mL 30.0-100.0 Below low normal T otal 25(Oh) Vitamin D [facility] ([facility]) ID Date Data Source [id number] 05/12/2020 09:05:00 AM EST [facility] ([facility]) Name Value Range Interpretation Code Description Data Nena rce(s) Supporting Document(s) free T4 0.90 NG/dL 0.76-1.46 Free T4 [facility] ([facility]) thyroid stimulating hormone 1.920 uIU/mL 0.358-3.740 Thyroid Stimulating Hormone [facility] ([facility]) ID Date Data Source [id number] 05/12/2020 09:05:00 AM EST [facility] ([facility]) Name Value Range Interpretation Code Description Data Nena rce(s) Supporting Document(s) cholesterol level 213 mg/dL <200 Above high normal Cholesterol Level [facility] ([facility]) triglycerides level 103 mg/dL <150 Triglycerides Le staci [facility] ([facility]) HDL cholesterol 60 mg/dL >40 HDL Cholesterol ATHE NA ([facility]) Cholesterol in LDL [Mass/volume] in Serum or Plasma 132 mg/dL <100 Above high normal LDL Cholesterol [facility] ([facility]) non-HDL-C 153 mg/dL Non-hdl-c [facility] ([facility]) cholesterol risk ratio <5 Cholesterol R isk Ratio [facility] ([facility]) ID Date Data Source [id number] 05/12/2020 09:05:00 AM EST [facility] ([facility]) Name Value Range Interpretation Code Description Data Nena rce(s) Supporting Document(s) blood urea nitrogen 13 mg/dL 7-18 Blood Urea Nitro gen [facility] ([facility]) glucose, fasting 91 mg/dL 70-100 Glucose, Fasting AT [facility] ([facility]) sodium level 140 mEq/L 136-145 Sodium Level [facility] ([facility]) creatinine for GFR 0.87 mg/dL 0.55-1.30 Creatinine for GF R [facility] ([facility]) glomerular filtration rate > 60.0 >60 Glomerula r Filtration Rate [facility] ([facility]) potassium serum 4.6 mEq/L 3.5-5.1 Potassium Serum ATHE ([facility]) carbon dioxide level 29 mEq/L 21-32 Carbon Dioxide Level [facility] ([facility]) chloride level 104 mEq/L 98-107 Chloride Level [facility] ([facility]) anion gap 7 mEq/L 8-16 Below low normal Anion Gap Z[facility]A ( [facility]) calcium level 9.5 mg/dL 8.5-10.1 Calcium Level Z[facility]A ( [facility]) AST/SGOT 9 U/L 7-37 AST/SGOT [facility] ([facility]) total protein 7.2 gm/dL 6.4-8.2 Total Protein [facility]A ( [facility]) alkaline phosphatase 74 U/L 45-117 Alkaline Phosph atase [facility] ([facility]) ALT/SGPT 16 U/L 12-78 ALT/SGPT [facility] ([facility]) bilirubin,total 0.3 mg/dL 0.2-1.0 Bilirubin,total ATHE ([facility]) albumin 4.3 gm/dL 3.2-5.2 Albumin [facility] ([facility]) albumin/globulin ratio 1.2-2.2 Albumin/globu diego Ratio [facility] ([facility]) ID Date Data Source [id number] 05/12/2020 09:05:00 AM EST [facility] ([facility]) Name Value Range Interpretation Code Description Data Nena rce(s) Supporting Document(s) white blood count 7.9 10 4.0-10.0 White Blood Count [facility] ([facility]) red blood count 4.50 10 4.00-5.40 Red Blood Count ATHE ([facility]) hemoglobin 13.3 g/dL 12.0-15.5 Hemoglobin [facility]A ([facility]) hematocrit 40.3 % 36.0-47.0 Hematocrit [facility] ([facility]) mean corpuscular hemoglobin 29.6 pg 27.0-33.0 Mean Cor puscular Hemoglobin [facility] ([facility]) mean corpuscular volume 89.6 fL 80.0-96.0 Mean Corpusc ular Volume [facility]A ([facility]) red cell distribution width 12.5 % 11.5-14.5 Red Cell Distribution Width [facility] ([facility]) mean corpuscular HGB conc 33.0 g/dL 32.0-36.5 Mean Corpu scular HGB Conc [facility]A ([facility]) platelet count, automated 301 10 150-450 Platelet C ount, Automated [facility] ([facility]) neutrophils % 51.5 % 36.0-66.0 Neutrophils % Z[facility]A ( [facility]) mono % 8.9 % 0.0-5.0 Above high normal Cherry % [facility] ([facility]) lymph % 36.5 % 24.0-44.0 Lymph % [facility] ([facility]) eos % 2.2 % 0.0-3.0 Eos % [facility] ([facility]) baso % 0.6 % 0.0-1.0 Baso % [facility] ([facility]) immature granulocyte % 0.3 % 0-3.0 Immature Gran ulocyte % [facility] ([facility]) nucleated red blood cell % 0.0 % 0-0 Nucleated Red Blood Cell % [facility] ([facility]) neutrophils # 4.1 10 1.5-8.5 Neutrophils # [facility]A ( [facility]) mono # 0.7 10 0.0-0.8 Cherry # [facility] ([facility]) eos # 0.2 10 0.0-0.5 Eos # [facility] ([facility]) lymph # 2.9 10 1.5-5.0 Lymph # [facility] ([facility]) baso # 0.1 10 0.0-0.2 Baso # [facility] ([facility]) ID Date Data Source [id number] 05/12/2020 09:05:00 AM EST [facility] ([facility]) Name Value Range Interpretation Code Description Data Nena rce(s) Supporting Document(s) total 25(oh) vitamin D 22.6 NG/mL 30.0-100.0 Below low normal T otal 25(Oh) Vitamin D [facility] ([facility]) ID Date Data Source [id number] 05/12/2020 09:05:00 AM EST [facility] ([facility]) Name Value Range Interpretation Code Description Data Nena rce(s) Supporting Document(s) free T4 0.90 NG/dL 0.76-1.46 Free T4 [facility] ([facility]) thyroid stimulating hormone 1.920 uIU/mL 0.358-3.740 Thyroid Stimulating Hormone [facility] ([facility]) ID Date Data Source [id number] 05/12/2020 09:05:00 AM EST [facility] ([facility]) Name Value Range Interpretation Code Description Data Nena rce(s) Supporting Document(s) Cholesterol in LDL [Mass/volume] in Serum or Plasma 132 mg/dL <100 Above high normal LDL Cholesterol [facility] ([facility]) HDL cholesterol 60 mg/dL >40 HDL Cholesterol ATHE NA ([facility]) cholesterol level 213 mg/dL <200 Above high normal Cholesterol Level Z[facility]A ([facility]) triglycerides level 103 mg/dL <150 Triglycerides Le staci ZOILA ([facility]) non-HDL-C 153 mg/dL Non-hdl-c [facility] ([facility]) cholesterol risk ratio <5 Cholesterol R isk Ratio [facility] ([facility]) ID Date Data Source [id number] 05/12/2020 09:05:00 AM EST [facility] ([facility]) Name Value Range Interpretation Code Description Data Nena rce(s) Supporting Document(s) glomerular filtration rate > 60.0 >60 Glomerula r Filtration Rate [facility]A ([facility]) blood urea nitrogen 13 mg/dL 7-18 Blood Urea Nitro gen [facility]A ([facility]) creatinine for GFR 0.87 mg/dL 0.55-1.30 Creatinine for GF R Z[facility]A ([facility]) glucose, fasting 91 mg/dL 70-100 Glucose, Fasting AT [facility]) carbon dioxide level 29 mEq/L 21-32 Carbon Dioxide Level Z[facility]A ([facility]) sodium level 140 mEq/L 136-145 Sodium Level [facility] ([facility]) chloride level 104 mEq/L 98-107 Chloride Level Z[facility]A ([facility]) potassium serum 4.6 mEq/L 3.5-5.1 Potassium Serum ATHE ([facility]) AST/SGOT 9 U/L 7-37 AST/SGOT [facility] ([facility]) ALT/SGPT 16 U/L 12-78 ALT/SGPT [facility] ([facility]) anion gap 7 mEq/L 8-16 Below low normal Anion Gap Z[facility]A ( [facility]) calcium level 9.5 mg/dL 8.5-10.1 Calcium Level Z[facility]ILA ( [facility]) alkaline phosphatase 74 U/L 45-117 Alkaline Phosph atase [facility]A ([facility]) total protein 7.2 gm/dL 6.4-8.2 Total Protein [facility]A ( [facility]) bilirubin,total 0.3 mg/dL 0.2-1.0 Bilirubin,total ATHE NA ([facility]) albumin 4.3 gm/dL 3.2-5.2 Albumin [facility] ([facility]) albumin/globulin ratio 1.2-2.2 Albumin/globu diego Ratio [facility]A ([facility]) ID Date Data Source [id number] 05/12/2020 09:05:00 AM EST [facility] ([facility]) Name Value Range Interpretation Code Description Data Nena rce(s) Supporting Document(s) red blood count 4.50 10 4.00-5.40 Red Blood Count ATHE NA ([facility]) white blood count 7.9 10 4.0-10.0 White Blood Count Z[facility]A ([facility]) hematocrit 40.3 % 36.0-47.0 Hematocrit [facility]A ([facility]) hemoglobin 13.3 g/dL 12.0-15.5 Hemoglobin [facility]A ([facility]) mean corpuscular volume 89.6 fL 80.0-96.0 Mean Corpusc ular Volume [facility]A ([facility]) mean corpuscular hemoglobin 29.6 pg 27.0-33.0 Mean Cor puscular Hemoglobin [facility]A ([facility]) platelet count, automated 301 10 150-450 Platelet C ount, Automated [facility] ([facility]) mean corpuscular HGB conc 33.0 g/dL 32.0-36.5 Mean Corpu scular HGB Conc [facility]A ([facility]) red cell distribution width 12.5 % 11.5-14.5 Red Cell Distribution Width [facility] ([facility]) neutrophils % 51.5 % 36.0-66.0 Neutrophils % Z[facility]A ( [facility]) eos % 2.2 % 0.0-3.0 Eos % [facility] ([facility]) mono % 8.9 % 0.0-5.0 Above high normal Cherry % [facility] ([facility]) lymph % 36.5 % 24.0-44.0 Lymph % [facility] ([facility]) nucleated red blood cell % 0.0 % 0-0 Nucleated Red Blood Cell % [facility] ([facility]) baso % 0.6 % 0.0-1.0 Baso % [facility] ([facility]) immature granulocyte % 0.3 % 0-3.0 Immature Gran ulocyte % [facility] ([facility]) lymph # 2.9 10 1.5-5.0 Lymph # [facility] ([facility]) neutrophils # 4.1 10 1.5-8.5 Neutrophils # [facility]A ( [facility]) mono # 0.7 10 0.0-0.8 Cherry # [facility] ([facility]) eos # 0.2 10 0.0-0.5 Eos # [facility] ([facility]) baso # 0.1 10 0.0-0.2 Baso # [facility] ([facility]) ID Date Data Source [id number] 05/12/2020 09:05:00 AM EST [facility] ([facility]) Name Value Range Interpretation Code Description Data Nena rce(s) Supporting Document(s) total 25(oh) vitamin D 22.6 NG/mL 30.0-100.0 Below low normal T otal 25(Oh) Vitamin D [facility] ([facility]) ID Date Data Source [id number] 05/12/2020 09:05:00 AM EST [facility] ([facility]) Name Value Range Interpretation Code Description Data Nena rce(s) Supporting Document(s) thyroid stimulating hormone 1.920 uIU/mL 0.358-3.740 Thyroid Stimulating Hormone [facility]A ([facility]) free T4 0.90 NG/dL 0.76-1.46 Free T4 [facility] ([facility]) ID Date Data Source [id number] 05/12/2020 09:05:00 AM EST [facility]) Name Value Range Interpretation Code Description Data Nena rce(s) Supporting Document(s) triglycerides level 103 mg/dL <150 Triglycerides Le staci ZOILA ([facility]) cholesterol level 213 mg/dL <200 Above high normal Cholesterol Level Z[facility]A ([facility]) cholesterol risk ratio <5 Cholesterol R isk Ratio [facility] ([facility]) Cholesterol in LDL [Mass/volume] in Serum or Plasma 132 mg/dL <100 Above high normal LDL Cholesterol [facility] ([facility]) HDL cholesterol 60 mg/dL >40 HDL Cholesterol ATHE NA ([facility]) non-HDL-C 153 mg/dL Non-hdl-c [facility] ([facility]) ID Date Data Source [id number] 05/12/2020 09:05:00 AM EST [facility] ([facility]) Name Value Range Interpretation Code Description Data Nena rce(s) Supporting Document(s) glucose, fasting 91 mg/dL 70-100 Glucose, Fasting AT [facility] ([facility]) creatinine for GFR 0.87 mg/dL 0.55-1.30 Creatinine for GF R Z[facility]A ([facility]) blood urea nitrogen 13 mg/dL 7-18 Blood Urea Nitro gen [facility]A ([facility]) chloride level 104 mEq/L 98-107 Chloride Level [facility] ([facility]) potassium serum 4.6 mEq/L 3.5-5.1 Potassium Serum ATHE ([facility]) glomerular filtration rate > 60.0 >60 Glomerula r Filtration Rate Z[facility]A ([facility]) carbon dioxide level 29 mEq/L 21-32 Carbon Dioxide Level Z[facility]A ([facility]) sodium level 140 mEq/L 136-145 Sodium Level ZOILA (No [facility]) calcium level 9.5 mg/dL 8.5-10.1 Calcium Level ZOILA ( [facility]) anion gap 7 mEq/L 8-16 Below low normal Anion Gap Z[facility]A ( [facility]) AST/SGOT 9 U/L 7-37 AST/SGOT [facility] ([facility]) bilirubin,total 0.3 mg/dL 0.2-1.0 Bilirubin,total ATHE ([facility]) ALT/SGPT 16 U/L 12-78 ALT/SGPT [facility] ([facility]) alkaline phosphatase 74 U/L 45-117 Alkaline Phosph atase [facility]A ([facility]) total protein 7.2 gm/dL 6.4-8.2 Total Protein [facility]A ( [facility]) albumin 4.3 gm/dL 3.2-5.2 Albumin [facility]A ([facility]) albumin/globulin ratio 1.2-2.2 Albumin/globu diego Ratio [facility]A ([facility]) ID Date Data Source [id number] 05/12/2020 09:05:00 AM EST [facility]A ([facility]) Name Value Range Interpretation Code Description Data Nena rce(s) Supporting Document(s) white blood count 7.9 10 4.0-10.0 White Blood Count [facility]A ([facility]) red blood count 4.50 10 4.00-5.40 Red Blood Count ATHE NA ([facility]) hemoglobin 13.3 g/dL 12.0-15.5 Hemoglobin Z[facility]ILA ([facility]) hematocrit 40.3 % 36.0-47.0 Hematocrit [facility]A ([facility]) mean corpuscular hemoglobin 29.6 pg 27.0-33.0 Mean Cor puscular Hemoglobin [facility]A ([facility]) mean corpuscular HGB conc 33.0 g/dL 32.0-36.5 Mean Corpu scular HGB Conc [facility]A ([facility]) mean corpuscular volume 89.6 fL 80.0-96.0 Mean Corpusc ular Volume [facility]A ([facility]) platelet count, automated 301 10 150-450 Platelet C ount, Automated [facility]A ([facility]) neutrophils % 51.5 % 36.0-66.0 Neutrophils % ZOILA ( [facility]) red cell distribution width 12.5 % 11.5-14.5 Red Cell Distribution Width [facility]A ([facility]) mono % 8.9 % 0.0-5.0 Above high normal Cherry % Z[facility]A ([facility]) lymph % 36.5 % 24.0-44.0 Lymph % [facility] ([facility]) eos % 2.2 % 0.0-3.0 Eos % [facility] ([facility]) nucleated red blood cell % 0.0 % 0-0 Nucleated Red Blood Cell % Z[facility]A ([facility]) baso % 0.6 % 0.0-1.0 Baso % [facility] ([facility]) immature granulocyte % 0.3 % 0-3.0 Immature Gran ulocyte % [facility]A ([facility]) neutrophils # 4.1 10 1.5-8.5 Neutrophils # ZOILA ( [facility]) lymph # 2.9 10 1.5-5.0 Lymph # [facility]A ([facility]) mono # 0.7 10 0.0-0.8 Cherry # [facility]A ([facility]) eos # 0.2 10 0.0-0.5 Eos # [facility] ([facility]) baso # 0.1 10 0.0-0.2 Baso # [facility]A ([facility]) ID Date Data Source [id number] 05/12/2020 09:05:00 AM EST [facility]A ([facility]) Name Value Range Interpretation Code Description Data Nena rce(s) Supporting Document(s) total 25(oh) vitamin D 22.6 NG/mL 30.0-100.0 Below low normal T otal 25(Oh) Vitamin D [facility] ([facility]) ID Date Data Source [id number] 05/12/2020 09:05:00 AM EST [facility]ILA ([facility]) Name Value Range Interpretation Code Description Data Nena rce(s) Supporting Document(s) thyroid stimulating hormone 1.920 uIU/mL 0.358-3.740 Thyroid Stimulating Hormone [facility]A ([facility]) free T4 0.90 NG/dL 0.76-1.46 Free T4 [facility] ([facility]) ID Date Data Source [id number] 05/12/2020 09:05:00 AM EST [facility] ([facility]) Name Value Range Interpretation Code Description Data Nena rce(s) Supporting Document(s) HDL cholesterol 60 mg/dL >40 HDL Cholesterol ATHE ([facility]) triglycerides level 103 mg/dL <150 Triglycerides Le staci ZOILA ([facility]) cholesterol level 213 mg/dL <200 Above high normal Cholesterol Level ZOILA ([facility]) Cholesterol in LDL [Mass/volume] in Serum or Plasma 132 mg/dL <100 Above high normal LDL Cholesterol ZOILA ([facility]) cholesterol risk ratio <5 Cholesterol R isk Ratio Z[facility]A ([facility]) non-HDL-C 153 mg/dL Non-hdl-c [facility] ([facility]) ID Date Data Source [id number] 05/12/2020 09:05:00 AM EST ZOILA ([facility]) Name Value Range Interpretation Code Description Data Nena rce(s) Supporting Document(s) glucose, fasting 91 mg/dL 70-100 Glucose, Fasting AT [facility]) creatinine for GFR 0.87 mg/dL 0.55-1.30 Creatinine for GF R ZO[facility]A ([facility]) sodium level 140 mEq/L 136-145 Sodium Level ZOILA (No [facility]) glomerular filtration rate > 60.0 >60 Glomerula r Filtration Rate Z[facility]A ([facility]) blood urea nitrogen 13 mg/dL 7-18 Blood Urea Nitro gen [facility]A ([facility]) anion gap 7 mEq/L 8-16 Below low normal Anion Gap ZOILA ( [facility]) carbon dioxide level 29 mEq/L 21-32 Carbon Dioxide Level Z[facility]A ([facility]) chloride level 104 mEq/L 98-107 Chloride Level Z[facility]A ([facility]) potassium serum 4.6 mEq/L 3.5-5.1 Potassium Serum ATHE ([facility]) calcium level 9.5 mg/dL 8.5-10.1 Calcium Level [facility] ( [facility]) AST/SGOT 9 U/L 7-37 AST/SGOT [facility] ([facility]) alkaline phosphatase 74 U/L 45-117 Alkaline Phosph atase ZOILA ([facility]) bilirubin,total 0.3 mg/dL 0.2-1.0 Bilirubin,total ATHE NA ([facility]) ALT/SGPT 16 U/L 12-78 ALT/SGPT ZOILA ([facility]) albumin 4.3 gm/dL 3.2-5.2 Albumin ZOILA ([facility]) total protein 7.2 gm/dL 6.4-8.2 Total Protein ZOILA ( [facility]) albumin/globulin ratio 1.2-2.2 Albumin/globu diego Ratio ZOILA ([facility]) ID Date Data Source [id number] 05/12/2020 09:05:00 AM EST ZOILA ([facility]) Name Value Range Interpretation Code Description Data Nena rce(s) Supporting Document(s) white blood count 7.9 10 4.0-10.0 White Blood Count ZOILA ([facility]) red blood count 4.50 10 4.00-5.40 Red Blood Count ATHE ([facility]) mean corpuscular volume 89.6 fL 80.0-96.0 Mean Corpusc ular Volume ZOILA ([facility]) mean corpuscular hemoglobin 29.6 pg 27.0-33.0 Mean Cor puscular Hemoglobin ZOILA ([facility]) hematocrit 40.3 % 36.0-47.0 Hematocrit ZOILA ([facility]) hemoglobin 13.3 g/dL 12.0-15.5 Hemoglobin ZOILA ([facility]) red cell distribution width 12.5 % 11.5-14.5 Red Cell Distribution Width ZOILA ([facility]) platelet count, automated 301 10 150-450 Platelet C ount, Automated ZOILA ([facility]) mean corpuscular HGB conc 33.0 g/dL 32.0-36.5 Mean Corpu scular HGB Conc ZOILA ([facility]) lymph % 36.5 % 24.0-44.0 Lymph % ZOILA ([facility]) neutrophils % 51.5 % 36.0-66.0 Neutrophils % ZOILA ( [facility]) mono % 8.9 % 0.0-5.0 Above high normal Cherry % [place] ([facility]) eos % 2.2 % 0.0-3.0 Eos % [place] ([facility]) baso % 0.6 % 0.0-1.0 Baso % ZOILA ([facility]) nucleated red blood cell % 0.0 % 0-0 Nucleated Red Blood Cell % [place] ([facility]) immature granulocyte % 0.3 % 0-3.0 Immature Gran ulocyte % [place] ([facility]) neutrophils # 4.1 10 1.5-8.5 Neutrophils # [place] ( [facility]) lymph # 2.9 10 1.5-5.0 Lymph # ZOILA ([facility]) mono # 0.7 10 0.0-0.8 Cherry # ZOILA ([facility]) eos # 0.2 10 0.0-0.5 Eos # ZOILA ([facility]) baso # 0.1 10 0.0-0.2 Baso # ZOILA ([facility]) ID Date Data Source [id number] 01/25/2020 12:07:00 AM EDT [facility] Name Value Range Interpretation Code Description Data Nena rce(s) Supporting Document(s) HCT 39.3 % 36.0-47.0 N [facility] HGB 12.9 g/dL 12.0-15.5 N [facility] MCH 32.8 G/DL pg 32.0-36.5 N [facility] MCHC 29.3 PG % 27.0-33.0 N [facility] PLATELETS 288 10 10*3/mm3 150-450 N [facility] RBC 4.40 10 10*6/mm3 4.00-5.40 N [facility] RDW 12.4 % 11.5-14.5 N [facility] WBC TOTAL 9.6 4.0-10.0 N [facility] Procedure Social History No Information Vital Signs ID Date Data Source UNK Name Value Range Interpretation Code Description Data Source(s) Body height 61 [in_i] 61 [in_i] ZOILA ([facility]) Body height 61 [in_i] 61 [in_i] ZOILA ([facility]) Body height 61 [in_i] 61 [in_i] ZOILA ([facility]) Body height 61 [in_i] 61 [in_i] ZOILA ([facility]) Body height 61 [in_i] 61 [in_i] ZOILA ([facility]) Body height 61 [in_i] 61 [in_i] ZOILA ([facility]) Systolic blood pressure 136 mm[Hg] 136 mm[Hg] A [facility] ([facility]) Diastolic blood pressure 85 mm[Hg] 85 mm[Hg] ZOILA ([facility]) Body height 61 [in_i] 61 [in_i] ZOIAL ([facility]) Body mass index (BMI) [Ratio] 37.4 kg/m2 37.4 k g/m2 ZOILA ([facility]) Systolic blood pressure 136 mm[Hg] 136 mm[Hg] A [facility] ([facility]) Body weight 3170 [oz_av] 3170 [oz_av] ZOILA ([facility]) Diastolic blood pressure 85 mm[Hg] 85 mm[Hg] ZOILA ([facility]) Body height 61 [in_i] 61 [in_i] ZOILA ([facility]) Body mass index (BMI) [Ratio] 37.4 kg/m2 37.4 k g/m2 ZOILA ([facility]) Systolic blood pressure 136 mm[Hg] 136 mm[Hg] A [facility] ([facility]) Body weight 3170 [oz_av] 3170 [oz_av] ZOILA ([facility]) Diastolic blood pressure 85 mm[Hg] 85 mm[Hg] ZOILA ([facility]) Body height 61 [in_i] 61 [in_i] ZOILA ([facility]) Body mass index (BMI) [Ratio] 37.4 kg/m2 37.4 k g/m2 Z[facility]ILA ([facility]) Systolic blood pressure 136 mm[Hg] 136 mm[Hg] A THENA ([facility]) Body weight 3170 [oz_av] 3170 [oz_av] ZOILA ([facility]) Diastolic blood pressure 85 mm[Hg] 85 mm[Hg] ZOILA ([facility]) Body height 61 [in_i] 61 [in_i] ZOILA ([facility]) Body mass index (BMI) [Ratio] 37.4 kg/m2 37.4 k g/m2 ZOILA ([facility]) Systolic blood pressure 136 mm[Hg] 136 mm[Hg] A THENA ([facility]) Body weight 3170 [oz_av] 3170 [oz_av] ZOILA ([facility]) Diastolic blood pressure 85 mm[Hg] 85 mm[Hg] ZOILA ([facility]) Diastolic blood pressure 85 mm[Hg] 85 mm[Hg] ZOILA ([facility]) Body height 61 [in_i] 61 [in_i] ZOILA ([facility]) Body mass index (BMI) [Ratio] 37.4 kg/m2 37.4 k g/m2 ZOILA ([facility]) Body weight 3170 [oz_av] 3170 [oz_av] ZOILA ([facility]) Body height 61 [in_i] 61 [in_i] ZOILA ([facility]) Body mass index (BMI) [Ratio] 37.4 kg/m2 37.4 k g/m2 ZOILA ([facility]) Systolic blood pressure 136 mm[Hg] 136 mm[Hg] A THENA ([facility]) Body weight 3170 [oz_av] 3170 [oz_av] ZOILA ([facility]) Body height 61 [in_i] 61 [in_i] ZOILA ([facility]) Diastolic blood pressure 71 mm[Hg] 71 mm[Hg] ZOILA ([facility]) Body weight 2944 [oz_av] 2944 [oz_av] ZOILA ([facility]) Systolic blood pressure 109 mm[Hg] 109 mm[Hg] A THENA ([facility]) Body mass index (BMI) [Ratio] 34.8 kg/m2 34.8 k g/m2 ZOILA ([facility]) Systolic blood pressure 109 mm[Hg] 109 mm[Hg] A THENA ([facility]) Diastolic blood pressure 71 mm[Hg] 71 mm[Hg] ZOILA ([facility]) Body height 61 [in_i] 61 [in_i] ZOILA ([facility]) Body mass index (BMI) [Ratio] 34.8 kg/m2 34.8 k g/m2 ZOILA ([facility]) Body weight 2944 [oz_av] 2944 [oz_av] ZOILA ([facility]) Body weight 2944 [oz_av] 2944 [oz_av] ZOILA ([facility]) Diastolic blood pressure 71 mm[Hg] 71 mm[Hg] ZOILA ([facility]) Body height 61 [in_i] 61 [in_i] ZOILA ([facility]) Systolic blood pressure 109 mm[Hg] 109 mm[Hg] A THENA ([facility]) Body mass index (BMI) [Ratio] 34.8 kg/m2 34.8 k g/m2 ZOILA ([facility]) Diastolic blood pressure 71 mm[Hg] 71 mm[Hg] ZOILA ([facility]) Body height 61 [in_i] 61 [in_i] ZOILA ([facility]) Body mass index (BMI) [Ratio] 34.8 kg/m2 34.8 k g/m2 ZOILA ([facility]) Systolic blood pressure 109 mm[Hg] 109 mm[Hg] A THENA ([facility]) Body weight 2944 [oz_av] 2944 [oz_av] ZOILA ([facility]) Diastolic blood pressure 71 mm[Hg] 71 mm[Hg] ZOILA ([facility]) Body height 61 [in_i] 61 [in_i] ZOILA ([facility]) Body mass index (BMI) [Ratio] 34.8 kg/m2 34.8 k g/m2 ZOILA ([facility]) Systolic blood pressure 109 mm[Hg] 109 mm[Hg] A THENA ([facility]) Body weight 2944 [oz_av] 2944 [oz_av] ZOILA ([facility]) Diastolic blood pressure 71 mm[Hg] 71 mm[Hg] ZOILA ([facility]) Body height 61 [in_i] 61 [in_i] ZOILA ([facility]) Body mass index (BMI) [Ratio] 34.8 kg/m2 34.8 k g/m2 ZOILA ([facility]) Systolic blood pressure 109 mm[Hg] 109 mm[Hg] A THENA ([facility]) Body weight 2944 [oz_av] 2944 [oz_av] ZOILA ([facility]) Diastolic blood pressure 71 mm[Hg] 71 mm[Hg] ZOILA ([facility]) Body height 61 [in_i] 61 [in_i] ZOILA ([facility]) Body mass index (BMI) [Ratio] 34.8 kg/m2 34.8 k g/m2 ZOILA ([facility]) Systolic blood pressure 109 mm[Hg] 109 mm[Hg] A THENA ([facility]) Body weight 2944 [oz_av] 2944 [oz_av] ZOILA ([facility]) Diastolic blood pressure 71 mm[Hg] 71 mm[Hg] ZOILA ([facility]) Body height 61 [in_i] 61 [in_i] ZOILA ([facility]) Body mass index (BMI) [Ratio] 34.8 kg/m2 34.8 k g/m2 ZOILA ([facility]) Systolic blood pressure 109 mm[Hg] 109 mm[Hg] A THENA ([facility]) Body weight 2944 [oz_av] 2944 [oz_av] ZOILA ([facility]) Diastolic blood pressure 71 mm[Hg] 71 mm[Hg] ZOILA ([facility]) Body height 61 [in_i] 61 [in_i] ZOILA ([facility]) Body mass index (BMI) [Ratio] 34.8 kg/m2 34.8 k g/m2 ZOILA ([facility]) Systolic blood pressure 109 mm[Hg] 109 mm[Hg] A THENA ([facility]) Body weight 2944 [oz_av] 2944 [oz_av] ZOILA ([facility]) Body temperature 97.1 [degF] 97.1 [degF] MEDENT ([facility]) Body height 61 [in_i] 61 [in_i] MEDENT ([facility]) 5'1" Body weight 193.00 [lb_av] 193.00 [lb_av] MEDEN T ([facility]) Body mass index (BMI) [Ratio] 36.5 kg/m2 36.5 k g/m2 MEDENT ([facility]) Body height 61 [in_i] 61 [in_i] ZOILA ([facility]) Body height 61 [in_i] 61 [in_i] ZOILA ([facility]) Body height 61 [in_i] 61 [in_i] ZOILA ([facility]) Body height 61 [in_i] 61 [in_i] ZOILA ([facility]) Body height 61 [in_i] 61 [in_i] ZOILA ([facility]) Body height 61 [in_i] 61 [in_i] ZOILA ([facility]) Body height 61 [in_i] 61 [in_i] ZOILA ([facility]) Body height 61 [in_i] 61 [in_i] ZOILA ([facility]) Body height 61 [in_i] 61 [in_i] ZOILA ([facility]) Body height 61 [in_i] 61 [in_i] ZOILA ([facility]) Body height 61 [in_i] 61 [in_i] ZOILA ([facility]) Body height 61 [in_i] 61 [in_i] ZOILA ([facility]) Body height 61 [in_i] 61 [in_i] ZOILA ([facility]) Body height 61 [in_i] 61 [in_i] ZOILA ([facility]) Body height 61 [in_i] 61 [in_i] ZOILA ([facility]) Body height 61 [in_i] 61 [in_i] ZOILA ([facility]) Body height 61 [in_i] 61 [in_i] ZOILA ([facility]) Body height 61 [in_i] 61 [in_i] ZOILA ([facility]) Body height 61 [in_i] 61 [in_i] ZOILA ([facility]) Body height 61 [in_i] 61 [in_i] ZOILA ([facility]) Body height 61 [in_i] 61 [in_i] ZOILA ([facility]) Body height 61 [in_i] 61 [in_i] ZOILA ([facility]) Body height 61 [in_i] 61 [in_i] ZOILA ([facility]) Patient Treatment Plan of Care Planned Activity Planned Date Details Description Data Source (s) Wixela Inhub 250 mcg-50 mcg/dose powder for inhalation USE ONE INHALATION ONCE D UTD ZOILA ([facility]) Sertraline 50 MG Oral Tablet ZOILA ([facility]) Prednisone 20 MG Oral Tablet ZOILA ([facility]) Acetaminophen 325 MG / Oxycodone Hydrochloride 5 MG Oral Tablet ZOILA ([facility]) 24 HR Nicotine 0.583 MG/HR Transdermal Patch ZOILA ([facility]) Naproxen 500 MG Oral Tablet ZOILA ([facility]) moxifloxacin 5 MG/ML Ophthalmic Solution ZOILA ([facility]) methylprednisolone 4 mg tablets in a dose pack ZOILA ([facility]) Methocarbamol 750 MG Oral Tablet ZOILA ([facility]) gabapentin 300 MG Oral Capsule ZOILA ([facility]) Fluoxetine 10 MG Oral Capsule ZOILA ([facility]) buspirone hydrochloride 7.5 MG Oral Tablet ZOILA ([facility]) benzonatate 100 MG Oral Capsule ZOILA ([facility]) Baclofen 10 MG Oral Tablet A THENA ([facility]) Wixela Inhub 250 mcg-50 mcg/dose powder for inhalation USE ONE INHALATION ONCE D UTD ZOILA ([facility]) Sertraline 50 MG Oral Tablet ZOILA ([facility]) Prednisone 20 MG Oral Tablet ZO[facility]A ([facility]) Acetaminophen 325 MG / Oxycodone Hydrochloride 5 MG Oral Tablet ZOILA ([facility]) 24 HR Nicotine 0.583 MG/HR Transdermal Patch ZOILA ([facility]) moxifloxacin 5 MG/ML Ophthalmic Solution ZOILA ([facility]) methylprednisolone 4 mg tablets in a dose pack ZOILA ([facility]) Methocarbamol 750 MG Oral Tablet ZOILA ([facility]) gabapentin 300 MG Oral Capsule ZOILA ([facility]) Fluoxetine 10 MG Oral Capsule ZOILA ([facility]) buspirone hydrochloride 7.5 MG Oral Tablet ZOILA ([facility]) benzonatate 100 MG Oral Capsule ZOILA ([facility]) Baclofen 10 MG Oral Tablet A THENA ([facility]) Wixela Inhub 250 mcg-50 mcg/dose powder for inhalation USE ONE INHALATION ONCE D UTD ZOILA ([facility]) Prednisone 20 MG Oral Tablet ZOILA ([facility]) Acetaminophen 325 MG / Oxycodone Hydrochloride 5 MG Oral Tablet ZOILA ([facility]) 24 HR Nicotine 0.583 MG/HR Transdermal Patch ZOILA ([facility]) moxifloxacin 5 MG/ML Ophthalmic Solution ZOILA ([facility]) methylprednisolone 4 mg tablets in a dose pack ZOILA ([facility]) Methocarbamol 750 MG Oral Tablet ZOILA ([facility]) gabapentin 300 MG Oral Capsule ZOILA ([facility]) benzonatate 100 MG Oral Capsule ZOILA ([facility]) Baclofen 10 MG Oral Tablet A THENA ([facility]) Wixela Inhub 250 mcg-50 mcg/dose powder for inhalation USE ONE INHALATION ONCE D UTD ZOILA ([facility]) Sertraline 50 MG Oral Tablet ZOILA ([facility]) Prednisone 20 MG Oral Tablet ZOILA ([facility]) Acetaminophen 325 MG / Oxycodone Hydrochloride 5 MG Oral Tablet ZOILA ([facility]) 24 HR Nicotine 0.583 MG/HR Transdermal Patch ZOILA ([facility]) moxifloxacin 5 MG/ML Ophthalmic Solution ZOILA ([facility]) methylprednisolone 4 mg tablets in a dose pack ZOILA ([facility]) Methocarbamol 750 MG Oral Tablet ZOILA ([facility]) gabapentin 300 MG Oral Capsule ZOILA ([facility]) Fluoxetine 10 MG Oral Capsule ZOILA ([facility]) buspirone hydrochloride 7.5 MG Oral Tablet ZOILA ([facility]) benzonatate 100 MG Oral Capsule ZOILA ([facility]) Baclofen 10 MG Oral Tablet A THENA ([facility]) Wixela Inhub 250 mcg-50 mcg/dose powder for inhalation USE ONE INHALATION ONCE D UTD ZOILA ([facility]) Prednisone 20 MG Oral Tablet ZOILA ([facility]) Acetaminophen 325 MG / Oxycodone Hydrochloride 5 MG Oral Tablet ZOILA ([facility]) 24 HR Nicotine 0.583 MG/HR Transdermal Patch ZOILA ([facility]) moxifloxacin 5 MG/ML Ophthalmic Solution ZOILA ([facility]) methylprednisolone 4 mg tablets in a dose pack ZOILA ([facility]) Methocarbamol 750 MG Oral Tablet ZOILA ([facility]) gabapentin 300 MG Oral Capsule ZOILA ([facility]) benzonatate 100 MG Oral Capsule ZOILA ([facility]) Baclofen 10 MG Oral Tablet A THENA ([facility]) Wixela Inhub 250 mcg-50 mcg/dose powder for inhalation USE ONE INHALATION ONCE D UTD ZOILA ([facility]) Prednisone 20 MG Oral Tablet ZOILA ([facility]) Acetaminophen 325 MG / Oxycodone Hydrochloride 5 MG Oral Tablet ZOILA ([facility]) 24 HR Nicotine 0.583 MG/HR Transdermal Patch ZOILA ([facility]) moxifloxacin 5 MG/ML Ophthalmic Solution ZOILA ([facility]) methylprednisolone 4 mg tablets in a dose pack ZOILA ([facility]) Methocarbamol 750 MG Oral Tablet ZOILA ([facility]) gabapentin 300 MG Oral Capsule ZOILA ([facility]) benzonatate 100 MG Oral Capsule ZOILA ([facility]) Baclofen 10 MG Oral Tablet A THENA ([facility]) Wixela Inhub 250 mcg-50 mcg/dose powder for inhalation USE ONE INHALATION ONCE D UTD ZOILA ([facility]) Prednisone 20 MG Oral Tablet ZOILA ([facility]) 24 HR Nicotine 0.583 MG/HR Transdermal Patch ZOILA ([facility]) moxifloxacin 5 MG/ML Ophthalmic Solution ZOILA ([facility]) gabapentin 300 MG Oral Capsule ZOILA ([facility]) benzonatate 100 MG Oral Capsule ZOILA ([facility]) Baclofen 10 MG Oral Tablet A THENA ([facility]) Wixela Inhub 250 mcg-50 mcg/dose powder for inhalation USE ONE INHALATION ONCE D UTD ZOILA ([facility]) Prednisone 20 MG Oral Tablet ZOILA ([facility]) 24 HR Nicotine 0.583 MG/HR Transdermal Patch ZOILA ([facility]) moxifloxacin 5 MG/ML Ophthalmic Solution ZOILA ([facility]) gabapentin 300 MG Oral Capsule ZOILA ([facility]) benzonatate 100 MG Oral Capsule ZOILA ([facility]) Baclofen 10 MG Oral Tablet A THENA ([facility]) Wixela Inhub 250 mcg-50 mcg/dose powder for inhalation USE ONE INHALATION ONCE D UTD ZOILA ([facility]) Prednisone 20 MG Oral Tablet ZOILA ([facility]) 24 HR Nicotine 0.583 MG/HR Transdermal Patch ZOILA ([facility]) moxifloxacin 5 MG/ML Ophthalmic Solution ZOILA ([facility]) gabapentin 300 MG Oral Capsule ZOILA ([facility]) benzonatate 100 MG Oral Capsule ZOILA ([facility]) Baclofen 10 MG Oral Tablet A THENA [facility])
[2021-02-13] MEDS ORDERED: LIDOCAINE 5% (LIDODERM) PATCH TD ONE (08:10)
[2021-02-13] MEDS ORDERED: ACETAMINOPHEN 500 MG TAB PO ONE (08:10)
--- NOTE | 2021-02-13 09:06 | REP ---
INDICATION: Low back pain s/p slipping on floor, no fall. COMPARISON: 07/18/2020 TECHNIQUE: Five views FINDINGS: Vertebral body height and alignment is unchanged. The disc spaces are unchanged. The pedicles are again seen to be intact bilaterally. IMPRESSION: No acute osseous abnormality. <Electronically signed by Beau Francis > 02/13/21 [id number]
--- NOTE | 2021-02-13 09:07 | REP ---
INDICATION: R hip pain s/p slipping on floor, no fall. COMPARISON: None TECHNIQUE: AP pelvis two views right hip FINDINGS: The femoral heads are spherical in shape and symmetric in appearance. The joint spaces are symmetric and well maintained. There is no fracture, dislocation, or subluxation. IMPRESSION: No acute osseous abnormality <Electronically signed by Beau Francis > 02/13/21 [id number]
--- NOTE | 2021-02-13 09:08 | REP ---
INDICATION: R knee pain s/p slipping on floor, no fall, h/o R ACL repair COMPARISON: 07/18/2014 TECHNIQUE: Five views FINDINGS: Status post ACL reconstruction status quo. Mature tunnel defects seen 1 in the distal femur and the other in the proximal tibia status quo. There is no acute fracture or destructive osseous lesion. There is no significant change from the prior exam. IMPRESSION: No acute osseous abnormality. <Electronically signed by Beau Francis > 02/13/21 0967
[2021-02-13 09:18] VITALS: BP 118/68
[2021-02-13] MEDS ORDERED: BOOSTRIX/ADACEL VACCINE (DIPHTH/PERTUSS/ACELL/TETANUS) 0.5ML SYR IM ONE (09:50)
[2021-02-13] MEDS ORDERED: LIDO5DIS41 TOP (09:52)
[2021-02-13] MEDS ORDERED: **NOTE PATIENT COMMENT** MISC XX ONE (21:00)
== END 2021-02-13 10:10 | disposition home or self-care (01) ==
LOC: M ED 03:05
DX: S39.012A Strain of muscle, fascia and tendon of lower back, initial encounter (principal); S76.011A Strain of muscle, fascia and tendon of right hip, initial encounter; S83.91XA Sprain of unspecified site of right knee, initial encounter; W01.0XXA Fall on same level from slipping, tripping and stumbling without subsequent striking against object, initial encounter; Y92.89 Other specified places as the place of occurrence of the external cause; Y99.0 Civilian activity done for income or pay; G89.29 Other chronic pain; J45.909 Unspecified asthma, uncomplicated; M51.9 Unspecified thoracic, thoracolumbar and lumbosacral intervertebral disc disorder; F33.9 Major depressive disorder, recurrent, unspecified; F41.9 Anxiety disorder, unspecified; Z79.899 Other long term (current) drug therapy; Z88.0 Allergy status to penicillin; Z88.1 Allergy status to other antibiotic agents; F17.210 Nicotine dependence, cigarettes, uncomplicated

== ENCOUNTER 2021-03-14 09:15 | Outpatient (RCR) | payer OTHER ==
[~2021-03-14 09:15] MED LIST changes: -FLUO10CA16; +FLUO10CA18; +LIDO5DIS41 TOP; +ZOLO100T PO
== END 2021-03-15 ==
LOC: M PT 09:15
PROVIDERS: ATTEND Physician Assistant Surgical
DX: S80.01XA Contusion of right knee, initial encounter (principal)

== ENCOUNTER 2022-07-01 17:34 | Emergency (ER) | payer BC, OTHER ==
[~2022-07-01] VITALS: Ht 157.5 cm; Wt 71.4 kg
[~2022-07-01 17:34] MED LIST changes: +NYST-38 SS; -NYST50SS SS
[2022-07-01 17:35] VITALS: BP 144/86
[2022-07-01 18:46] LABS: ETHYL ALCOHOL (ETHANOL) < 0.003 % (0.000-0.010); LIPASE 68 U/L (12-53)
[2022-07-01 18:52] LABS: INR 0.88; PROTHROMBIN TIME 12.1 SECONDS (12.5-14.5)
[2022-07-01 18:52] LABS: CK-MB VALUE MASS < 1.0 NG/ML (<3.6)
[2022-07-01 18:53] LABS: PARTIAL THROMBOPLASTIN TIME 25.6 SECONDS (24.8-34.2)
[2022-07-01 18:54] LABS: ALBUMIN 4.2 G/DL (3.2-5.2); ALKALINE PHOSPHATASE 72 U/L (46-116); ALT/SGPT 12 U/L (7.0-40); AST/SGOT 15 U/L (<34); BILIRUBIN,DIRECT < 0.1 MG/DL (<0.4); BILIRUBIN,TOTAL 0.3 MG/DL (0.3-1.2); BLOOD UREA NITROGEN 9 MG/DL (9-23); CALCIUM LEVEL 9.4 MG/DL (8.5-10.1); CARBON DIOXIDE LEVEL 23 MMOL/L (20-31); CHLORIDE LEVEL 103 MMOL/L (98-107); CREATININE FOR GFR 0.88 MG/DL (0.55-1.30); GLOMERULAR FILTRATION RATE > 60.0 (>60); GLUCOSE, FASTING 99 MG/DL (60-100); POTASSIUM SERUM 3.8 MMOL/L (3.5-5.1); SODIUM LEVEL 137 MMOL/L (136-145); TOTAL PROTEIN 7.2 G/DL (5.7-8.2)
[2022-07-01 18:56] LABS: AMPHETAMINES LEVEL URINE NEGATIVE (NEGATIVE); BARBITURATES URINE NEGATIVE (NEGATIVE); BENZODIAZEPINES URINE NEGATIVE (NEGATIVE); CANNABINOIDS URINE NEGATIVE (NEGATIVE); COCAINE METABOLITE URINE NEGATIVE (NEGATIVE); METHADONE URINE NEGATIVE (NEGATIVE); OPIATES URINE NEGATIVE (NEGATIVE); PHENCYCLIDINE URINE NEGATIVE (NEGATIVE)
[2022-07-01 18:57] LABS: CPK CREATINE PHOSPHOKINASE 112 U/L (34-145); MB/CK RELATIVE INDEX 0.89 (< OR =4); THYROID STIMULATING HORMONE 1.686 uIU/ML (0.55-4.78)
[2022-07-01 18:59] LABS: RSV AMPLIFICATION NEGATIVE (NEGATIVE)
[2022-07-01 19:02] LABS: HCG, SERUM QUALITATIVE NEGATIVE (NEGATIVE)
[2022-07-01 19:15] LABS: BASO % 0.4 % (0.0-1.0); EOS # 0.1 10^3/uL (0.0-0.5); EOS % 0.9 % (0.0-3.0); HEMOGLOBIN 13.3 g/dl (12.0-15.5); LYMPH % 19.9 % (24.0-44.0); MEAN CORPUSCULAR HEMOGLOBIN 30.2 pg (27.0-33.0); MEAN CORPUSCULAR HGB CONC 34.1 g/dl (32.0-36.5); MEAN CORPUSCULAR VOLUME 88.6 fl (80.0-96.0); MONO # 0.6 10^3/uL (0.0-0.8); MONO % 6.2 % (2.0-8.0); NEUTROPHILS # 7.4 10^3/uL (1.5-8.5); NEUTROPHILS % 72.3 % (36.0-66.0); PLATELET COUNT, AUTOMATED 288 10^3/uL (150-450); WHITE BLOOD COUNT 10.2 10^3/uL (4.0-10.0)
[2022-07-01 19:33] LABS: CK-MB VALUE MASS < 1.0 NG/ML (<3.6)
[2022-07-01 19:43] LABS: CPK CREATINE PHOSPHOKINASE 99 U/L (34-145); MB/CK RELATIVE INDEX 1.01 (< OR =4)
== END 2022-07-01 20:15 | disposition home or self-care (01) ==
LOC: M ED 17:34
DX: R00.2 Palpitations (principal); R10.9 Unspecified abdominal pain; J45.909 Unspecified asthma, uncomplicated; F41.9 Anxiety disorder, unspecified; Z88.0 Allergy status to penicillin; Z88.1 Allergy status to other antibiotic agents; Z79.51 Long term (current) use of inhaled steroids; Z79.899 Other long term (current) drug therapy

== ENCOUNTER 2022-07-17 19:01 | Emergency (ER) | payer OTHER, BC ==
[~2022-07-17] VITALS: Ht 160 cm; Wt 74.0 kg
[2022-07-17] MEDS ORDERED: LIDOCAINE 5% (LIDODERM) PATCH TD ONE (20:00)
[2022-07-17] MEDS ORDERED: KETOROLAC 60MG 2ML VIAL IM ONE (20:00)
[2022-07-17] MEDS ORDERED: PERCOCET 5MG/325MG TAB PO ONE (20:55)
[2022-07-17] MEDS ORDERED: CYCLOBENZAPRINE 10MG TABLET PO ONE (20:55)
[2022-07-17] MEDS ORDERED: LIDO5DIS41 TD (20:56)
[2022-07-17] MEDS ORDERED: CYCL-707 PO (20:56)
[2022-07-17] MEDS ORDERED: KETO10TAB PO (20:56)
[2022-07-17 21:05] VITALS: BP 134/80
== END 2022-07-17 21:07 | disposition home or self-care (01) ==
LOC: M ED 19:01
DX: M54.41 Lumbago with sciatica, right side (principal); J45.909 Unspecified asthma, uncomplicated; F41.9 Anxiety disorder, unspecified; F32.A Depression, unspecified; Z88.0 Allergy status to penicillin; Z88.1 Allergy status to other antibiotic agents; F17.290 Nicotine dependence, other tobacco product, uncomplicated; Z79.899 Other long term (current) drug therapy
CPT/HCPCS: 96372; 99283; J1885

== ENCOUNTER 2023-03-04 17:11 | Emergency (ER) | payer BC, OTHER ==
[~2023-03-04] VITALS: Ht 157.5 cm; Wt 69.1 kg
[~2023-03-04 17:11] MED LIST changes: +KETO10TAB PO; +LIDO5DIS41 TD
[2023-03-04] MEDS ORDERED: predniSONE 20 MG TAB PO ONE (19:25)
[2023-03-04] MEDS ORDERED: KETOROLAC 30 MG/ML 1ML VIAL IV ONE (19:25)
[2023-03-04] MEDS ORDERED: methocarbamoL 500 MG TAB PO ONE (19:25)
[2023-03-04] MEDS ORDERED: IBUP-1022 PO (23:58)
[2023-03-04] MEDS ORDERED: METH-1164 PO (23:58)
[2023-03-04] MEDS ORDERED: MEDR4PAK PO (23:58)
[2023-03-04] MEDS ORDERED: LIDO5DIS41 TOP (23:58)
[2023-03-05 00:45] VITALS: BP 115/66; TEMP 98; O2SAT 98
[2023-03-05] MEDS ORDERED: LIDOCAINE 5% (LIDODERM) PATCH TD ONE (00:55)
== END 2023-03-05 01:30 | disposition home or self-care (01) ==
LOC: M ED 17:11
DX: M51.26 Other intervertebral disc displacement, lumbar region (principal); F17.200 Nicotine dependence, unspecified, uncomplicated; Z88.0 Allergy status to penicillin; Z88.1 Allergy status to other antibiotic agents
CPT/HCPCS: 72148; 96374; 99284; J1885; J7512

== ENCOUNTER → 2023-06-07 | Outpatient (REF) | payer BC ==
[~2023-06-07] MED LIST changes: +MEDR4PAK PO; +METH-1164 PO
[2023-06-07 17:17] LABS: BASO # 0.1 10^3/uL (0.0-0.2); BASO % 0.7 % (0.0-1.0); EOS # 0.1 10^3/uL (0.0-0.5); EOS % 1.6 % (0.0-3.0); HEMATOCRIT 39.4 % (36.0-47.0); HEMOGLOBIN 12.9 g/dl (12.0-15.5); LYMPH # 1.9 10^3/uL (1.5-5.0); LYMPH % 27.9 % (24.0-44.0); MEAN CORPUSCULAR HEMOGLOBIN 29.4 pg (27.0-33.0); MEAN CORPUSCULAR HGB CONC 32.7 g/dl (32.0-36.5); MEAN CORPUSCULAR VOLUME 89.7 fl (80.0-96.0); MONO # 0.5 10^3/uL (0.0-0.8); MONO % 6.8 % (2.0-8.0); NEUTROPHILS # 4.3 10^3/uL (1.5-8.5); NEUTROPHILS % 62.7 % (36.0-66.0); PLATELET COUNT, AUTOMATED 262 10^3/uL (150-450); RED BLOOD COUNT 4.39 10^6/uL (4.00-5.40); WHITE BLOOD COUNT 6.8 10^3/uL (4.0-10.0)
[2023-06-07 17:41] LABS: HEMOGLOBIN A1c 5.2 % (4.0-6.0)
[2023-06-07 17:54] LABS: ALBUMIN 3.7 G/DL (3.2-5.2); ALKALINE PHOSPHATASE 65 U/L (46-116); ALT/SGPT 14 U/L (7.0-40); AST/SGOT 11 U/L (<34); BILIRUBIN,TOTAL 0.3 MG/DL (0.3-1.2); BLOOD UREA NITROGEN 8 MG/DL (9-23); CALCIUM LEVEL 8.9 MG/DL (8.5-10.1); CARBON DIOXIDE LEVEL 27 MMOL/L (20-31); CHLORIDE LEVEL 109 MMOL/L (98-107); CHOLESTEROL LEVEL 204 MG/DL (<200); CHOLESTEROL RISK RATIO 3.47 (<5); GLOMERULAR FILTRATION RATE > 60.0 (>60); GLUCOSE, FASTING 84 MG/DL (60-100); HDL CHOLESTEROL 58.7 MG/DL (>40); LDL CHOLESTEROL 128.9 MG/DL (<100); NON-HDL-C 145.3 MG/DL; POTASSIUM SERUM 4.8 MMOL/L (3.5-5.1); SODIUM LEVEL 138 MMOL/L (136-145); TOTAL PROTEIN 6.8 G/DL (5.7-8.2); TRIGLYCERIDES LEVEL 82 MG/DL (<150)
[2023-06-07 17:55] LABS: THYROID STIMULATING HORMONE 1.816 uIU/ML (0.55-4.78); TOTAL 25(OH) VITAMIN D 16.4 NG/ML (20.0-100.0)
== END ==
LOC: M LAB REF 16:14
PROVIDERS: ATTEND Nurse Practitioner Family
DX: E66.3 Overweight (principal); E55.9 Vitamin D deficiency, unspecified; R53.83 Other fatigue; Z11.9 Encounter for screening for infectious and parasitic diseases, unspecified